=== PATIENT | male | born 1965 | race Caucasian/White ===

== ENCOUNTER 2016-11-06 12:28 | Emergency (ER) | payer OTHER ==
[~2016-11-06] VITALS: Ht 170.1 cm; Wt 59.0 kg
[~2016-11-06 12:28] MED LIST: ACYCLOVIR400 MG PO; ADDERALL5 MG PO; AMARYL2 MG PO; AMOXICILLIN500 MG PO; ANTIVERT25 MG PO; ASPIR-TRIN325 MG PO; ASPIRIN325 MG PO; ATARAX,VISTARIL50 MG PO; AVPAK AZITHROM250 MG PO; B-1100 MG PO; BENADRYL ALLERG25 M5 PO; BP MED; BUSPAR15 MG PO; CLARITIN10 MG PO; CLONAZEPAM1 MG PO; CLONAZEPAM2 MG PO; CYCLOBENZAPR TAB 10M; CYCLOBENZAPRINE10 MG PO; DOXYCYCLINE HY100 M3 PO; DOXYCYCLINE100 MG PO; FLEXERIL10 MG PO; FLEXERIL5 MG PO; FLUTICASON0.05 MG/AC NAS; FOLIC ACID1 MG PO; GABAPENTIN300 MG PO; GABAPENTIN400 MG PO; GEODON80 MG PO; GLIPIZIDE5 MG PO; GLUCOPHAGE1000 MG PO; GLUCOPHAGE500 M1 PO; HYDROCODONE BIT1 T11 PO; INSULIN SYRINGE1 DEV IJ; JANUVIA100 MG PO; KLONOPIN1 M1 PO; KLONOPIN2 MG; KLONOPIN2 MG PO; LANTUS100 U/ML SC; LEADER NIC21 MG/24 H TD; LEVAQUIN750 M1 PO; LEVOFLOXACIN500 MG PO; LISINOPRIL2.5 MG PO; LOPRESSOR25 MG PO; Lopressor25 MG PO; MELATONIN5 M7 PO; METFORMIN500 MG PO; METOPROLOL25 MG PO; MOTRIN800 MG PO; NAPROSYN250 MG PO; NASONEX0.05 MG/AC NAS; NORCO 325 MG-51 TAB PO; ONDANSETRON4 MG PO; OYSTER SHELL CA1 T20 PO; PEN-V500 MG PO; PEPCID20 MG PO; PREDNISONE10 MG PO; PREVACID30 M2 PO; PRILOSEC20 MG PO; SIMVASTATIN20 MG PO; SYNTHROID,LEVO25 MCG PO; SYNTHROID25 MCG PO; THERA1 TAB PO; TRAD5TAB1 PO; ULTRAM50 MG PO; VICODIN 5/500 505 MG PO; VISTARIL50 MG PO; VIT D2 PO; VITAMIN B-11 TAB PO; VITAMIN D50000 IU PO; ZIPRASIDONE; ZOCOR20 MG PO; ZOVIRAX400 MG PO
[2016-11-06] MEDS ORDERED: HYDROCODONE BIT1 T11 PO (14:10)
[2016-12-30] MEDS ORDERED: PEPCID20 MG PO (14:19)
== END 2016-11-06 14:18 | disposition home or self-care (01) ==
LOC: ED 12:28
DX: S22.31XA Fracture of one rib, right side, initial encounter for closed fracture (principal); E11.9 Type 2 diabetes mellitus without complications; I10 Essential (primary) hypertension; F17.200 Nicotine dependence, unspecified, uncomplicated; Z98.890 Other specified postprocedural states; Z79.4 Long term (current) use of insulin; Z91.041 Radiographic dye allergy status; W10.9XXA Fall (on) (from) unspecified stairs and steps, initial encounter; Y93.89 Activity, other specified; Y92.89 Other specified places as the place of occurrence of the external cause; Y99.9 Unspecified external cause status

== ENCOUNTER 2017-08-11 08:55 | Emergency (ER) | payer OTHER ==
[~2017-08-11] VITALS: Ht 170.1 cm; Wt 72.6 kg
[2017-08-11 09:44] LABS: BASO # 0.1 10*3/uL (0.0-0.1); BASO % 0.9 % (0.0-1.0); EOS # 0.7 10*3/uL (0.0-0.4); EOS % 7.2 % (1.0-4.0); HEMATOCRIT 45.4 % (42.0-52.0); HEMOGLOBIN 16.2 g/dl (14.0-18.0); LYMPH % 30.2 % (27.0-41.0); MEAN CELL VOLUME 90.6 fl (80.0-94.0); MEAN CORPUSCULAR HGB 32.3 pg (27.0-31.0); MEAN CORPUSCULAR HGB CONC 35.7 g/dl (33.0-37.0); MEAN PLATELET VOLUME 8.4 fl (9.6-12.3); MONO # 0.7 10*3/uL (0.1-1.0); MONO % 6.9 % (3.0-9.0); NEUT # 5.3 10*3/uL (2.3-7.9); NEUT % 54.5 % (47.0-73.0); PLATELET COUNT AUTOMATED 277 10*3/uL (130-400); RED BLOOD COUNT 5.01 10*6/uL (4.50-5.90); RED CELL DISTRI WIDTH 13.2 % (0-14.5); WHITE BLOOD COUNT 9.8 10*3/uL (4.8-10.8)
[2017-08-11 09:59] LABS: ALBUMIN 3.8 gm/dl (3.1-4.5); ALKALINE PHOSPHATASE 120 U/L (45-117); BUN 6 mg/dl (7-24); CHLORIDE 99 mmol/L (98-107); MAGNESIUM 1.4 mg/dL (1.5-2.1); POTASSIUM 4.7 mmol/L (3.5-5.1); SGOT/AST 25 IU/L (3-35); SGPT/ALT 34 U/L (12-78); SODIUM 131 mmol/L (136-145); TOTAL PROTEIN 7.5 gm/dL (6.4-8.2)
[2017-08-11 10:00] LABS: TROPONIN I < 0.015 ng/ml (<0.045)
[2017-08-11] MEDS ORDERED: DUONEB 3 MG/3 ML3 M1 INH (11:00)
[2017-08-11] MEDS ORDERED: PREDNISONE20 M1 PO (11:00)
[2017-08-11] MEDS ORDERED: VIBRAMYCIN100 MG PO (11:00)
== END 2017-08-11 11:18 | disposition home or self-care (01) ==
LOC: ED 08:55
PROVIDERS: Nurse Practitioner Family
DX: J44.1 Chronic obstructive pulmonary disease with (acute) exacerbation (principal); F17.200 Nicotine dependence, unspecified, uncomplicated; Z91.041 Radiographic dye allergy status; Z79.899 Other long term (current) drug therapy

== ENCOUNTER 2017-08-14 01:02 | Inpatient (IN) | payer OTHER ==
[2017-08-14] VITALS (7 sets, daily range): BP systolic 113–149; BP diastolic 65–84
[~2017-08-14] VITALS: Ht 170.1 cm; Wt 67.7 kg
[~2017-08-14 01:02] MED LIST changes: +DUONEB 3 MG/3 ML3 M1 INH; +PREDNISONE20 M1 PO; +VIBRAMYCIN100 MG PO
[2017-08-14 01:31] LABS: BASO % 0.2 % (0.0-1.0); EOS # 0.1 10*3/uL (0.0-0.4); EOS % 0.9 % (1.0-4.0); HEMATOCRIT 44.4 % (42.0-52.0); HEMOGLOBIN 15.5 g/dl (14.0-18.0); LYMPH # 3.3 10*3/uL (1.3-4.4); LYMPH % 22.7 % (27.0-41.0); MEAN CELL VOLUME 92.3 fl (80.0-94.0); MEAN CORPUSCULAR HGB 32.2 pg (27.0-31.0); MEAN CORPUSCULAR HGB CONC 34.9 g/dl (33.0-37.0); MEAN PLATELET VOLUME 8.6 fl (9.6-12.3); MONO # 1.2 10*3/uL (0.1-1.0); MONO % 8.4 % (3.0-9.0); NEUT # 9.7 10*3/uL (2.3-7.9); NEUT % 67.5 % (47.0-73.0); PLATELET COUNT AUTOMATED 252 10*3/uL (130-400); RED BLOOD COUNT 4.81 10*6/uL (4.50-5.90); RED CELL DISTRI WIDTH 13.5 % (0-14.5); WHITE BLOOD COUNT 14.4 10*3/uL (4.8-10.8)
[2017-08-14 01:51] LABS: ALBUMIN 3.5 gm/dl (3.1-4.5); ALKALINE PHOSPHATASE 109 U/L (45-117); BUN 9 mg/dl (7-24); CHLORIDE 93 mmol/L (98-107); CREATININE 0.76 mg/dL (0.70-1.30); POTASSIUM 4.2 mmol/L (3.5-5.1); SGOT/AST 14 IU/L (3-35); SGPT/ALT 29 U/L (12-78); SODIUM 128 mmol/L (136-145); TOTAL PROTEIN 7.1 gm/dL (6.4-8.2)
[2017-08-14 01:53] LABS: TROPONIN I < 0.015 ng/ml (<0.045)
--- NOTE | 2017-08-14 02:23 | NUR ---
PATIENT WITH INITIAL CHESP PAIN UPON ARRIVAL STATES IT IS MORE EPIGATRIC NOW "LIKE A BURNING" PT SITTING IN HIGH FOWLERS ON AT 3LPM
--- NOTE | 2017-08-14 04:00 | NUR ---
A 51, admitted to 5E, under the services of KELSI Car DO with a diagnosis of HYPERGLYCEMIA, HYPONATREMIA, COPD EXACERBATION, CHEST PAIN. Chief complaint is SHORTNESS OF BREATH. Patient arrived via bed from ER. Monitor applied. Initial assessment completed. Vital signs taken and recorded. KELSI CAR DO notified of admission to the unit. Orders received. See assessment for past medical history, medications and allergies. Patient and/or family oriented to unit. visitation policy reviewed. Clothing/patient valuable form completed. ARISTIDES MARTINEZ
--- NOTE | 2017-08-14 04:33 | NUR ---
DR. TATUM NOTIFIED OF ADMISSION TO FLOOR FOR ORDERS. MEDICATIONS NEED VERIFIED FROM HERSCHE BLOORS ON 7A SHIFT. WILL PASS ON TO DAYLIGHT NURSE.
[2017-08-14 06:19] LABS: BASO % 0.3 % (0.0-1.0); EOS # 0.2 10*3/uL (0.0-0.4); HEMATOCRIT 45.4 % (42.0-52.0); HEMOGLOBIN 15.8 g/dl (14.0-18.0); LYMPH # 3.8 10*3/uL (1.3-4.4); LYMPH % 25.8 % (27.0-41.0); MEAN CELL VOLUME 91.5 fl (80.0-94.0); MEAN CORPUSCULAR HGB 31.9 pg (27.0-31.0); MEAN CORPUSCULAR HGB CONC 34.8 g/dl (33.0-37.0); MONO # 1.1 10*3/uL (0.1-1.0); MONO % 7.7 % (3.0-9.0); NEUT # 9.6 10*3/uL (2.3-7.9); NEUT % 64.7 % (47.0-73.0); PLATELET COUNT AUTOMATED 295 10*3/uL (130-400); RED BLOOD COUNT 4.96 10*6/uL (4.50-5.90); RED CELL DISTRI WIDTH 13.4 % (0-14.5); WHITE BLOOD COUNT 14.8 10*3/uL (4.8-10.8)
[2017-08-14 06:42] LABS: ALBUMIN 3.6 gm/dl (3.1-4.5); ALKALINE PHOSPHATASE 118 U/L (45-117); BUN 9 mg/dl (7-24); CHLORIDE 94 mmol/L (98-107); CHOLESTEROL 102 mg/dL (<200); CREATININE 0.76 mg/dL (0.70-1.30); FREE T4 1.16 ng/dl (0.76-1.46); HDL CHOLESTEROL 65 mg/dl (40-60); LDL CHOLESTEROL 15 mg/dL (9-159); MAGNESIUM 1.5 mg/dL (1.5-2.1); PHOSPHOROUS 1.9 mg/dL (2.5-4.9); POTASSIUM 3.8 mmol/L (3.5-5.1); SGOT/AST 15 IU/L (3-35); SGPT/ALT 28 U/L (12-78); SODIUM 128 mmol/L (136-145); TOTAL PROTEIN 7.5 gm/dL (6.4-8.2); TRIGLYCERIDES 110 mg/dl (<150); VLDL CHOLESTEROL 22 mg/dL (6-40)
[2017-08-14 06:46] LABS: ACT PARTIAL THROMBO TIME 24.6 SECONDS (20.8-31.5)
[2017-08-14 06:47] LABS: THYROID STIM HORMONE (HS) 0.788 uIU/ml (0.358-4.75)
--- NOTE | 2017-08-14 07:47 | NUR ---
Shift chart check completed.
[2017-08-14] MEDS ORDERED: OMEPRAZOLE10 MG PO (08:15)
[2017-08-14] MEDS ORDERED: ZESTRIL2.5 MG PO (08:18)
[2017-08-14] MEDS ORDERED: ATIVAN1 MG PO (08:18)
[2017-08-14] MEDS ORDERED: VITAMIN D32000 UNI1 PO (08:20)
--- NOTE | 2017-08-14 08:22 | NUR ---
MEDS VERIFIED WITH BOTTLES FROM HOME. PHARMACY IS [facility] AND THEY ARE NOT OPEN UNTIL TUESDAY AM. ONLY MEDS THAT BOTTLES WERE PROVIDED WERE VERIFIED.
--- NOTE | 2017-08-14 08:30 | NUR ---
WENT IN PATIENT'S ROOM. HE IS SWEATING PROFUSELY. CHECKED HIS BGM. IT WAS 137. CHECKED HIS VITAL SIGNS. THEY ARE 97.8-80-24-145/90-94% ON 3L NC. PATIENT THINKS HE IS HAVING A PANIC ATTACK. NOTIFIED DR LEVIN.
--- NOTE | 2017-08-14 08:50 | NUR ---
DR Francis MILNER CALLED AND ASKED WHEN PATIENT'S LAST DRINK WAS. HE STATED THAT PATIENT IS AN ALCOHOLIC. I WAS UNAWARE. I WENT IN AND SPOKE WITH THE PATIENT. HE ADVISED HE ONLY DRINKS OCCAS. HE STATED HIS LAST DRINK WAS 4 DAYS AGO AND THAT HE HAS BEEN VOMITING FOR [address] Francis MILNER.
[2017-08-14 08:59] LABS: VITAMIN D, 25-HYDROXY 29.6 ng/mL (30-100)
--- NOTE | 2017-08-14 09:15 | NUR ---
PATIENT MEDICATED WITH 1 TIME DOSE OF ATIVAN. PATIENT KEEPS TALKING THAT HE TRIED TO DRINK A BOTTLE OF ALCOHOL 4 DAYS AGO BUT PROCEEDED TO VOMIT AFTER DRINKING. I ADVISED PATIENT THAT VOMITING DOESN'T MEAN HE DIDN'T HAVE ANY IN HIS SYSTEM OR THAT HE WOULD NOT HAVE WITHDRAW. I CONTINUED SPEAKING WITH THE PATIENT AND ASKING IF HE THOUGHT HE COULD BE HAVING ALCOHOL WITHDRAW. HE STATED MAYBE BUT HE DOESN'T DRINK THAT OFTEN. WILL CONTINUE TO MONITOR
--- NOTE | 2017-08-14 10:00 | NUR ---
PATIENT IS MORE COMFORTABLE AT THIS TIME. THE ATIVAN WAS EFFECTIVE. PATIENT STATES HE FEELS BETTER. HE DOES HAVE MILD TREMORS AT THIS TIME. WILL START AN MVI BAG ONCE IT COMES TO THE FLOOR.
--- NOTE | 2017-08-14 14:36 | NUR ---
PATIENT MEDICATED WITH IVP ATIVAN FOR TREMORS AND ANXIETY RELATED TO D/T
--- NOTE | 2017-08-14 15:36 | NUR ---
PATIENT STATES MEDICATION EFFECTIVE
[2017-08-14 17:46] LABS: BILIRUBIN NEGATIVE (NEGATIVE); BLOOD NEGATIVE (NEGATIVE); CLARITY CLEAR (CLEAR); COLOR YELLOW (YELLOW); GLUCOSE 2+ (NEGATIVE); KETONE NEGATIVE (NEGATIVE); LEUKO ESTERASE NEGATIVE (NEGATIVE); NITRITE NEGATIVE (NEGATIVE); SPECIFIC GRAVITY 1.015 (1.005-1.030); UROBILINOGEN 0.2 E.U./dl (0.2-1.0)
[2017-08-14 18:17] LABS: WBC 0-2 wbc/hpf (0-5)
--- NOTE | 2017-08-14 21:00 | NUR ---
UNABLE TO VERIFY MEDICATIONS D/T PHARMACY CLOSED. PATIENT WITHOUT MEDLIST AND UNSURE OF MEDICATIONS. [facility]
--- NOTE | 2017-08-14 21:41 | NUR ---
PATIENT REQUESTED ATIVAN FOR BODY TREMORS, GIVEN AT 2141 PER ORDERS. PATIENT STATED " HIS BODY WAS GETTING AWAY FROM HIM ".
--- NOTE | 2017-08-14 22:30 | NUR ---
PATIENT STATED THAT THE ATIVAN WAS EFFECTIVE, TREMORS AND SWEATING HAVE CALMED.
--- NOTE | 2017-08-14 23:38 | NUR ---
24 HR chart check completed.
[2017-08-15] VITALS: BP 101/59
[2017-08-15 06:24] LABS: BASO % 0.1 % (0.0-1.0); HEMATOCRIT 44.3 % (42.0-52.0); HEMOGLOBIN 15.4 g/dl (14.0-18.0); LYMPH # 2.1 10*3/uL (1.3-4.4); LYMPH % 15.7 % (27.0-41.0); MEAN CELL VOLUME 91.2 fl (80.0-94.0); MEAN CORPUSCULAR HGB 31.7 pg (27.0-31.0); MEAN CORPUSCULAR HGB CONC 34.8 g/dl (33.0-37.0); MONO # 0.9 10*3/uL (0.1-1.0); MONO % 6.8 % (3.0-9.0); NEUT # 10.1 10*3/uL (2.3-7.9); NEUT % 76.7 % (47.0-73.0); PLATELET COUNT AUTOMATED 280 10*3/uL (130-400); RED BLOOD COUNT 4.86 10*6/uL (4.50-5.90); RED CELL DISTRI WIDTH 13.1 % (0-14.5); WHITE BLOOD COUNT 13.2 10*3/uL (4.8-10.8)
[2017-08-15 06:42] LABS: ALBUMIN 3.4 gm/dl (3.1-4.5); ALKALINE PHOSPHATASE 98 U/L (45-117); BUN 15 mg/dl (7-24); CHLORIDE 93 mmol/L (98-107); CREATININE 0.66 mg/dL (0.70-1.30); PHOSPHOROUS 3.1 mg/dL (2.5-4.9); POTASSIUM 4.6 mmol/L (3.5-5.1); SGOT/AST 17 IU/L (3-35); SGPT/ALT 28 U/L (12-78); SODIUM 130 mmol/L (136-145); TOTAL PROTEIN 6.5 gm/dL (6.4-8.2)
--- NOTE | 2017-08-15 07:50 | NUR ---
PATIENT RESTING IN BED CALL LIGHT IN REACH BS WAS 257 PATIENT WAS COVERED WITH 10 UNITS. IV ATIVAN GIVEN AT THIS TIME WILL REASSESS FOR EFFECTIVENSS. SEE SHIFT ASSESSMENT
[2017-08-15 08:00] VITALS: BP 118/78
--- NOTE | 2017-08-15 09:00 | NUR ---
Sausage Smoker in to talk to patient. Patient states lives at home with girlfriend. There are fefw steps in the home. Physician: [facility]acy: [facility] Home health services: none Patient's level of ADLs: INDEPENDENT Patient has working utilities: all working DME: none Follow-up physician's appointment after d/c: will be made by hospitalist nurse director upon discharge Does patient want to access PORTAL?: no Discharge plan discussed with patient, patient lives at home with girlfriend, states he gets around fine, patient states he will be going back home and denies any home needs. ASHLEY GALO
[2017-08-15 12:00] VITALS: BP 112/68
[2017-08-15 16:00] VITALS: BP 126/83
--- NOTE | 2017-08-15 18:59 | NUR ---
PATIENT ARRIVED TO FLOOR
[2017-08-15 20:00] VITALS: BP 107/68
--- NOTE | 2017-08-15 20:30 | NUR ---
RESTING IN BED. RESPIRATIONS EASY. LUNGS DIMINISHED WITH FAINT EXP WHEEZES. PULSE OX 96% RA. VISIBLE TREMORS NOTED. TEDS IN PLACE. CALL LIGHT WITHIN REACH. NO VOICED COMPLAINTS
--- NOTE | 2017-08-15 20:40 | NUR ---
Patient displaying withdrawal symptoms, including: irritability, anxiousness, restlessness and agitation. Patient also reports the following symptoms of withdrawal: cravings. Scheduled/PRN medications provided, SEE EMAR. Will continue to monitor medication effectiveness.
--- NOTE | 2017-08-15 23:00 | NUR ---
Patient resting. Responding to scheduled medications with fewer complaints of pain and anxiety.
[2017-08-16] VITALS: BP 116/60
--- NOTE | 2017-08-16 00:30 | NUR ---
SLEEPING. RESPIRATIONS EASY. VSS. CALL LIGHT WITHIN REACH
--- NOTE | 2017-08-16 05:30 | NUR ---
Patient displaying withdrawal symptoms, including: irritability, anxiousness, restlessness and agitation. PRN medication provided, SEE EMAR. Will continue to monitor medication effectiveness.
[2017-08-16 06:07] LABS: BASO % 0.1 % (0.0-1.0); HEMATOCRIT 44.1 % (42.0-52.0); HEMOGLOBIN 15.8 g/dl (14.0-18.0); LYMPH # 1.8 10*3/uL (1.3-4.4); LYMPH % 15.9 % (27.0-41.0); MEAN CELL VOLUME 91.9 fl (80.0-94.0); MEAN CORPUSCULAR HGB 32.9 pg (27.0-31.0); MEAN CORPUSCULAR HGB CONC 35.8 g/dl (33.0-37.0); MEAN PLATELET VOLUME 8.9 fl (9.6-12.3); MONO # 0.7 10*3/uL (0.1-1.0); MONO % 5.9 % (3.0-9.0); NEUT # 8.6 10*3/uL (2.3-7.9); NEUT % 77.4 % (47.0-73.0); PLATELET COUNT AUTOMATED 265 10*3/uL (130-400); RED CELL DISTRI WIDTH 12.8 % (0-14.5); WHITE BLOOD COUNT 11.1 10*3/uL (4.8-10.8)
--- NOTE | 2017-08-16 06:30 | NUR ---
Patient resting. Responding to scheduled medications with fewer complaints of pain and anxiety.
[2017-08-16 06:34] LABS: ALBUMIN 3.2 gm/dl (3.1-4.5); BUN 15 mg/dl (7-24); CHLORIDE 90 mmol/L (98-107); CREATININE 0.67 mg/dL (0.70-1.30); POTASSIUM 4.5 mmol/L (3.5-5.1); SGOT/AST 42 IU/L (3-35); SGPT/ALT 59 U/L (12-78); SODIUM 126 mmol/L (136-145); TOTAL PROTEIN 6.3 gm/dL (6.4-8.2)
[2017-08-16 06:35] LABS: ALKALINE PHOSPHATASE 93 U/L (45-117)
[2017-08-16 08:00] VITALS: BP 106/66
--- NOTE | 2017-08-16 09:00 | NUR ---
case management visits with patient, patient denies any home needs
[2017-08-16 12:00] VITALS: BP 118/82
--- NOTE | 2017-08-16 13:50 | NUR ---
PATIENT REQUESTED ATIVAN FOR TREMORS AND ANXIOUSNESS. GIVEN PER ORDER.
[2017-08-16] MEDS ORDERED: BASAGLAR SC (14:31)
--- NOTE | 2017-08-16 14:32 | NUR ---
[facility] CALLED AT REQUEST OF PYDWAYNEAN TO VERIFY MEDICATIONS D/T CONFLICTS OF DOSING. MED REC UPDATED BY [facility] NURSE DIRECTOR Nolvia CRENSHAW RN.
--- NOTE | 2017-08-16 14:45 | NUR ---
PATIENT STATES MEDICATION EFFECT, HAS CALMED.
[2017-08-16 15:41] LABS: URINE CHLORIDE, RANDOM 26 mmol/L
[2017-08-16 16:00] VITALS: BP 104/64
--- NOTE | 2017-08-16 19:40 | NUR ---
PT. AWAKE, ALERT, AND ORIENTED X 3. PT. SITTING ON BEDSIDE AT THIS TIME. PT. CURRENTLY DENIES CP, SOB, OR PAIN. CALL LIGHT WITHIN REACH, BED IN LOWEST POSITION, WHEELS LOCKED. SEE SHIFT ASSESSMENT.
[2017-08-16 20:00] VITALS: BP 114/72
[2017-08-17 00:01] VITALS: BP 114/66
--- NOTE | 2017-08-17 03:52 | NUR ---
24 HOUR CHART CHECK COMPLETE.
--- NOTE | 2017-08-17 05:36 | NUR ---
PT. REQUESTED ATIVAN FOR TREMORS AND NERVOUSNESS, WILL EVALUATE FOR EFFECTIVENESS.
[2017-08-17 06:11] LABS: BASO % 0.1 % (0.0-1.0); EOS % 0.1 % (1.0-4.0); HEMATOCRIT 42.6 % (42.0-52.0); HEMOGLOBIN 14.9 g/dl (14.0-18.0); LYMPH # 1.6 10*3/uL (1.3-4.4); LYMPH % 13.4 % (27.0-41.0); MEAN CELL VOLUME 92.2 fl (80.0-94.0); MEAN CORPUSCULAR HGB 32.3 pg (27.0-31.0); MONO # 0.9 10*3/uL (0.1-1.0); MONO % 8.1 % (3.0-9.0); NEUT % 77.9 % (47.0-73.0); PLATELET COUNT AUTOMATED 282 10*3/uL (130-400); RED BLOOD COUNT 4.62 10*6/uL (4.50-5.90); RED CELL DISTRI WIDTH 12.9 % (0-14.5); WHITE BLOOD COUNT 11.6 10*3/uL (4.8-10.8)
[2017-08-17 06:27] LABS: ALBUMIN 3.1 gm/dl (3.1-4.5); ALKALINE PHOSPHATASE 89 U/L (45-117); BUN 17 mg/dl (7-24); CHLORIDE 96 mmol/L (98-107); CREATININE 0.69 mg/dL (0.70-1.30); POTASSIUM 4.6 mmol/L (3.5-5.1); SGOT/AST 23 IU/L (3-35); SGPT/ALT 59 U/L (12-78); SODIUM 131 mmol/L (136-145); TOTAL PROTEIN 6.1 gm/dL (6.4-8.2)
[2017-08-17 08:00] VITALS: BP 136/80
[2017-08-17] MEDS ORDERED: AVPAK AZITHROM250 MG PO (13:58)
[2017-08-17] MEDS ORDERED: ATIVAN1 MG PO (13:58)
--- NOTE | 2017-08-17 14:15 | NUR ---
[facility] Discharge instructions reviewed with patient/family. Patient receptive and verbalizes understanding. Follow-up care arranged. Written instructions given to patient/family. VENKAT PIERRE
== END 2017-08-17 14:12 | disposition home or self-care (01) | DRG 871 ==
LOC: ED 01:02 → EDHOLD 03:14 → 5E 03:14
PROVIDERS: Emergency Medicine; Hospitalist; Internal Medicine; ADMIT Internal Medicine
DX: A41.9 Sepsis, unspecified organism (principal); J96.20 Acute and chronic respiratory failure, unspecified whether with hypoxia or hypercapnia; F10.231 Alcohol dependence with withdrawal delirium; E44.0 Moderate protein-calorie malnutrition; J44.1 Chronic obstructive pulmonary disease with (acute) exacerbation; E87.1 Hypo-osmolality and hyponatremia; E11.42 Type 2 diabetes mellitus with diabetic polyneuropathy; E87.8 Other disorders of electrolyte and fluid balance, not elsewhere classified; D64.9 Anemia, unspecified; I10 Essential (primary) hypertension; F41.0 Panic disorder [episodic paroxysmal anxiety]; K21.9 Gastro-esophageal reflux disease without esophagitis; E78.00 Pure hypercholesterolemia, unspecified; E03.9 Hypothyroidism, unspecified; E11.65 Type 2 diabetes mellitus with hyperglycemia; E83.39 Other disorders of phosphorus metabolism; Z91.041 Radiographic dye allergy status; Z83.3 Family history of diabetes mellitus; Z81.1 Family history of alcohol abuse and dependence; Z82.0 Family history of epilepsy and other diseases of the nervous system; Z71.6 Tobacco abuse counseling; Z79.4 Long term (current) use of insulin; Z68.23 Body mass index [BMI] 23.0-23.9, adult

== ENCOUNTER 2017-11-02 14:13 | Inpatient (IN) | payer OTHER ==
[~2017-11-02] VITALS: Ht 170.1 cm; Wt 67.7 kg
[2017-11-02] VITALS (8 sets, daily range): BP systolic 104–124; BP diastolic 42–78
[~2017-11-02 14:13] MED LIST changes: +ATIVAN1 MG PO; +BASAGLAR SC; +MELATONIN10 M2 PO; -MELATONIN5 M7 PO; +OMEPRAZOLE10 MG PO; +VITAMIN D32000 UNI1 PO; +ZESTRIL2.5 MG PO
[2017-11-02 15:29] LABS: BASO # 0.1 10*3/uL (0.0-0.1); BASO % 0.5 % (0.0-1.0); EOS # 0.4 10*3/uL (0.0-0.4); HEMATOCRIT 41.4 % (42.0-52.0); HEMOGLOBIN 14.8 g/dl (14.0-18.0); LYMPH # 3.1 10*3/uL (1.3-4.4); LYMPH % 16.8 % (27.0-41.0); MEAN CORPUSCULAR HGB 32.5 pg (27.0-31.0); MEAN CORPUSCULAR HGB CONC 35.7 g/dl (33.0-37.0); MEAN PLATELET VOLUME 8.4 fl (9.6-12.3); MONO # 0.9 10*3/uL (0.1-1.0); MONO % 4.8 % (3.0-9.0); NEUT # 13.8 10*3/uL (2.3-7.9); NEUT % 75.5 % (47.0-73.0); PLATELET COUNT AUTOMATED 222 10*3/uL (130-400); RED BLOOD COUNT 4.55 10*6/uL (4.50-5.90); RED CELL DISTRI WIDTH 13.2 % (0-14.5); WHITE BLOOD COUNT 18.2 10*3/uL (4.8-10.8)
[2017-11-02 15:49] LABS: BILIRUBIN NEGATIVE (NEGATIVE); BLOOD NEGATIVE (NEGATIVE); CLARITY CLEAR (CLEAR); COLOR YELLOW (YELLOW); GLUCOSE 1+ (NEGATIVE); KETONE TRACE (NEGATIVE); LEUKO ESTERASE NEGATIVE (NEGATIVE); NITRITE NEGATIVE (NEGATIVE); PH 5.5 (5.0-9.0); SPECIFIC GRAVITY <= 1.005 (1.005-1.030); UROBILINOGEN 0.2 E.U./dl (0.2-1.0)
[2017-11-02 15:55] LABS: ALKALINE PHOSPHATASE 137 U/L (45-117); BUN 15 mg/dl (7-24); CHLORIDE 93 mmol/L (98-107); CREATININE 1.05 mg/dL (0.70-1.30); POTASSIUM 4.1 mmol/L (3.5-5.1); SGOT/AST 30 IU/L (3-35); SGPT/ALT 47 U/L (12-78); SODIUM 125 mmol/L (136-145); TOTAL PROTEIN 7.3 gm/dL (6.4-8.2)
[2017-11-02 15:57] LABS: URINE AMPHETAMINES < 1000 (1000ng/ml); URINE BARBITURATES < 200 (200ng/ml); URINE BENZODIAZEPINES < 200 (200ng/ml); URINE CANNABINOIDS (THC) < 50 (50ng/ml); URINE COCAINE < 300 (300ng/ml); URINE METHADONE < 300 (300ng/ml); URINE OPIATES < 300 (300ng/ml)
[2017-11-02 16:00] LABS: URINE PHENCYCLIDINE < 25 (25ng/ml)
[2017-11-02 16:00] LABS: ETHYL ALCOHOL < 3.0 mg/dl (<3)
[2017-11-02 16:30] LABS: HYALINE CAST 0-2; RBC 0-2 rbc/hpf (0-2); WBC 0-2 wbc/hpf (0-5)
[2017-11-02] MEDS ORDERED: DOXEPIN HCL25 MG PO (18:32)
[2017-11-02] MEDS ORDERED: KLONOPIN0.5 MG PO (18:33)
[2017-11-03] VITALS: BP 107/70
[2017-11-03 04:00] VITALS: BP 112/70
[2017-11-03 05:33] LABS: ALBUMIN 3.6 gm/dl (3.1-4.5); BUN 13 mg/dl (7-24); CHLORIDE 100 mmol/L (98-107); CHOLESTEROL 82 mg/dL (<200); CREATININE 0.74 mg/dL (0.70-1.30); PHOSPHOROUS 3.7 mg/dL (2.5-4.9); POTASSIUM 4.1 mmol/L (3.5-5.1); SGOT/AST 21 IU/L (3-35); SGPT/ALT 39 U/L (12-78); SODIUM 132 mmol/L (136-145); TOTAL PROTEIN 6.4 gm/dL (6.4-8.2)
[2017-11-03 05:35] LABS: ALKALINE PHOSPHATASE 117 U/L (45-117); HDL CHOLESTEROL 46 mg/dl (40-60); LDL CHOLESTEROL 7 mg/dL (9-159); TRIGLYCERIDES 146 mg/dl (<150); VLDL CHOLESTEROL 29 mg/dL (6-40)
[2017-11-03 06:07] LABS: BASO # 0.1 10*3/uL (0.0-0.1); BASO % 0.5 % (0.0-1.0); EOS # 0.8 10*3/uL (0.0-0.4); EOS % 6.8 % (1.0-4.0); HEMATOCRIT 39.2 % (42.0-52.0); HEMOGLOBIN 13.8 g/dl (14.0-18.0); LYMPH # 3.8 10*3/uL (1.3-4.4); LYMPH % 33.4 % (27.0-41.0); MEAN CELL VOLUME 93.1 fl (80.0-94.0); MEAN CORPUSCULAR HGB 32.8 pg (27.0-31.0); MEAN CORPUSCULAR HGB CONC 35.2 g/dl (33.0-37.0); MONO # 0.8 10*3/uL (0.1-1.0); MONO % 7.2 % (3.0-9.0); NEUT # 5.9 10*3/uL (2.3-7.9); NEUT % 51.7 % (47.0-73.0); PLATELET COUNT AUTOMATED 235 10*3/uL (130-400); RED BLOOD COUNT 4.21 10*6/uL (4.50-5.90); RED CELL DISTRI WIDTH 13.3 % (0-14.5); WHITE BLOOD COUNT 11.4 10*3/uL (4.8-10.8)
[2017-11-03 08:00] VITALS: BP 120/70
[2017-11-03 08:31] LABS: VITAMIN D, 25-HYDROXY 14.1 ng/mL (30-100)
[2017-11-03 12:00] VITALS: BP 114/72
[2017-11-03 16:00] VITALS: BP 119/77
[2017-11-03 20:00] VITALS: BP 124/82
[2017-11-04] VITALS: BP 124/83
[2017-11-04 04:00] VITALS: BP 108/72
[2017-11-04 05:36] LABS: ALBUMIN 3.8 gm/dl (3.1-4.5); BUN 10 mg/dl (7-24); CHLORIDE 98 mmol/L (98-107); CREATININE 0.58 mg/dL (0.70-1.30); PHOSPHOROUS 3.3 mg/dL (2.5-4.9); POTASSIUM 4.1 mmol/L (3.5-5.1); SODIUM 132 mmol/L (136-145)
[2017-11-04 06:13] LABS: BASO # 0.1 10*3/uL (0.0-0.1); BASO % 0.6 % (0.0-1.0); EOS # 0.8 10*3/uL (0.0-0.4); EOS % 5.2 % (1.0-4.0); HEMOGLOBIN 13.8 g/dl (14.0-18.0); LYMPH % 26.7 % (27.0-41.0); MEAN CELL VOLUME 95.1 fl (80.0-94.0); MEAN CORPUSCULAR HGB CONC 33.7 g/dl (33.0-37.0); MEAN PLATELET VOLUME 9.1 fl (9.6-12.3); MONO % 6.6 % (3.0-9.0); NEUT # 9.1 10*3/uL (2.3-7.9); NEUT % 60.4 % (47.0-73.0); PLATELET COUNT AUTOMATED 235 10*3/uL (130-400); RED BLOOD COUNT 4.31 10*6/uL (4.50-5.90); RED CELL DISTRI WIDTH 13.4 % (0-14.5); WHITE BLOOD COUNT 15.1 10*3/uL (4.8-10.8)
[2017-11-04 08:00] VITALS: BP 127/81
[2017-11-04 12:00] VITALS: BP 107/73
[2017-11-04 16:00] VITALS: BP 94/53
[2017-11-04 20:00] VITALS: BP 98/57
[2017-11-05] VITALS: BP 127/77
[2017-11-05 06:39] LABS: BASO # 0.1 10*3/uL (0.0-0.1); BASO % 0.6 % (0.0-1.0); EOS # 0.7 10*3/uL (0.0-0.4); EOS % 7.6 % (1.0-4.0); HEMATOCRIT 39.7 % (42.0-52.0); HEMOGLOBIN 13.5 g/dl (14.0-18.0); LYMPH # 3.1 10*3/uL (1.3-4.4); LYMPH % 31.9 % (27.0-41.0); MEAN CELL VOLUME 93.6 fl (80.0-94.0); MEAN CORPUSCULAR HGB 31.8 pg (27.0-31.0); MEAN PLATELET VOLUME 8.4 fl (9.6-12.3); MONO # 0.7 10*3/uL (0.1-1.0); NEUT % 52.6 % (47.0-73.0); PLATELET COUNT AUTOMATED 217 10*3/uL (130-400); RED BLOOD COUNT 4.24 10*6/uL (4.50-5.90); RED CELL DISTRI WIDTH 13.2 % (0-14.5); WHITE BLOOD COUNT 9.6 10*3/uL (4.8-10.8)
[2017-11-05 06:51] LABS: ALBUMIN 3.5 gm/dl (3.1-4.5); BUN 9 mg/dl (7-24); CHLORIDE 97 mmol/L (98-107); CREATININE 0.62 mg/dL (0.70-1.30); PHOSPHOROUS 2.6 mg/dL (2.5-4.9); POTASSIUM 4.3 mmol/L (3.5-5.1); SODIUM 130 mmol/L (136-145)
[2017-11-05 08:13] VITALS: BP 119/70
== END 2017-11-05 12:29 | disposition home or self-care (01) | DRG 897 ==
LOC: ED 14:13 → EDHOLD 16:39 → ICCU 16:39 → 4E 11-04 13:25
PROVIDERS: Emergency Medicine; Internal Medicine Hospice and Palliative Medicine; Internal Medicine Nephrology
DX: F10.232 Alcohol dependence with withdrawal with perceptual disturbance (principal); D72.1 Eosinophilia; E11.40 Type 2 diabetes mellitus with diabetic neuropathy, unspecified; E87.8 Other disorders of electrolyte and fluid balance, not elsewhere classified; E11.65 Type 2 diabetes mellitus with hyperglycemia; R65.10 Systemic inflammatory response syndrome (SIRS) of non-infectious origin without acute organ dysfunction; E87.1 Hypo-osmolality and hyponatremia; R44.1 Visual hallucinations; R74.8 Abnormal levels of other serum enzymes; E03.9 Hypothyroidism, unspecified; I10 Essential (primary) hypertension; K21.9 Gastro-esophageal reflux disease without esophagitis; J44.9 Chronic obstructive pulmonary disease, unspecified; D64.9 Anemia, unspecified; F32.9 Major depressive disorder, single episode, unspecified; E78.00 Pure hypercholesterolemia, unspecified; F41.0 Panic disorder [episodic paroxysmal anxiety]; R30.0 Dysuria; D72.810 Lymphocytopenia; E55.9 Vitamin D deficiency, unspecified; R06.82 Tachypnea, not elsewhere classified; F41.1 Generalized anxiety disorder; F17.200 Nicotine dependence, unspecified, uncomplicated; Z71.6 Tobacco abuse counseling; Z79.84 Long term (current) use of oral hypoglycemic drugs; Z79.4 Long term (current) use of insulin; Z79.899 Other long term (current) drug therapy; Z91.041 Radiographic dye allergy status; Z83.3 Family history of diabetes mellitus; Z82.0 Family history of epilepsy and other diseases of the nervous system

== ENCOUNTER 2017-11-06 01:38 | Inpatient (IN) | payer OTHER ==
[2017-11-06] VITALS (9 sets, daily range): BP systolic 110–132; BP diastolic 69–93
[~2017-11-06] VITALS: Ht 170.1 cm; Wt 70.5 kg
--- NOTE | ~2017-11-06 | O ---
[place], [place] OPERATIVE NOTE NAME: KYLEIGH ALONZO UNIT #: [id number] ROOM: 530 DOCTOR: YEMI ARCHER MDBETITOALICIA BIRTHDATE: [birth year] DOS: 11/09/2017 GASTROENDOSCOPIC REPORT INDICATIONS: A 52-year-old patient, who has presented with chief complaint of epigastric distress and abdominal pain. The patient an avid consumer of alcohol up to 2 bottles of whiskey per day and/or 12-pack of beer per day. PAST MEDICAL HISTORY: Associated with depression, diabetic neuropathy, hyperlipidemia, COPD, anxiety, gastroesophageal reflux symptomatology, hypothyroidism, and diabetes mellitus. PAST SURGICAL HISTORY: Dental extraction and left knee arthroscopy. SOCIAL HISTORY: Smoker and avid alcohol consumer. FAMILY HISTORY: Noncontributory. ALLERGIES: IVP DYE AND IODINE. PROCEDURE: Today's procedure part of investigation is panendoscopy plus biopsy. PREMEDICATION: Versed and Diprivan. SCOPE: Olympus forward-viewing gastroscope Q10 video. REPORT: After putting the patient in left lateral position and application of lubricant to the scope, the scope was introduced. Thereafter, under direct visualization, advanced through the length of esophagus without difficulty. Esophagus, cervical, thoracic distal carefully examined. There is no evidence of esophageal varicosity. Small hiatal hernia was noticed. Gastric pouch was entered. Some degraded blood minimally in the gastric pouch was noticed, photographed. Gastritis seen. Duodenal bulb, second part mild gastritis mild duodenitis was noticed. Scope was withdrawn back to the antrum. Antral biopsy obtained. GI reflection of the scope confirms the findings. The patient was gradually extubated and tolerated the procedure well. IMPRESSION: Small hiatal hernia, gastritis secondary to avid alcohol consumption, status post biopsy ruling out Helicobacter pylori. PLAN AND DISCUSSION: The patient advised to abstain from alcohol and nicotine products. However, I seriously doubt if he is going to be compliant. His H and H last time has been 13 and 39 with white blood cell of 11. His ultrasound of the abdomen, gallbladder sludge, no cholelithiasis, and no biliary dilation. His lipase has been 271. The last time his initial comprehensive metabolic panel had severe hyponatremia that has been addressed. His phosphorus and magnesium has been normal. The patient is essentially ready for discharge with modification on his diet as well as social habit of alcohol and nicotine dependency and otherwise outpatient followup. [place], [place] OPERATIVE NOTE NAME: KYLEIGH ALONZO UNIT #: [id number] ROOM: [facility] DOCTOR: SUZI AGUILAR,NATHALIE BIRTHDATE: [birth year] NATHALIE ARCHER MD CM:OPRECORD:OPERATIVE NOTE [id number] NATHALIE ACRHER MD 11/09/17 1309 interface
--- NOTE | ~2017-11-06 | CON ---
[place], [place] REPORT OF CONSULTATION NAME: KYLEIGH ALONZO UNIT #: [id number] ROOM: 530 DOCTOR: ELLA LUGO MD BIRTHDATE: [birth year] DOS: 11/07/2017 REASON FOR CONSULTATION: Chest pain. HISTORY OF PRESENT ILLNESS: The patient is a 52-year-old man with multiple coronary risk factors including type 2 diabetes mellitus, essential hypertension, hyperlipidemia and cigarette abuse. He also has a history of chronic alcohol abuse. He is known to have dyspepsia and gastroesophageal reflux disease. He also has a history of peptic ulcer disease from drinking and smoking. We evaluated him for chest pain in May 2016. A stress test at that time showed normal left ventricular function and perfusion and was felt to be a low-risk study. He also had an echocardiogram in August 2016, which showed an ejection fraction of 75% and was a normal study. The patient states that he has had epigastric pain and nausea for the last few days. Since he has been in the hospital,, his serial electrocardiograms have been normal and multiple troponin measurements have been normal. This morning, the patient continues to complain of epigastric pain. He states that his chest pain has improved. He is tender over most of his abdomen, but his abdomen is soft and has normal active bowel sounds. PAST MEDICAL HISTORY: Includes, 1. Chronic alcoholism with episodes of alcohol withdrawal in the past. 2. Long-term and ongoing cigarette abuse. 3. Chronic obstructive pulmonary disease. 4. Depression. 5. Type 2 diabetes mellitus with diabetic neuropathy. 6. Hyperlipidemia. 7. Essential hypertension. 8. Gastroesophageal reflux disease. 9. Hyperlipidemia. 10. Hypothyroidism. 11. History of dental surgery with total dental extractions. 12. History of left knee surgery. MEDICATIONS: Prior to admission: Klonopin 0.5 mg b.i.d. p.r.n. anxiety, doxepin 25 mg b.i.d., hydroxyzine 50 mg q.i.d. p.r.n. anxiety, levothyroxine 25 mcg daily, lisinopril 2.5 mg daily, melatonin 10 mg at bedtime for insomnia, metformin 500 mg twice a day, metoprolol tartrate 25 mg b.i.d., omeprazole 10 mg daily, simvastatin 20 mg at bedtime, Geodon 80 mg b.i.d. and Lantus insulin 14 units subcutaneously q 12 hours. ALLERGIES: He lists allergies to IODINE and IVP DYE. REVIEW OF SYSTEMS: The patient denies diplopia or loss of vision. He feels fatigued. He has generalized malaise. He denies weight loss. He does note chills, but denies fevers. He does report some ear pain. He denies any [place], [place] REPORT OF CONSULTATION NAME: KYLEIGH ALONZO UNIT #: [id number] ROOM: [facility] DOCTOR: ELLA LUGO MD BIRTHDATE: [birth year] discharge from his ears, nose or throat. He does report chest pain as noted above. He denies hemoptysis or hematemesis. He does report dyspnea on exertion. He does have abdominal pain and nausea, but denies vomiting. He denies dysuria. He does note that his hands tingle, although he denies focal weakness. He denies any new rashes, heat or cold intolerance. The remainder of the review of systems is negative except as noted above. FAMILY HISTORY: The patient's father is in his 60s from complications of diabetes. His mother is alive, but does have a history of alcoholism and Alzheimer's disease. She is 87. PHYSICAL EXAMINATION: GENERAL: The patient is a well-nourished white male who looks much older than his stated age. He does appear to be slightly uncomfortable. VITAL SIGNS: Pulse is 70 and regular, blood pressure 126/76. He is afebrile. He weighs 70.5 kg and has a body mass index of 24.4. HEENT: Normocephalic, atraumatic. Extraocular muscles are intact. Sclerae are clear. Pupils are equal, round and react to light. The oral mucosa is moist. Tongue is midline. NECK: Supple. He has no jugular distention. Carotids are full. I heard no bruits. He had no neck or supraclavicular masses and no thyromegaly. LUNGS: Respirations are unlabored. His chest is clear to auscultation and percussion. He has no presacral edema or chest wall tenderness. HEART: Has a regular rhythm. He has a fourth heart sound, but no third heart sound or murmur. The PMI is not displaced. He has no precordial heave, lift or thrill. ABDOMEN: Soft and normally active. He is diffusely tender, especially in his periumbilical and left lower quadrant areas. He does, however, have epigastric tenderness as well. There is no obvious mass or rebound. EXTREMITIES: Showed no edema. Peripheral pulses are easily palpated in the feet. LABORATORY DATA: I reviewed his electrocardiograms. They all show normal sinus rhythm and are normal tracings. His troponin levels have all been normal as well. Chest x-ray shows an area of right lower lobe atelectasis. IMPRESSIONS: 1. Atypical chest pain. The patient has no objective findings to suggest acute coronary syndrome and a cardiac workup about a year and a half ago was low risk. 2. Multiple cardiac risk factors including hypertension, hyperlipidemia, type 2 diabetes mellitus and cigarette abuse. 3. Type 2 diabetes mellitus. 4. Essential hypertension. 5. Dyslipidemia. 6. Hypothyroidism. 7. Alcohol abuse, active. PLAN: The patient's major symptoms at this time appear to be gastric in origin. He does have significant diffuse abdominal tenderness, but no mass, [place], [place] REPORT OF CONSULTATION NAME: KYELIGH ALONZO UNIT #: [id number] ROOM: 530 DOCTOR: ELLA LUGO MD BIRTHDATE: [birth year] organomegaly or rebound. I think that this should be managed currently. If his symptoms are stabilized and he can lay still for a stress test, then we will perform a pharmacologic stress test within the next 24 hours. Further recommendations will depend upon the results of the stress test, but I presume that his findings will be normal and other causes for chest and abdominal pain will need to be managed. We thank the hospitalist physicians for asking our advice regarding his care. ELLA LUGO MD CM:CONSTR:REPORT OF CONSULTATION 0943 11/07/17 1033 interface
[~2017-11-06 01:38] MED LIST changes: +DOXEPIN HCL25 MG PO; +KLONOPIN0.5 MG PO
[2017-11-06 01:53] LABS: BASO # 0.1 10*3/uL (0.0-0.1); BASO % 0.4 % (0.0-1.0); EOS # 0.7 10*3/uL (0.0-0.4); HEMATOCRIT 38.4 % (42.0-52.0); HEMOGLOBIN 13.5 g/dl (14.0-18.0); LYMPH # 2.3 10*3/uL (1.3-4.4); LYMPH % 17.6 % (27.0-41.0); MEAN CELL VOLUME 91.6 fl (80.0-94.0); MEAN CORPUSCULAR HGB 32.2 pg (27.0-31.0); MEAN CORPUSCULAR HGB CONC 35.2 g/dl (33.0-37.0); MEAN PLATELET VOLUME 8.6 fl (9.6-12.3); MONO # 0.8 10*3/uL (0.1-1.0); MONO % 5.9 % (3.0-9.0); NEUT # 9.4 10*3/uL (2.3-7.9); NEUT % 70.6 % (47.0-73.0); PLATELET COUNT AUTOMATED 231 10*3/uL (130-400); RED BLOOD COUNT 4.19 10*6/uL (4.50-5.90); WHITE BLOOD COUNT 13.3 10*3/uL (4.8-10.8)
[2017-11-06 02:03] LABS: ACT PARTIAL THROMBO TIME 25.9 SECONDS (20.8-31.5)
[2017-11-06 02:09] LABS: ALBUMIN 3.4 gm/dl (3.1-4.5); ALKALINE PHOSPHATASE 133 U/L (45-117); BUN 12 mg/dl (7-24); CHLORIDE 98 mmol/L (98-107); CREATININE 0.88 mg/dL (0.70-1.30); POTASSIUM 4.4 mmol/L (3.5-5.1); SGOT/AST 21 IU/L (3-35); SGPT/ALT 46 U/L (12-78); SODIUM 129 mmol/L (136-145); TOTAL PROTEIN 7.1 gm/dL (6.4-8.2)
[2017-11-06 02:14] LABS: TROPONIN I < 0.015 ng/ml (<0.045)
[2017-11-06 05:54] LABS: BASO # 0.1 10*3/uL (0.0-0.1); BASO % 0.5 % (0.0-1.0); EOS # 0.7 10*3/uL (0.0-0.4); EOS % 6.1 % (1.0-4.0); HEMATOCRIT 37.2 % (42.0-52.0); HEMOGLOBIN 12.9 g/dl (14.0-18.0); LYMPH # 2.9 10*3/uL (1.3-4.4); MEAN CELL VOLUME 92.8 fl (80.0-94.0); MEAN CORPUSCULAR HGB 32.2 pg (27.0-31.0); MEAN CORPUSCULAR HGB CONC 34.7 g/dl (33.0-37.0); MEAN PLATELET VOLUME 8.8 fl (9.6-12.3); MONO # 0.8 10*3/uL (0.1-1.0); MONO % 6.9 % (3.0-9.0); NEUT # 6.7 10*3/uL (2.3-7.9); NEUT % 59.6 % (47.0-73.0); PLATELET COUNT AUTOMATED 228 10*3/uL (130-400); RED BLOOD COUNT 4.01 10*6/uL (4.50-5.90); RED CELL DISTRI WIDTH 12.9 % (0-14.5); WHITE BLOOD COUNT 11.2 10*3/uL (4.8-10.8)
[2017-11-06 06:16] LABS: ALBUMIN 3.4 gm/dl (3.1-4.5); ALKALINE PHOSPHATASE 122 U/L (45-117); BUN 12 mg/dl (7-24); CHLORIDE 98 mmol/L (98-107); CREATININE 0.68 mg/dL (0.70-1.30); PHOSPHOROUS 3.2 mg/dL (2.5-4.9); POTASSIUM 4.4 mmol/L (3.5-5.1); SGOT/AST 15 IU/L (3-35); SGPT/ALT 42 U/L (12-78); SODIUM 132 mmol/L (136-145); TOTAL PROTEIN 6.5 gm/dL (6.4-8.2)
[2017-11-06 06:25] LABS: ETHYL ALCOHOL < 3.0 mg/dl (<3)
[2017-11-06 06:57] LABS: ACT PARTIAL THROMBO TIME 25.3 SECONDS (20.8-31.5); INTERNATIONAL NORM RATIO 0.9 (2.0-3.5)
[2017-11-06 08:45] LABS: URINE AMPHETAMINES < 1000 (1000ng/ml); URINE BARBITURATES < 200 (200ng/ml); URINE BENZODIAZEPINES < 200 (200ng/ml); URINE CANNABINOIDS (THC) < 50 (50ng/ml); URINE COCAINE < 300 (300ng/ml); URINE METHADONE < 300 (300ng/ml); URINE OPIATES < 300 (300ng/ml)
[2017-11-06 08:46] LABS: URINE PHENCYCLIDINE < 25 (25ng/ml)
[2017-11-06 19:40] LABS: URINE AMPHETAMINES < 1000 (1000ng/ml); URINE BARBITURATES > 200 (200ng/ml); URINE BENZODIAZEPINES < 200 (200ng/ml); URINE CANNABINOIDS (THC) < 50 (50ng/ml); URINE COCAINE < 300 (300ng/ml); URINE METHADONE < 300 (300ng/ml); URINE OPIATES < 300 (300ng/ml); URINE PHENCYCLIDINE < 25 (25ng/ml)
[2017-11-07] VITALS: BP 116/73
[2017-11-07 08:00] VITALS: BP 126/76
[2017-11-07 12:00] VITALS: BP 131/81
[2017-11-07 16:00] VITALS: BP 113/69
[2017-11-07 20:00] VITALS: BP 126/74
[2017-11-08] VITALS: BP 109/62
[2017-11-08 06:36] LABS: BASO # 0.1 10*3/uL (0.0-0.1); BASO % 0.4 % (0.0-1.0); EOS # 0.7 10*3/uL (0.0-0.4); HEMATOCRIT 39.5 % (42.0-52.0); HEMOGLOBIN 13.6 g/dl (14.0-18.0); LYMPH # 3.1 10*3/uL (1.3-4.4); LYMPH % 21.3 % (27.0-41.0); MEAN CORPUSCULAR HGB 32.4 pg (27.0-31.0); MEAN CORPUSCULAR HGB CONC 34.4 g/dl (33.0-37.0); MEAN PLATELET VOLUME 8.7 fl (9.6-12.3); MONO # 1.3 10*3/uL (0.1-1.0); NEUT # 9.1 10*3/uL (2.3-7.9); NEUT % 63.9 % (47.0-73.0); PLATELET COUNT AUTOMATED 283 10*3/uL (130-400); RED CELL DISTRI WIDTH 12.5 % (0-14.5); WHITE BLOOD COUNT 14.3 10*3/uL (4.8-10.8)
[2017-11-08 06:54] LABS: BUN 6 mg/dl (7-24); CHLORIDE 95 mmol/L (98-107); CREATININE 0.58 mg/dL (0.70-1.30); POTASSIUM 4.5 mmol/L (3.5-5.1); SODIUM 129 mmol/L (136-145)
[2017-11-08 08:00] VITALS: BP 158/82
[2017-11-08 12:00] VITALS: BP 157/82
[2017-11-08 16:00] VITALS: BP 136/75
[2017-11-08 20:00] VITALS: BP 135/88
[2017-11-09] VITALS (8 sets, daily range): BP systolic 103–132; BP diastolic 65–86
[2017-11-09 06:54] LABS: BUN 7 mg/dl (7-24); CHLORIDE 97 mmol/L (98-107); CREATININE 0.75 mg/dL (0.70-1.30); POTASSIUM 4.3 mmol/L (3.5-5.1); SODIUM 133 mmol/L (136-145)
[2017-11-09 06:55] LABS: BASO # 0.1 10*3/uL (0.0-0.1); BASO % 0.5 % (0.0-1.0); EOS # 0.8 10*3/uL (0.0-0.4); EOS % 6.7 % (1.0-4.0); HEMATOCRIT 39.8 % (42.0-52.0); HEMOGLOBIN 13.4 g/dl (14.0-18.0); LYMPH # 3.8 10*3/uL (1.3-4.4); LYMPH % 32.6 % (27.0-41.0); MEAN CELL VOLUME 94.8 fl (80.0-94.0); MEAN CORPUSCULAR HGB 31.9 pg (27.0-31.0); MEAN CORPUSCULAR HGB CONC 33.7 g/dl (33.0-37.0); MEAN PLATELET VOLUME 8.9 fl (9.6-12.3); MONO # 1.2 10*3/uL (0.1-1.0); MONO % 10.7 % (3.0-9.0); NEUT # 5.7 10*3/uL (2.3-7.9); NEUT % 49.2 % (47.0-73.0); PLATELET COUNT AUTOMATED 312 10*3/uL (130-400); RED CELL DISTRI WIDTH 12.8 % (0-14.5); WHITE BLOOD COUNT 11.6 10*3/uL (4.8-10.8)
[2017-11-09] MEDS ORDERED: PROTONIX40 MG PO (15:49)
== END 2017-11-09 16:50 | disposition home or self-care (01) | DRG 880 ==
LOC: ED 01:38 → EDHOLD 03:17 → 5E 03:17
PROVIDERS: Emergency Medicine Emergency Medical Services; Family Medicine; Internal Medicine; Internal Medicine Hospice and Palliative Medicine; Student in an Organized Health Care Education/Training Program
PROC: 0DB78ZX Excision of Stomach, Pylorus, Via Natural or Artificial Opening Endoscopic, Diagnostic (ICD-10-PCS; principal; 2017-11-09)
PROC: 4A02XM4 Measurement of Cardiac Total Activity, External Approach (ICD-10-PCS; 2017-11-09)
PROC: 3E073KZ Introduction of Other Diagnostic Substance into Coronary Artery, Percutaneous Approach (ICD-10-PCS; 2017-11-09)
DX: F41.1 Generalized anxiety disorder (principal); D72.1 Eosinophilia; E44.0 Moderate protein-calorie malnutrition; E11.40 Type 2 diabetes mellitus with diabetic neuropathy, unspecified; E87.1 Hypo-osmolality and hyponatremia; R65.10 Systemic inflammatory response syndrome (SIRS) of non-infectious origin without acute organ dysfunction; E11.65 Type 2 diabetes mellitus with hyperglycemia; F10.280 Alcohol dependence with alcohol-induced anxiety disorder; R07.89 Other chest pain; K21.9 Gastro-esophageal reflux disease without esophagitis; K29.20 Alcoholic gastritis without bleeding; F32.9 Major depressive disorder, single episode, unspecified; E03.9 Hypothyroidism, unspecified; I10 Essential (primary) hypertension; E78.00 Pure hypercholesterolemia, unspecified; E78.5 Hyperlipidemia, unspecified; K29.50 Unspecified chronic gastritis without bleeding; K44.9 Diaphragmatic hernia without obstruction or gangrene; K82.8 Other specified diseases of gallbladder; K29.80 Duodenitis without bleeding; F41.0 Panic disorder [episodic paroxysmal anxiety]; J41.0 Simple chronic bronchitis; D64.9 Anemia, unspecified; F17.210 Nicotine dependence, cigarettes, uncomplicated; Z87.11 Personal history of peptic ulcer disease; Z71.6 Tobacco abuse counseling; Z81.1 Family history of alcohol abuse and dependence; Z81.8 Family history of other mental and behavioral disorders; Z83.3 Family history of diabetes mellitus; Z79.899 Other long term (current) drug therapy; Z91.041 Radiographic dye allergy status; Z68.24 Body mass index [BMI] 24.0-24.9, adult; Z79.4 Long term (current) use of insulin

== ENCOUNTER → 2017-11-17 | Outpatient (CLI) | payer OTHER ==
[~2017-11-17] MED LIST changes: +PROTONIX40 MG PO
[2017-11-17 09:47] LABS: BILIRUBIN NEGATIVE (NEGATIVE); BLOOD NEGATIVE (NEGATIVE); CLARITY CLEAR (CLEAR); COLOR YELLOW (YELLOW); GLUCOSE NEGATIVE (NEGATIVE); KETONE NEGATIVE (NEGATIVE); LEUKO ESTERASE NEGATIVE (NEGATIVE); NITRITE NEGATIVE (NEGATIVE); PH 5.5 (5.0-9.0); SPECIFIC GRAVITY <= 1.005 (1.005-1.030); UROBILINOGEN 0.2 E.U./dl (0.2-1.0)
[2017-11-17 09:54] LABS: WBC 0-2 wbc/hpf (0-5)
[2017-11-17 10:01] LABS: ALBUMIN 4.2 gm/dl (3.1-4.5); ALKALINE PHOSPHATASE 127 U/L (45-117); BILIRUBIN, DIRECT 0.1 mg/dL (0.0-0.2); BUN 8 mg/dl (7-24); CHLORIDE 101 mmol/L (98-107); CHOLESTEROL 109 mg/dL (<200); CREATININE 0.96 mg/dL (0.70-1.30); HDL CHOLESTEROL 42 mg/dl (40-60); LDL CHOLESTEROL 48 mg/dL (9-159); POTASSIUM 4.6 mmol/L (3.5-5.1); SGOT/AST 15 IU/L (3-35); SGPT/ALT 33 U/L (12-78); SODIUM 133 mmol/L (136-145); TOTAL PROTEIN 8.2 gm/dL (6.4-8.2); TRIGLYCERIDES 95 mg/dl (<150); VLDL CHOLESTEROL 19 mg/dL (6-40)
[2017-11-17 10:02] LABS: FREE T4 1.29 ng/dl (0.76-1.46)
[2017-11-17 10:07] LABS: THYROID STIM HORMONE (HS) 0.822 uIU/ml (0.358-4.75)
[2017-11-17 10:31] LABS: VITAMIN D, 25-HYDROXY 15.6 ng/mL (30-100)
== END | disposition home or self-care (01) ==
LOC: LAB 09:13
PROVIDERS: Internal Medicine
DX: E11.42 Type 2 diabetes mellitus with diabetic polyneuropathy (principal); E11.65 Type 2 diabetes mellitus with hyperglycemia; E03.9 Hypothyroidism, unspecified; E78.5 Hyperlipidemia, unspecified; E55.9 Vitamin D deficiency, unspecified

== ENCOUNTER 2017-12-02 06:43 | Inpatient (IN) | payer OTHER ==
[~2017-12-02] VITALS: Ht 170.2 cm; Wt 67.6 kg
[~2017-12-02 06:43] MED LIST changes: -KLONOPIN0.5 MG PO; -METFORMIN500 MG PO; +METFORMIN750 MG PO
[2017-12-02 06:54] VITALS: BP 137/86
[2017-12-02 07:25] LABS: BASO # 0.1 10*3/uL (0.0-0.1); BASO % 1.1 % (0.0-1.0); EOS # 1.4 10*3/uL (0.0-0.4); EOS % 11.4 % (1.0-4.0); HEMATOCRIT 39.8 % (42.0-52.0); HEMOGLOBIN 14.4 g/dl (14.0-18.0); LYMPH # 3.6 10*3/uL (1.3-4.4); LYMPH % 29.1 % (27.0-41.0); MEAN CELL VOLUME 90.9 fl (80.0-94.0); MEAN CORPUSCULAR HGB 32.9 pg (27.0-31.0); MEAN CORPUSCULAR HGB CONC 36.2 g/dl (33.0-37.0); MONO # 0.8 10*3/uL (0.1-1.0); MONO % 6.2 % (3.0-9.0); NEUT # 6.3 10*3/uL (2.3-7.9); NEUT % 51.8 % (47.0-73.0); PLATELET COUNT AUTOMATED 277 10*3/uL (130-400); RED BLOOD COUNT 4.38 10*6/uL (4.50-5.90); RED CELL DISTRI WIDTH 12.7 % (0-14.5); WHITE BLOOD COUNT 12.3 10*3/uL (4.8-10.8)
[2017-12-02 07:39] LABS: ALBUMIN 3.8 gm/dl (3.1-4.5); ALKALINE PHOSPHATASE 112 U/L (45-117); BUN 5 mg/dl (7-24); CHLORIDE 93 mmol/L (98-107); CREATININE 0.67 mg/dL (0.70-1.30); LIPASE 83 U/L (73-393); POTASSIUM 4.2 mmol/L (3.5-5.1); SGOT/AST 17 IU/L (3-35); SGPT/ALT 25 U/L (12-78); SODIUM 123 mmol/L (136-145); TOTAL PROTEIN 7.4 gm/dL (6.4-8.2)
[2017-12-02 08:12] LABS: BILIRUBIN NEGATIVE (NEGATIVE); BLOOD TRACE-INTACT (NEGATIVE); CLARITY CLEAR (CLEAR); COLOR YELLOW (YELLOW); GLUCOSE NEGATIVE (NEGATIVE); KETONE NEGATIVE (NEGATIVE); LEUKO ESTERASE NEGATIVE (NEGATIVE); NITRITE NEGATIVE (NEGATIVE); SPECIFIC GRAVITY <= 1.005 (1.005-1.030); UROBILINOGEN 0.2 E.U./dl (0.2-1.0)
[2017-12-02 08:35] LABS: EPITHELIAL CELLS 0-2; WBC 0-2 wbc/hpf (0-5)
[2017-12-02 10:45] VITALS: BP 127/74
[2017-12-02 10:55] VITALS: BP 116/74
[2017-12-02] MEDS ORDERED: COGENTIN0.5 MG PO (11:19)
[2017-12-02] MEDS ORDERED: VITAMIN B150 MG PO (11:19)
[2017-12-02] MEDS ORDERED: B-COMPLEX WIT400 MC1 PO (11:20)
[2017-12-02] MEDS ORDERED: CARDIZEM120 MG PO (11:21)
[2017-12-02] MEDS ORDERED: VITAMIN D-32000 UNIT PO (11:21)
[2017-12-02] MEDS ORDERED: LANTUS SOL100 UNIT/1 SC (11:22)
[2017-12-02 16:00] VITALS: BP 104/64
[2017-12-02 20:00] VITALS: BP 106/57; BP 112/76
[2017-12-03] VITALS: BP 107/63
[2017-12-03 06:31] LABS: BASO # 0.2 10*3/uL (0.0-0.1); BASO % 1.4 % (0.0-1.0); EOS # 1.6 10*3/uL (0.0-0.4); EOS % 13.6 % (1.0-4.0); HEMATOCRIT 41.2 % (42.0-52.0); HEMOGLOBIN 14.4 g/dl (14.0-18.0); LYMPH # 3.8 10*3/uL (1.3-4.4); MEAN CELL VOLUME 93.2 fl (80.0-94.0); MEAN CORPUSCULAR HGB 32.6 pg (27.0-31.0); MEAN PLATELET VOLUME 8.5 fl (9.6-12.3); MONO # 0.8 10*3/uL (0.1-1.0); MONO % 7.2 % (3.0-9.0); NEUT # 5.2 10*3/uL (2.3-7.9); NEUT % 44.5 % (47.0-73.0); PLATELET COUNT AUTOMATED 266 10*3/uL (130-400); RED BLOOD COUNT 4.42 10*6/uL (4.50-5.90); RED CELL DISTRI WIDTH 13.1 % (0-14.5); WHITE BLOOD COUNT 11.6 10*3/uL (4.8-10.8)
[2017-12-03 06:45] LABS: ALBUMIN 3.6 gm/dl (3.1-4.5); BUN 7 mg/dl (7-24); CHLORIDE 102 mmol/L (98-107); POTASSIUM 4.4 mmol/L (3.5-5.1); SODIUM 131 mmol/L (136-145)
[2017-12-03 06:57] LABS: ALKALINE PHOSPHATASE 110 U/L (45-117); PHOSPHOROUS 2.9 mg/dL (2.5-4.9); SGOT/AST 15 IU/L (3-35); SGPT/ALT 24 U/L (12-78); TOTAL PROTEIN 6.7 gm/dL (6.4-8.2)
[2017-12-03 08:00] VITALS: BP 110/67
[2017-12-03 12:00] VITALS: BP 116/79
== END 2017-12-03 14:14 | disposition home or self-care (01) | DRG 641 ==
LOC: ED 06:43 → EDHOLD 09:56 → 5E 10:14
PROVIDERS: Emergency Medicine; Emergency Medicine Emergency Medical Services; Internal Medicine
DX: E87.1 Hypo-osmolality and hyponatremia (principal); E11.40 Type 2 diabetes mellitus with diabetic neuropathy, unspecified; D70.9 Neutropenia, unspecified; E11.65 Type 2 diabetes mellitus with hyperglycemia; R26.81 Unsteadiness on feet; R33.9 Retention of urine, unspecified; E03.9 Hypothyroidism, unspecified; I10 Essential (primary) hypertension; K21.9 Gastro-esophageal reflux disease without esophagitis; J44.9 Chronic obstructive pulmonary disease, unspecified; F41.0 Panic disorder [episodic paroxysmal anxiety]; F41.1 Generalized anxiety disorder; F32.9 Major depressive disorder, single episode, unspecified; D64.9 Anemia, unspecified; E55.9 Vitamin D deficiency, unspecified; F17.210 Nicotine dependence, cigarettes, uncomplicated; R31.9 Hematuria, unspecified; F10.21 Alcohol dependence, in remission; E78.5 Hyperlipidemia, unspecified; K29.20 Alcoholic gastritis without bleeding; E78.00 Pure hypercholesterolemia, unspecified; K44.9 Diaphragmatic hernia without obstruction or gangrene; Z71.6 Tobacco abuse counseling; Z87.898 Personal history of other specified conditions; Z79.4 Long term (current) use of insulin; Z83.3 Family history of diabetes mellitus; Z81.1 Family history of alcohol abuse and dependence; Z82.0 Family history of epilepsy and other diseases of the nervous system; Z91.041 Radiographic dye allergy status; Z79.899 Other long term (current) drug therapy

== ENCOUNTER 2017-12-04 01:17 | Emergency (ER) | payer OTHER ==
[~2017-12-04] VITALS: Ht 170.1 cm; Wt 67.6 kg
[~2017-12-04 01:17] MED LIST changes: +B-COMPLEX WIT400 MC1 PO; +CARDIZEM120 MG PO; +COGENTIN0.5 MG PO; +LANTUS SOL100 UNIT/1 SC; +VITAMIN B150 MG PO; +VITAMIN D-32000 UNIT PO
[2017-12-04 01:58] LABS: BASO # 0.2 10*3/uL (0.0-0.1); BASO % 1.3 % (0.0-1.0); EOS # 1.1 10*3/uL (0.0-0.4); HEMATOCRIT 39.1 % (42.0-52.0); HEMOGLOBIN 13.8 g/dl (14.0-18.0); LYMPH # 2.9 10*3/uL (1.3-4.4); LYMPH % 23.4 % (27.0-41.0); MEAN CELL VOLUME 92.2 fl (80.0-94.0); MEAN CORPUSCULAR HGB 32.5 pg (27.0-31.0); MEAN CORPUSCULAR HGB CONC 35.3 g/dl (33.0-37.0); MEAN PLATELET VOLUME 8.2 fl (9.6-12.3); MONO # 0.7 10*3/uL (0.1-1.0); MONO % 5.9 % (3.0-9.0); NEUT # 7.4 10*3/uL (2.3-7.9); PLATELET COUNT AUTOMATED 250 10*3/uL (130-400); RED BLOOD COUNT 4.24 10*6/uL (4.50-5.90); RED CELL DISTRI WIDTH 13.1 % (0-14.5); WHITE BLOOD COUNT 12.3 10*3/uL (4.8-10.8)
[2017-12-04 02:12] LABS: ALKALINE PHOSPHATASE 101 U/L (45-117); BUN 8 mg/dl (7-24); CHLORIDE 97 mmol/L (98-107); CREATININE 0.61 mg/dL (0.70-1.30); POTASSIUM 3.9 mmol/L (3.5-5.1); SGOT/AST 17 IU/L (3-35); SGPT/ALT 30 U/L (12-78); SODIUM 130 mmol/L (136-145)
[2017-12-04 03:39] LABS: BILIRUBIN NEGATIVE (NEGATIVE); BLOOD NEGATIVE (NEGATIVE); CLARITY CLEAR (CLEAR); COLOR YELLOW (YELLOW); GLUCOSE NEGATIVE (NEGATIVE); KETONE NEGATIVE (NEGATIVE); LEUKO ESTERASE NEGATIVE (NEGATIVE); NITRITE NEGATIVE (NEGATIVE); PH 5.5 (5.0-9.0); SPECIFIC GRAVITY <= 1.005 (1.005-1.030); UROBILINOGEN 0.2 E.U./dl (0.2-1.0)
[2017-12-04 03:49] LABS: BACTERIA TRACE; WBC 0-2 wbc/hpf (0-5)
== END 2017-12-04 04:37 | disposition home or self-care (01) ==
LOC: ED 01:17
PROVIDERS: Emergency Medicine
DX: R33.9 Retention of urine, unspecified (principal); F17.200 Nicotine dependence, unspecified, uncomplicated; E78.5 Hyperlipidemia, unspecified; K21.9 Gastro-esophageal reflux disease without esophagitis; E78.00 Pure hypercholesterolemia, unspecified; I10 Essential (primary) hypertension; E11.40 Type 2 diabetes mellitus with diabetic neuropathy, unspecified; Z91.041 Radiographic dye allergy status; Z98.890 Other specified postprocedural states; Z79.899 Other long term (current) drug therapy; Z79.4 Long term (current) use of insulin

== ENCOUNTER 2017-12-12 07:33 | Emergency (ER) | payer OTHER ==
[~2017-12-12] VITALS: Ht 170.1 cm; Wt 67.6 kg
== END 2017-12-12 08:17 | disposition home or self-care (01) ==
LOC: ED 07:33
DX: N48.89 Other specified disorders of penis (principal); F17.200 Nicotine dependence, unspecified, uncomplicated; J44.9 Chronic obstructive pulmonary disease, unspecified; E11.40 Type 2 diabetes mellitus with diabetic neuropathy, unspecified; E78.5 Hyperlipidemia, unspecified; I10 Essential (primary) hypertension; K21.9 Gastro-esophageal reflux disease without esophagitis; E78.00 Pure hypercholesterolemia, unspecified; E03.9 Hypothyroidism, unspecified; Z79.4 Long term (current) use of insulin; Z79.899 Other long term (current) drug therapy; Z98.890 Other specified postprocedural states; Z91.041 Radiographic dye allergy status

== ENCOUNTER 2017-12-15 03:11 | Emergency (ER) | payer OTHER ==
[~2017-12-15] VITALS: Ht 170.1 cm; Wt 68.9 kg
[2017-12-15 03:52] LABS: BASO # 0.1 10*3/uL (0.0-0.1); BASO % 1.1 % (0.0-1.0); EOS # 1.1 10*3/uL (0.0-0.4); EOS % 9.3 % (1.0-4.0); HEMATOCRIT 39.7 % (42.0-52.0); HEMOGLOBIN 13.8 g/dl (14.0-18.0); LYMPH # 2.6 10*3/uL (1.3-4.4); LYMPH % 21.7 % (27.0-41.0); MEAN CELL VOLUME 92.3 fl (80.0-94.0); MEAN CORPUSCULAR HGB 32.1 pg (27.0-31.0); MEAN CORPUSCULAR HGB CONC 34.8 g/dl (33.0-37.0); MONO # 0.7 10*3/uL (0.1-1.0); MONO % 5.4 % (3.0-9.0); NEUT # 7.4 10*3/uL (2.3-7.9); NEUT % 62.2 % (47.0-73.0); PLATELET COUNT AUTOMATED 283 10*3/uL (130-400); RED CELL DISTRI WIDTH 13.3 % (0-14.5)
[2017-12-15 04:03] LABS: BUN 7 mg/dl (7-24); CHLORIDE 99 mmol/L (98-107); POTASSIUM 4.3 mmol/L (3.5-5.1); SODIUM 132 mmol/L (136-145)
[2017-12-15 04:10] LABS: BILIRUBIN NEGATIVE (NEGATIVE); BLOOD TRACE-INTACT (NEGATIVE); CLARITY CLEAR (CLEAR); COLOR YELLOW (YELLOW); GLUCOSE NEGATIVE (NEGATIVE); KETONE NEGATIVE (NEGATIVE); LEUKO ESTERASE NEGATIVE (NEGATIVE); NITRITE NEGATIVE (NEGATIVE); SPECIFIC GRAVITY <= 1.005 (1.005-1.030); UROBILINOGEN 0.2 E.U./dl (0.2-1.0)
[2017-12-15 04:17] LABS: BACTERIA 1+
[2017-12-15] MEDS ORDERED: CEFUROXIME AXE250 MG PO (05:11)
== END 2017-12-15 06:07 | disposition home or self-care (01) ==
LOC: ED 03:11
PROVIDERS: Emergency Medicine Emergency Medical Services
DX: R33.9 Retention of urine, unspecified (principal); J44.9 Chronic obstructive pulmonary disease, unspecified; K21.9 Gastro-esophageal reflux disease without esophagitis; I10 Essential (primary) hypertension; E78.00 Pure hypercholesterolemia, unspecified; E03.9 Hypothyroidism, unspecified; E11.40 Type 2 diabetes mellitus with diabetic neuropathy, unspecified; F17.200 Nicotine dependence, unspecified, uncomplicated; Z79.4 Long term (current) use of insulin; Z79.899 Other long term (current) drug therapy; Z91.041 Radiographic dye allergy status

== ENCOUNTER → 2017-12-22 | Outpatient (CLI) | payer OTHER ==
[~2017-12-22] MED LIST changes: +CEFUROXIME AXE250 MG PO
[2017-12-22 09:47] LABS: ALKALINE PHOSPHATASE 146 U/L (45-117); BUN 7 mg/dl (7-24); CHLORIDE 95 mmol/L (98-107); CREATININE 0.73 mg/dL (0.70-1.30); POTASSIUM 4.2 mmol/L (3.5-5.1); SGOT/AST 14 IU/L (3-35); SGPT/ALT 30 U/L (12-78); SODIUM 127 mmol/L (136-145); TOTAL PROTEIN 7.7 gm/dL (6.4-8.2)
[2017-12-22 10:14] LABS: BASO # 0.1 10*3/uL (0.0-0.1); BASO % 0.7 % (0.0-1.0); EOS # 1.3 10*3/uL (0.0-0.4); EOS % 8.3 % (1.0-4.0); HEMATOCRIT 41.9 % (42.0-52.0); HEMOGLOBIN 14.7 g/dl (14.0-18.0); LYMPH # 3.4 10*3/uL (1.3-4.4); LYMPH % 22.3 % (27.0-41.0); MEAN CELL VOLUME 91.9 fl (80.0-94.0); MEAN CORPUSCULAR HGB 32.2 pg (27.0-31.0); MEAN CORPUSCULAR HGB CONC 35.1 g/dl (33.0-37.0); MEAN PLATELET VOLUME 8.6 fl (9.6-12.3); MONO # 1.1 10*3/uL (0.1-1.0); MONO % 7.2 % (3.0-9.0); NEUT # 9.2 10*3/uL (2.3-7.9); PLATELET COUNT AUTOMATED 339 10*3/uL (130-400); RED BLOOD COUNT 4.56 10*6/uL (4.50-5.90); RED CELL DISTRI WIDTH 13.2 % (0-14.5); WHITE BLOOD COUNT 15.1 10*3/uL (4.8-10.8)
== END | disposition home or self-care (01) ==
LOC: LAB 09:05
PROVIDERS: Urology
DX: Z12.5 Encounter for screening for malignant neoplasm of prostate (principal); I10 Essential (primary) hypertension; D40.0 Neoplasm of uncertain behavior of prostate

== ENCOUNTER 2018-04-01 12:41 | Inpatient (IN) | payer OTHER ==
[~2018-04-01] VITALS: Ht 170.2 cm; Wt 69.6 kg
[~2018-04-01 12:41] MED LIST changes: +CARDIZEM CD120 M2 PO; -CARDIZEM120 MG PO; -DOXEPIN HCL25 MG PO; +DOXEPIN50 MG PO; +PRAVACHOL20 MG PO; -ZOCOR20 MG PO
[2018-04-01 12:46] VITALS: BP 123/74
[2018-04-01 13:11] LABS: BASO # 0.1 10*3/uL (0.0-0.1); EOS # 1.3 10*3/uL (0.0-0.4); EOS % 10.5 % (1.0-4.0); HEMATOCRIT 39.4 % (42.0-52.0); HEMOGLOBIN 14.1 g/dl (14.0-18.0); LYMPH # 2.7 10*3/uL (1.3-4.4); LYMPH % 22.2 % (27.0-41.0); MEAN CELL VOLUME 91.6 fl (80.0-94.0); MEAN CORPUSCULAR HGB 32.8 pg (27.0-31.0); MEAN CORPUSCULAR HGB CONC 35.8 g/dl (33.0-37.0); MONO # 0.6 10*3/uL (0.1-1.0); MONO % 4.8 % (3.0-9.0); NEUT # 7.4 10*3/uL (2.3-7.9); NEUT % 61.1 % (47.0-73.0); PLATELET COUNT AUTOMATED 274 10*3/uL (130-400); RED CELL DISTRI WIDTH 13.4 % (0-14.5); WHITE BLOOD COUNT 12.2 10*3/uL (4.8-10.8)
[2018-04-01 13:23] LABS: ACT PARTIAL THROMBO TIME 27.1 SECONDS (20.8-31.5)
[2018-04-01 13:28] LABS: ALBUMIN 3.9 gm/dl (3.1-4.5); ALKALINE PHOSPHATASE 89 U/L (45-117); BUN 6 mg/dl (7-24); CHLORIDE 90 mmol/L (98-107); CREATININE 0.77 mg/dL (0.70-1.30); POTASSIUM 4.3 mmol/L (3.5-5.1); SGOT/AST 23 IU/L (3-35); SGPT/ALT 32 U/L (12-78); SODIUM 123 mmol/L (136-145); TOTAL PROTEIN 7.2 gm/dL (6.4-8.2)
[2018-04-01 13:30] LABS: TROPONIN I < 0.015 ng/ml (<0.045)
[2018-04-01 14:27] VITALS: BP 118/79
[2018-04-01 14:29] LABS: BILIRUBIN NEGATIVE (NEGATIVE); BLOOD NEGATIVE (NEGATIVE); CLARITY CLEAR (CLEAR); COLOR YELLOW (YELLOW); GLUCOSE TRACE (NEGATIVE); KETONE NEGATIVE (NEGATIVE); LEUKO ESTERASE NEGATIVE (NEGATIVE); NITRITE NEGATIVE (NEGATIVE); SPECIFIC GRAVITY <= 1.005 (1.005-1.030); UROBILINOGEN 0.2 E.U./dl (0.2-1.0)
[2018-04-01 14:48] LABS: BACTERIA TRACE; RBC 0-2 rbc/hpf (0-2); WBC 0-2 wbc/hpf (0-5)
[2018-04-01] MEDS ORDERED: PRECOSE25 MG PO (14:49)
[2018-04-01] MEDS ORDERED: ZYRTEC10 MG PO (14:51)
[2018-04-01] MEDS ORDERED: NEURONTIN300 MG PO (14:56)
[2018-04-01] MEDS ORDERED: ABILIFY10 MG PO (15:05)
[2018-04-01 16:00] VITALS: BP 113/78
[2018-04-01 20:00] VITALS: BP 110/72
[2018-04-02] VITALS: BP 112/74
[2018-04-02 07:00] LABS: BASO # 0.1 10*3/uL (0.0-0.1); BASO % 1.2 % (0.0-1.0); EOS # 1.3 10*3/uL (0.0-0.4); EOS % 13.9 % (1.0-4.0); HEMATOCRIT 41.8 % (42.0-52.0); HEMOGLOBIN 14.3 g/dl (14.0-18.0); LYMPH # 3.3 10*3/uL (1.3-4.4); LYMPH % 34.2 % (27.0-41.0); MEAN CELL VOLUME 93.5 fl (80.0-94.0); MEAN CORPUSCULAR HGB CONC 34.2 g/dl (33.0-37.0); MEAN PLATELET VOLUME 8.2 fl (9.6-12.3); MONO # 0.8 10*3/uL (0.1-1.0); MONO % 8.2 % (3.0-9.0); NEUT # 4.1 10*3/uL (2.3-7.9); NEUT % 42.4 % (47.0-73.0); PLATELET COUNT AUTOMATED 287 10*3/uL (130-400); RED BLOOD COUNT 4.47 10*6/uL (4.50-5.90); RED CELL DISTRI WIDTH 13.7 % (0-14.5); WHITE BLOOD COUNT 9.7 10*3/uL (4.8-10.8)
[2018-04-02 07:33] LABS: BUN 6 mg/dl (7-24); CHLORIDE 102 mmol/L (98-107); CHOLESTEROL 131 mg/dL (<200); CREATININE 0.59 mg/dL (0.70-1.30); PHOSPHOROUS 4.4 mg/dL (2.5-4.9); TRIGLYCERIDES 84 mg/dl (<150); VLDL CHOLESTEROL 17 mg/dL (6-40)
[2018-04-02 07:43] LABS: HDL CHOLESTEROL 36 mg/dl (40-60); LDL CHOLESTEROL 78 mg/dL (9-159); THYROID STIM HORMONE (HS) 0.965 uIU/ml (0.358-4.75)
[2018-04-02 07:50] LABS: POTASSIUM 4.5 mmol/L (3.5-5.1)
[2018-04-02 07:55] LABS: SODIUM 135 mmol/L (136-145)
[2018-04-02 08:00] VITALS: BP 99/58
[2018-04-02 12:00] VITALS: BP 121/83
== END 2018-04-02 14:10 | disposition home or self-care (01) | DRG 205 ==
LOC: ED 12:41 → EDHOLD 13:47 → 4E 13:54
PROVIDERS: Emergency Medicine; Student in an Organized Health Care Education/Training Program
DX: M94.0 Chondrocostal junction syndrome [Tietze] (principal); J18.9 Pneumonia, unspecified organism; E11.40 Type 2 diabetes mellitus with diabetic neuropathy, unspecified; E11.65 Type 2 diabetes mellitus with hyperglycemia; E87.1 Hypo-osmolality and hyponatremia; F10.29 Alcohol dependence with unspecified alcohol-induced disorder; I24.9 Acute ischemic heart disease, unspecified; E87.8 Other disorders of electrolyte and fluid balance, not elsewhere classified; R10.13 Epigastric pain; D72.829 Elevated white blood cell count, unspecified; E03.9 Hypothyroidism, unspecified; K21.9 Gastro-esophageal reflux disease without esophagitis; J44.9 Chronic obstructive pulmonary disease, unspecified; F41.1 Generalized anxiety disorder; F32.9 Major depressive disorder, single episode, unspecified; E55.9 Vitamin D deficiency, unspecified; E78.5 Hyperlipidemia, unspecified; K29.70 Gastritis, unspecified, without bleeding; K44.9 Diaphragmatic hernia without obstruction or gangrene; I10 Essential (primary) hypertension; F41.0 Panic disorder [episodic paroxysmal anxiety]; E78.00 Pure hypercholesterolemia, unspecified; Z71.6 Tobacco abuse counseling; Z72.0 Tobacco use; Z79.4 Long term (current) use of insulin; Z91.041 Radiographic dye allergy status; Z79.899 Other long term (current) drug therapy; Z83.3 Family history of diabetes mellitus; Z82.3 Family history of stroke; Z82.0 Family history of epilepsy and other diseases of the nervous system

== ENCOUNTER 2018-04-04 12:42 | Emergency (ER) | payer OTHER ==
[~2018-04-04] VITALS: Ht 170.1 cm; Wt 69.4 kg
[~2018-04-04 12:42] MED LIST changes: +ABILIFY10 MG PO; +NEURONTIN300 MG PO; +PRECOSE25 MG PO; +ZYRTEC10 MG PO
[2018-04-04 13:06] LABS: BASO # 0.1 10*3/uL (0.0-0.1); BASO % 0.6 % (0.0-1.0); EOS % 7.7 % (1.0-4.0); HEMATOCRIT 42.6 % (42.0-52.0); HEMOGLOBIN 15.1 g/dl (14.0-18.0); LYMPH % 24.1 % (27.0-41.0); MEAN CORPUSCULAR HGB 32.3 pg (27.0-31.0); MEAN CORPUSCULAR HGB CONC 35.4 g/dl (33.0-37.0); MONO # 0.9 10*3/uL (0.1-1.0); MONO % 6.8 % (3.0-9.0); NEUT # 7.6 10*3/uL (2.3-7.9); NEUT % 60.5 % (47.0-73.0); PLATELET COUNT AUTOMATED 321 10*3/uL (130-400); RED BLOOD COUNT 4.68 10*6/uL (4.50-5.90); RED CELL DISTRI WIDTH 13.1 % (0-14.5); WHITE BLOOD COUNT 12.5 10*3/uL (4.8-10.8)
[2018-04-04 13:15] LABS: ACT PARTIAL THROMBO TIME 25.9 SECONDS (20.8-31.5)
[2018-04-04 13:22] LABS: ALBUMIN 4.5 gm/dl (3.1-4.5); ALKALINE PHOSPHATASE 90 U/L (45-117); BUN 4 mg/dl (7-24); CHLORIDE 89 mmol/L (98-107); CREATININE 0.79 mg/dL (0.70-1.30); SGOT/AST 15 IU/L (3-35); SGPT/ALT 32 U/L (12-78); SODIUM 122 mmol/L (136-145); TOTAL PROTEIN 7.8 gm/dL (6.4-8.2)
[2018-04-04 13:23] LABS: TROPONIN I < 0.015 ng/ml (<0.045)
[2018-04-04] MEDS ORDERED: CLARITIN-D 121 EACH PO (15:42)
== END 2018-04-04 16:00 | disposition home or self-care (01) ==
LOC: ED 12:42
PROVIDERS: Emergency Medicine
DX: J06.9 Acute upper respiratory infection, unspecified (principal); J44.9 Chronic obstructive pulmonary disease, unspecified; I10 Essential (primary) hypertension; K21.9 Gastro-esophageal reflux disease without esophagitis; E03.9 Hypothyroidism, unspecified; E11.40 Type 2 diabetes mellitus with diabetic neuropathy, unspecified; F17.200 Nicotine dependence, unspecified, uncomplicated; Z91.041 Radiographic dye allergy status; Z79.899 Other long term (current) drug therapy

== ENCOUNTER → 2018-04-17 | Outpatient (CLI) | payer OTHER ==
[~2018-04-17] MED LIST changes: +CLARITIN-D 121 EACH PO
--- NOTE | ~2018-04-17 | HM ---
[place], [place] HOLTER MONITOR REPORT NAME: KYLEIGH ALONZO UNIT #: [id number] ROOM: DOCTOR: ELLA LUGO MD BIRTHDATE: [birth year] DOS: 04/18/2018 A 24-HOUR HOLTER MONITOR Study was recorded from 04/17/2018 through 04/18/2018. The recording was analyzed on 04/18/2018. Interpreted and dictated on 04/18/2018. REFERRED BY: ZOEY Snyder for evaluation of tachycardia. PROCEDURE: The patient's rhythm was recorded utilizing a Holter device for 24 hours. FINDINGS: Basic rhythm is normal sinus. His average heart rate was 77 with heart rates varying in sinus rhythm from 51-120 beats per minute. Four premature ventricular contractions were noted in the 24-hour period. No ventricular tachycardia or pauses were seen. Occasional premature atrial contractions were recorded including two short runs of supraventricular tachycardia, the longest of which was 8 beats in duration with a maximum heart rate of 150 beats per minute. These were self-limiting and occurred at 8:36 p.m. and 2:28 a.m. The patient did not return any entries in his diary. IMPRESSION: 1. Normal sinus rhythm with normal heart rate variation. Average heart rate was 77. 2. Two short runs of supraventricular tachycardia with rates up to 150 beats per minute and presumably without attendant symptoms. ELLA LUGO MD CM:HOLTER:HOLTER MONITOR REPORT 56 41 ELLA LUGO MD
== END | disposition home or self-care (01) ==
LOC: CARD 10:29
DX: R00.0 Tachycardia, unspecified (principal)

== ENCOUNTER 2018-09-01 00:07 | Inpatient (IN) | payer OTHER ==
[2018-09-01] VITALS (8 sets, daily range): BP systolic 96–141; BP diastolic 48–82
[~2018-09-01] VITALS: Ht 170.2 cm; Wt 70.3 kg
--- NOTE | ~2018-09-01 | WRIGHTHP ---
[place], [place] PATIENT HISTORY AND PHYSICAL EXAM NAME: [facility]ZO [facility] [id number] UNIT #: [id number] ROOM: [facility] DOCTOR: CORAZON HILL MD BIRTHDATE: [birth year] DOS: 09/01/2018 HISTORY OF PRESENT ILLNESS: The patient is 52 years old. The patient comes to the Emergency Room with complaints of shortness of breath and chest pain. The patient states that he was drinking rather heavily, came home and he noticed that multiple family members were smoking weed in the house. He became short of breath. He also smokes 4 packs of cigarettes a day on for the last 34 years and has had some increasing shortness of breath for the last few days, but this time, he got increasingly short of breath, so the ambulance was called. He was hypoxic with a saturation of 85% on room air when they arrived. After oxygen application the saturation improved, but was taken to the Emergency Room. In the ER, he did complain of continued chest pain and so was admitted. He did have some elevation of lactic acid also. This morning, he is able to communicate well, does remember the chain of events, states that he does have some left-sided abdominal pain and left-sided chest pain. He denies having any nausea, any emesis, any fever or chills. He does not have any complaints of nausea, emesis, fever or chills. He has had a slight cough, but does not bring up any sputum. PAST MEDICAL HISTORY: Significant for: 1. Type 2 diabetes mellitus, insulin-dependent. 2. ____. 3. Chronic alcoholism. 4. Moderate cigarette smoker. 5. Generalized anxiety disorder. 6. Gastroesophageal reflux disease. 7. Hypothyroidism. Last hospitalization to [facility] for chest pain in March of 2018. Last stress test in October of 2017, which is negative. MEDICATIONS: That the patient is on currently are amitriptyline 25 mg 2 tablets at night, atorvastatin 40 daily, Zyrtec 10 daily, vitamin D 2000 units daily, Klonopin 1 mg twice a day, diltiazem 120 daily, gabapentin 300 t.i.d., levothyroxine 25 mcg daily, lisinopril 2.5 daily, metformin 500 b.i.d., metoprolol 50 b.i.d., Protonix 40 daily, Pravachol 20 daily, prazosin 2 mg at bedtime and insulin glargine 14 units twice a day. SOCIAL HISTORY: Smokes about a 4-pack of cigarettes a day the last 35 years. Alcohol, he drinks two bottles of wine daily. PHYSICAL EXAMINATION: GENERAL: He is awake and alert and oriented. Speech is slightly garbled and sometimes difficult to understand, but he remembers the chain of events leading to his hospitalization. VITAL SIGNS: Blood pressure is 116/70, pulse of 79, respirations 18, temperature 97.9. LUNGS: Diminished breath sounds. HEART: Regular. ABDOMEN: Soft, some tenderness in the left upper quadrant. [place], [place] PATIENT HISTORY AND PHYSICAL EXAM NAME: KYLEIGH ALONZO UNIT #: [id number] ROOM: [facility] DOCTOR: CORAZON HILL MD BIRTHDATE: [birth year] EXTREMITIES: Without any edema. ASSESSMENT AND PLAN: The patient who presents with. 1. Alcohol intoxication. He has asked whether he could enroll in alcohol rehab which will be done. 2. Chest pain, precordial. He does have significant risk factors including heavy alcohol abuse, smoking, and type 2 diabetes mellitus along with hypertension. The patient will be scheduled for a stress test. Consultation to Dr. Dodd obtained. Troponin set was done. An echocardiogram ordered. 3. Hypokalemia. Supplementation will be ordered. Slow IV hydration is obtained. 4. Left-sided abdominal pain. Amylase and lipase will be repeated. They were negative in the Emergency Room and the patient will have a CT of the abdomen and pelvis. 5. Type 2 diabetes mellitus. The patient is kept n.p.o. for the testing today, so we will hold off on diet. 6. Hypertension, controlled. Restart some of his home medications. 7. Heavy alcoholism. The patient to have Librium to prevent DTs. CORAZON HILL MD CM:HISPHYS:PATIENT HISTORY AND PHYSICAL EXAMINATION [id number] CORAZON HILL MD 09/01/18 1114 interface
--- NOTE | ~2018-09-01 | PR ---
[place], [place] PROGRESS NOTE NAME: KYLEIGH ALONZO UNIT #: [id number] ROOM: 501 DOCTOR: CORAZON HILL MD BIRTHDATE: [birth year] DOS: SUBJECTIVE: The patient is resting comfortably, does not have any complaints this morning, is awake and alert and oriented and able to speak properly. Speech appears normal and no longer garbled. OBJECTIVE: VITAL SIGNS: Pressure is 106/58, pulse of 75, respirations 18, temperature 98.1. LUNGS: Clear. HEART: Regular. ABDOMEN: Soft. EXTREMITIES: Without any edema. The patient does not have any evidence of delirium tremens. ASSESSMENT AND PLAN: 1. The patient with precordial chest pain, ruled out for myocardial infarction, negative stress test. 2. Type 2 diabetes mellitus, insulin-dependent. Blood sugars are controlled. 3. Heavy alcoholism. The patient is encouraged to stop drinking. He was given Librium to avoid delirium tremens as well as thiamin and stable. 4. Hypokalemia. Supplementation was ordered. The patient is stable and can be discharged today. 5. Moderate cigarette smoker with hypoxic respiratory failure. Exercise oximetry will be ordered today, since his oxygen saturation at rest is improved. CORAZON HILL MD CM:PNTRANS 0936 1430 CORAZON HILL MD 09/11/18 1354 LEONILA [email or web address]
--- NOTE | ~2018-09-01 | EKG ---
[place], [place] ELECTROCARDIOGRAM REPORT NAME: KYLEIGH ALONZO UNIT #: [id number] ROOM: [facility] DOCTOR: BO DRAFT REPORT BIRTHDATE: [birth year] [facility] Test Date: 2018-09-01 Test Time: 00:35:57 Pat Name: KYLEIGH ALONZO Department: 5E Room: [facility] Gender: M Fence Rider: Mitch Schmitt : 1965 Requested By: SUSAN YOST Order Number: [id number] Reading MD: Zack Dodd MD Measurements Intervals [place] Rate: 71 P: 73 [place]: 148 QRS: 80 QRSD: 106 T: 34 QT: 397 QTc: 432 Interpretive Statements Sinus rhythm ST elev, probable normal early repol pattern Compared to ECG 06/04/2018 15:34:17 No significant changes Electronically Signed On 09-01-2018 14:11:23 PDT by Zack Dodd MD CM:EKGRPT:ELECTROCARDIOGRAM REPORT [id number] SUSAN KASPER DRAFT REPORT SUSAN YOST DO
[2018-09-01 00:46] LABS: BASO # 0.1 10*3/uL (0.0-0.1); BASO % 1.1 % (0.0-1.0); EOS # 1.4 10*3/uL (0.0-0.4); HEMATOCRIT 41.4 % (42.0-52.0); HEMOGLOBIN 14.3 g/dl (14.0-18.0); LYMPH # 4.4 10*3/uL (1.3-4.4); LYMPH % 42.2 % (27.0-41.0); MEAN CELL VOLUME 94.7 fl (80.0-94.0); MEAN CORPUSCULAR HGB 32.7 pg (27.0-31.0); MEAN CORPUSCULAR HGB CONC 34.5 g/dl (33.0-37.0); MEAN PLATELET VOLUME 8.8 fl (9.6-12.3); MONO # 0.6 10*3/uL (0.1-1.0); MONO % 5.6 % (3.0-9.0); NEUT % 37.8 % (47.0-73.0); PLATELET COUNT AUTOMATED 206 10*3/uL (130-400); RED BLOOD COUNT 4.37 10*6/uL (4.50-5.90); RED CELL DISTRI WIDTH 13.4 % (0-14.5); WHITE BLOOD COUNT 10.5 10*3/uL (4.8-10.8)
[2018-09-01 01:04] LABS: ALBUMIN 3.6 gm/dl (3.1-4.5); ALKALINE PHOSPHATASE 124 U/L (45-117); BUN 6 mg/dl (7-24); CHLORIDE 100 mmol/L (98-107); CREATININE 0.65 mg/dL (0.70-1.30); LIPASE 209 U/L (73-393); POTASSIUM 3.4 mmol/L (3.5-5.1); SGOT/AST 20 IU/L (3-35); SGPT/ALT 38 U/L (12-78); SODIUM 131 mmol/L (136-145); TOTAL PROTEIN 6.8 gm/dL (6.4-8.2)
[2018-09-01 01:09] LABS: TROPONIN I < 0.015 ng/ml (<0.045)
[2018-09-01] MEDS ORDERED: MINIPRESS2 M1 PO (03:05)
[2018-09-01] MEDS ORDERED: LIPITOR40 MG PO (03:09)
[2018-09-01] MEDS ORDERED: LOPRESSOR50 M1 PO (03:11)
[2018-09-01] MEDS ORDERED: AMITRIPTYLINE25 MG PO (03:12)
[2018-09-01] MEDS ORDERED: METFORMIN ER500 MG PO (03:13)
[2018-09-01] MEDS ORDERED: BASAG SOL SC (03:18)
[2018-09-01 11:32] LABS: LIPASE 80 U/L (73-393)
[2018-09-02] VITALS: BP 94/56
[2018-09-02 08:00] VITALS: BP 106/58
== END 2018-09-02 12:30 | disposition home or self-care (01) | DRG 313 ==
LOC: ED 00:07 → EDHOLD 01:34 → 5E 01:34
PROVIDERS: Emergency Medicine; Internal Medicine
PROC: 4A02XM4 Measurement of Cardiac Total Activity, External Approach (ICD-10-PCS; principal; 2018-09-01)
PROC: 3E073KZ Introduction of Other Diagnostic Substance into Coronary Artery, Percutaneous Approach (ICD-10-PCS; 2018-09-01)
DX: R07.89 Other chest pain (principal); J96.91 Respiratory failure, unspecified with hypoxia; I69.354 Hemiplegia and hemiparesis following cerebral infarction affecting left non-dominant side; E87.6 Hypokalemia; R10.9 Unspecified abdominal pain; K29.70 Gastritis, unspecified, without bleeding; K21.9 Gastro-esophageal reflux disease without esophagitis; E11.40 Type 2 diabetes mellitus with diabetic neuropathy, unspecified; E78.5 Hyperlipidemia, unspecified; F41.1 Generalized anxiety disorder; F10.229 Alcohol dependence with intoxication, unspecified; F41.0 Panic disorder [episodic paroxysmal anxiety]; F17.210 Nicotine dependence, cigarettes, uncomplicated; I10 Essential (primary) hypertension; J44.9 Chronic obstructive pulmonary disease, unspecified; Z91.041 Radiographic dye allergy status; Z91.048 Other nonmedicinal substance allergy status; Z83.3 Family history of diabetes mellitus; Z81.1 Family history of alcohol abuse and dependence; Z82.3 Family history of stroke; Z71.6 Tobacco abuse counseling; Z82.0 Family history of epilepsy and other diseases of the nervous system; Z71.41 Alcohol abuse counseling and surveillance of alcoholic; Z79.899 Other long term (current) drug therapy

== ENCOUNTER 2018-10-16 19:40 | Inpatient (IN) | payer OTHER ==
[~2018-10-16] VITALS: Ht 170.2 cm; Wt 69.2 kg
--- NOTE | ~2018-10-16 | EKG ---
[place], [place] ELECTROCARDIOGRAM REPORT NAME: KYLEIGH ALONZO UNIT #: [id number] ROOM: 411 DOCTOR: BO DRAFT REPORT BIRTHDATE: [birth year] [facility] Test Date: 2018-10-16 Test Time: 21:39:27 Pat Name: KYLEIGH ALONZO Department: Room: 411 Gender: M General Office Worker: Guillermo Santiago : 1965 Requested By: KHADIJAH SUTTON Order Number: [id number] Reading MD: Zack Dodd MD Measurements Intervals [place] Rate: 76 P: 73 MD: 138 QRS: 75 QRSD: 97 T: 21 QT: 372 QTc: 419 Interpretive Statements Sinus rhythm ST elev, probable normal early repol pattern Compared to ECG 09/01/2018 00:35:57 ST (T wave) deviation still present No significant change Electronically Signed On 10-17-2018 17:01:39 PST by Zack Dodd MD CM:EKGRPT:ELECTROCARDIOGRAM REPORT [id number] KHADIJAH KASPER DRAFT REPORT KHADIJAH SUTTON DO
--- NOTE | ~2018-10-16 | CON ---
[place], [place] REPORT OF CONSULTATION NAME: KYLEIGH ALONZO UNIT #: [id number] ROOM: 411 DOCTOR: ELLA LUGO MD BIRTHDATE: [birth year] DOS: 10/17/2018 REASON FOR CONSULTATION: Chest pain. HISTORY OF PRESENT ILLNESS: This is one of many hospitalizations for the patient who is a 53-year-old man with a history of alcohol dependence, tobacco dependence, and a long history of atypical chest pain. He does have risk factors including type 2 diabetes mellitus, essential hypertension, hyperlipidemia and cigarette abuse. He has, however, been evaluated for chest pain on multiple occasions. Myocardial infarction has never been documented. Multiple stress tests have been normal. He had a stress test in 05/2016, which showed normal left ventricular function and perfusion and was felt to be a low risk study. His echocardiogram in 08/2016 was a normal study with an ejection fraction of 75%. He has also had nuclear myocardial perfusion studies in 10/2017 and most recently on 09/01/2018. This most recent study also showed normal myocardial perfusion with diaphragmatic attenuation. Ejection fraction was 84% and there was no evidence for ischemia. The study was felt to be low risk. His most recent echocardiogram on 09/01/2018 showed normal left ventricular size, wall motion and systolic function with an ejection fraction of 65%. Left ventricular diastolic function was normal. The valve structure and function were normal and the study was felt to be a normal exam. He comes into the hospital now because he would like to withdraw from alcohol and "kick the habit." He is receiving sedation per the [facility] protocol and is tolerating alcohol withdrawal well so far. His electrocardiogram on this admission shows no acute changes and no change from 08/2018. He currently has no chest pain and states that he has not had pain for some time. He does note a pinching sensation on his chest from the compliance monitor leads, but no other chest discomfort. PAST MEDICAL HISTORY: Includes: 1. Chronic alcoholism with episodic alcohol withdrawal in the past. 2. Long-term and ongoing cigarette abuse. 3. Chronic obstructive pulmonary disease. 4. Depression. 5. Type 2 diabetes mellitus with peripheral neuropathy. 6. Hyperlipidemia. 7. Essential hypertension. 8. Gastroesophageal reflux disease. 9. Hypothyroidism. 10. History of total odontectomy. 11. History of left knee surgery. MEDICATIONS: Prior to admission: Atorvastatin 40 mg daily, cholecalciferol 2000 units daily, clonazepam 1 mg b.i.d. p.r.n., levothyroxine 25 mcg daily, lisinopril 5 mg daily, Latuda 40 mg daily, metformin 500 mg b.i.d., metoprolol 50 mg every 12 hours, pantoprazole 40 mg daily, prazosin 2 mg at bedtime and glargine insulin ____ units subcutaneously b.i.d. [place], [place] REPORT OF CONSULTATION NAME: KYLEIGH ALONZO UNIT #: [id number] ROOM: 411 DOCTOR: ELLA LUGO MD BIRTHDATE: [birth year] ALLERGIES: He lists allergies to IODINE and IVP DYE. REVIEW OF SYSTEMS: The patient denies diplopia or loss of vision. He denies lightheadedness or syncope. Denies any focal weakness. He denies fevers, chills, sweats or recent weight change. He complains of fatigue and shakes when he withdraws from alcohol. He denies any chest pain at this time aside from the pinching from compliance monitor leads. He denies hemoptysis or hematemesis. He denies vomiting, but has had some nausea. He does get occasional abdominal pain, but denies any change in bowel or bladder habits and denies blood in his stools or urine. He does have tingling of his hands and feet, but denies focal weakness. He denies rashes or heat or cold intolerance. He denies any peripheral edema. The remainder of the review of systems is negative except as noted above. FAMILY HISTORY: The patient's father in his 60s from complications of diabetes. His mother is alive, but has a history of alcoholism and Alzheimer's disease. SOCIAL HISTORY: The patient consumes large quantities of alcohol on a daily basis and does smoke. PHYSICAL EXAMINATION: GENERAL: The patient is a slender white male who is awake, alert and oriented. VITAL SIGNS: Pulse is 79 and regular. Blood pressure is 134/70. He is afebrile. He weighs 69.2 kg and has a body mass index of 23.9. HEENT: Normocephalic and atraumatic. Extraocular muscles are intact. Sclerae are clear. Pupils are equal, round and react to light. The oral mucosa is moist. Tongue is midline. NECK: Supple. He has no jugular distention. Carotids are full and I heard no bruits. He had no neck or supraclavicular masses and no thyromegaly. LUNGS: Respirations are unlabored. His chest is clear to auscultation and percussion. He has no presacral edema or chest wall tenderness. CARDIOVASCULAR: His heart has a regular rhythm without murmurs, rubs or gallops. The PMI is not displaced. There is no precordial heave, lift or thrill. ABDOMEN: Soft and normally active without masses, organomegaly or bruits. EXTREMITIES: Showed no clubbing, cyanosis or edema. Peripheral pulses are palpable in the feet bilaterally. LABORATORY DATA: I reviewed his electrocardiogram, which showed sinus rhythm and was a normal tracing. It was unchanged from 08/2018. Hemoglobin is 15.2, white count is 11,100, platelet count 262,000. Sodium 134, potassium 3.8, chloride 102, CO2 of 22, BUN 3, creatinine 0.68. Serial troponin levels are normal. Alcohol level is 80 on admission. His INR was normal at 0.9. IMPRESSION: 1. Noncardiac chest pain. The patient has been evaluated on numerous occasions for chest pain and has never had any documented atherosclerotic disease despite [place], [place] REPORT OF CONSULTATION NAME: KYLEIGH ALONZO UNIT #: [id number] ROOM: 411 DOCTOR: ELLA LUGO MD BIRTHDATE: [birth year] his multiple risk factors. He was tested with an echocardiogram and stress test as recently as 5 weeks ago. His current EKG shows no changes and he has no elevation in troponin or any symptoms to suggest a change in his chest pain pattern. 2. Tobacco abuse. 3. Alcohol abuse. 4. Diabetes mellitus. 5. Hypertension. 6. Hyperlipidemia. 7. Hypothyroidism. PLAN: No other cardiac workup is indicated at this time. We will sign off, but will remain available to evaluate him should his symptoms change or he develops objective evidence that would suggest that he has developed coronary artery disease or significant arrhythmia. [facility] and I thank the hospitalist physicians for asking our advice regarding the patient's care. ELLA LUGO MD CM:CONSTR:REPORT OF CONSULTATION 23 10/18/18 1513 interface
[~2018-10-16 19:40] MED LIST changes: +AMITRIPTYLINE25 MG PO; +BASAG SOL SC; +LIPITOR40 MG PO; +LOPRESSOR50 M1 PO; +METFORMIN ER500 MG PO; +MINIPRESS2 M1 PO
[2018-10-16 19:46] VITALS: BP 103/66
[2018-10-16 20:15] VITALS: BP 99/57
[2018-10-16 20:16] LABS: BASO # 0.1 10*3/uL (0.0-0.1); BASO % 0.9 % (0.0-1.0); EOS # 0.9 10*3/uL (0.0-0.4); EOS % 8.3 % (1.0-4.0); HEMATOCRIT 44.8 % (42.0-52.0); HEMOGLOBIN 15.2 g/dl (14.0-18.0); LYMPH # 4.9 10*3/uL (1.3-4.4); LYMPH % 44.4 % (27.0-41.0); MEAN CELL VOLUME 93.5 fl (80.0-94.0); MEAN CORPUSCULAR HGB 31.7 pg (27.0-31.0); MEAN CORPUSCULAR HGB CONC 33.9 g/dl (33.0-37.0); MEAN PLATELET VOLUME 8.4 fl (9.6-12.3); MONO # 0.6 10*3/uL (0.1-1.0); MONO % 5.8 % (3.0-9.0); NEUT # 4.5 10*3/uL (2.3-7.9); NEUT % 40.3 % (47.0-73.0); PLATELET COUNT AUTOMATED 262 10*3/uL (130-400); RED BLOOD COUNT 4.79 10*6/uL (4.50-5.90); RED CELL DISTRI WIDTH 14.4 % (0-14.5); WHITE BLOOD COUNT 11.1 10*3/uL (4.8-10.8)
[2018-10-16 20:36] LABS: ALBUMIN 3.8 gm/dl (3.1-4.5); ALKALINE PHOSPHATASE 122 U/L (45-117); BUN 3 mg/dl (7-24); CHLORIDE 102 mmol/L (98-107); CREATININE 0.68 mg/dL (0.70-1.30); POTASSIUM 3.8 mmol/L (3.5-5.1); SGOT/AST 18 IU/L (3-35); SGPT/ALT 30 U/L (12-78); SODIUM 134 mmol/L (136-145); TOTAL PROTEIN 7.3 gm/dL (6.4-8.2)
[2018-10-16 20:40] LABS: ACETAMINOPHEN (TYLENOL) < 5.0 ug/ml (10-30)
[2018-10-16 20:45] VITALS: BP 98/61
[2018-10-16 21:15] VITALS: BP 94/61
[2018-10-16 21:18] LABS: BILIRUBIN NEGATIVE (NEGATIVE); BLOOD NEGATIVE (NEGATIVE); CLARITY CLEAR (CLEAR); COLOR YELLOW (YELLOW); GLUCOSE NEGATIVE (NEGATIVE); KETONE NEGATIVE (NEGATIVE); LEUKO ESTERASE NEGATIVE (NEGATIVE); NITRITE NEGATIVE (NEGATIVE); PH 5.5 (5.0-9.0); SPECIFIC GRAVITY <= 1.005 (1.005-1.030); UROBILINOGEN 0.2 E.U./dl (0.2-1.0)
[2018-10-16 21:25] LABS: URINE AMPHETAMINES < 1000 (1000ng/ml); URINE BARBITURATES < 200 (200ng/ml); URINE BENZODIAZEPINES < 200 (200ng/ml); URINE CANNABINOIDS (THC) < 50 (50ng/ml); URINE COCAINE < 300 (300ng/ml); URINE METHADONE < 300 (300ng/ml); URINE OPIATES < 300 (300ng/ml)
[2018-10-16 21:26] LABS: URINE PHENCYCLIDINE < 25 (25ng/ml); WBC 0-2 wbc/hpf (0-5)
[2018-10-16 21:45] VITALS: BP 98/62
[2018-10-16 21:56] LABS: INTERNATIONAL NORM RATIO 0.9 (2.0-3.5)
[2018-10-16] MEDS ORDERED: LATU40TA1 PO (22:22)
[2018-10-16] MEDS ORDERED: PRAVASTATIN SOD20 MG PO (22:23)
[2018-10-16] MEDS ORDERED: METOPROLOL TART50 M1 PO (22:24)
[2018-10-17] VITALS: BP 97/44
[2018-10-17 08:00] VITALS: BP 112/70
[2018-10-17 12:00] VITALS: BP 119/67
[2018-10-17 16:00] VITALS: BP 134/70
[2018-10-17 20:00] VITALS: BP 108/67
[2018-10-18] VITALS: BP 99/64
[2018-10-18 06:45] LABS: BASO # 0.1 10*3/uL (0.0-0.1); EOS # 0.9 10*3/uL (0.0-0.4); EOS % 9.4 % (1.0-4.0); HEMATOCRIT 41.1 % (42.0-52.0); HEMOGLOBIN 14.2 g/dl (14.0-18.0); LYMPH # 3.8 10*3/uL (1.3-4.4); LYMPH % 40.3 % (27.0-41.0); MEAN CELL VOLUME 94.3 fl (80.0-94.0); MEAN CORPUSCULAR HGB 32.6 pg (27.0-31.0); MEAN CORPUSCULAR HGB CONC 34.5 g/dl (33.0-37.0); MEAN PLATELET VOLUME 8.9 fl (9.6-12.3); MONO # 0.8 10*3/uL (0.1-1.0); MONO % 8.1 % (3.0-9.0); NEUT # 3.9 10*3/uL (2.3-7.9); PLATELET COUNT AUTOMATED 263 10*3/uL (130-400); RED BLOOD COUNT 4.36 10*6/uL (4.50-5.90); RED CELL DISTRI WIDTH 14.8 % (0-14.5); WHITE BLOOD COUNT 9.4 10*3/uL (4.8-10.8)
[2018-10-18 06:54] LABS: ALBUMIN 3.1 gm/dl (3.1-4.5); ALKALINE PHOSPHATASE 99 U/L (45-117); BUN 8 mg/dl (7-24); CHLORIDE 103 mmol/L (98-107); CREATININE 0.63 mg/dL (0.70-1.30); PHOSPHOROUS 4.3 mg/dL (2.5-4.9); SGOT/AST 14 IU/L (3-35); SGPT/ALT 24 U/L (12-78); SODIUM 136 mmol/L (136-145); TOTAL PROTEIN 6.4 gm/dL (6.4-8.2)
[2018-10-18 08:00] VITALS: BP 122/70
[2018-10-18 12:00] VITALS: BP 119/76
[2018-10-18 16:00] VITALS: BP 126/75
[2018-10-18 20:00] VITALS: BP 121/74
[2018-10-19] VITALS: BP 94/56
[2018-10-19 08:00] VITALS: BP 106/63
[2018-10-19 12:00] VITALS: BP 118/65
== END 2018-10-19 13:58 | disposition home or self-care (01) | DRG 897 ==
LOC: ED 19:40 → EDHOLD 21:02 → 4E 21:02
PROVIDERS: Internal Medicine; Student in an Organized Health Care Education/Training Program
DX: F10.230 Alcohol dependence with withdrawal, uncomplicated (principal); E87.1 Hypo-osmolality and hyponatremia; E03.9 Hypothyroidism, unspecified; I10 Essential (primary) hypertension; E11.65 Type 2 diabetes mellitus with hyperglycemia; E78.5 Hyperlipidemia, unspecified; F41.1 Generalized anxiety disorder; F32.9 Major depressive disorder, single episode, unspecified; E55.9 Vitamin D deficiency, unspecified; R10.30 Lower abdominal pain, unspecified; K21.9 Gastro-esophageal reflux disease without esophagitis; J44.9 Chronic obstructive pulmonary disease, unspecified; E11.42 Type 2 diabetes mellitus with diabetic polyneuropathy; R07.89 Other chest pain; F17.210 Nicotine dependence, cigarettes, uncomplicated; N40.1 Benign prostatic hyperplasia with lower urinary tract symptoms; R35.0 Frequency of micturition; Z79.4 Long term (current) use of insulin; Z91.041 Radiographic dye allergy status; Z83.3 Family history of diabetes mellitus; Z82.3 Family history of stroke; Z81.1 Family history of alcohol abuse and dependence; Z82.0 Family history of epilepsy and other diseases of the nervous system; Z79.899 Other long term (current) drug therapy

== ENCOUNTER 2018-11-22 08:22 | Inpatient (IN) | payer OTHER ==
[~2018-11-22] VITALS: Ht 170.1 cm; Wt 64.0 kg
--- NOTE | ~2018-11-22 | CON ---
[place], [place] REPORT OF CONSULTATION NAME: KYLEIGH ALONZO UNIT #: [id number] ROOM: 411 DOCTOR: PHD PRESTON MARISELA BIRTHDATE: [birth year] DOS: 11/23/2018 HISTORY OF PRESENT ILLNESS: The patient is a 53-year-old male referred by Dr. Orozco with concerns for alcohol abuse. At the present time, the patient is on the 4th floor at [facility]. He reports drinking 1-2 bottles of whiskey per day and has not had any since Tuesday. The patient lives with his girlfriend and 2 children. He also reports smoking 2 packs of cigarettes per day and denied illegal drug use. PAST MEDICAL HISTORY: Alcohol abuse, recurrent chest pains, recurrent abdominal pains, hypokalemia, benign prostatic hypertrophy, hypothyroidism, benign essential hypertension, diabetic neuropathy, type 2 diabetes, mixed hyperlipidemia, generalized anxiety disorder, major depressive disorder, recurrent vitamin D deficiency, GERD, and esophagitis. Nicotine dependence. MEDICATIONS: Lipitor, Protonix, Synthroid, Minipress, Lantus, Latuda, Glucophage, Ativan. The patient follows up with [facility] where he sees Aisha Hernández who prescribed him Klonopin as well. He is taking lorazepam now. NEUROLOGIC: The patient was awake, alert and oriented. He was lying in bed in no apparent distress. Eye contact and social skills were fair. He was cooperative with evaluation. Mood was anxious and depressed. Affect was blunted. He firmly denied suicidal and homicidal ideation, plan, and intent. He reports excessive worry about future events and significant conflict in the home, which has affected his sobriety. He follows up with [facility] for his medications, case management and counseling. He stated that he adheres to their treatment recommendations. Speech was mumbled and at times difficult to decipher. Expressive and receptive language appeared within normal limits on conversational basis. Thought process was goal directed. There was no evidence of hallucinations or delusions. Insight and judgment appeared fair. He states he is generally satisfied with his psychiatric medication regimen. He spoke at length about his issues that at home and his desire to maintain sobriety. He stated that he is interested in pursuing [facility] and possibly inpatient alcohol treatment and sober living. DIAGNOSES: 1. Alcohol withdrawal. 2. Unspecified depressive disorder. 3. Unspecified anxiety disorder. RECOMMENDATIONS: The patient stated he is content with his current medication regimen and follows up as an outpatient with [facility]. He is interested in [facility] services and possibly inpatient alcohol treatment and sober living. Thank you very much for this consult. [place], [place] REPORT OF CONSULTATION NAME: KYLEIGH ALONZO UNIT #: [id number] ROOM: 411 DOCTOR: PRESTON, PHD MARISELA BIRTHDATE: [birth year] Genny Whitaker, PhD CM:CONSTR:REPORT OF CONSULTATION 1142 11/23/18 1219 interface
--- NOTE | ~2018-11-22 | CON ---
[place], [place] REPORT OF CONSULTATION NAME: KYLEIGH ALONZO UNIT #: [id number] ROOM: 411 DOCTOR: NATHALIE ARCHER MD BIRTHDATE: [birth year] DOS: 11/24/2018 GASTROENDOSCOPIC REPORT HISTORY OF PRESENT ILLNESS: This is a 53-year-old patient who presented with chief complaint of epigastric abdominal pain, undergone investigation. CBC at the time of admission, his H and H of 15 and 44, white blood cell 11.8. Chest x-ray: Lungs with chronic changes. No acute pathology. INR was 1.0. Comprehensive metabolic panel, GFR greater than 60, sodium was 129. Liver function test normal. Urine drug was negative. Troponin negative. PAST MEDICAL HISTORY: ETOH dependency, hypothyroidism, BPH, atypical chest pain, diabetes mellitus, major depression, GERD. SOCIAL HISTORY: Two pack smoker and ETOH consumer. FAMILY HISTORY: Noncontributory. ALLERGIES: IODINE. MEDICATIONS: List has been reviewed. PAST SURGICAL HISTORY: Associated with dental extractions and left knee arthroscopy. REVIEW OF SYSTEMS: HEENT: Denies double vision, blurred vision. RESPIRATORY: Denies acute shortness of breath. CARDIOVASCULAR: Denies typical chest pain. DIGESTIVE SYSTEM: Atypical epigastric pain. PHYSICAL EXAMINATION: VITAL SIGNS: Stable. HEENT: Head normocephalic, nontraumatic. Eyes: Pupils round, reactive. Sclerae nonicteric. Mouth and buccal mucosa benign. NECK: Supple, no thyromegaly, no cervical lymphadenopathy. CHEST: Symmetric anatomy, equal expansion. No wheeze, no rhonchi; however, decreased air entry in general. HEART: Normal sinus rhythm, no gallop, no murmur. ABDOMEN: Soft, no hepato-organomegaly. Bowel sounds present. Nonspecific epigastric distress. EXTREMITIES: No cyanosis, no pedal edema. NEUROLOGIC: Alert, oriented to time, place, person. IMPRESSION: Epigastric distress, ruling out hiatal hernia, ruling out reflux, history of ETOH. OTHER ADJUNCTIVE DIAGNOSES: As outlined in paragraph of past medical, surgical history. [place], [place] REPORT OF CONSULTATION NAME: KYLEIGH ALONZO UNIT #: [id number] ROOM: 411 DOCTOR: NATHALIE ARCHER MD BIRTHDATE: [birth year] PLAN AND DISCUSSION: Endoscopic assessment of GI tract. NATHALIE ARCHER MD CM:CONSTR:REPORT OF CONSULTATION 1455 11/25/18 0256 interface
--- NOTE | ~2018-11-22 | WRIGHTHP ---
[place], [place] PATIENT HISTORY AND PHYSICAL EXAM NAME: KYLEIGH ALONZO [facility] #: [id number] UNIT #: [id number] ROOM: 411 DOCTOR: SPENCER KELLY MD BIRTHDATE: [birth year] DOS: 11/22/2018 HISTORY OF PRESENT ILLNESS: The patient is a 53-year-old gentleman with a past medical history of: 1. The patient has a past history of alcoholism. 2. Recurrent chest pains. 3. Recurrent abdominal pains. 4. Hypokalemia. 5. Benign prostatic hypertrophy. 6. Hypothyroidism. 7. Benign essential hypertension. 8. Diabetic neuropathy. 9. Type 2 diabetes mellitus. 10. Mixed hyperlipidemia. 11. Generalized anxiety disorder. 12. Major depression, recurrent. 13. Vitamin D deficiency. 14. GERD and esophagitis. 15. Nicotine smoke dependence. The patient presented to the Emergency Department with complaints of severe abdominal pains after drinking about one bottle of whiskey on Tuesday and recurrent left-sided chest pains lasting few minutes at a time. The patient also had been drinking about 1-2 bottles of whiskey a day and had not drank since Tuesday, which is 2 days now and was going to undergo withdrawal. After admission, the patient is still complaining of epigastric pains, dark colored stools and left-sided recurrent chest pains. No other GI or urinary symptoms. REVIEW OF SYSTEMS: RESPIRATORY: No increasing shortness of breath, but the patient is chronically short of breath and smokes 2 packs of cigarettes a day. CARDIOVASCULAR SYSTEM: Recurrent left-sided chest pains. GASTROINTESTINAL: Dark colored stools and epigastric pains. FAMILY HISTORY: Noncontributory. HOME MEDICATIONS: The patient takes pravastatin, Protonix, lisinopril, levothyroxine, prazosin, metoprolol, Latuda, metformin, Klonopin at home. ALLERGIES: Known allergies to IODINE. PHYSICAL EXAMINATION: VITAL SIGNS: Blood pressure 112/65, heart rate 68 beats per minute, breathing 20 times per minute, temperature 99.2 degrees Fahrenheit. GENERAL: Alert, oriented x 3, in no visible distress. HEENT AND NECK: Extraocular movements are intact. Sclerae are anicteric. Oral mucosa is moist and clean. No obvious facial weakness. Neck is supple without any lymphadenopathy. No thyromegaly. No JVD. No carotid arterial bruits. LUNGS: Auscultation shows expiratory wheezing and decreased breath sounds all over. [place], [place] PATIENT HISTORY AND PHYSICAL EXAM NAME: KYLEIGH ALONZO UNIT #: [id number] ROOM: 411 DOCTOR: SPENCER KELLY MD BIRTHDATE: [birth year] CARDIOVASCULAR SYSTEM: Heart rate is regular in rate and rhythm. S1 and S2 normally audible. No significant murmur or any other abnormal cardiac sounds. ABDOMEN: Epigastric tenderness on palpation. EXTREMITIES: Without significant cyanosis or edema. Warm to touch. CENTRAL NERVOUS SYSTEM: Alert and oriented x 3. Cranial nerves II-XII are intact. Speech is normal. The patient is able to move all extremities. Normal muscle strength. Deep tendon reflexes are equal on both sides. Plantars were downgoing. LABORATORY DATA: Negative cardiac enzymes. Normal serum electrolytes, except for hyponatremia at 129. Chest x-ray is showing no acute abnormality. The patient has low sodium level of 129. Urine drug screen was negative. No signs of urine infection on urinalysis. Cardiac enzymes negative. IMPRESSION: 1. The patient with recurrent left chest pains from uncertain etiology. The patient had a cardiac stress test done in August 2018, 2 months back, which was normal and was low risk for myocardial perfusion abnormality, showed normal perfusion. Cardiac enzymes have been negative. Cardiology consulted for opinion. 2. The patient with alcohol abuse, has been drinking 1-2 bottles of whiskey daily and last time he drank was Tuesday, 2 days ago, so he can undergo severe alcohol withdrawal. The patient put on a biztalk consultant and started on IV Ativan and also p.r.n. Ativan was kept for any withdrawal and delirium tremens symptoms and he is being followed closely. He is asymptomatic. 3. Severe epigastric pains with history of alcoholism. The patient to be evaluated by Dr. Chapman. He needs to be checked for esophageal varices. 4. History of major depression, recurrent, moderate. The patient already on Latuda. 5. Benign essential hypertension. The patient remains on metoprolol, prazosin, lisinopril. 6. Hypothyroidism, being treated with levothyroxine. 7. Gastroesophageal reflux disease and esophagitis, treated with Protonix. 8. Mixed hyperlipidemia. The patient remains on pravastatin. 9. Generalized anxiety disorder. The patient was on Klonopin, presently on lorazepam. [place], [place] PATIENT HISTORY AND PHYSICAL EXAM NAME: KYLEIGH ALONZO UNIT #: [id number] ROOM: [facility] DOCTOR: SPENCER KELLY MD BIRTHDATE: [birth year] SPENCER KELLY MD CM:HISPHYS:PATIENT HISTORY AND PHYSICAL EXAMINATION 173 26 SPENCER KELLY MD 11/22/18 182 interface
--- NOTE | ~2018-11-22 | PR ---
[place], [place] PROGRESS NOTE NAME: KYLEIGH ALONZO UNIT #: [id number] ROOM: 411 DOCTOR: SPENCER KELLY MD BIRTHDATE: [birth year] DOS: 11/26/2018 SUBJECTIVE: The patient is without symptoms of shakiness, tremors, anxiety or sweating. OBJECTIVE: GENERAL APPEARANCE: The patient is alert and oriented x 3, in no visible distress. VITAL SIGNS: Blood pressure 138/80, heart rate of 82 beats per minute, breathing 22 times per minute, temperature 99 degrees Fahrenheit. HEENT AND NECK: Exam within normal limits. CARDIOVASCULAR SYSTEM: Heart rate is regular in rate and rhythm. S1 and S2 normally audible. LUNGS: Clear to auscultation. ABDOMEN: Soft, nontender. No obvious organomegaly. Bowel sounds are present. EXTREMITIES: Without significant cyanosis or edema. IMPRESSION: 1. The patient with alcohol intoxication and chronic alcohol dependence, has undergone treatment for alcohol withdrawal and remains on Ativan and doing well. Tomorrow, he is expected to be taken over by inpatient alcohol rehab program, [facility] floor. He is discharged to home and continued on alcohol rehabilitation. 2. Benign essential hypertension. Blood pressure is being monitored followed and treated. 3. Hypothyroidism, replaced with levothyroxine. 4. Generalized anxiety disorder, treated with Klonopin at home, but the patient remains on Ativan here. 5. Severe abdominal pains and severe gastroenteritis, on esophagogastroduodenoscopy by Dr. Chapman at [facility] partly from alcohol abuse. The patient is status post esophagogastroduodenoscopy by Dr. Chapman and abdominal pains have improved and he also is being treated with intravenous Protonix. 6. Mixed hyperlipidemia, treated with pravastatin. 7. Benign essential hypertension. Blood pressure being monitored and followed. [place], [place] PROGRESS NOTE NAME: KYLEIGH ALONZO UNIT #: [id number] ROOM: 411 DOCTOR: SPENCER KELLY MD BIRTHDATE: [birth year] SPENCER KELLY MD CM:PNTRANS [id number] SPENCER KELLY MD 11/27/18 0016 interface
--- NOTE | ~2018-11-22 | O ---
[place], [place] OPERATIVE NOTE NAME: KYLEIGH ALONZO UNIT #: [id number] ROOM: 411 DOCTOR: NATHALIE ARCHER MD BIRTHDATE: [birth year] DOS: 11/24/2018 GASTROENDOSCOPIC REPORT INDICATIONS: The patient has presented with epigastric distress, abdominal pain, history of EtOH, history of nicotine dependency, has been undergoing investigation. His comprehensive metabolic panel has essentially been unremarkable except hyponatremia that later studies shows to be within normal limits. The CBC differential within normal limits. White blood cell 9, H and H of 13 and 39. PROCEDURE: Today's procedure part of investigation is panendoscopy plus biopsy. PREMEDICATION: Propofol. SCOPE: Olympus forward-viewing gastroscope Q10 video. REPORT: After putting the patient in left lateral position and application of lubricant to the scope, the scope was introduced. Thereafter, under direct visualization, advanced through the length of esophagus without difficulty. Gastritis was noticed. Gastric pouch was entered. Duodenal bulb, second and third part within normal limits. Antral biopsy obtained. GI reflection of the scope reveals cardia to be benign. The patient extubated, tolerated the procedure well. IMPRESSION: Gastritis, status post biopsy. PLAN AND DISCUSSION: We are going to organize a regular diet. A sonographic study of the abdomen and pelvis can be organized given as outpatient. PPI 20 mg of omeprazole every day, would do. The patient to be advised to abstain from smoking and alcohol. NATHALIE ARCHER MD CM:OPRECORD:OPERATIVE NOTE 1605 1619 NATHALIE ARCHER MD 11/24/18 1619 interface
--- NOTE | ~2018-11-22 | PR ---
[place], [place] PROGRESS NOTE NAME: KYLEIGH ALONZO UNIT #: [id number] ROOM: 411 DOCTOR: SPENCER KELLY MD BIRTHDATE: [birth year] DOS: 11/23/2018 SUBJECTIVE: The patient continues to feel better and he is requesting to go into an alcohol rehabilitation program. OBJECTIVE: GENERAL APPEARANCE: The patient is alert and oriented x 3, in no visible distress. VITAL SIGNS: Blood pressure 116/69, heart rate of 66 beats per minute, breathing 18 times per minute, temperature 98.5 degrees Fahrenheit. HEENT AND NECK: Exam within normal limits. CARDIOVASCULAR SYSTEM: Heart rate is regular in rate and rhythm. S1 and S2 normally audible. LUNGS: Clear to auscultation. ABDOMEN: Soft, nontender. No obvious organomegaly. Bowel sounds are present. EXTREMITIES: Without significant cyanosis or edema. IMPRESSION: 1. The patient with alcohol intoxication and being watched closely for delirium tremens. The patient is being treated with Ativan and doing well. The patient will be transferred to alcohol rehab program at [facility] after he has his GI workup completed by Dr. Chapman tomorrow. The patient is going for EGD. 2. Severe abdominal pains and gastritis, being evaluated by Dr. Chapman tomorrow with EGD. 3. Recurrent left-sided chest pains, considered noncardiac by Cardiology and cardiac enzymes were negative. 4. Benign essential hypertension, being treated, followed and controlled. 5. Hypothyroidism, replaced with levothyroxine. 6. Mixed hyperlipidemia, treated with pravastatin. 7. Generalized anxiety disorder, presently being treated with Ativan. The patient takes Klonopin at home. 8. Major depression, recurrent, moderate. The patient is already on Latuda. [place], [place] PROGRESS NOTE NAME: KYLEIGH ALONZO UNIT #: [id number] ROOM: 411 DOCTOR: SPENCER KELLY MD BIRTHDATE: [birth year] SPENCER KELLY MD CM:PNTRANS [id number] SPENCER KELLY MD 11/24/18 0556 interface
--- NOTE | ~2018-11-22 | PR ---
[place], [place] PROGRESS NOTE NAME: KYLEIGH ALONZO UNIT #: [id number] ROOM: 411 DOCTOR: SPENCER KELLY MD BIRTHDATE: [birth year] DOS: 11/25/2018 SUBJECTIVE: The patient has opted for alcohol rehabilitation program at [facility] and he can be switched to [facility] on Tuesday. OBJECTIVE: GENERAL APPEARANCE: The patient is alert and oriented x 3, in no visible distress. VITAL SIGNS: Blood pressure 133/81, heart rate 81 beats per minute, afebrile. HEENT AND NECK: Exam within normal limits. CARDIOVASCULAR SYSTEM: Heart rate is regular in rate and rhythm. S1 and S2 normally audible. LUNGS: Clear to auscultation. ABDOMEN: Soft, nontender. No obvious organomegaly. Bowel sounds are present. EXTREMITIES: Without significant cyanosis or edema. IMPRESSION: 1. The patient has a history of alcohol intoxication and chronic alcohol dependence, has undergone treatment for alcohol withdrawal and was kept on Ativan, no signs of delirium tremens. The patient has been kept on a environmental monitoring specialist and has done well. The patient has opted for [facility] rehabilitation program at [facility] who will accept him, hopefully on Tuesday. 2. Benign essential hypertension. Blood pressure is being monitored, treated and controlled. 3. Hypothyroidism, replaced with levothyroxine. 4. Mixed hyperlipidemia, treated with pravastatin. 5. Generalized anxiety disorder, which is treated at home with Klonopin, is presently being treated with Ativan. 6. Major depression, recurrent, moderate, treated with Latuda. 7. Severe abdominal pains and severe gastritis on EGD by Dr. Chapman, pains have improved with treatment with IV Protonix. SPENCER KELLY MD CM:PNTRANS [phone] SPENCER KELLY MD 11/26/18 0342 interface
--- NOTE | ~2018-11-22 | DS ---
[place], [place] DISCHARGE SUMMARY NAME: KYLEIGH ALONZO UNIT #: [id number] ROOM: 411 DOCTOR: SPENCER KELLY MD BIRTHDATE: [birth year] DOS: 11/27/2018 DISCHARGE DIAGNOSES: 1. Alcohol intoxication, alcohol dependence. The patient enrolled with [facility] at the hospital. He will follow up with outpatient rehab after discharge today. 2. Benign essential hypertension. 3. Hypothyroidism. 4. Generalized anxiety disorder. 5. Severe abdominal pains and severe gastroenteritis on EGD. 6. Mixed hyperlipidemia. 7. Hypothyroidism. 8. Benign prostatic hypertrophy and urine retention. 9. Type 2 diabetes mellitus. 10. Mixed hyperlipidemia. 11. Major depression, recurrent, moderate. 12. Gastroesophageal reflux disease and esophagitis. 13. Nicotine smoke dependence. 14. Recurrent chest pains evaluated by rental representative. Considered to be noncardiac at present time. HOSPITAL COURSE: The patient with history of alcoholism, presented to the Emergency Department at [facility]. The patient says he drinks 1-2 bottles of whiskey daily and he was having some left-sided chest pains. The patient was admitted for evaluation of chest pains and to keep him from getting withdrawal from alcohol. The patient was evaluated by rental representative and considered to have noncardiac chest pains and he has been asymptomatic since admission. Severe abdominal pains and gastritis seen on EGD by Dr. Chapman was evaluated and treated with antacids and is asymptomatic now. Alcohol intoxication and alcohol dependence. The patient was kept off alcohol and treated with Ativan and he is asymptomatic now. No signs of delirium tremens. The patient was monitored during the stay at the hospital. Major depression, recurrent, treated with Latuda. Patient to follow up with his psychiatrist. Benign essential hypertension. The patient takes metoprolol and prazosin along with lisinopril. Blood pressures monitored and treated. Hypothyroidism, treated with levothyroxine. Mixed hyperlipidemia, being treated with pravastatin. Generalized anxiety disorder, treated with Klonopin as needed as an outpatient. The patient is to follow up with me this week. [place], [place] DISCHARGE SUMMARY NAME: KYLEIGH ALONZO UNIT #: [id number] ROOM: 411 DOCTOR: SPENCER KELLY MDTE: 63 SPENCER KELLY MD CM:DENYS [id number] SPENCER KELLY MD 11/27/18 1524 interface
--- NOTE | ~2018-11-22 | PR ---
[place], [place] PROGRESS NOTE NAME: KYLEIGH ALONZO UNIT #: [id number] ROOM: 411 DOCTOR: SPENCER KELLY MD BIRTHDATE: [birth year] DOS: 11/24/2018 SUBJECTIVE: The patient is feeling much better. OBJECTIVE: GENERAL APPEARANCE: The patient is alert and oriented x 3, in no visible distress. VITAL SIGNS: Blood pressure 138/79, heart rate of 73 beats per minute, breathing normally, afebrile. HEENT AND NECK: Exam within normal limits. CARDIOVASCULAR SYSTEM: Heart rate is regular in rate and rhythm. S1 and S2 normally audible. LUNGS: Clear to auscultation. ABDOMEN: Soft, nontender. No obvious organomegaly. Bowel sounds are present. EXTREMITIES: Without significant cyanosis or edema. IMPRESSION: 1. The patient with abdominal pain, status post esophagogastroduodenoscopy by Dr. Chapman showing gastritis. Biopsy taken. 2. The patient with alcohol intoxication and alcohol withdrawal, controlled with Ativan. The patient is feeling much better. He was kept on a monitoring specialist. 3. [facility], the patient wants to join alcohol rehabilitation who are being consulted. 4. Recurrent left-sided chest pains, evaluated by Cardiology and considered to be noncardiac. 5. Hypothyroidism, treated with levothyroxine. 6. Mixed hyperlipidemia, treated with pravastatin. 7. Generalized anxiety disorder, treated and controlled with Ativan. The patient takes Klonopin at home. 8. Major depression, recurrent, moderate, treated with Latuda. SPENCER KELLY MD CM:PNTRANS [id number] SPENCER KELLY MD 11/25/18 0716 interface
--- NOTE | ~2018-11-22 | EKG ---
[place], [place] ELECTROCARDIOGRAM REPORT NAME: KYLEIGH ALONZO UNIT #: [id number] ROOM: 411 DOCTOR: BO DRAFT REPORT BIRTHDATE: [birth year] [facility] Test Date: 2018-11-22 Test Time: 08:26:02 Pat Name: KYLEIGH ALONZO Department: Room: 411 Gender: M Red Hat Engineer: SIMEON : 1965 Requested By: SHANNAN GARLAND Order Number: [id number] Reading MD: Zack Dodd MD Measurements Intervals [place] Rate: 67 P: 60 [place]: 142 QRS: 79 QRSD: 97 T: 34 QT: 393 QTc: 415 Interpretive Statements Sinus rhythm Compared to ECG 10/16/2018 21:39:27 ST (T wave) deviation no longer present Electronically Signed On 11-22-2018 22:08:11 PST by Zack Dodd MD CM:EKGRPT:ELECTROCARDIOGRAM REPORT [id number] SHANNAN SORIANO DRAFT REPORT SHANNAN GARLAND MD
--- NOTE | ~2018-11-22 | DS ---
[place], [place] DISCHARGE SUMMARY NAME: KYLEIGH ALONZO UNIT #: [id number] ROOM: 411 DOCTOR: LETICIA AGUILAR,SPENCER Fishman BIRTHDATE: [birth year] DOS: 11/27/2018 DISCHARGE MEDICATIONS: The patient's discharge medications are atorvastatin 5 mg daily, Protonix 40 mg a day, levothyroxine 25 mcg daily, prazosin 2 mg at bedtime, Lantus insulin 14 units every 12 hours, Latuda 60 mg at bedtime, metformin 1000 mg b.i.d. Klonopin, the patient was taking 1 mg b.i.d. as needed at home. The patient going in with an alcohol or drug rehab program arranged by [facility]. SPENCER KELLY MD CM:DENYS [phone] SPENCER KELLY MD 11/28/18 0006 interface
--- NOTE | ~2018-11-22 | CON ---
[place], [place] REPORT OF CONSULTATION NAME[id number] UNIT #: [id number] ROOM: 411 DOCTOR: ELLA LUGO MD BIRTHDATE: [birth year] DOS: 11/22/2018 CARDIOLOGY CONSULTATION REASON FOR CONSULTATION: Chest pain. HISTORY OF PRESENT ILLNESS: This is one of many admissions to the hospital for the patient, a 53-year-old man who does have risk factors for coronary artery disease, but is also an alcoholic. He has been hospitalized on several occasions for detoxification and usually does complain of chest pain when he is admitted. I saw him when he was last admitted in 09/2018. At that time, he did rule out for myocardial infarction. The patient was withdrawn from alcohol, but has started drinking again and tells me he drinks 1-2 bottles of whiskey on a daily basis. He does have a history of tobacco abuse, type 2 diabetes mellitus, essential hypertension and hyperlipidemia. He has been evaluated for chest pain on several occasions. Myocardial infarction has never been documented. Multiple stress tests have been normal. A stress test in 05/2016 showed normal left ventricular function and perfusion and was a low risk exam. An echocardiogram in 08/2016 was a normal study with an ejection fraction of 75%. He had a myocardial perfusion study in 10/2017 and again on 09/01/2018. This most recent study showed normal myocardial perfusion with an ejection fraction of 84% and no evidence for ischemia. Once again, the study was felt to be low risk. His most recent echocardiogram on 09/01/2018 showed normal left ventricular size, wall motion and systolic function with an ejection fraction of 65%. Left ventricular diastolic function was normal, valve structure and function were normal. Electrocardiograms and cardiac troponin levels have always been normal. The patient tells me that he began drinking again shortly after he left the hospital. He is up to his typical level of consumption. Lately, he has had increased nausea and vomiting and developed epigastric and left-sided abdominal pain as well as left axillary pain with diaphoresis. His EKG showed no acute changes and cardiac troponin was normal, but because of the pain, he was admitted to the hospital for further management. At the present time, he states that he is feeling better. PAST MEDICAL HISTORY: Includes: 1. Chronic alcoholism with episodic alcohol withdrawal. 2. Long-term and ongoing cigarette abuse. 3. Chronic obstructive pulmonary disease. 4. Depression and anxiety. 5. Type 2 diabetes mellitus with peripheral neuropathy. 6. Hyperlipidemia. 7. Essential hypertension. 8. Gastroesophageal reflux disease. 9. Hypothyroidism. 10. History of total odontectomy. 11. History of left knee surgery. [place], [place] REPORT OF CONSULTATION NAME: KYLEIGH ALONZO UNIT #: [id number] ROOM: 411 DOCTOR: ELLA LUGO MD BIRTHDATE: [birth year] 12. Multiple evaluations for chest pain have been negative for coronary artery disease to date. MEDICATIONS: Prior to admission, vitamin D 2000 units daily, Klonopin 1 mg b.i.d. (the patient has been out of his medications for the last few days), levothyroxine 25 mcg daily, Lisinopril 5 mg daily. Latuda 60 mg at bedtime, metformin 1000 mg b.i.d., metoprolol tartrate 50 mg twice a day, pantoprazole 40 mg daily, Pravastatin 20 mg daily, Prazosin 2 mg at bedtime, glargine insulin 14 units subcutaneously b.i.d. ALLERGIES: THE PATIENT LISTS ALLERGIES TO IODINE AND IVP DYE. REVIEW OF SYSTEMS: The patient denies diplopia or loss of vision. He denies syncope. He denies focal weakness. He has had pain in his left axilla and left arm. He denies fevers, chills or sweats. He denies any recent weight change, but is not eating well. He has had fatigue and shakes. He has had episodes of nausea and vomiting. He denies hemoptysis or hematemesis. He does have abdominal pain as noted above. Denies bowel or bladder habit changes and denies blood in his stools or urine. He does have tingling in his hands and feet, but denies focal weakness. He denies rashes and has not had any heat or cold intolerance. He has not had peripheral edema. Remainder of the review of systems is negative except as noted above. FAMILY HISTORY: The patient's father in his 60s from complications of diabetes. His mother is alive, but has a history of alcoholism and Alzheimer's disease. SOCIAL HISTORY: The patient consumes large quantities of alcohol on a daily basis and does continue to smoke cigarettes as well. PHYSICAL EXAMINATION: GENERAL: The patient is a slender white male who looks chronically ill. VITAL SIGNS: Pulse is 61 and regular, blood pressure is 136/68. He is afebrile. He weighs 64 kg and has a body mass index of 22.1. HEENT: Normocephalic, atraumatic. Extraocular muscles are intact. Sclerae are clear. Pupils equal, round and reactive to light. The oral mucosa is moist. Tongue is midline. NECK: Supple. He has no jugular distention. Carotids are full. There are no bruits. He has no neck or supraclavicular masses and no thyromegaly. LUNGS: Respirations are unlabored. His chest is clear to auscultation and percussion. He has no presacral edema or chest wall tenderness. CARDIOVASCULAR: His heart has a regular rhythm. He has a fourth heart sound, but no third heart sound or murmur. The PMI is not displaced. There is no precordial heave, lift or thrill. He does have tenderness on the lateral border of the pectoral muscle in the anterior axillary line on the left. He states that palpation of this area does reproduce his presenting chest pain. ABDOMEN: Soft and normally active. He does have epigastric tenderness to palpation. There is no mass or rebound and bowel sounds are normoactive. EXTREMITIES: Showed no edema. Peripheral pulses are easily palpated in the feet bilaterally. [place], [place] REPORT OF CONSULTATION NAME: KYLEIGH ALONZO UNIT #: [id number] ROOM: 411 DOCTOR: ELLA LUGO MD BIRTHDATE: [birth year] I reviewed his electrocardiogram, which showed sinus rhythm and was a normal tracing. It was essentially unchanged from 10/16/2018. Serial troponin levels have been normal. White count is elevated at 11,800, hemoglobin is normal at 15.6. INR is 1.0. Sodium is low at 129, BUN is 6, creatinine 0.65, glucose is 203. His blood alcohol level on admission was unmeasurably low. He does have some protein in his urine. IMPRESSIONS: 1. Atypical chest pain, almost certainly noncardiac in origin. The pain is reproducible with palpation of his anterior chest and is not associated with any acute electrocardiographic changes or elevation in cardiac troponin. 2. Ongoing alcohol abuse. 3. Ongoing cigarette abuse. 4. Type 2 diabetes mellitus. 5. Essential hypertension. 6. Hyperlipidemia. PLAN: No other cardiac workup is indicated at this time. We will follow his serial troponins and if they remain normal, we will sign off of his care. We will remain available to see him if needed in the future. We thank Dr. Orozco for asking our advice regarding his management. ELLA LUGO MD CM:CONSTR:REPORT OF CONSULTATION 1510 11/23/18 0029 interface
[~2018-11-22 08:22] MED LIST changes: +LATU40TA1 PO; +METOPROLOL TART50 M1 PO; +PRAVASTATIN SOD20 MG PO
[2018-11-22 08:36] VITALS: BP 126/67
[2018-11-22 09:18] LABS: BASO # 0.1 10*3/uL (0.0-0.1); EOS # 0.8 10*3/uL (0.0-0.4); EOS % 6.6 % (1.0-4.0); HEMATOCRIT 44.2 % (42.0-52.0); HEMOGLOBIN 15.6 g/dl (14.0-18.0); LYMPH # 3.1 10*3/uL (1.3-4.4); MEAN CELL VOLUME 93.8 fl (80.0-94.0); MEAN CORPUSCULAR HGB 33.1 pg (27.0-31.0); MEAN CORPUSCULAR HGB CONC 35.3 g/dl (33.0-37.0); MEAN PLATELET VOLUME 8.5 fl (9.6-12.3); MONO # 0.7 10*3/uL (0.1-1.0); MONO % 6.3 % (3.0-9.0); NEUT % 59.8 % (47.0-73.0); PLATELET COUNT AUTOMATED 286 10*3/uL (130-400); RED BLOOD COUNT 4.71 10*6/uL (4.50-5.90); RED CELL DISTRI WIDTH 13.7 % (0-14.5); WHITE BLOOD COUNT 11.8 10*3/uL (4.8-10.8)
[2018-11-22 09:29] LABS: ACT PARTIAL THROMBO TIME 25.6 SECONDS (20.8-31.5)
[2018-11-22 09:30] VITALS: BP 125/68
[2018-11-22 09:33] LABS: ALBUMIN 3.7 gm/dl (3.1-4.5); ALKALINE PHOSPHATASE 99 U/L (45-117); BUN 6 mg/dl (7-24); CHLORIDE 97 mmol/L (98-107); CREATININE 0.65 mg/dL (0.70-1.30); LIPASE 107 U/L (73-393); POTASSIUM 4.4 mmol/L (3.5-5.1); SGOT/AST 16 IU/L (3-35); SGPT/ALT 21 U/L (12-78); SODIUM 129 mmol/L (136-145); TOTAL PROTEIN 7.5 gm/dL (6.4-8.2)
[2018-11-22 09:37] LABS: ETHYL ALCOHOL < 3.0 mg/dl (<3); TROPONIN I < 0.015 ng/ml (<0.045)
[2018-11-22 10:33] LABS: BILIRUBIN NEGATIVE (NEGATIVE); BLOOD TRACE-INTACT (NEGATIVE); CLARITY SL CLOUDY (CLEAR); COLOR YELLOW (YELLOW); GLUCOSE TRACE (NEGATIVE); KETONE NEGATIVE (NEGATIVE); LEUKO ESTERASE NEGATIVE (NEGATIVE); NITRITE NEGATIVE (NEGATIVE); UROBILINOGEN 0.2 E.U./dl (0.2-1.0)
[2018-11-22 10:43] LABS: URINE AMPHETAMINES < 1000 (1000ng/ml); URINE BARBITURATES < 200 (200ng/ml); URINE BENZODIAZEPINES < 200 (200ng/ml); URINE CANNABINOIDS (THC) < 50 (50ng/ml); URINE COCAINE < 300 (300ng/ml); URINE METHADONE < 300 (300ng/ml); URINE OPIATES < 300 (300ng/ml); URINE PHENCYCLIDINE < 25 (25ng/ml)
[2018-11-22 10:48] LABS: BACTERIA TRACE
--- NOTE | 2018-11-22 11:10 | NUR ---
PATIENT DENIES ANY WOUNDS. A&OX4.
--- NOTE | 2018-11-22 11:14 | NUR ---
BEDSIDE REPORT GIVEN TO NILES DORANTES AT THIS TIME.
--- NOTE | 2018-11-22 11:14 | NUR ---
PATIENT TAKEN TO 4TH FLOOR AT THIS TIME BY THIS NURSE
--- NOTE | 2018-11-22 11:22 | NUR ---
A 53, admitted to , under the services of Dr. LETICIA AGUILAR,SPENCER Fishman with a diagnosis of CHEST PAIN. Chief complaint is CHEST PAIN. Patient arrived via bed from ER. Monitor applied. Initial assessment completed. Vital signs taken and recorded. DR. LETICIA AGUILAR,SPENCER Fishman notified of admission to the unit. Orders received. See assessment for past medical history, medications and allergies. Patient and/or family oriented to unit. [facility] visitation policy reviewed. Clothing/patient valuable form completed. NILES MENDOZA
[2018-11-22 11:34] VITALS: BP 136/68
--- NOTE | 2018-11-22 11:34 | NUR ---
PATIENT HAS A JACKET, CHAYO JACKET, SHIRT, BAG OF MEDS, CANE, SHOES, BAG OF MEDS.
[2018-11-22] MEDS ORDERED: PRAVACHOL20 MG PO (11:45)
--- NOTE | 2018-11-22 12:15 | NUR ---
AND NOTIFIED OF CONSULT
[2018-11-22 16:00] VITALS: BP 112/65
--- NOTE | 2018-11-22 18:12 | NUR ---
NOTIFIED OF CONSULT, NEW ORDERS RECIEVED AND VERFIEID WITH DR. VELASQUEZ TO BE NPO MIDNIGHT OF THE AND FOR AND EGD THAT DAY
[2018-11-22 20:00] VITALS: BP 123/71; BP 152/78
--- NOTE | 2018-11-22 20:03 | NUR ---
TUMS GIVEN FOR EPIGASTRIC PAIN.
--- NOTE | 2018-11-22 21:00 | NUR ---
DENIES EPIGASTRIC PAIN. TUMS EFFECTIVE.
--- NOTE | 2018-11-22 21:51 | NUR ---
SCHEDULED ATIVAN GIVEN.
--- NOTE | 2018-11-22 22:00 | NUR ---
REFUSED NINFA. BS 107.
--- NOTE | 2018-11-22 22:43 | NUR ---
PATIENT ASLEEP. NO SIGNS OF DT'S. ATIVAN EFFECTIVE.
[2018-11-23] VITALS: BP 98/54
--- NOTE | 2018-11-23 00:29 | NUR ---
PT C/O OF EPIGASTRIC PAIN. PRN TUMS GIVEN. WILL MONITOR FOR EFFECTIVENESS.
[2018-11-23 06:28] LABS: BUN 11 mg/dl (7-24); CHLORIDE 97 mmol/L (98-107); CREATININE 0.91 mg/dL (0.70-1.30); POTASSIUM 4.5 mmol/L (3.5-5.1); SODIUM 133 mmol/L (136-145)
[2018-11-23 06:29] LABS: BASO # 0.1 10*3/uL (0.0-0.1); BASO % 1.4 % (0.0-1.0); EOS # 1.1 10*3/uL (0.0-0.4); EOS % 10.8 % (1.0-4.0); HEMATOCRIT 41.9 % (42.0-52.0); LYMPH # 3.9 10*3/uL (1.3-4.4); LYMPH % 37.4 % (27.0-41.0); MEAN CORPUSCULAR HGB 31.7 pg (27.0-31.0); MEAN CORPUSCULAR HGB CONC 33.4 g/dl (33.0-37.0); MONO # 0.9 10*3/uL (0.1-1.0); MONO % 9.1 % (3.0-9.0); NEUT # 4.3 10*3/uL (2.3-7.9); PLATELET COUNT AUTOMATED 258 10*3/uL (130-400); RED BLOOD COUNT 4.41 10*6/uL (4.50-5.90); RED CELL DISTRI WIDTH 13.9 % (0-14.5); WHITE BLOOD COUNT 10.4 10*3/uL (4.8-10.8)
[2018-11-23 08:00] VITALS: BP 86/50
--- NOTE | 2018-11-23 08:33 | NUR ---
DR. KELLY NOTIFIED OF LOW BLOOD PRESSURE, PATIENT ASYMPTOMATIC, AWAKE ALERT AND ORIENTED
--- NOTE | 2018-11-23 09:00 | NUR ---
[employer] Contractor in to talk to patient. Patient states lives at home with his girlfriend and 2 children. There are 3 steps in the home. Physician: Dr. Eagle Orozco [facility] Home health services: none Patient's level of ADLs: MINIMAL ASSIST Patient has working utilities: yes DME: cane Follow-up physician's appointment after d/c: he prefers to make his own follow up appt after discharge Does patient want to access PORTAL?: no Discharge plan discussed with patient. He lives at home with his girlfriend and 2 children. He is independent in his ADLs and ambulates with a cane. Discussed home health care services and he denies any home needs at this time. When medically stable he will be discharged to home. AMY COTTO
--- NOTE | 2018-11-23 09:00 | NUR ---
[employer] Consultant in to talk to patient. Patient states lives at home with his girlfriend and 2 children. There are 3 steps in the home. Physician: Dr. Eagle Orozco [facility]: [facility] Home health services: none Patient's level of ADLs: MINIMAL ASSIST Patient has working utilities: yes DME: daniella Follow-up physician's appointment after d/c: he prefers to make his own follow up appt after discharge Does patient want to access PORTAL?: no Discharge plan discussed with patient. He lives at home with his girlfriend and 2 children. He is independent in his ADLs and ambulation. Discussed home health care services and he denies any home needs at this time. When medically stable he will be discharged to home. AMY COTTO
[2018-11-23 12:00] VITALS: BP 126/66
--- NOTE | 2018-11-23 15:33 | NUR ---
Nursing screen received and chart review completed. Patient admitted for alcoholism and severe abdominal pain. Consider Occupational Therapy evaluation if patient has a decline in ADLs or safety. Thank you. Glory Álvarez Otr/L
[2018-11-23 16:00] VITALS: BP 116/69
[2018-11-23 20:00] VITALS: BP 125/65
[2018-11-24] VITALS (8 sets, daily range): BP systolic 105–139; BP diastolic 56–85
[2018-11-24 06:15] LABS: BASO # 0.1 10*3/uL (0.0-0.1); BASO % 1.5 % (0.0-1.0); EOS % 10.8 % (1.0-4.0); HEMATOCRIT 39.9 % (42.0-52.0); HEMOGLOBIN 13.6 g/dl (14.0-18.0); LYMPH # 3.8 10*3/uL (1.3-4.4); LYMPH % 39.7 % (27.0-41.0); MEAN CELL VOLUME 94.3 fl (80.0-94.0); MEAN CORPUSCULAR HGB 32.2 pg (27.0-31.0); MEAN CORPUSCULAR HGB CONC 34.1 g/dl (33.0-37.0); MONO # 0.8 10*3/uL (0.1-1.0); MONO % 8.3 % (3.0-9.0); NEUT # 3.8 10*3/uL (2.3-7.9); NEUT % 39.5 % (47.0-73.0); PLATELET COUNT AUTOMATED 262 10*3/uL (130-400); RED BLOOD COUNT 4.23 10*6/uL (4.50-5.90); RED CELL DISTRI WIDTH 13.6 % (0-14.5); WHITE BLOOD COUNT 9.7 10*3/uL (4.8-10.8)
[2018-11-24 06:19] LABS: BUN 9 mg/dl (7-24); CHLORIDE 101 mmol/L (98-107); CREATININE 0.51 mg/dL (0.70-1.30); SODIUM 135 mmol/L (136-145)
--- NOTE | 2018-11-24 10:34 | NUR ---
PT WITH VISIBLE TREMORS. REQUESTS ATIVAN, GIVEN AT THIS TIME. WILL CONT TO MONITOR. CALL LIGHT IN REACH.
--- NOTE | 2018-11-24 11:34 | NUR ---
IV ATIVAN IF EFF AT THIS TIME. WILL CONT TO MONITOR. CALL LIGHT IN REACH.
--- NOTE | 2018-11-24 11:58 | NUR ---
Spoke to Chaya in [facility] regarding inpatient ETOH detox. She will call around and see if facilities have any open beds.
--- NOTE | 2018-11-24 13:21 | NUR ---
PT STATES HE FEELS HYPOGLYCEMIC. ACCUCHECK 97. DR KELLY NOTIFIED. NEW ORDER RECEIVED FOR D5 /2 NS @100 UNTIL AFTER SURGERY AND PT IS EATING.
--- NOTE | 2018-11-24 13:59 | NUR ---
ROUTINE ATIVAN GIVEN TO HELP DIMINISH ANXIETY
--- NOTE | 2018-11-24 14:30 | NUR ---
PT LEFT FLOOR TO OR
--- NOTE | 2018-11-24 17:00 | NUR ---
PT RETURNED FROM SURGERY
--- NOTE | 2018-11-24 17:22 | NUR ---
IV ATIVAN GIVEN FOR VISIBLE TREMORS. WILL CONT TO MONITOR. CALL LIGHT IN REACH.
--- NOTE | 2018-11-24 18:22 | NUR ---
ATIVAN EFF AT THIS TIME. WILL CONT TO MONITOR. CALL LIGHT IN REACH.
[2018-11-25] VITALS: BP 94/50
[2018-11-25 06:54] LABS: BASO # 0.1 10*3/uL (0.0-0.1); EOS % 10.8 % (1.0-4.0); HEMATOCRIT 39.8 % (42.0-52.0); HEMOGLOBIN 13.3 g/dl (14.0-18.0); LYMPH # 3.2 10*3/uL (1.3-4.4); LYMPH % 36.5 % (27.0-41.0); MEAN CELL VOLUME 96.4 fl (80.0-94.0); MEAN CORPUSCULAR HGB 32.2 pg (27.0-31.0); MEAN CORPUSCULAR HGB CONC 33.4 g/dl (33.0-37.0); MONO # 0.7 10*3/uL (0.1-1.0); MONO % 7.9 % (3.0-9.0); NEUT # 3.8 10*3/uL (2.3-7.9); NEUT % 43.6 % (47.0-73.0); PLATELET COUNT AUTOMATED 244 10*3/uL (130-400); RED BLOOD COUNT 4.13 10*6/uL (4.50-5.90); RED CELL DISTRI WIDTH 13.9 % (0-14.5); WHITE BLOOD COUNT 8.8 10*3/uL (4.8-10.8)
[2018-11-25 07:08] LABS: BUN 8 mg/dl (7-24); CHLORIDE 104 mmol/L (98-107); CREATININE 0.49 mg/dL (0.70-1.30); POTASSIUM 4.1 mmol/L (3.5-5.1); SODIUM 135 mmol/L (136-145)
--- NOTE | 2018-11-25 10:32 | NUR ---
Per patient request contacted Dr. Orozco for Nicotine inhaler. See new orders
[2018-11-25 12:00] VITALS: BP 130/86
--- NOTE | 2018-11-25 14:15 | NUR ---
Scheduled Ativan given. Patient was slightly aggitated at the time. Will monitor.
--- NOTE | 2018-11-25 15:00 | NUR ---
Ativan effective. Patient states "it took the edge off."
[2018-11-25 16:00] VITALS: BP 133/81
[2018-11-25 20:00] VITALS: BP 136/71
[2018-11-26] VITALS: BP 114/75
--- NOTE | 2018-11-26 06:15 | NUR ---
SCHEDULED ATIVAN GIVEN PER DRS ORDERS. PATIENT DENIES COMPLAINTS AT THIS TIME. RN WILL CONTINUE TO MONITIR
[2018-11-26 08:00] VITALS: BP 120/78
--- NOTE | 2018-11-26 08:25 | NUR ---
24 HR chart check completed.
--- NOTE | 2018-11-26 09:00 | NUR ---
RESTING IN BED, NO ACUTE DISTRESS NOTED. RESPIRATIONS EASY. LUNGS DIMINISHED, CLEAR. PULSE OX 92% RA. OFFERED AND EDUCATED REAGRDAING TEDS, DECLINED. IV FLUIDS INFUSING PER ORDER. CALL LIGHT WITHIN REACH. NO VOICED COMPLAINTS
[2018-11-26 12:00] VITALS: BP 138/80
--- NOTE | 2018-11-26 13:15 | NUR ---
ANXIOUS, MEDICATED WITH ROUTINE IV ATIVAN. PATIENT VOICING DESIRE FOR D/C. STATES HE DOES NOT WISH TO FOLLOW WITH [facility].
--- NOTE | 2018-11-26 14:00 | NUR ---
EARLIER MEDS EFFECTIVE, SLEEPING. RESPIRATIONS EASY. IV FLUIDS MAINTAINED. CALL LIGHT WITHIN REACH.
--- NOTE | 2018-11-26 15:45 | NUR ---
DR KELLY HERE TO ASSESS PATIENT AND DISCUSS PLAN OF CARE. PATIENT NOW AGREEABLE TO [facility], STATING "I CHANGED MY MIND."
[2018-11-26 16:00] VITALS: BP 124/72
--- NOTE | 2018-11-26 16:30 | NUR ---
RESTING IN BED WATCHING TV WITH NO ACUTE DISTRESS NOTED. RESPIRATIONS EASY. VSS. IV FLUIDS INFUSING PER ORDER. CALL LIGHT WITHIN REACH. NO VOICED COMPLAINTS
--- NOTE | 2018-11-26 19:30 | NUR ---
PT AWAKE IN BED DURING BEDSIDE SHIFT REPORT. NO C/O VOICED AT PRESENT. CALL LIGHT IN REACH.
[2018-11-26 20:00] VITALS: BP 134/74
[2018-11-27] VITALS: BP 134/74
[2018-11-27 08:00] VITALS: BP 120/74
--- NOTE | 2018-11-27 09:00 | NUR ---
Dish Carrier in to see patient. No new needs or request at this time. Discussed inpatient ETOH rehab and he refuses stating he has too many things to take care of at home to spend more time as an inpatient somewhere. He states he was going to [facility] counseling and would like to start those counseling sessions again. Spoke to Chaya Sung regarding patient not wanting inpatient rehab but outpatient counseling. When medically stable he will be discharged to home.
[2018-11-27 12:00] VITALS: BP 122/80
[2018-11-27] MEDS ORDERED: Ocuflox 0.3% 5 M5 ML OPH (14:58)
--- NOTE | 2018-11-27 15:12 | NUR ---
Discharge instructions reviewed with patient/family. Patient receptive and verbalizes understanding. Follow-up care arranged. Written instructions given to patient/family. NILES MENDOZA
[2019-01-07] MEDS ORDERED: PRAVACHOL40 MG PO (18:56)
== END 2018-11-27 15:24 | disposition home or self-care (01) | DRG 392 ==
LOC: ED 08:22 → 4E 10:27 → EDHOLD 10:27 → 4E 10:52
PROVIDERS: Emergency Medicine; ADMIT Internal Medicine
PROC: 0DB68ZX Excision of Stomach, Via Natural or Artificial Opening Endoscopic, Diagnostic (ICD-10-PCS; principal; 2018-11-24)
DX: K29.70 Gastritis, unspecified, without bleeding (principal); F10.239 Alcohol dependence with withdrawal, unspecified; E87.1 Hypo-osmolality and hyponatremia; F33.9 Major depressive disorder, recurrent, unspecified; M94.0 Chondrocostal junction syndrome [Tietze]; K52.9 Noninfective gastroenteritis and colitis, unspecified; K21.0 Gastro-esophageal reflux disease with esophagitis; I10 Essential (primary) hypertension; E78.5 Hyperlipidemia, unspecified; E87.8 Other disorders of electrolyte and fluid balance, not elsewhere classified; J44.9 Chronic obstructive pulmonary disease, unspecified; N40.0 Benign prostatic hyperplasia without lower urinary tract symptoms; E11.40 Type 2 diabetes mellitus with diabetic neuropathy, unspecified; F41.1 Generalized anxiety disorder; E03.9 Hypothyroidism, unspecified; F17.210 Nicotine dependence, cigarettes, uncomplicated; E87.6 Hypokalemia; E78.2 Mixed hyperlipidemia; K44.9 Diaphragmatic hernia without obstruction or gangrene; F10.229 Alcohol dependence with intoxication, unspecified; Z86.73 Personal history of transient ischemic attack (TIA), and cerebral infarction without residual deficits; Z91.041 Radiographic dye allergy status; Z91.09 Other allergy status, other than to drugs and biological substances; Z83.3 Family history of diabetes mellitus; Z82.0 Family history of epilepsy and other diseases of the nervous system; Z82.3 Family history of stroke; Z79.84 Long term (current) use of oral hypoglycemic drugs

== ENCOUNTER 2018-12-01 13:03 | Emergency (ER) | payer OTHER ==
--- NOTE | ~2018-12-01 | EKG ---
[place], [place] ELECTROCARDIOGRAM REPORT NAME: KYLEIGH ALONZO UNIT #: [id number] ROOM: DOCTOR: EPIPHANY DRAFT REPORT BIRTHDATE: [birth year] [facility] Test Date: 2018-12-01 Test Time: 13:07:55 Pat Name: KYLEIGH ALONZO Department: Room: Gender: M Final Inspector Paper: EKG.MA : 1965 Requested By: PHOENIX CARLOS Order Number: [id number] Reading MD: Zack Dodd MD Measurements Intervals [place] Rate: 66 P: 61 DC: 143 QRS: 89 QRSD: 95 T: 45 QT: 393 QTc: 412 Interpretive Statements Sinus rhythm Probable left atrial enlargement Borderline ST elevation, anterolateral leads Baseline wander in lead(s) V4 Compared to ECG 11/22/2018 08:26:02 ST (T wave) deviation now present Electronically Signed On 12-01-2018 19:42:37 PST by Zack Dodd MD CM:EKGRPT:ELECTROCARDIOGRAM REPORT [id number] PHOENIX SORIANO DRAFT REPORT PHOENIX CARLOS M.D.
--- NOTE | ~2018-12-01 | EKG ---
[place], [place] ELECTROCARDIOGRAM REPORT NAME: KYLEIGH ALONZO UNIT #: [id number] ROOM: DOCTOR: EPIPHANY DRAFT REPORT BIRTHDATE: [birth year] [facility] Test Date: 2018-12-01 Test Time: 15:58:58 Pat Name: KYLEIGH ALONZO Department: Room: Gender: Desizing Machine Operator: Sahra Membreno : 1965 Requested By: PHOENIX CARLOS Order Number: [id number] Reading MD: Zack Dodd MD Measurements Intervals [place] Rate: 62 P: 70 [place]: 145 QRS: 81 QRSD: 95 T: 33 QT: 403 QTc: 410 Interpretive Statements Sinus rhythm Consider left atrial enlargement ST elev, probable normal early repol pattern Baseline wander in lead(s) V1 No change from earlier ECG this date Electronically Signed On 12-01-2018 19:46:10 PST by Zack Dodd MD CM:EKGRPT:ELECTROCARDIOGRAM REPORT 1558 [id number] PHOENIX SORIANO DRAFT REPORT PHOENIX CARLOS M.D.
[~2018-12-01 13:03] MED LIST changes: +Ocuflox 0.3% 5 M5 ML OPH
[2018-12-01 13:33] LABS: BASO # 0.1 10*3/uL (0.0-0.1); EOS # 1.3 10*3/uL (0.0-0.4); EOS % 10.7 % (1.0-4.0); HEMATOCRIT 44.5 % (42.0-52.0); HEMOGLOBIN 15.7 g/dl (14.0-18.0); LYMPH # 3.8 10*3/uL (1.3-4.4); LYMPH % 30.8 % (27.0-41.0); MEAN CELL VOLUME 94.3 fl (80.0-94.0); MEAN CORPUSCULAR HGB 33.3 pg (27.0-31.0); MEAN CORPUSCULAR HGB CONC 35.3 g/dl (33.0-37.0); MEAN PLATELET VOLUME 8.3 fl (9.6-12.3); MONO # 0.8 10*3/uL (0.1-1.0); MONO % 6.8 % (3.0-9.0); NEUT # 6.3 10*3/uL (2.3-7.9); NEUT % 50.4 % (47.0-73.0); PLATELET COUNT AUTOMATED 303 10*3/uL (130-400); RED BLOOD COUNT 4.72 10*6/uL (4.50-5.90); RED CELL DISTRI WIDTH 13.7 % (0-14.5); WHITE BLOOD COUNT 12.4 10*3/uL (4.8-10.8)
[2018-12-01 13:49] LABS: ACT PARTIAL THROMBO TIME 24.7 SECONDS (20.8-31.5)
[2018-12-01 13:55] LABS: ALBUMIN 4.1 gm/dl (3.1-4.5); ALKALINE PHOSPHATASE 109 U/L (45-117); BUN 7 mg/dl (7-24); CHLORIDE 95 mmol/L (98-107); CREATININE 0.78 mg/dL (0.70-1.30); POTASSIUM 4.5 mmol/L (3.5-5.1); SGOT/AST 9 IU/L (3-35); SGPT/ALT 26 U/L (12-78); SODIUM 128 mmol/L (136-145); TOTAL PROTEIN 8.2 gm/dL (6.4-8.2)
[2018-12-01 14:00] LABS: TROPONIN I < 0.015 ng/ml (<0.045)
[2019-01-07] MEDS ORDERED: PRAVACHOL40 MG PO (18:56)
[2019-01-26] MEDS ORDERED: VITAMIN B150 MG PO (15:37)
[2019-01-26] MEDS ORDERED: LOPRESSOR50 M1 PO (15:41)
[2019-01-26] MEDS ORDERED: THIAMINE HCL100 MG PO (15:42)
[2019-01-28] MEDS ORDERED: DOXYCYCLINE100 M3 PO (07:38)
[2019-01-28] MEDS ORDERED: Ipratropium Brom3 ML NEB (07:38)
[2019-01-28] MEDS ORDERED: PREDNISONE5 MG PO (07:38)
[2019-03-09] MEDS ORDERED: AVPAK AZITHROM250 M1 PO (09:49)
[2019-03-09] MEDS ORDERED: TAMSULOSIN HCL0.4 MG PO (09:49)
[2019-03-09] MEDS ORDERED: INDERAL LA60 M1 PO (09:49)
[2019-03-19] MEDS ORDERED: SEPTDS PO (13:28)
[2019-03-26] MEDS ORDERED: BUSPIRONE HCL30 MG PO (09:23)
[2019-03-26] MEDS ORDERED: ATARAX,VISTARIL50 MG PO (09:25)
[2019-03-26] MEDS ORDERED: LAMOTRIGINE25 M1 PO (09:26)
[2019-03-26] MEDS ORDERED: ZYPREXA10 M1 PO (09:28)
[2019-03-26] MEDS ORDERED: COGENTIN0.5 MG PO (09:36)
[2019-05-10] MEDS ORDERED: MELATONIN3 MG PO (07:26)
[2019-05-10] MEDS ORDERED: ZYPREXA20 M1 PO (07:27)
[2019-05-10] MEDS ORDERED: ONCE DAILY1 EACH PO (09:15)
[2019-05-10] MEDS ORDERED: TRAZODONE50 MG PO (09:18)
[2019-05-10] MEDS ORDERED: INDERAL XL80 MG PO (09:21)
[2019-05-10] MEDS ORDERED: LAMICTAL100 MG PO (09:22)
[2019-05-16] MEDS ORDERED: LORAZEPAM1 MG PO (11:21)
== END 2018-12-01 16:41 | disposition home or self-care (01) ==
LOC: ED 13:03
PROVIDERS: Emergency Medicine
DX: R07.9 Chest pain, unspecified (principal); E11.40 Type 2 diabetes mellitus with diabetic neuropathy, unspecified; E78.5 Hyperlipidemia, unspecified; I10 Essential (primary) hypertension; K21.9 Gastro-esophageal reflux disease without esophagitis; E03.9 Hypothyroidism, unspecified; F17.200 Nicotine dependence, unspecified, uncomplicated; Z91.041 Radiographic dye allergy status; Z79.899 Other long term (current) drug therapy; Z79.84 Long term (current) use of oral hypoglycemic drugs; Z79.4 Long term (current) use of insulin; Z86.73 Personal history of transient ischemic attack (TIA), and cerebral infarction without residual deficits

== ENCOUNTER 2018-12-02 11:47 | Emergency (ER) | payer OTHER ==
[2018-12-02 12:23] LABS: BASO # 0.1 10*3/uL (0.0-0.1); EOS % 9.3 % (1.0-4.0); HEMATOCRIT 42.3 % (42.0-52.0); HEMOGLOBIN 14.9 g/dl (14.0-18.0); LYMPH # 3.5 10*3/uL (1.3-4.4); LYMPH % 34.2 % (27.0-41.0); MEAN CELL VOLUME 93.4 fl (80.0-94.0); MEAN CORPUSCULAR HGB 32.9 pg (27.0-31.0); MEAN CORPUSCULAR HGB CONC 35.2 g/dl (33.0-37.0); MEAN PLATELET VOLUME 8.3 fl (9.6-12.3); MONO # 0.7 10*3/uL (0.1-1.0); MONO % 6.9 % (3.0-9.0); NEUT % 48.3 % (47.0-73.0); PLATELET COUNT AUTOMATED 315 10*3/uL (130-400); RED BLOOD COUNT 4.53 10*6/uL (4.50-5.90); RED CELL DISTRI WIDTH 13.7 % (0-14.5); WHITE BLOOD COUNT 10.3 10*3/uL (4.8-10.8)
[2018-12-02 12:41] LABS: ALBUMIN 4.1 gm/dl (3.1-4.5); ALKALINE PHOSPHATASE 103 U/L (45-117); BUN 7 mg/dl (7-24); CHLORIDE 98 mmol/L (98-107); CREATININE 0.87 mg/dL (0.70-1.30); POTASSIUM 4.8 mmol/L (3.5-5.1); SGOT/AST 11 IU/L (3-35); SGPT/ALT 25 U/L (12-78); SODIUM 129 mmol/L (136-145); TOTAL PROTEIN 7.9 gm/dL (6.4-8.2)
[2018-12-02 12:42] LABS: BILIRUBIN NEGATIVE (NEGATIVE); BLOOD NEGATIVE (NEGATIVE); CLARITY CLEAR (CLEAR); COLOR YELLOW (YELLOW); GLUCOSE NEGATIVE (NEGATIVE); KETONE NEGATIVE (NEGATIVE); LEUKO ESTERASE NEGATIVE (NEGATIVE); NITRITE NEGATIVE (NEGATIVE); PH 6.5 (5.0-9.0); SPECIFIC GRAVITY <= 1.005 (1.005-1.030); UROBILINOGEN 0.2 E.U./dl (0.2-1.0)
[2018-12-02 12:44] LABS: ETHYL ALCOHOL < 3.0 mg/dl (<3)
[2018-12-02 12:52] LABS: URINE AMPHETAMINES < 1000 (1000ng/ml); URINE BARBITURATES < 200 (200ng/ml); URINE BENZODIAZEPINES < 200 (200ng/ml); URINE CANNABINOIDS (THC) < 50 (50ng/ml); URINE COCAINE < 300 (300ng/ml); URINE METHADONE < 300 (300ng/ml); URINE OPIATES < 300 (300ng/ml)
[2018-12-02 12:53] LABS: URINE PHENCYCLIDINE < 25 (25ng/ml)
[2019-01-07] MEDS ORDERED: PRAVACHOL40 MG PO (18:56)
[2019-01-26] MEDS ORDERED: VITAMIN B150 MG PO (15:37)
[2019-01-26] MEDS ORDERED: LOPRESSOR50 M1 PO (15:41)
[2019-01-26] MEDS ORDERED: THIAMINE HCL100 MG PO (15:42)
[2019-01-28] MEDS ORDERED: DOXYCYCLINE100 M3 PO (07:38)
[2019-01-28] MEDS ORDERED: PREDNISONE5 MG PO (07:38)
[2019-01-28] MEDS ORDERED: Ipratropium Brom3 ML NEB (07:38)
[2019-03-09] MEDS ORDERED: TAMSULOSIN HCL0.4 MG PO (09:49)
[2019-03-09] MEDS ORDERED: INDERAL LA60 M1 PO (09:49)
[2019-03-09] MEDS ORDERED: AVPAK AZITHROM250 M1 PO (09:49)
[2019-03-19] MEDS ORDERED: SEPTDS PO (13:28)
[2019-03-26] MEDS ORDERED: BUSPIRONE HCL30 MG PO (09:23)
[2019-03-26] MEDS ORDERED: ATARAX,VISTARIL50 MG PO (09:25)
[2019-03-26] MEDS ORDERED: LAMOTRIGINE25 M1 PO (09:26)
[2019-03-26] MEDS ORDERED: ZYPREXA10 M1 PO (09:28)
[2019-03-26] MEDS ORDERED: COGENTIN0.5 MG PO (09:36)
[2019-05-10] MEDS ORDERED: MELATONIN3 MG PO (07:26)
[2019-05-10] MEDS ORDERED: ZYPREXA20 M1 PO (07:27)
[2019-05-10] MEDS ORDERED: ONCE DAILY1 EACH PO (09:15)
[2019-05-10] MEDS ORDERED: TRAZODONE50 MG PO (09:18)
[2019-05-10] MEDS ORDERED: INDERAL XL80 MG PO (09:21)
[2019-05-10] MEDS ORDERED: LAMICTAL100 MG PO (09:22)
[2019-05-16] MEDS ORDERED: LORAZEPAM1 MG PO (11:21)
== END 2018-12-02 15:00 | disposition home or self-care (01) ==
LOC: ED 11:47
PROVIDERS: Emergency Medicine
DX: F41.9 Anxiety disorder, unspecified (principal); E87.1 Hypo-osmolality and hyponatremia; F10.239 Alcohol dependence with withdrawal, unspecified; R25.1 Tremor, unspecified; R07.89 Other chest pain; R06.02 Shortness of breath; R42 Dizziness and giddiness; R20.0 Anesthesia of skin; R25.3 Fasciculation; F32.9 Major depressive disorder, single episode, unspecified; K21.9 Gastro-esophageal reflux disease without esophagitis; E03.9 Hypothyroidism, unspecified; I10 Essential (primary) hypertension; E11.40 Type 2 diabetes mellitus with diabetic neuropathy, unspecified; Z91.041 Radiographic dye allergy status; Z79.899 Other long term (current) drug therapy; Z79.4 Long term (current) use of insulin; Y90.9 Presence of alcohol in blood, level not specified

== ENCOUNTER 2018-12-03 16:24 | Emergency (ER) | payer OTHER ==
[~2018-12-03] VITALS: Ht 170.1 cm; Wt 69.4 kg
--- NOTE | ~2018-12-03 | EKG ---
[place], [place] ELECTROCARDIOGRAM REPORT NAME: KYLEIGH ALONZO UNIT #: [id number] ROOM: DOCTOR: BO DRAFT REPORT BIRTHDATE: [birth year] [facility] Test Date: 2018-12-03 Test Time: 16:35:55 Pat Name: KYLEIGH ALONZO Department: Room: Gender: Floor Scraper: : 1965 Requested By: SHANNAN GARLAND Order Number: [id number] Reading MD: Measurements Intervals [place] Rate: 119 P: 63 [place]: 131 QRS: 84 QRSD: 95 T: 23 QT: 336 QTc: 473 Interpretive Statements Sinus tachycardia Compared to ECG 12/01/2018 15:58:58 Sinus rhythm no longer present ST (T wave) deviation no longer present CM:EKGRPT:ELECTROCARDIOGRAM REPORT [id number] SHANNAN SORIANO DRAFT REPORT SHANNAN GARLAND MD
[2018-12-03 16:50] LABS: BASO # 0.1 10*3/uL (0.0-0.1); EOS # 0.8 10*3/uL (0.0-0.4); EOS % 7.7 % (1.0-4.0); HEMATOCRIT 41.7 % (42.0-52.0); HEMOGLOBIN 14.7 g/dl (14.0-18.0); LYMPH # 3.7 10*3/uL (1.3-4.4); LYMPH % 34.2 % (27.0-41.0); MEAN CELL VOLUME 92.9 fl (80.0-94.0); MEAN CORPUSCULAR HGB 32.7 pg (27.0-31.0); MEAN CORPUSCULAR HGB CONC 35.3 g/dl (33.0-37.0); MEAN PLATELET VOLUME 8.4 fl (9.6-12.3); MONO # 0.8 10*3/uL (0.1-1.0); MONO % 7.5 % (3.0-9.0); NEUT # 5.4 10*3/uL (2.3-7.9); NEUT % 49.3 % (47.0-73.0); PLATELET COUNT AUTOMATED 308 10*3/uL (130-400); RED BLOOD COUNT 4.49 10*6/uL (4.50-5.90); RED CELL DISTRI WIDTH 13.6 % (0-14.5); WHITE BLOOD COUNT 10.9 10*3/uL (4.8-10.8)
[2018-12-03 17:00] LABS: ACT PARTIAL THROMBO TIME 24.3 SECONDS (20.8-31.5)
[2018-12-03 17:10] LABS: ALKALINE PHOSPHATASE 109 U/L (45-117); BUN 13 mg/dl (7-24); CHLORIDE 95 mmol/L (98-107); CREATININE 0.98 mg/dL (0.70-1.30); POTASSIUM 4.1 mmol/L (3.5-5.1); SGOT/AST 11 IU/L (3-35); SGPT/ALT 26 U/L (12-78); SODIUM 128 mmol/L (136-145); TOTAL PROTEIN 7.7 gm/dL (6.4-8.2)
[2018-12-03 17:11] LABS: ETHYL ALCOHOL < 3.0 mg/dl (<3); TROPONIN I < 0.015 ng/ml (<0.045)
[2018-12-03 17:33] LABS: BILIRUBIN NEGATIVE (NEGATIVE); BLOOD NEGATIVE (NEGATIVE); CLARITY CLEAR (CLEAR); COLOR YELLOW (YELLOW); GLUCOSE 1+ (NEGATIVE); KETONE NEGATIVE (NEGATIVE); LEUKO ESTERASE NEGATIVE (NEGATIVE); NITRITE NEGATIVE (NEGATIVE); SPECIFIC GRAVITY <= 1.005 (1.005-1.030); UROBILINOGEN 0.2 E.U./dl (0.2-1.0)
[2018-12-03 17:40] LABS: BACTERIA TRACE; RBC 0-2 rbc/hpf (0-2); WBC 0-2 wbc/hpf (0-5)
[2018-12-03 17:42] LABS: URINE AMPHETAMINES < 1000 (1000ng/ml); URINE BARBITURATES < 200 (200ng/ml); URINE BENZODIAZEPINES > 200 (200ng/ml); URINE CANNABINOIDS (THC) > 50 (50ng/ml); URINE COCAINE < 300 (300ng/ml); URINE METHADONE < 300 (300ng/ml); URINE OPIATES < 300 (300ng/ml)
[2018-12-03 17:44] LABS: URINE PHENCYCLIDINE < 25 (25ng/ml)
[2019-01-07] MEDS ORDERED: PRAVACHOL40 MG PO (18:56)
[2019-01-26] MEDS ORDERED: VITAMIN B150 MG PO (15:37)
[2019-01-26] MEDS ORDERED: LOPRESSOR50 M1 PO (15:41)
[2019-01-26] MEDS ORDERED: THIAMINE HCL100 MG PO (15:42)
[2019-01-28] MEDS ORDERED: DOXYCYCLINE100 M3 PO (07:38)
[2019-01-28] MEDS ORDERED: Ipratropium Brom3 ML NEB (07:38)
[2019-01-28] MEDS ORDERED: PREDNISONE5 MG PO (07:38)
[2019-03-09] MEDS ORDERED: AVPAK AZITHROM250 M1 PO (09:49)
[2019-03-09] MEDS ORDERED: INDERAL LA60 M1 PO (09:49)
[2019-03-09] MEDS ORDERED: TAMSULOSIN HCL0.4 MG PO (09:49)
[2019-03-19] MEDS ORDERED: SEPTDS PO (13:28)
[2019-03-26] MEDS ORDERED: BUSPIRONE HCL30 MG PO (09:23)
[2019-03-26] MEDS ORDERED: ATARAX,VISTARIL50 MG PO (09:25)
[2019-03-26] MEDS ORDERED: LAMOTRIGINE25 M1 PO (09:26)
[2019-03-26] MEDS ORDERED: ZYPREXA10 M1 PO (09:28)
[2019-03-26] MEDS ORDERED: COGENTIN0.5 MG PO (09:36)
[2019-05-10] MEDS ORDERED: MELATONIN3 MG PO (07:26)
[2019-05-10] MEDS ORDERED: ZYPREXA20 M1 PO (07:27)
[2019-05-10] MEDS ORDERED: ONCE DAILY1 EACH PO (09:15)
[2019-05-10] MEDS ORDERED: TRAZODONE50 MG PO (09:18)
[2019-05-10] MEDS ORDERED: INDERAL XL80 MG PO (09:21)
[2019-05-10] MEDS ORDERED: LAMICTAL100 MG PO (09:22)
[2019-05-16] MEDS ORDERED: LORAZEPAM1 MG PO (11:21)
== END 2018-12-03 22:51 | disposition short-term general hospital (02) ==
LOC: ED 16:24
PROVIDERS: Emergency Medicine
DX: R56.9 Unspecified convulsions (principal); R41.82 Altered mental status, unspecified; F10.239 Alcohol dependence with withdrawal, unspecified; E87.1 Hypo-osmolality and hyponatremia; R44.3 Hallucinations, unspecified; R47.89 Other speech disturbances; R51 Headache; R07.9 Chest pain, unspecified; R10.9 Unspecified abdominal pain; R00.0 Tachycardia, unspecified; R25.1 Tremor, unspecified; K21.9 Gastro-esophageal reflux disease without esophagitis; E03.9 Hypothyroidism, unspecified; I10 Essential (primary) hypertension; E11.40 Type 2 diabetes mellitus with diabetic neuropathy, unspecified; E78.5 Hyperlipidemia, unspecified; F17.200 Nicotine dependence, unspecified, uncomplicated; Z86.718 Personal history of other venous thrombosis and embolism; Z91.041 Radiographic dye allergy status; Z79.899 Other long term (current) drug therapy; Z79.4 Long term (current) use of insulin; Y90.9 Presence of alcohol in blood, level not specified

== ENCOUNTER 2018-12-21 16:09 | Emergency (ER) | payer OTHER ==
[~2018-12-21] VITALS: Ht 170.1 cm; Wt 68.0 kg
--- NOTE | ~2018-12-21 | EKG ---
[place], [place] ELECTROCARDIOGRAM REPORT NAME: KYLEIGH ALONZO UNIT #: [id number] ROOM: DOCTOR: EPIPHANY DRAFT REPORT BIRTHDATE: [birth year] [facility] Test Date: 2018-12-21 Test Time: 16:28:06 Pat Name: KYLEIGH ALONZO Department: Room: Gender: Ham Passer: Sahra Membreno : 1965 Requested By: RICHARD MEJIA Order Number: [id number] Reading MD: Zack Dodd MD Measurements Intervals [place] Rate: 72 P: 80 TN: 133 QRS: 88 QRSD: 102 T: 27 QT: 384 QTc: 421 Interpretive Statements Sinus rhythm Compared to ECG 12/15/2018 18:33:17 No significant change Electronically Signed On 12-21-2018 17:57:45 PST by Zack Dodd MD CM:EKGRPT:ELECTROCARDIOGRAM REPORT [id number] RICHARD KASPER DRAFT REPORT RICHARD MEJIA DO
[2018-12-21 16:44] LABS: BASO # 0.1 10*3/uL (0.0-0.1); EOS # 1.2 10*3/uL (0.0-0.4); EOS % 8.1 % (1.0-4.0); HEMATOCRIT 45.6 % (42.0-52.0); HEMOGLOBIN 16.1 g/dl (14.0-18.0); LYMPH # 3.5 10*3/uL (1.3-4.4); LYMPH % 24.5 % (27.0-41.0); MEAN CELL VOLUME 92.7 fl (80.0-94.0); MEAN CORPUSCULAR HGB 32.7 pg (27.0-31.0); MEAN CORPUSCULAR HGB CONC 35.3 g/dl (33.0-37.0); MONO # 0.9 10*3/uL (0.1-1.0); NEUT # 8.7 10*3/uL (2.3-7.9); PLATELET COUNT AUTOMATED 349 10*3/uL (130-400); RED BLOOD COUNT 4.92 10*6/uL (4.50-5.90); RED CELL DISTRI WIDTH 13.5 % (0-14.5); WHITE BLOOD COUNT 14.4 10*3/uL (4.8-10.8)
[2018-12-21 16:52] LABS: ACT PARTIAL THROMBO TIME 24.8 SECONDS (20.8-31.5)
[2018-12-21 17:14] LABS: ALBUMIN 4.3 gm/dl (3.1-4.5); ALKALINE PHOSPHATASE 107 U/L (45-117); BUN 8 mg/dl (7-24); CHLORIDE 96 mmol/L (98-107); CREATININE 0.86 mg/dL (0.70-1.30); PHOSPHOROUS 2.7 mg/dL (2.5-4.9); POTASSIUM 4.4 mmol/L (3.5-5.1); SGOT/AST 12 IU/L (3-35); SGPT/ALT 26 U/L (12-78); SODIUM 130 mmol/L (136-145)
[2018-12-21 17:15] LABS: BILIRUBIN NEGATIVE (NEGATIVE); BLOOD NEGATIVE (NEGATIVE); CLARITY CLEAR (CLEAR); COLOR YELLOW (YELLOW); GLUCOSE 1+ (NEGATIVE); KETONE NEGATIVE (NEGATIVE); LEUKO ESTERASE NEGATIVE (NEGATIVE); NITRITE NEGATIVE (NEGATIVE); PH 6.5 (5.0-9.0); UROBILINOGEN 0.2 E.U./dl (0.2-1.0)
[2018-12-21 17:20] LABS: TROPONIN I < 0.015 ng/ml (<0.045)
[2018-12-21 17:23] LABS: BACTERIA TRACE; EPITHELIAL CELLS 0-2; WBC 0-2 wbc/hpf (0-5)
[2018-12-21 17:35] LABS: URINE AMPHETAMINES < 1000 (1000ng/ml); URINE BARBITURATES > 200 (200ng/ml); URINE BENZODIAZEPINES < 200 (200ng/ml); URINE CANNABINOIDS (THC) < 50 (50ng/ml); URINE COCAINE < 300 (300ng/ml); URINE METHADONE < 300 (300ng/ml); URINE OPIATES < 300 (300ng/ml)
[2018-12-21 17:38] LABS: URINE PHENCYCLIDINE < 25 (25ng/ml)
[2019-01-07] MEDS ORDERED: PRAVACHOL40 MG PO (18:56)
[2019-01-26] MEDS ORDERED: VITAMIN B150 MG PO (15:37)
[2019-01-26] MEDS ORDERED: LOPRESSOR50 M1 PO (15:41)
[2019-01-26] MEDS ORDERED: THIAMINE HCL100 MG PO (15:42)
[2019-01-28] MEDS ORDERED: DOXYCYCLINE100 M3 PO (07:38)
[2019-01-28] MEDS ORDERED: Ipratropium Brom3 ML NEB (07:38)
[2019-01-28] MEDS ORDERED: PREDNISONE5 MG PO (07:38)
[2019-03-09] MEDS ORDERED: TAMSULOSIN HCL0.4 MG PO (09:49)
[2019-03-09] MEDS ORDERED: INDERAL LA60 M1 PO (09:49)
[2019-03-09] MEDS ORDERED: AVPAK AZITHROM250 M1 PO (09:49)
[2019-03-19] MEDS ORDERED: SEPTDS PO (13:28)
[2019-03-26] MEDS ORDERED: BUSPIRONE HCL30 MG PO (09:23)
[2019-03-26] MEDS ORDERED: ATARAX,VISTARIL50 MG PO (09:25)
[2019-03-26] MEDS ORDERED: LAMOTRIGINE25 M1 PO (09:26)
[2019-03-26] MEDS ORDERED: ZYPREXA10 M1 PO (09:28)
[2019-03-26] MEDS ORDERED: COGENTIN0.5 MG PO (09:36)
[2019-05-10] MEDS ORDERED: MELATONIN3 MG PO (07:26)
[2019-05-10] MEDS ORDERED: ZYPREXA20 M1 PO (07:27)
[2019-05-10] MEDS ORDERED: ONCE DAILY1 EACH PO (09:15)
[2019-05-10] MEDS ORDERED: TRAZODONE50 MG PO (09:18)
[2019-05-10] MEDS ORDERED: INDERAL XL80 MG PO (09:21)
[2019-05-10] MEDS ORDERED: LAMICTAL100 MG PO (09:22)
[2019-05-16] MEDS ORDERED: LORAZEPAM1 MG PO (11:21)
== END 2018-12-21 18:51 | disposition home or self-care (01) ==
LOC: ED 16:09
PROVIDERS: Family Medicine
DX: R41.3 Other amnesia (principal); T43.595A Adverse effect of other antipsychotics and neuroleptics, initial encounter; R11.0 Nausea; R25.3 Fasciculation; I10 Essential (primary) hypertension; E11.9 Type 2 diabetes mellitus without complications; F31.9 Bipolar disorder, unspecified; E03.9 Hypothyroidism, unspecified; K21.9 Gastro-esophageal reflux disease without esophagitis; E11.40 Type 2 diabetes mellitus with diabetic neuropathy, unspecified; F17.200 Nicotine dependence, unspecified, uncomplicated; Z91.041 Radiographic dye allergy status; Z79.899 Other long term (current) drug therapy; Z79.4 Long term (current) use of insulin; Y92.89 Other specified places as the place of occurrence of the external cause

== ENCOUNTER 2018-12-24 15:44 | Inpatient (IN) | payer OTHER ==
[~2018-12-24] VITALS: Ht 170.2 cm; Wt 69.4 kg
--- NOTE | ~2018-12-24 | PR ---
[place], [place] PROGRESS NOTE NAME: KYLEIGH ALONZO UNIT #: [id number] ROOM: 408 DOCTOR: BOB MAYORGA MD,GUSTAVO BIRTHDATE: [birth year] DOS: 12/27/2018 PULMONARY PROGRESS NOTE SUBJECTIVE: The patient has been resting comfortably on the bed, reported reduction in symptoms of shortness breath, cough, and others. He denies symptoms of chest pain. He has not been noted any withdrawal symptoms. The patient is off alcohol. The patient is using nicotine replacement patches. OBJECTIVE: VITAL SIGNS: Normal temperature, respiratory rate is 18, heart rate is 91, and blood pressure is 110/70. Pulse oxygen saturation on room air is 97% saturation recorded. HEENT: On examination, no acute change. NECK: Supple. CARDIOVASCULAR SYSTEM: S1, S2 audible. LUNGS: Without any wheeze or crackles today. ABDOMEN: Soft, nontender. Bowel sounds present. EXTREMITIES: No acute change. IMPRESSION: 1. The patient with improving acute exacerbation of chronic obstructive pulmonary disease, acute tracheobronchitis. 2. Hyponatremia with history of chronic alcohol use. PLAN OF THERAPY: No changes in the plan of care at this time. Continue the current plan of management. Discharge planning per primary care attending, discharged on oral prednisone and antibiotics. Abstinence of tobacco use counseling was done. GUSTAVO ROJAS MD CM:PNTRANS 1233 GUSTAVO MAYORGA MD 12/28/18 0048 interface
--- NOTE | ~2018-12-24 | EKG ---
[place], [place] ELECTROCARDIOGRAM REPORT NAME: KYLEIGH ALONZO UNIT #: [id number] ROOM: 408 DOCTOR: BO DRAFT REPORT BIRTHDATE: [birth year] [facility] Test Date: 2018-12-24 Test Time: 16:36:57 Pat Name: KYLEIGH ALONZO Department: ER Room: 408 Gender: M Line Tender Flakeboard: Zack Redman : 1965 Requested By: HERMAN MILNER Order Number: [id number] Reading MD: Chkeo Reid MD Measurements Intervals [place] Rate: 67 P: 70 ID: [id number] QRS: 83 QRSD: 96 T: 24 QT: 388 QTc: 410 Interpretive Statements Sinus rhythm Atrial premature complex Compared to ECG 12/21/2018 16:28:06 Atrial premature complex(es) now present Electronically Signed On 12-29-2018 9:37:36 PST by hCeko Reid MD CM:EKGRPT:ELECTROCARDIOGRAM REPORT [id number] HERMAN KASPER DRAFT REPORT HERMAN MILNER DO
--- NOTE | ~2018-12-24 | DS ---
[place], [place] DISCHARGE SUMMARY NAME: KYLEIGH ALONZO UNIT #: [id number] ROOM: 408 DOCTOR: SPENCER KELLY MD BIRTHDATE: [birth year] DOS: 12/27/2018 DISCHARGE DIAGNOSES: 1. Right lower lobe pneumonia. 2. Acute exacerbation of chronic obstructive pulmonary disease. 3. Nicotine smoke dependence. 4. Chronic hyponatremia, recurrent from alcoholism. 5. Alcohol dependence. 6. Mixed hyperlipidemia. 7. Type 2 diabetes mellitus. 8. Benign essential hypertension. 9. Hypothyroidism. 10. Generalized anxiety disorder. 11. Chronic recurrent abdominal pains. 12. Mixed hyperlipidemia. 13. Benign prostatic hypertrophy and urine retention. 14. Major depression, recurrent, moderate. HOSPITAL COURSE: The patient presented to the Emergency Department at [facility] with increasing shortness of breath, cough, chest congestion and was found to have right lower lobe pneumonia on the chest x-ray. The patient was started on azithromycin and DuoNeb, oxygen, nebulizer treatments and his breathing gradually improved until he has been cleared by Dr. Villa for discharge to home today. Repeat chest x-ray showed improvement of the right lower lobe pneumonia. 1. Mixed hyperlipidemia, treated with Lipitor. 2. Alcoholism and alcohol dependence. The patient was now taking less, but still taking 8 cans of beer a day according to him. The patient was kept on Ativan 0.5 mg 4 times a day to avoid delirium tremens and he did well. The patient was also kept on a registrar assistant. The patient has been through alcohol rehab on multiple occasions and also recently, but continues to go back to drinking alcohol. 3. Chronic hyponatremia related to alcohol abuse. 4. Benign essential hypertension. Blood pressure monitored, treated and controlled. 5. Mixed hyperlipidemia is being treated with Lipitor. 6. Type 2 diabetes mellitus. Blood sugars treated with metformin. DISCHARGE MANAGEMENT: DuoNeb q.i.d., Lipitor 5 mg a day, lisinopril 5 mg a day, Protonix 40 mg a day, metformin 1000 mg b.i.d., levothyroxine 25 mcg daily, Lantus insulin 14 units subcu b.i.d., prazosin 2 mg at bedtime, metoprolol 50 mg b.i.d., Latuda 60 mg at bedtime. The patient was on Klonopin 1 mg b.i.d. p.r.n. [place], [place] DISCHARGE SUMMARY NAME: KYLEIGH ALONZO UNIT #: [id number] ROOM: [facility] DOCTOR: SPENCER KELLY MD BIRTHDATE: [birth year] SPENCER KELLY MD CM:DISCHCAROLYN 1050 SPENCER KELLY MD 12/27/18 1224 interface
--- NOTE | ~2018-12-24 | WRIGHTHP ---
[place], [place] PATIENT HISTORY AND PHYSICAL EXAM NAME: KYLEIGH ALONZO [facility] #: [id number] UNIT #: [id number] ROOM: 408 DOCTOR: SPENCER KELLY MD BIRTHDATE: [birth year] DOS: 12/24/2018 HISTORY OF PRESENT ILLNESS: The patient with a past medical history of: 1. Alcohol dependence. 2. Benign essential hypertension. 3. Hypothyroidism. 4. Generalized anxiety disorder. 5. Chronic recurrent abdominal pain. 6. Mixed hyperlipidemia. 7. BPH and urinary retention in the past. 8. Type 2 diabetes mellitus. 9. Major depression, recurrent, moderate. 10. GERD. 11. Esophagitis. 12. Nicotine smoke dependence. The patient presented to the Emergency Department at [facility] with complaints of increased shortness of breath and cough and feeling unwell. The patient's chest x-ray showed pneumonia in the right lower lung. The patient says he is back to drinking, although he is drinking less, but still about 8 cans of beer a day. SYSTEMS REVIEW: RESPIRATORY: The patient has increased shortness of breath and cough and chest congestion. GASTROINTESTINAL: No nausea, vomiting, diarrhea or constipation. CARDIOVASCULAR SYSTEM: No chest pains or palpitations. FAMILY HISTORY: Noncontributory. HOME MEDICATIONS: The patient takes vitamin D, Klonopin, levothyroxine, lisinopril, Latuda, metformin, Protonix, pravastatin, prazosin, insulin. ALLERGIES: KNOWN ALLERGIES TO IODINE. PHYSICAL EXAMINATION: GENERAL: Alert, oriented x 3, in no visible distress, looking somewhat tired and weak. Generalized weakness. VITAL SIGNS: Blood pressure 104/68, heart rate of 72 beats per minute, breathing normally. HEENT AND NECK: Extraocular movements are intact. Sclerae are anicteric. Oral mucosa is moist and clean. No obvious facial weakness. Neck is supple without any lymphadenopathy. No thyromegaly. No JVD. No carotid arterial bruits. LUNGS: Decreased breath sounds all over on lung auscultation. No wheezing. No rhonchi. CARDIOVASCULAR SYSTEM: Heart rate is regular in rate and rhythm. S1 and S2 normally audible. No significant murmur or any other abnormal cardiac sounds. ABDOMEN: Soft, nontender. No obvious organomegaly. Bowel sounds are present. No obvious herniation. [place], [place] PATIENT HISTORY AND PHYSICAL EXAM [id number] UNIT #: [id number] ROOM: 408 DOCTOR: SPENCER KELLY MD BIRTHDATE: [birth year] EXTREMITIES: Without significant cyanosis or edema. Warm to touch. CENTRAL NERVOUS SYSTEM: Alert and oriented x 3. Cranial nerves II-XII are intact. Speech is normal. The patient is able to move all extremities. Normal muscle strength. Deep tendon reflexes are equal on both sides. Plantars were downgoing. LABORATORY DATA: Chest x-ray showing right lower lobe pneumonia. IMPRESSION: 1. The patient with right lower lobe pneumonia to be treated with antibiotics, Rocephin and azithromycin. Dr. Villa, the parking analyst, has been consulted. The patient will be kept on DuoNebs and oxygen as needed. 2. Nicotine smoke dependence. The patient encouraged to stop smoking cigarettes. 3. Alcohol dependence. The patient is still drinking 8 cans of beer a day and he will be started on Ativan to prevent delirium tremens. Last admission, he was put into alcohol rehabilitation program with [facility] and even after discharge. 4. Benign essential hypertension. Blood pressure to be monitored, treated and controlled. 5. Significant hyponatremia with sodium level of 128, apparently secondary to his high alcohol intake, should gradually improve as he will not be drinking at the hospital. 6. Hypothyroidism, replaced with thyroid supplements. The patient on levothyroxine. 7. Mixed hyperlipidemia, treated with Lipitor. 8. Diabetes mellitus. The patient remains on Lantus insulin. SPENCER KELLY MD CM:HISPHYS:PATIENT HISTORY AND PHYSICAL EXAMINATION 14 51 SPENCER KLELY MD 12/24/182231 interface
--- NOTE | ~2018-12-24 | PR ---
[place], [place] PROGRESS NOTE NAME: KYLEIGH ALONZO UNIT #: [id number] ROOM: 408 DOCTOR: SPENCER KELLY MD BIRTHDATE: [birth year] DOS: 12/25/2018 SUBJECTIVE: The patient is starting to breathe better and he is not having any alcohol withdrawal symptoms yet with Ativan. SUBJECTIVE: GENERAL APPEARANCE: The patient is alert and oriented x 3, in no visible distress. VITAL SIGNS: Blood pressure 120/76, heart rate of 18 beats per minute, breathing 18 times per minute, heart rate of 78 beats per minute, afebrile. HEENT AND NECK: Exam within normal limits. CARDIOVASCULAR SYSTEM: Heart rate is regular in rate and rhythm. S1 and S2 normally audible. LUNGS: Decreased breath sounds on lung auscultation. ABDOMEN: Soft, nontender. No obvious organomegaly. Bowel sounds are present. EXTREMITIES: Without significant cyanosis or edema. IMPRESSION: 1. History of alcoholism with no delirium tremens. He has been treated with Ativan to avoid delirium tremens and on a case monitor. 2. Right lower lobe pneumonia, being treated with antibiotics. Dr. Villa, the dermatopathologist, is following. 3. Nicotine smoke dependence. The patient encouraged to stop smoking cigarettes. 4. Benign essential hypertension, treated and controlled. 5. Hyponatremia secondary to alcoholism. I will repeat sodium levels, they should recover soon since the patient is off alcohol. 6. Mixed hyperlipidemia, treated with Lipitor. 7. Diabetes mellitus. The patient remains on Lantus insulin. He is asymptomatic. SPENCER KELLY MD CM:PNTRANS [id number] SPENCER KELLY MD 12/26/18 0740 interface
--- NOTE | ~2018-12-24 | PR ---
[place], [place] PROGRESS NOTE NAME: KYLEIGH ALONZO UNIT #: [id number] ROOM: 408 DOCTOR: LETICIA AGUILAR,SPENCER Fishman BIRTHDATE: [birth year] DOS: 12/26/2018 OBJECTIVE: VITAL SIGNS: Blood pressure 109/56, heart rate of 78 beats per minute, breathing 22 times per minute, afebrile. GENERAL APPEARANCE: The patient is alert and oriented x 3, in no visible distress. HEENT AND NECK: Exam within normal limits. CARDIOVASCULAR SYSTEM: Heart rate is regular in rate and rhythm. S1 and S2 normally audible. LUNGS: Decreased breath sounds all over. ABDOMEN: Soft, nontender. No obvious organomegaly. Bowel sounds are present. EXTREMITIES: Without significant cyanosis or edema. IMPRESSION: 1. The patient with alcoholism being monitored closely for delirium tremens and treated with Ativan. He is tolerating well. 2. The patient with pneumonia in the right lower lobe, being treated with antibiotics. Dr. Villa, the sales and service agent, is following. 3. Nicotine smoke dependence. The patient encouraged to stop smoking cigarettes. 4. Benign essential hypertension, treated and controlled. 5. Hyponatremia secondary to alcoholism and recovering, sodium level of 127. 6. Mixed hyperlipidemia, treated with Lipitor. 7. Diabetes mellitus. Blood sugar is being monitored and treated. SPENCER KELLY MD CM:PNTRANS 1330 [id number] SPENCER KELLY MD 12/27/18 1540 interface
--- NOTE | ~2018-12-24 | PR ---
[place], [place] PROGRESS NOTE NAME: KYLEIGH ALONZO UNIT #: [id number] ROOM: 408 DOCTOR: GUSTAVO MA MD BIRTHDATE: [birth year] DOS: 12/26/2018 SUBJECTIVE: The patient noted comfortable at this time without any acute distress, resting comfortably on the bed. He has been noted with reduction in symptoms of shortness of breath from yesterday. Denies symptoms of fever or chills. Denies symptoms of hemoptysis. Denies symptoms of nausea, vomiting. The respiratory symptom in general, has been decreased. OBJECTIVE: VITAL SIGNS: For the patient which were recorded showed the temperature noted as normal. The respiratory rate of 22, heart rate 68, blood pressure 116/60. Pulse ox 95% saturation at room air. HEENT: Examination shows head was atraumatic. Eyes nonicterus. NECK: Supple. CARDIOVASCULAR: S1, S2 is audible. LUNGS: The patient was noted without any crackles. Scattered wheezing. ABDOMEN: Soft, nontender. Bowel sounds present. EXTREMITIES: No acute change. LABORATORY DATA: BMP: Glucose 232, BUN and creatinine was normal. Sodium 127. CBC of this morning, WBC count was 19.8, hemoglobin 13.6, platelet count normal. IMPRESSION: 1. Recurrent hyponatremia with history of chronic alcohol use and dependence. 2. Acute exacerbation of chronic obstructive pulmonary disease. 3. History of chronic nicotine dependence as well. PLAN OF MANAGEMENT: Continuation of the current dose of bronchodilators, oxygen supplementation, corticosteroids. Continue medication prophylactically to prevent any alcohol withdrawal with history of chronic alcohol dependence. Usual care. Other supportive therapy, plan of management, change in treatment with progression of illness. Ambulation was encouraged. [place], [place] PROGRESS NOTE NAME: KYLEIGH ALONZO UNIT #: [id number] ROOM: 408 DOCTOR: GUSTAVO MA MD BIRTHDATE: [birth year] GUSTAVO ROJAS MD CM:PNTRANS [id number] [id number] GUSTAVO MAYORGA MD 01/03/19 1019 interface
--- NOTE | ~2018-12-24 | CON ---
[place], [place] REPORT [facility]ULTATION [id number] UNIT #: [id number] ROOM: 408 DOCTOR: BOB MAYORGA MDGUSTAVO BIRTHDATE: [birth year] DOS: 12/25/2018 PULMONARY CONSULTATION, EVALUATION, AND MANAGEMENT CONSULTATION REQUESTED BY: Dr. Orozco. REASON FOR CONSULTATION: For assessment of symptoms of possibility of acute pneumonia and other abnormal respiratory symptoms. HISTORY OF PRESENT ILLNESS: This is a 53-year-old white male, who has been hospitalized on 12/24/[address] Orozco. The patient presented to the Emergency Room as he has been reporting symptoms of having increased shortness of breath with associated cough, which started recently. The symptoms have been noted gradual and progressive for this patient requiring assessment in the Emergency Room. He was complaining of severe burning in the chest about a week as well. Symptoms of wheezing was also reported. Denies symptoms of acute pleuritic chest pain, but described as "burning" in the chest bilaterally. He has been admitted to the hospital for further medical management at this time. He was also suggested of possibility of acute pneumonia in the lungs. REVIEW OF SYSTEMS: CONSTITUTIONAL: Fatigue and tiredness reported without any fever or chills at home. EYES: Denies any burning, redness, or tenderness. EARS, NOSE, THROAT SYMPTOMS: Denies sore throat, hoarseness, otalgia, postnasal drainage, or epistaxis. CARDIOVASCULAR: Denies anginal pain, edema, or pain of the lower extremities. GASTROINTESTINAL: Dysphagia, nausea, vomiting, abdominal pain, hematemesis, melena, or abnormal weight loss. GENITOURINARY: No dysuria, suprapubic pain, or hematuria. MUSCULOSKELETAL: No acute joint pain, redness, or tenderness. SKIN: Without lesions or rashes. CENTRAL NERVOUS SYSTEM: No dizziness, headache, diplopia, or syncopal episodes. Remaining systems were reviewed. They were noted all negative. PAST MEDICAL HISTORY: 1. Known with history of alcohol dependence. 2. Chronic heavy nicotine abuse up to 3 packs of cigarettes per day. 3. Essential hypertension. 4. Hypothyroidism. 5. Generalized anxiety disorder. 6. Mixed hyperlipidemia. 7. Benign prostatic hypertrophy. 8. Type 2 diabetes mellitus. 9. Major depression. 10.Gastroesophageal Reflux with Reflux esophagitis. SOCIAL HISTORY: The patient stated he is , has 2 children, lives at home. Tobacco use was noted since younger age. The patient smoked 2-3 packs of [place], [place] REPORT OF CONSULTATION NAME: KYLEIGH ALONZO UNIT #: [id number] ROOM: [facility] DOCTOR: GUSTAVO MA MD BIRTHDATE: [birth year] cigarettes per day, active use until hospitalization. Denies any history of illicit drug use. He has been noted with history of alcohol use. PAST SURGICAL HISTORY: Noted left knee arthroscopy. FAMILY HISTORY: Reported for diabetes and CVA. MEDICATIONS: The current medications which has been administered, use of Lipitor, lisinopril, Protonix, metformin, levothyroxine, prazosin, metoprolol tartrate, Latuda, Rocephin, Zithromax, Klonopin, and p.r.n. use of Ativan. DRUG ALLERGIES: ALLERGY TO THE IVP DYE CAUSING ANAPHYLAXIS. PHYSICAL EXAMINATION: GENERAL: This is a 53-year-old white male currently noted to be awake and alert without any distress. Height of 5 feet 7 inches, weight 153 pounds, BMI 23.9. VITAL SIGNS: There is a normal temperature since admission. In last 24 hours, respiratory rate range between 18-24, heart rate 72-56, blood pressure 102/66-120/62. Pulse oxygen saturation recorded at rest on room air is 98% saturation. HEENT: Examination shows head was atraumatic. Eyes nonicterus. NECK: Supple. CARDIOVASCULAR: S1, S2 audible. LUNGS: Noted moderate decreased breath sounds in the lungs bilaterally with the scattered expiratory wheezing. There were no crackles. ABDOMEN: Soft, nontender. Bowel sounds present. EXTREMITIES: No acute edema. MUSCULOSKELETAL: Without acute deformities. CENTRAL NERVOUS SYSTEM: The patient's cranial nerves 2-12 intact. MUSCULOSKELETAL: Without any acute deformities. LABORATORY DATA: The patient was assessed in the Emergency Room on 12/24/2018, CBC: WBC count 14.4, 8 0.1% eosinophils at that time. Lactic acid 3.3. PT/PTT at that time was normal. The alcohol level was 1.1. CMP at that time, glucose 221, sodium 130, remaining electrolytes grossly normal. Urine drug screen positive for barbiturates. Lactic acid that was done yesterday was 1.4, normal. CBC, WBC count 13.3, hemoglobin and hematocrit normal, 9% eosinophils. PT and PTT was normal. CMP that was done yesterday, glucose 210, BUN and creatinine were normal, sodium 128. CBC of this morning, WBC count normal, hemoglobin 13.6, hematocrit normal with 8.8% eosinophils, it was still noted elevated. IMPRESSION: 1. The patient who has been currently admitted to the hospital, noted with finding of eosinophilia. Chest x-ray that was done yesterday with small area of atelectasis in the right lower lobe with a followup chest x-ray that was completed today, does not show any evidence of ongoing acute infiltration, at this time suggestive area of atelectasis and exacerbation of bronchial asthma, very likely resulting in eosinophilia. The patient if diagnosed with bronchial asthma would be considered as allergic, case of longstanding chronic tobacco use. [place], [place] REPORT OF CONSULTATION NAME: KYLEIGH ALONZO UNIT #: [id number] ROOM: [facility] DOCTOR: SHANE MA MDM BIRTHDATE: [birth year] 2. History of alcohol dependence, which has been noted chronic as well, without any withdrawal from the alcohol during this hospitalization. PLAN OF MANAGEMENT: The patient has been getting antibiotic intravenous, orally. The patient will be switched to only oral antibiotic for the bronchitis. He will be started on Solu-Medrol 40 mg b.i.d. for the management of acute bronchial asthma exacerbation. History of type 2 diabetes mellitus, the patient will be requiring close monitoring of the blood glucose. Nicotine replacement patches ordered. Sputum for Gram stain and culture will be ordered as well. Obtain IgE level to assess the current eosinophilia as well. ESR will be ordered as well to assess inflammatory burden. Other therapy, plan of management. Counseling about tobacco cessation was also done. Other supportive therapy, plan of management, and care plan with addition of changes recommended based on progression of the illness, has already been ordered p.r.n. use of Ativan to prevent and treat for any alcohol withdrawal. Thanks for allowing me to participate in the care of this patient. GUSTAVO ROJAS MD CM:CONSTR:REPORT OF CONSULTATION 1220 01/03/19 1018 interface
[2018-12-24 15:44] VITALS: BP 140/78
[2018-12-24 16:30] VITALS: BP 116/72
[2018-12-24 16:44] LABS: BASO # 0.1 10*3/uL (0.0-0.1); BASO % 0.8 % (0.0-1.0); EOS # 1.2 10*3/uL (0.0-0.4); HEMATOCRIT 43.1 % (42.0-52.0); HEMOGLOBIN 15.3 g/dl (14.0-18.0); LYMPH # 4.2 10*3/uL (1.3-4.4); LYMPH % 31.5 % (27.0-41.0); MEAN CELL VOLUME 91.9 fl (80.0-94.0); MEAN CORPUSCULAR HGB 32.6 pg (27.0-31.0); MEAN CORPUSCULAR HGB CONC 35.5 g/dl (33.0-37.0); MEAN PLATELET VOLUME 8.2 fl (9.6-12.3); MONO # 0.8 10*3/uL (0.1-1.0); MONO % 5.8 % (3.0-9.0); NEUT % 52.6 % (47.0-73.0); PLATELET COUNT AUTOMATED 323 10*3/uL (130-400); RED BLOOD COUNT 4.69 10*6/uL (4.50-5.90); RED CELL DISTRI WIDTH 13.4 % (0-14.5); WHITE BLOOD COUNT 13.3 10*3/uL (4.8-10.8)
[2018-12-24 16:54] LABS: ACT PARTIAL THROMBO TIME 22.3 SECONDS (20.8-31.5)
[2018-12-24 17:00] VITALS: BP 118/74
[2018-12-24 17:04] LABS: ALBUMIN 3.8 gm/dl (3.1-4.5); ALKALINE PHOSPHATASE 108 U/L (45-117); BUN 10 mg/dl (7-24); CHLORIDE 98 mmol/L (98-107); CREATININE 0.78 mg/dL (0.70-1.30); LIPASE 90 U/L (73-393); POTASSIUM 4.3 mmol/L (3.5-5.1); SGOT/AST 11 IU/L (3-35); SGPT/ALT 23 U/L (12-78); SODIUM 128 mmol/L (136-145); TOTAL PROTEIN 7.4 gm/dL (6.4-8.2)
[2018-12-24 17:04] LABS: BILIRUBIN NEGATIVE (NEGATIVE); BLOOD NEGATIVE (NEGATIVE); CLARITY SL CLOUDY (CLEAR); COLOR YELLOW (YELLOW); GLUCOSE NEGATIVE (NEGATIVE); KETONE NEGATIVE (NEGATIVE); LEUKO ESTERASE NEGATIVE (NEGATIVE); NITRITE NEGATIVE (NEGATIVE); SPECIFIC GRAVITY <= 1.005 (1.005-1.030)
[2018-12-24 17:08] LABS: TROPONIN I < 0.015 ng/ml (<0.045)
[2018-12-24 17:17] LABS: BACTERIA 1+; EPITHELIAL CELLS 0-2; RBC 0-2 rbc/hpf (0-2); WBC 0-2 wbc/hpf (0-5)
[2018-12-24 17:20] LABS: ETHYL ALCOHOL < 3.0 mg/dl (<3); PHENOBARBITAL (LUMINAL) < 2.1 ug/ml (15-40)
--- NOTE | 2018-12-24 17:36 | NUR ---
PATIENT STATES THAT THE GI COCKTAIL HAS HELPED HIM. STATES THE PAIN HAS DECREASED.
[2018-12-24 17:52] VITALS: BP 104/68
--- NOTE | 2018-12-24 18:36 | NUR ---
ATTEMPTED TO CALL NURSE FOR TRANSPORT TO FLOOR.
[2018-12-24 18:43] VITALS: BP 99/68
--- NOTE | 2018-12-24 18:45 | NUR ---
CONTACTED NURSE CORINNA DORANTES. PATIENT GOING TO FLOOR AT THIS TIME WITH THIS NURSE.
--- NOTE | 2018-12-24 18:47 | NUR ---
LAB IN ROOM WITH PATIENT AT THIS TIME.
[2018-12-24 18:55] VITALS: BP 120/62
--- NOTE | 2018-12-24 18:55 | NUR ---
A 53, admitted to , under the services of Dr. LETICIA AGUILAR,SPENCER Fishman with a diagnosis of PNEUMONIA. Chief complaint is SOB. Patient arrived via CART from ER. Monitor applied. Initial assessment completed. Vital signs taken and recorded. DR. LETICIA AGUILAR,SPENCER Fishman notified of admission to the unit. Orders received. See assessment for past medical history, medications and allergies. Patient and/or family oriented to unit. [address] visitation policy reviewed. Clothing/patient valuable form completed. SKIN INTACT WITH NO OPEN WOUNDS. PT REFUSES FLU AND PNEUMO VACCINATIONS ZION MOISE
--- NOTE | 2018-12-24 19:25 | NUR ---
CONSULT COMPLETE FOR DR. ROJAS, NO NEW ORDERS AT THIS TIME.
[2018-12-24] MEDS ORDERED: NATURE'S BLEND F1 MG PO (19:42)
[2018-12-24] MEDS ORDERED: PROPRANOLOL ER80 MG PO (19:46)
[2018-12-24] MEDS ORDERED: VITAMIN B-1100 M1 PO (19:48)
[2018-12-24] MEDS ORDERED: PRAVACHOL20 MG PO (19:51)
[2018-12-24] MEDS ORDERED: PRAVASTATIN SOD40 MG PO (19:53)
[2018-12-24] MEDS ORDERED: MELATONIN5 M1 PO (19:58)
[2018-12-24] MEDS ORDERED: SEROQUEL50 MG PO (20:08)
[2018-12-24] MEDS ORDERED: SEROQUEL100 MG PO (20:09)
--- NOTE | 2018-12-24 20:24 | NUR ---
ASSUMED CARE OF PATIENT. PATIENT IS RESTING IN BED WITH EASY AND REGULAR RESPERS ON ROOM AIR. ASSESSMENT IS COMPLETE WITH NO C/O OR S/S OF DISTRESS NOTED AT THIS TIME. BED IS LOW, LOCKED, AND CALL LIGHT IS WITHIN REACH. SEE SHIFT ASSESSMENT.
--- NOTE | 2018-12-24 20:51 | NUR ---
BLOOD GLUCOSE 181.
[2018-12-25] VITALS: BP 93/53
[2018-12-25 06:09] LABS: BASO # 0.1 10*3/uL (0.0-0.1); BASO % 1.1 % (0.0-1.0); EOS # 0.9 10*3/uL (0.0-0.4); EOS % 8.8 % (1.0-4.0); HEMATOCRIT 40.8 % (42.0-52.0); HEMOGLOBIN 13.6 g/dl (14.0-18.0); LYMPH # 3.8 10*3/uL (1.3-4.4); LYMPH % 38.6 % (27.0-41.0); MEAN CELL VOLUME 93.6 fl (80.0-94.0); MEAN CORPUSCULAR HGB 31.2 pg (27.0-31.0); MEAN CORPUSCULAR HGB CONC 33.3 g/dl (33.0-37.0); MEAN PLATELET VOLUME 8.5 fl (9.6-12.3); MONO # 0.8 10*3/uL (0.1-1.0); MONO % 7.7 % (3.0-9.0); NEUT # 4.3 10*3/uL (2.3-7.9); NEUT % 43.5 % (47.0-73.0); PLATELET COUNT AUTOMATED 284 10*3/uL (130-400); RED BLOOD COUNT 4.36 10*6/uL (4.50-5.90); RED CELL DISTRI WIDTH 13.3 % (0-14.5); WHITE BLOOD COUNT 9.8 10*3/uL (4.8-10.8)
[2018-12-25 08:00] VITALS: BP 118/66
--- NOTE | 2018-12-25 09:00 | NUR ---
Furniture Upholstery Mechanic in to talk to patient. Patient states lives at home with his girlfriend and 2 children. There are 3 steps in the home. Physician: Dr. Eagle Orozco Pharmacy: [facility]: has had [facility] in the past and would like their nurse and PT services again upon discharge Patient's level of ADLs: MINIMAL ASSIST Patient has working utilities: yes DME: cane Follow-up physician's appointment after d/c: he prefers to make his own follow up appt after discharge Does patient want to access PORTAL?: no Discharge plan discussed with patient. He lives at home with his girlfriend and 2 children. He is independent in his ADLs and ambulates with a cane. Discussed home health care services and he has previously had [facility] and would like their nurse and PT services again upon discharge. When medically stable he will be discharged to home with [facility] services. AMY COTTO
[2018-12-25 12:00] VITALS: BP 107/72
[2018-12-25 16:00] VITALS: BP 118/76
[2018-12-25 20:00] VITALS: BP 108/74
[2018-12-26] VITALS: BP 86/43
[2018-12-26 06:06] LABS: CHLORIDE 97 mmol/L (98-107); CREATININE 0.71 mg/dL (0.70-1.30); POTASSIUM 5.1 mmol/L (3.5-5.1); SODIUM 127 mmol/L (136-145)
[2018-12-26 06:31] LABS: BUN 21 mg/dl (7-24)
[2018-12-26 07:26] VITALS: BP 116/60
[2018-12-26 07:37] VITALS: BP 116/60
--- NOTE | 2018-12-26 07:43 | NUR ---
PATIENT IS A&OX3, PLEASANT AND COOPERATIVE WITH CARE. COMPLAINS OF NO PAIN AT THIS TIME. WILL CONTINUE TO MONITOR PATIENT. SHMUEL REYNOLDS
--- NOTE | 2018-12-26 09:00 | NUR ---
Manager Image in to see patient. No new needs or request at this time. When medically stable he will be discharged to home with [facility] RN/PT.
--- NOTE | 2018-12-26 09:29 | NUR ---
AWAKE ALERT AND ORIENTED X3, LUNGS DIMINISHED, HARSH NON-PRODUCTIVE COUGH NOTED, DENIES SOB, N/V/D/C, LAST BM TODAY, NORMO BSX4, NO EDEMA NOTED, WILL CONT TO MONTIOR. DENIES C/O. LABS REVIEWED, CHART CHECK COMPLETE. CALL LIGHT IN REACH.
--- NOTE | 2018-12-26 10:29 | NUR ---
MEDS WERE ADMINISTERED, PATIENT TOLERATED WELL. SHMUEL JUNGCC
[2018-12-26 11:45] VITALS: BP 109/56
--- NOTE | 2018-12-26 12:05 | NUR ---
PT HAS HARSH NONPRODUCTIVE COUGH, NO COMPLAINTS VOICED SHMUEL REYNOLDS
--- NOTE | 2018-12-26 14:45 | NUR ---
Faxed home health referral to [facility]
--- NOTE | 2018-12-26 15:46 | NUR ---
[facility] is unable to take the patient referral due to availability. Discussed with patient. When given a list of agencies he chose [facility] Home health order faxed to [facility].
[2018-12-26 16:00] VITALS: BP 107/61
[2018-12-26 20:00] VITALS: BP 109/67
[2018-12-27] VITALS: BP 98/50
[2018-12-27 06:45] LABS: BUN 21 mg/dl (7-24); CHLORIDE 95 mmol/L (98-107); CREATININE 0.89 mg/dL (0.70-1.30); SODIUM 127 mmol/L (136-145)
[2018-12-27 06:47] LABS: POTASSIUM 5.2 mmol/L (3.5-5.1)
[2018-12-27 08:00] VITALS: BP 110/70
--- NOTE | 2018-12-27 08:30 | NUR ---
Fruit Grader in to see patient. Family is at the bedside. No new needs or request at this time. When medically stable he will be discharged to home with [facility].
[2018-12-27] MEDS ORDERED: AUGMENTIN 875-875 MG PO (10:43)
--- NOTE | 2018-12-27 11:18 | NUR ---
PT DISCHARGED AT THIS TIME. IV REMOVED AND PRESSURE DRESSING APPLIED. HEART MONITOR RETURNED TO FLOOR. VERBALIZED UNDERSTANDING OF DISCHARGE INSTRUCTIONS.
--- NOTE | 2018-12-27 11:19 | NUR ---
STATED HE WILL STOP AT OUR PHARMACY AND BRICK MASON THE MEDS HE BROUGHT IN.
[2019-01-07] MEDS ORDERED: PRAVACHOL40 MG PO (18:56)
[2019-01-26] MEDS ORDERED: VITAMIN B150 MG PO (15:37)
[2019-01-26] MEDS ORDERED: LOPRESSOR50 M1 PO (15:41)
[2019-01-26] MEDS ORDERED: THIAMINE HCL100 MG PO (15:42)
[2019-01-28] MEDS ORDERED: PREDNISONE5 MG PO (07:38)
[2019-01-28] MEDS ORDERED: DOXYCYCLINE100 M3 PO (07:38)
[2019-01-28] MEDS ORDERED: Ipratropium Brom3 ML NEB (07:38)
[2019-03-09] MEDS ORDERED: TAMSULOSIN HCL0.4 MG PO (09:49)
[2019-03-09] MEDS ORDERED: INDERAL LA60 M1 PO (09:49)
[2019-03-09] MEDS ORDERED: AVPAK AZITHROM250 M1 PO (09:49)
[2019-03-19] MEDS ORDERED: SEPTDS PO (13:28)
[2019-03-26] MEDS ORDERED: BUSPIRONE HCL30 MG PO (09:23)
[2019-03-26] MEDS ORDERED: ATARAX,VISTARIL50 MG PO (09:25)
[2019-03-26] MEDS ORDERED: LAMOTRIGINE25 M1 PO (09:26)
[2019-03-26] MEDS ORDERED: ZYPREXA10 M1 PO (09:28)
[2019-03-26] MEDS ORDERED: COGENTIN0.5 MG PO (09:36)
[2019-05-10] MEDS ORDERED: MELATONIN3 MG PO (07:26)
[2019-05-10] MEDS ORDERED: ZYPREXA20 M1 PO (07:27)
[2019-05-10] MEDS ORDERED: ONCE DAILY1 EACH PO (09:15)
[2019-05-10] MEDS ORDERED: TRAZODONE50 MG PO (09:18)
[2019-05-10] MEDS ORDERED: INDERAL XL80 MG PO (09:21)
[2019-05-10] MEDS ORDERED: LAMICTAL100 MG PO (09:22)
[2019-05-16] MEDS ORDERED: LORAZEPAM1 MG PO (11:21)
== END 2018-12-27 11:18 | disposition home health service (06) | DRG 194 ==
LOC: ED 15:44 → 4E 18:17 → EDHOLD 18:17 → 4E 18:33
PROVIDERS: Emergency Medicine; ADMIT Internal Medicine
DX: J18.1 Lobar pneumonia, unspecified organism (principal); J44.0 Chronic obstructive pulmonary disease with (acute) lower respiratory infection; J45.901 Unspecified asthma with (acute) exacerbation; E87.1 Hypo-osmolality and hyponatremia; F33.1 Major depressive disorder, recurrent, moderate; J98.11 Atelectasis; J44.1 Chronic obstructive pulmonary disease with (acute) exacerbation; F17.210 Nicotine dependence, cigarettes, uncomplicated; F10.20 Alcohol dependence, uncomplicated; E78.2 Mixed hyperlipidemia; E03.9 Hypothyroidism, unspecified; K21.0 Gastro-esophageal reflux disease with esophagitis; J20.9 Acute bronchitis, unspecified; I10 Essential (primary) hypertension; F41.1 Generalized anxiety disorder; N40.1 Benign prostatic hyperplasia with lower urinary tract symptoms; R33.8 Other retention of urine; E11.40 Type 2 diabetes mellitus with diabetic neuropathy, unspecified; Z91.041 Radiographic dye allergy status; Z83.3 Family history of diabetes mellitus; Z81.1 Family history of alcohol abuse and dependence; Z82.3 Family history of stroke; Z71.6 Tobacco abuse counseling

== ENCOUNTER 2019-01-02 10:24 | Emergency (ER) | payer OTHER ==
[~2019-01-02] VITALS: Ht 170.1 cm; Wt 68.0 kg
--- NOTE | ~2019-01-02 | EKG ---
[place], [place] ELECTROCARDIOGRAM REPORT NAME: KYLEIGH ALONZO UNIT #: [id number] ROOM: DOCTOR: BO DRAFT REPORT BIRTHDATE: [birth year] [facility] Test Date: 2019-01-02 Test Time: 10:30:30 Pat Name: KYLEIGH ALONZO Department: Room: Gender: M Career Representative: EKG.[place] : 1965 Requested By: SHANNAN GARLAND Order Number: [id number] Reading MD: Hilario Villa MD Measurements Intervals [place] Rate: 78 P: 73 NM: 140 QRS: 81 QRSD: 97 T: 36 QT: 375 QTc: 428 Interpretive Statements Sinus rhythm Compared to ECG 12/24/2018 16:36:57 Atrial premature complex(es) no longer present Electronically Signed On 01-05-2019 7:43:03 PST by Hilario Villa MD CM:EKGRPT:ELECTROCARDIOGRAM REPORT [id number] SHANNAN SORIANO DRAFT REPORT SHANNAN GARLAND MD
--- NOTE | ~2019-01-02 | EKG ---
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
[~2019-01-02 10:24] MED LIST changes: +AUGMENTIN 875-875 MG PO; +MELATONIN5 M1 PO; +NATURE'S BLEND F1 MG PO; +PRAVASTATIN SOD40 MG PO; +PROPRANOLOL ER80 MG PO; +SEROQUEL100 MG PO; +SEROQUEL50 MG PO; +VITAMIN B-1100 M1 PO
[2019-01-02 11:33] LABS: BASO # 0.1 10*3/uL (0.0-0.1); BASO % 0.6 % (0.0-1.0); EOS # 0.7 10*3/uL (0.0-0.4); EOS % 5.7 % (1.0-4.0); HEMATOCRIT 41.6 % (42.0-52.0); HEMOGLOBIN 14.7 g/dl (14.0-18.0); LYMPH # 3.3 10*3/uL (1.3-4.4); LYMPH % 26.5 % (27.0-41.0); MEAN CELL VOLUME 93.9 fl (80.0-94.0); MEAN CORPUSCULAR HGB 33.2 pg (27.0-31.0); MEAN CORPUSCULAR HGB CONC 35.3 g/dl (33.0-37.0); MEAN PLATELET VOLUME 8.1 fl (9.6-12.3); MONO # 0.9 10*3/uL (0.1-1.0); MONO % 7.1 % (3.0-9.0); NEUT # 7.5 10*3/uL (2.3-7.9); NEUT % 59.7 % (47.0-73.0); PLATELET COUNT AUTOMATED 256 10*3/uL (130-400); RED BLOOD COUNT 4.43 10*6/uL (4.50-5.90); RED CELL DISTRI WIDTH 13.6 % (0-14.5); WHITE BLOOD COUNT 12.6 10*3/uL (4.8-10.8)
[2019-01-02 11:40] LABS: ALBUMIN 3.7 gm/dl (3.1-4.5); ALKALINE PHOSPHATASE 95 U/L (45-117); BUN 10 mg/dl (7-24); CHLORIDE 98 mmol/L (98-107); CREATININE 0.72 mg/dL (0.70-1.30); SGOT/AST 13 IU/L (3-35); SGPT/ALT 25 U/L (12-78); SODIUM 128 mmol/L (136-145); TOTAL PROTEIN 7.4 gm/dL (6.4-8.2)
[2019-01-02 11:42] LABS: POTASSIUM 4.3 mmol/L (3.5-5.1); TROPONIN I < 0.015 ng/ml (<0.045)
[2019-01-02 11:46] LABS: BILIRUBIN NEGATIVE (NEGATIVE); BLOOD NEGATIVE (NEGATIVE); CLARITY SL CLOUDY (CLEAR); COLOR YELLOW (YELLOW); GLUCOSE 3+ (NEGATIVE); KETONE NEGATIVE (NEGATIVE); LEUKO ESTERASE NEGATIVE (NEGATIVE); NITRITE NEGATIVE (NEGATIVE); SPECIFIC GRAVITY <= 1.005 (1.005-1.030); UROBILINOGEN 0.2 E.U./dl (0.2-1.0)
[2019-01-02 12:03] LABS: BACTERIA TRACE; EPITHELIAL CELLS 0-2; RBC 0-2 rbc/hpf (0-2)
[2019-01-07] MEDS ORDERED: PRAVACHOL40 MG PO (18:56)
[2019-01-26] MEDS ORDERED: VITAMIN B150 MG PO (15:37)
[2019-01-26] MEDS ORDERED: LOPRESSOR50 M1 PO (15:41)
[2019-01-26] MEDS ORDERED: THIAMINE HCL100 MG PO (15:42)
[2019-01-28] MEDS ORDERED: Ipratropium Brom3 ML NEB (07:38)
[2019-01-28] MEDS ORDERED: DOXYCYCLINE100 M3 PO (07:38)
[2019-01-28] MEDS ORDERED: PREDNISONE5 MG PO (07:38)
[2019-03-09] MEDS ORDERED: INDERAL LA60 M1 PO (09:49)
[2019-03-09] MEDS ORDERED: AVPAK AZITHROM250 M1 PO (09:49)
[2019-03-09] MEDS ORDERED: TAMSULOSIN HCL0.4 MG PO (09:49)
[2019-03-19] MEDS ORDERED: SEPTDS PO (13:28)
[2019-03-26] MEDS ORDERED: BUSPIRONE HCL30 MG PO (09:23)
[2019-03-26] MEDS ORDERED: ATARAX,VISTARIL50 MG PO (09:25)
[2019-03-26] MEDS ORDERED: LAMOTRIGINE25 M1 PO (09:26)
[2019-03-26] MEDS ORDERED: ZYPREXA10 M1 PO (09:28)
[2019-03-26] MEDS ORDERED: COGENTIN0.5 MG PO (09:36)
[2019-05-10] MEDS ORDERED: MELATONIN3 MG PO (07:26)
[2019-05-10] MEDS ORDERED: ZYPREXA20 M1 PO (07:27)
[2019-05-10] MEDS ORDERED: ONCE DAILY1 EACH PO (09:15)
[2019-05-10] MEDS ORDERED: TRAZODONE50 MG PO (09:18)
[2019-05-10] MEDS ORDERED: INDERAL XL80 MG PO (09:21)
[2019-05-10] MEDS ORDERED: LAMICTAL100 MG PO (09:22)
[2019-05-16] MEDS ORDERED: LORAZEPAM1 MG PO (11:21)
== END 2019-01-02 14:49 | disposition home or self-care (01) ==
LOC: ED 10:24
PROVIDERS: Nurse Practitioner Family
DX: R42 Dizziness and giddiness (principal); R53.1 Weakness; R07.89 Other chest pain; R11.0 Nausea; I10 Essential (primary) hypertension; E11.9 Type 2 diabetes mellitus without complications; F17.200 Nicotine dependence, unspecified, uncomplicated; Z91.041 Radiographic dye allergy status; Z79.899 Other long term (current) drug therapy; Z79.2 Long term (current) use of antibiotics; Z79.4 Long term (current) use of insulin; Z79.84 Long term (current) use of oral hypoglycemic drugs

== ENCOUNTER 2019-02-11 11:07 | Emergency (ER) | payer OTHER ==
[~2019-02-11] VITALS: Ht 167.6 cm; Wt 68.5 kg
[~2019-02-11 11:07] MED LIST changes: +DOXYCYCLINE100 M3 PO; +Ipratropium Brom3 ML NEB; +PRAVACHOL40 MG PO; +PREDNISONE5 MG PO; +THIAMINE HCL100 MG PO
[2019-02-11] MEDS ORDERED: ZITHROMAX250 MG PO (11:47)
[2019-02-11] MEDS ORDERED: FLONASE ALLERG9.9 ML NAS (11:47)
[2019-03-09] MEDS ORDERED: INDERAL LA60 M1 PO (09:49)
[2019-03-09] MEDS ORDERED: AVPAK AZITHROM250 M1 PO (09:49)
[2019-03-09] MEDS ORDERED: TAMSULOSIN HCL0.4 MG PO (09:49)
[2019-03-19] MEDS ORDERED: SEPTDS PO (13:28)
[2019-03-26] MEDS ORDERED: BUSPIRONE HCL30 MG PO (09:23)
[2019-03-26] MEDS ORDERED: ATARAX,VISTARIL50 MG PO (09:25)
[2019-03-26] MEDS ORDERED: LAMOTRIGINE25 M1 PO (09:26)
[2019-03-26] MEDS ORDERED: ZYPREXA10 M1 PO (09:28)
[2019-03-26] MEDS ORDERED: COGENTIN0.5 MG PO (09:36)
[2019-05-10] MEDS ORDERED: MELATONIN3 MG PO (07:26)
[2019-05-10] MEDS ORDERED: ZYPREXA20 M1 PO (07:27)
[2019-05-10] MEDS ORDERED: ONCE DAILY1 EACH PO (09:15)
[2019-05-10] MEDS ORDERED: TRAZODONE50 MG PO (09:18)
[2019-05-10] MEDS ORDERED: INDERAL XL80 MG PO (09:21)
[2019-05-10] MEDS ORDERED: LAMICTAL100 MG PO (09:22)
[2019-05-16] MEDS ORDERED: LORAZEPAM1 MG PO (11:21)
== END 2019-02-11 11:49 | disposition home or self-care (01) ==
LOC: ED 11:07
DX: J01.90 Acute sinusitis, unspecified (principal); F17.200 Nicotine dependence, unspecified, uncomplicated; Z90.49 Acquired absence of other specified parts of digestive tract; Z98.890 Other specified postprocedural states; Z79.899 Other long term (current) drug therapy; Z91.041 Radiographic dye allergy status

== ENCOUNTER 2019-03-22 00:07 | Emergency (ER) | payer OTHER ==
[~2019-03-22] VITALS: Ht 170.1 cm; Wt 66.7 kg
[~2019-03-22 00:07] MED LIST changes: +AVPAK AZITHROM250 M1 PO; +FLONASE ALLERG9.9 ML NAS; +INDERAL LA60 M1 PO; +SEPTDS PO; +TAMSULOSIN HCL0.4 MG PO; +ZITHROMAX250 MG PO
[2019-03-22 00:47] LABS: BASO # 0.1 10*3/uL (0.0-0.1); BASO % 0.5 % (0.0-1.0); EOS # 0.6 10*3/uL (0.0-0.4); EOS % 4.4 % (1.0-4.0); HEMATOCRIT 39.6 % (42.0-52.0); HEMOGLOBIN 13.8 g/dl (14.0-18.0); LYMPH # 2.8 10*3/uL (1.3-4.4); LYMPH % 21.1 % (27.0-41.0); MEAN CELL VOLUME 92.3 fl (80.0-94.0); MEAN CORPUSCULAR HGB 32.2 pg (27.0-31.0); MEAN CORPUSCULAR HGB CONC 34.8 g/dl (33.0-37.0); MEAN PLATELET VOLUME 8.1 fl (9.6-12.3); MONO # 1.1 10*3/uL (0.1-1.0); MONO % 8.1 % (3.0-9.0); NEUT # 8.6 10*3/uL (2.3-7.9); NEUT % 65.5 % (47.0-73.0); PLATELET COUNT AUTOMATED 301 10*3/uL (130-400); RED BLOOD COUNT 4.29 10*6/uL (4.50-5.90); WHITE BLOOD COUNT 13.1 10*3/uL (4.8-10.8)
[2019-03-22 01:04] LABS: ALBUMIN 3.5 gm/dl (3.1-4.5); CREATININE 1.69 mg/dL (0.70-1.30); TOTAL PROTEIN 7.2 gm/dL (6.4-8.2)
[2019-03-22 01:24] LABS: BILIRUBIN 2+ (NEGATIVE); BLOOD 3+ (NEGATIVE); CLARITY SL CLOUDY (CLEAR); COLOR YELLOW (YELLOW); GLUCOSE NEGATIVE (NEGATIVE); KETONE TRACE (NEGATIVE); LEUKO ESTERASE TRACE (NEGATIVE); NITRITE NEGATIVE (NEGATIVE); PH 5.5 (5.0-9.0); SPECIFIC GRAVITY >= 1.030 (1.005-1.030)
[2019-03-22 01:32] LABS: BACTERIA 2+; MUCOUS TRACE; RBC TNTC rbc/hpf (0-2)
[2019-03-26] MEDS ORDERED: BUSPIRONE HCL30 MG PO (09:23)
[2019-03-26] MEDS ORDERED: ATARAX,VISTARIL50 MG PO (09:25)
[2019-03-26] MEDS ORDERED: LAMOTRIGINE25 M1 PO (09:26)
[2019-03-26] MEDS ORDERED: ZYPREXA10 M1 PO (09:28)
[2019-03-26] MEDS ORDERED: COGENTIN0.5 MG PO (09:36)
[2019-05-10] MEDS ORDERED: MELATONIN3 MG PO (07:26)
[2019-05-10] MEDS ORDERED: ZYPREXA20 M1 PO (07:27)
[2019-05-10] MEDS ORDERED: ONCE DAILY1 EACH PO (09:15)
[2019-05-10] MEDS ORDERED: TRAZODONE50 MG PO (09:18)
[2019-05-10] MEDS ORDERED: INDERAL XL80 MG PO (09:21)
[2019-05-10] MEDS ORDERED: LAMICTAL100 MG PO (09:22)
[2019-05-16] MEDS ORDERED: LORAZEPAM1 MG PO (11:21)
== END 2019-03-22 03:51 | disposition short-term general hospital (02) ==
LOC: ED 00:07
PROVIDERS: Student in an Organized Health Care Education/Training Program
DX: T83.098A Other mechanical complication of other urinary catheter, initial encounter (principal); N19 Unspecified kidney failure; N39.0 Urinary tract infection, site not specified; R33.9 Retention of urine, unspecified; F17.200 Nicotine dependence, unspecified, uncomplicated; Z79.899 Other long term (current) drug therapy; Z91.041 Radiographic dye allergy status; Y83.8 Other surgical procedures as the cause of abnormal reaction of the patient, or of later complication, without mention of misadventure at the time of the procedure; Y92.89 Other specified places as the place of occurrence of the external cause

== ENCOUNTER 2019-05-06 14:54 | Emergency (ER) | payer OTHER ==
[~2019-05-06] VITALS: Ht 170.1 cm; Wt 68.0 kg
[~2019-05-06 14:54] MED LIST changes: +BUSPIRONE HCL30 MG PO; +LAMOTRIGINE25 M1 PO; +ZYPREXA10 M1 PO
[2019-05-06 15:33] LABS: BILIRUBIN NEGATIVE (NEGATIVE); BLOOD TRACE-INTACT (NEGATIVE); CLARITY CLEAR (CLEAR); COLOR YELLOW (YELLOW); GLUCOSE NEGATIVE (NEGATIVE); KETONE TRACE (NEGATIVE); LEUKO ESTERASE NEGATIVE (NEGATIVE); NITRITE NEGATIVE (NEGATIVE); SPECIFIC GRAVITY 1.025 (1.005-1.030); UROBILINOGEN 0.2 E.U./dl (0.2-1.0)
[2019-05-06 15:40] LABS: BACTERIA TRACE; EPITHELIAL CELLS 0-2; MUCOUS TRACE; WBC 0-2 wbc/hpf (0-5)
[2019-05-06 15:46] LABS: BASO # 0.1 10*3/uL (0.0-0.1); EOS # 0.8 10*3/uL (0.0-0.4); EOS % 10.1 % (1.0-4.0); HEMATOCRIT 41.3 % (42.0-52.0); HEMOGLOBIN 14.5 g/dl (14.0-18.0); LYMPH # 2.9 10*3/uL (1.3-4.4); LYMPH % 35.7 % (27.0-41.0); MEAN CORPUSCULAR HGB 32.7 pg (27.0-31.0); MEAN CORPUSCULAR HGB CONC 35.1 g/dl (33.0-37.0); MEAN PLATELET VOLUME 8.3 fl (9.6-12.3); MONO # 0.7 10*3/uL (0.1-1.0); MONO % 8.5 % (3.0-9.0); NEUT # 3.6 10*3/uL (2.3-7.9); NEUT % 44.3 % (47.0-73.0); PLATELET COUNT AUTOMATED 269 10*3/uL (130-400); RED BLOOD COUNT 4.44 10*6/uL (4.50-5.90); RED CELL DISTRI WIDTH 15.6 % (0-14.5); WHITE BLOOD COUNT 8.1 10*3/uL (4.8-10.8)
[2019-05-06 16:01] LABS: ALBUMIN 3.4 gm/dl (3.1-4.5); ALKALINE PHOSPHATASE 103 U/L (45-117); BUN 7 mg/dl (7-24); CHLORIDE 101 mmol/L (98-107); CREATININE 0.65 mg/dL (0.70-1.30); POTASSIUM 4.1 mmol/L (3.5-5.1); SGOT/AST 34 IU/L (3-35); SGPT/ALT 38 U/L (12-78); SODIUM 136 mmol/L (136-145)
[2019-05-06] MEDS ORDERED: FLOMAX0.4 MG PO (16:06)
[2019-05-10] MEDS ORDERED: MELATONIN3 MG PO (07:26)
[2019-05-10] MEDS ORDERED: ZYPREXA20 M1 PO (07:27)
[2019-05-10] MEDS ORDERED: ONCE DAILY1 EACH PO (09:15)
[2019-05-10] MEDS ORDERED: TRAZODONE50 MG PO (09:18)
[2019-05-10] MEDS ORDERED: INDERAL XL80 MG PO (09:21)
[2019-05-10] MEDS ORDERED: LAMICTAL100 MG PO (09:22)
[2019-05-16] MEDS ORDERED: LORAZEPAM1 MG PO (11:21)
== END 2019-05-06 16:26 | disposition home or self-care (01) ==
LOC: ED 14:54
PROVIDERS: Physician Assistant
DX: R33.9 Retention of urine, unspecified (principal); N40.0 Benign prostatic hyperplasia without lower urinary tract symptoms; F17.200 Nicotine dependence, unspecified, uncomplicated; Z98.890 Other specified postprocedural states; Z79.899 Other long term (current) drug therapy; Z91.041 Radiographic dye allergy status; Z79.4 Long term (current) use of insulin

== ENCOUNTER 2019-07-13 17:21 | Inpatient (IN) | payer OTHER ==
[~2019-07-13] VITALS: Ht 170.1 cm; Wt 65.0 kg
--- NOTE | ~2019-07-13 | EKG ---
[place], [place] ELECTROCARDIOGRAM REPORT NAME: KYLEIGH ALONZO UNIT #: [id number] ROOM: 522 DOCTOR: BO DRAFT REPORT BIRTHDATE: [birth year] 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
[~2019-07-13 17:21] MED LIST changes: +FLOMAX0.4 MG PO; +INDERAL XL80 MG PO; +LAMICTAL100 MG PO; +LORAZEPAM1 MG PO; +MELATONIN3 MG PO; +ONCE DAILY1 EACH PO; +TRAZODONE50 MG PO; +ZYPREXA20 M1 PO
[2019-07-13 17:22] VITALS: BP 174/84
[2019-07-13] MEDS ORDERED: CYMBALTA30 MG PO (17:43)
--- NOTE | 2019-07-13 18:18 | NUR ---
PT WITH SCABBED AREA TO LFT INDEX FINGER NO EXUDATE NO TX NEEDED.
[2019-07-13 18:28] LABS: BASO # 0.1 10*3/uL (0.0-0.1); BASO % 0.6 % (0.0-1.0); EOS # 0.6 10*3/uL (0.0-0.4); EOS % 7.7 % (1.0-4.0); HEMATOCRIT 43.8 % (42.0-52.0); HEMOGLOBIN 15.5 g/dl (14.0-18.0); LYMPH # 2.3 10*3/uL (1.3-4.4); LYMPH % 29.1 % (27.0-41.0); MEAN CELL VOLUME 93.2 fl (80.0-94.0); MEAN CORPUSCULAR HGB CONC 35.4 g/dl (33.0-37.0); MEAN PLATELET VOLUME 8.7 fl (9.6-12.3); MONO # 0.6 10*3/uL (0.1-1.0); MONO % 7.2 % (3.0-9.0); NEUT # 4.3 10*3/uL (2.3-7.9); NEUT % 54.9 % (47.0-73.0); PLATELET COUNT AUTOMATED 273 10*3/uL (130-400); RED CELL DISTRI WIDTH 14.8 % (0-14.5); WHITE BLOOD COUNT 7.8 10*3/uL (4.8-10.8)
[2019-07-13 18:29] LABS: BILIRUBIN NEGATIVE (NEGATIVE); BLOOD NEGATIVE (NEGATIVE); CLARITY CLEAR (CLEAR); COLOR YELLOW (YELLOW); GLUCOSE TRACE (NEGATIVE); KETONE NEGATIVE (NEGATIVE); LEUKO ESTERASE NEGATIVE (NEGATIVE); NITRITE NEGATIVE (NEGATIVE); PH 6.5 (5.0-9.0); SPECIFIC GRAVITY <= 1.005 (1.005-1.030); UROBILINOGEN 0.2 E.U./dl (0.2-1.0)
[2019-07-13 18:33] VITALS: BP 124/78
[2019-07-13 18:39] LABS: URINE AMPHETAMINES < 1000 (1000ng/ml); URINE BARBITURATES < 200 (200ng/ml); URINE BENZODIAZEPINES < 200 (200ng/ml); URINE CANNABINOIDS (THC) < 50 (50ng/ml); URINE COCAINE < 300 (300ng/ml); URINE METHADONE < 300 (300ng/ml); URINE OPIATES < 300 (300ng/ml)
[2019-07-13 18:40] LABS: ACT PARTIAL THROMBO TIME 28.6 SECONDS (20.0-32.1); INTERNATIONAL NORM RATIO 0.9 (2.0-3.5)
[2019-07-13 18:47] LABS: ALBUMIN 3.6 gm/dl (3.1-4.5); ALKALINE PHOSPHATASE 120 U/L (45-117); BUN 2 mg/dl (7-24); CHLORIDE 96 mmol/L (98-107); CREATININE 0.56 mg/dL (0.70-1.30); LIPASE 97 U/L (73-393); POTASSIUM 3.9 mmol/L (3.5-5.1); SGOT/AST 26 IU/L (3-35); SGPT/ALT 24 U/L (12-78); SODIUM 128 mmol/L (136-145); TOTAL PROTEIN 7.3 gm/dL (6.4-8.2)
[2019-07-13 18:50] LABS: URINE PHENCYCLIDINE < 25 (25ng/ml)
[2019-07-13 18:51] LABS: ACETAMINOPHEN (TYLENOL) < 5.0 ug/ml (10-30); ETHYL ALCOHOL < 3.0 mg/dl (<3); TROPONIN I < 0.015 ng/ml (<0.045)
--- NOTE | 2019-07-13 19:31 | NUR ---
PT POSITIONED FOR COMFORT WATCHING T.V. WITH SAFETY PRECAUTIONS INTACT AND CALL LIGHT WITHIN REACH.
[2019-07-13 20:15] VITALS: BP 126/74
--- NOTE | 2019-07-13 20:21 | NUR ---
PT PROVIDED ADDITIONAL DIET CHRISTEN EUSEBIO,SAFETY PRECAUTIONS INTACT AND NO ADDITIONAL COMPLAINTS VOICED,NO ACUTE DISTRESS NOTED,WILL CONTINUE TO MONITOR.
--- NOTE | 2019-07-13 20:56 | NUR ---
REPORT TO REPORT TAKEN FROM ELLYN HOLLINGSWORTH.
[2019-07-13 22:45] VITALS: BP 117/87
[2019-07-14] VITALS (8 sets, daily range): BP systolic 93–135; BP diastolic 54–77
[2019-07-14] MEDS ORDERED: SYSTANE 0.3-0.415 ML OP (09:12)
--- NOTE | 2019-07-14 09:12 | NUR ---
A 53, admitted to , under the services of HERMAN Lester DO with a diagnosis of alcohol intoxication. Chief complaint is wants to detox per pt. Patient arrived via stretcher from ER. Monitor applied. Initial assessment completed. Vital signs taken and recorded. See assessment for past medical history, medications and allergies. Patient and/or family oriented to unit. [facility] reviewed. LILY TAN
[2019-07-14] MEDS ORDERED: PREDNISOLONE ACE5 M5 OP (09:13)
--- NOTE | 2019-07-14 09:17 | NUR ---
Spoke with Dr. Abdul, pt is listed in computer as Dr. Abdul and states he was seen by Dr. Abdul in ER. However pt wants to be [facility]. Dr. Abdul states she spoke with Dr. Jones and they have accepted pt.
--- NOTE | 2019-07-14 21:12 | NUR ---
MEDICATED WITH ATIVAN PRN PER ORDER FOR C/O ANXIOUSNESS. ALSO MEDICATED WITH PRN BENTYL FOR C/O ABD CRAMPS. WILL MONITOR
--- NOTE | 2019-07-14 21:15 | NUR ---
MEDICATED WITH PRN TRAZADONE FOR C/O SLEEPLESSNESS. WILL MONITOR
[2019-07-15] VITALS: BP 92/55
--- NOTE | 2019-07-15 01:08 | NUR ---
PATIENT RESTING IN BED WITH EYES CLOSED. PREVIOUS MEDICATIONS SEEM EFFECTIVE
[2019-07-15 06:49] LABS: BUN 9 mg/dl (7-24); CHLORIDE 100 mmol/L (98-107); CREATININE 0.65 mg/dL (0.70-1.30); SODIUM 133 mmol/L (136-145)
[2019-07-15 08:00] VITALS: BP 114/60
--- NOTE | 2019-07-15 08:17 | NUR ---
PT RESTING IN BED. NO DISTRESS NOTED. WILL MONITOR
--- NOTE | 2019-07-15 10:31 | NUR ---
PT MEDICATED WITH BENTYL FOR ABD CRAMPS AND VISTARIL FOR ANXIETY WILL MONITOR
--- NOTE | 2019-07-15 11:15 | NUR ---
PT STATES THAT VISTARIL AND BENYTL HELPED A LITTLE. WILL MONITOR
--- NOTE | 2019-07-15 11:51 | NUR ---
PT MEDICATED WITH ATIVAN FOR ANXIETY AND TREMORS AND ZOFRAN FOR C/O NAUSEA. WILL MONITOR
[2019-07-15 12:00] VITALS: BP 101/57
--- NOTE | 2019-07-15 13:34 | NUR ---
PT STATES THAT ATIVAN AND ZOFRAN HELPED A LITTLE . WILL MONITOR
[2019-07-15 16:00] VITALS: BP 95/58
--- NOTE | 2019-07-15 16:09 | NUR ---
PT MEDICATED WITH BENTYL FOR ABD CRAMPS AND ROBAXIN FOR MUSCLE ACHES WILL MONITOR
--- NOTE | 2019-07-15 18:14 | NUR ---
TRIPP AND PROSPER HELPED PER PT WILL MONITOR
[2019-07-15 20:00] VITALS: BP 103/66
--- NOTE | 2019-07-15 20:18 | NUR ---
MEDICATED WITH PRN ATIVAN FOR ANXIOUSNESS AND TRAZADONE FOR C/O SLEEPLESSNESS. WILL MONITOR FOR EFFECTIVENESS
--- NOTE | 2019-07-15 21:57 | NUR ---
PREVIOUS MEDICATED SEEMS EFFECTVE
[2019-07-16] VITALS: BP 112/44
[2019-07-16 07:15] LABS: BASO # 0.1 10*3/uL (0.0-0.1); BASO % 0.7 % (0.0-1.0); EOS # 0.8 10*3/uL (0.0-0.4); EOS % 10.1 % (1.0-4.0); HEMATOCRIT 39.5 % (42.0-52.0); HEMOGLOBIN 13.5 g/dl (14.0-18.0); LYMPH # 2.9 10*3/uL (1.3-4.4); LYMPH % 35.2 % (27.0-41.0); MEAN CELL VOLUME 97.3 fl (80.0-94.0); MEAN CORPUSCULAR HGB 33.3 pg (27.0-31.0); MEAN CORPUSCULAR HGB CONC 34.2 g/dl (33.0-37.0); MEAN PLATELET VOLUME 8.7 fl (9.6-12.3); MONO # 0.8 10*3/uL (0.1-1.0); MONO % 9.4 % (3.0-9.0); NEUT # 3.6 10*3/uL (2.3-7.9); NEUT % 44.4 % (47.0-73.0); PLATELET COUNT AUTOMATED 242 10*3/uL (130-400); RED BLOOD COUNT 4.06 10*6/uL (4.50-5.90); RED CELL DISTRI WIDTH 15.9 % (0-14.5); WHITE BLOOD COUNT 8.2 10*3/uL (4.8-10.8)
[2019-07-16 07:40] LABS: BUN 8 mg/dl (7-24); CHLORIDE 101 mmol/L (98-107); CREATININE 0.56 mg/dL (0.70-1.30); POTASSIUM 3.9 mmol/L (3.5-5.1); SODIUM 133 mmol/L (136-145)
[2019-07-16 08:00] VITALS: BP 102/68
--- NOTE | 2019-07-16 08:21 | NUR ---
pt resting in bed. no distress noted. will monitor
--- NOTE | 2019-07-16 09:06 | NUR ---
PT REQUESTED AND GIVEN VISTARIL FOR ANXIETY AND BENTYL FOR ABD CRAMOS. WILL MONITOR
--- NOTE | 2019-07-16 10:30 | NUR ---
Chemical Laboratory Assistant in to talk to patient. Patient states lives at home with his girlfriend and 2 children. There are "lots" steps in the home. Physician: Dr. Eagle Orozco [facility]acy: [facility] Home health services: has had home health in the past but not currently Patient's level of ADLs: minimal assistance Patient has working utilities: yes DME: cane Follow-up physician's appointment after d/c: he prefers to make his own follow up appt after discharge Does patient want to access PORTAL?: no Discharge plan discussed with patient. He lives at home with his girlfriend and 2 children. They just moved to a [facility] in [place]. He states his neighbor is an alcoholic and invited him over and it just started from there. He wishes to get help but does not want to go to an inpatient facility. He has done outpatient in the past and would like to do outpatient again. Notified [facility] to see patient. He is independent in his ADLs and ambulates with a cane. Discussed home health care services and he denies any home needs at this time. When medically stable he will be discharged to home. One of his children will provide transportation on discharge. AMY COTTO
--- NOTE | 2019-07-16 11:01 | NUR ---
PATIENT MEETS [facility]. PATIENT WANTS TO FOLLOW UP WITH [facility] FOR HIS AFTERCARE PLAN. SIMEON REDMOND B.A. OCCUPATIONAL THERAPY TECHNICIAN
[2019-07-16 12:00] VITALS: BP 108/58
--- NOTE | 2019-07-16 12:00 | NUR ---
PT STATES THAT TRIPP AND ANDREA HELPED WILL MONITOR
[2019-07-16 16:00] VITALS: BP 97/68
--- NOTE | 2019-07-16 17:04 | NUR ---
PT MEDICATED WITH ZOFRAN FOR NAUSEA, AND ROBAXIN FOR MUSCLE ACHES AND VISTARIL FOR ANXIETY WILL MONITOR
[2019-07-16 20:00] VITALS: BP 117/67
--- NOTE | 2019-07-16 21:18 | NUR ---
MEDICATED WITH PRN TRAZADONE FOR SLEEPLESSNESS, AND ATIVAN FOR TREMORS. WILL MONITOR
--- NOTE | 2019-07-16 22:18 | NUR ---
MEDICATION EFFECTIVE PER PATIENT
[2019-07-17] VITALS: BP 92/57
--- NOTE | 2019-07-17 00:28 | NUR ---
PATIENT CALLED OUT STATING HE FELT LIKE HIS SUGAR WAS LOW. BLOOD SUGAR CHECK 42. 4 JUICES AND A BOXED LUNCH GIVEN PER PATIENT REQUEST. PATIENT STATES HE FEELS "SHAKEY AND SWEATY". DEXTROSE GIVEN PER ORDER
--- NOTE | 2019-07-17 01:00 | NUR ---
BLOOD SUGAR RECHECK 250
--- NOTE | 2019-07-17 07:51 | NUR ---
PT RESTING IN BED/ NO DISTRESS NOTED. WILL MONITOR
[2019-07-17 08:00] VITALS: BP 112/60
--- NOTE | 2019-07-17 08:26 | NUR ---
PT MEDICATED WITH VISTARIL FOR ANXIETY AND ROBAXIN FOR MUSCLE ACHES WILL MONITOR
--- NOTE | 2019-07-17 11:00 | NUR ---
Music Sound Light Technician in to see patient. Discussed meetings on discharge for his alcoholism. He is agreeable and did speak to Chaya in [facility]. He states he will be going to [facility] meetings. He states "he just wants to get his life straight." When medically stable he will be discharged to home. [facility] following.
--- NOTE | 2019-07-17 11:24 | NUR ---
VISTARIL AND ROBAXIN HELPED WILL MONITOR
[2019-07-17 12:00] VITALS: BP 150/78
[2019-07-17] MEDS ORDERED: VITAMIN B-1100 M1 PO (13:37)
[2019-07-17] MEDS ORDERED: ATARAX,VISTARIL50 MG PO (13:37)
--- NOTE | 2019-07-17 14:33 | NUR ---
PT INSTRUCTED US THAT HIS DISTRIBUTION CENTER MANAGER NATALY IS COMING TO PICK HIM UP PT DIRECTED TO PICK HIS MEDS UP IN PHARM ON WAY OUT
--- NOTE | 2019-07-17 14:34 | NUR ---
Discharge instructions reviewed with patient/family. Patient receptive and verbalizes understanding. Follow-up care arranged. Written instructions given to patient/family. JENNIFER OLIVAREZ
== END 2019-07-17 14:34 | disposition home or self-care (01) | DRG 897 ==
LOC: ED 17:21 → 5E 19:44 → EDHOLD 19:44 → ICCU 07-14 07:52 → 5E 07-14 08:20
PROVIDERS: Family Medicine; Physician Assistant; ADMIT Emergency Medicine
DX: F10.239 Alcohol dependence with withdrawal, unspecified (principal); E87.1 Hypo-osmolality and hyponatremia; I10 Essential (primary) hypertension; K21.9 Gastro-esophageal reflux disease without esophagitis; F17.210 Nicotine dependence, cigarettes, uncomplicated; E11.49 Type 2 diabetes mellitus with other diabetic neurological complication; E55.9 Vitamin D deficiency, unspecified; E78.5 Hyperlipidemia, unspecified; F31.9 Bipolar disorder, unspecified; N40.0 Benign prostatic hyperplasia without lower urinary tract symptoms; J44.9 Chronic obstructive pulmonary disease, unspecified; F41.0 Panic disorder [episodic paroxysmal anxiety]; E11.65 Type 2 diabetes mellitus with hyperglycemia; Z79.4 Long term (current) use of insulin; Z71.6 Tobacco abuse counseling; Z86.73 Personal history of transient ischemic attack (TIA), and cerebral infarction without residual deficits; Z81.1 Family history of alcohol abuse and dependence; Z83.3 Family history of diabetes mellitus; Z82.0 Family history of epilepsy and other diseases of the nervous system; Z91.041 Radiographic dye allergy status; Z91.09 Other allergy status, other than to drugs and biological substances; Z79.899 Other long term (current) drug therapy; Z87.01 Personal history of pneumonia (recurrent)

== ENCOUNTER → 2019-12-26 | Outpatient (CLI) | payer OTHER ==
[~2019-12-26] MED LIST changes: +CYMBALTA30 MG PO; +PREDNISOLONE ACE5 M5 OP; +SYSTANE 0.3-0.415 ML OP
[2019-12-26 15:20] LABS: BASO # 0.1 10*3/uL (0.0-0.1); BASO % 0.9 % (0.0-1.0); EOS % 14.8 % (1.0-4.0); HEMATOCRIT 45.8 % (42.0-52.0); HEMOGLOBIN 15.4 g/dl (14.0-18.0); LYMPH # 4.4 10*3/uL (1.3-4.4); LYMPH % 33.4 % (27.0-41.0); MEAN CELL VOLUME 98.7 fl (80.0-94.0); MEAN CORPUSCULAR HGB 33.2 pg (27.0-31.0); MEAN CORPUSCULAR HGB CONC 33.6 g/dl (33.0-37.0); MONO # 0.6 10*3/uL (0.1-1.0); MONO % 4.8 % (3.0-9.0); NEUT # 6.1 10*3/uL (2.3-7.9); NEUT % 45.8 % (47.0-73.0); PLATELET COUNT AUTOMATED 244 10*3/uL (130-400); RED BLOOD COUNT 4.64 10*6/uL (4.50-5.90); RED CELL DISTRI WIDTH 13.1 % (0-14.5); WHITE BLOOD COUNT 13.2 10*3/uL (4.8-10.8)
[2019-12-26 15:50] LABS: ALKALINE PHOSPHATASE 86 U/L (45-117); BUN 8 mg/dl (7-24); CHLORIDE 100 mmol/L (98-107); CREATININE 0.85 mg/dL (0.70-1.30); SGOT/AST 21 IU/L (3-35); SGPT/ALT 53 U/L (12-78); SODIUM 136 mmol/L (136-145); TOTAL PROTEIN 7.2 gm/dL (6.4-8.2)
== END | disposition home or self-care (01) ==
LOC: LAB 14:43
PROVIDERS: Urology
DX: Z12.5 Encounter for screening for malignant neoplasm of prostate (principal); I10 Essential (primary) hypertension; R53.83 Other fatigue

== ENCOUNTER 2020-04-02 16:50 | Inpatient (IN) | payer OTHER ==
[~2020-04-02] VITALS: Ht 170.1 cm; Wt 69.0 kg
[~2020-04-02 16:50] MED LIST changes: +ACARBOSE25 MG PO; +ASPIRIN ADULT L81 M2 PO; +DULOXETINE HCL60 MG PO; +FAMOTIDINE40 MG PO; +FINASTERIDE5 M1 PO; +GLIPIZIDE XL10 M1 PO; -LAMICTAL100 MG PO; +LAMICTAL25 MG PO; +METFORMIN HYDR750 MG PO; +NALTREXONE HCL50 MG PO; +PRILOSEC20 M1 PO; +Synthroid,Levo25 MCG PO; +TRAZODONE150 MG PO
[2020-04-02 16:52] VITALS: BP 142/94
[2020-04-02 17:37] LABS: BASO # 0.1 10*3/uL (0.0-0.1); BASO % 0.8 % (0.0-1.0); EOS # 0.9 10*3/uL (0.0-0.4); EOS % 9.3 % (1.0-4.0); HEMATOCRIT 41.1 % (42.0-52.0); LYMPH % 30.1 % (27.0-41.0); MEAN CELL VOLUME 93.4 fl (80.0-94.0); MEAN CORPUSCULAR HGB 33.4 pg (27.0-31.0); MEAN CORPUSCULAR HGB CONC 35.8 g/dl (33.0-37.0); MEAN PLATELET VOLUME 8.1 fl (9.6-12.3); MONO # 0.7 10*3/uL (0.1-1.0); MONO % 6.7 % (3.0-9.0); NEUT # 5.3 10*3/uL (2.3-7.9); NEUT % 52.9 % (47.0-73.0); PLATELET COUNT AUTOMATED 254 10*3/uL (130-400); RED CELL DISTRI WIDTH 13.6 % (0-14.5); WHITE BLOOD COUNT 9.9 10*3/uL (4.8-10.8)
[2020-04-02 17:50] LABS: INTERNATIONAL NORM RATIO 0.9 (2.0-3.5)
[2020-04-02 17:53] LABS: ALBUMIN 3.7 gm/dl (3.1-4.5); ALKALINE PHOSPHATASE 113 U/L (45-117); BUN 7 mg/dl (7-24); CHLORIDE 99 mmol/L (98-107); CREATININE 0.67 mg/dL (0.70-1.30); SGOT/AST 8 IU/L (3-35); SGPT/ALT 29 U/L (12-78); SODIUM 132 mmol/L (136-145); TOTAL PROTEIN 7.5 gm/dL (6.4-8.2)
[2020-04-02 18:02] LABS: TROPONIN I < 0.015 ng/ml (<0.045)
[2020-04-02 18:22] VITALS: BP 159/93
[2020-04-02 18:34] LABS: BILIRUBIN NEGATIVE (NEGATIVE); BLOOD NEGATIVE (NEGATIVE); CLARITY CLEAR (CLEAR); COLOR YELLOW (YELLOW); GLUCOSE NEGATIVE (NEGATIVE); KETONE NEGATIVE (NEGATIVE); LEUKO ESTERASE NEGATIVE (NEGATIVE); NITRITE NEGATIVE (NEGATIVE); UROBILINOGEN 0.2 E.U./dl (0.2-1.0)
[2020-04-02 18:41] LABS: URINE AMPHETAMINES < 1000 (1000ng/ml); URINE BARBITURATES < 200 (200ng/ml); URINE BENZODIAZEPINES > 200 (200ng/ml); URINE CANNABINOIDS (THC) < 50 (50ng/ml); URINE COCAINE < 300 (300ng/ml); URINE METHADONE < 300 (300ng/ml); URINE OPIATES < 300 (300ng/ml)
[2020-04-02 18:42] LABS: BACTERIA TRACE; EPITHELIAL CELLS 0-2; RBC 0-2 rbc/hpf (0-2); URINE PHENCYCLIDINE < 25 (25ng/ml); WBC 0-2 wbc/hpf (0-5)
[2020-04-02 19:42] VITALS: BP 120/77
[2020-04-02 19:56] VITALS: BP 138/79
[2020-04-02 20:38] VITALS: BP 148/86
[2020-04-02] MEDS ORDERED: PRILOSEC20 M1 PO (20:58)
[2020-04-02] MEDS ORDERED: INDERAL XL80 MG PO (20:59)
[2020-04-03] VITALS: BP 130/72
[2020-04-03 08:00] VITALS: BP 125/71
[2020-04-03 12:00] VITALS: BP 143/85
[2020-04-03 16:00] VITALS: BP 143/89
[2020-04-03 20:00] VITALS: BP 119/68
[2020-04-04] VITALS: BP 95/61
[2020-04-04 04:00] VITALS: BP 114/75
[2020-04-04 08:00] VITALS: BP 119/74
[2020-04-04 12:00] VITALS: BP 113/84
[2020-04-04 16:00] VITALS: BP 126/72
[2020-04-04 20:00] VITALS: BP 102/66
[2020-04-05] VITALS: BP 109/70
[2020-04-05] MEDS ORDERED: CEFUROXIME AXE250 MG PO (06:09)
[2020-04-05 08:00] VITALS: BP 100/68
== END 2020-04-05 08:30 | disposition home or self-care (01) | DRG 140 ==
LOC: ED 16:50 → 5E 19:27 → ICCU 19:27 → EDHOLD 19:27 → ICCU 20:10 → 5E 04-04 13:23
PROVIDERS: Physician Assistant; ADMIT Internal Medicine
DX: J44.1 Chronic obstructive pulmonary disease with (acute) exacerbation (principal); K29.20 Alcoholic gastritis without bleeding; E87.2 Acidosis; I10 Essential (primary) hypertension; F17.210 Nicotine dependence, cigarettes, uncomplicated; E87.1 Hypo-osmolality and hyponatremia; E87.8 Other disorders of electrolyte and fluid balance, not elsewhere classified; E03.9 Hypothyroidism, unspecified; E11.9 Type 2 diabetes mellitus without complications; N40.0 Benign prostatic hyperplasia without lower urinary tract symptoms; E78.2 Mixed hyperlipidemia; J98.11 Atelectasis; F10.239 Alcohol dependence with withdrawal, unspecified; Y90.9 Presence of alcohol in blood, level not specified; Z91.041 Radiographic dye allergy status; Z83.3 Family history of diabetes mellitus; Z81.1 Family history of alcohol abuse and dependence; Z82.0 Family history of epilepsy and other diseases of the nervous system

== ENCOUNTER 2020-04-27 08:20 | Inpatient (IN) | payer OTHER ==
[~2020-04-27] VITALS: Ht 170.1 cm; Wt 70.8 kg
[2020-04-27 08:20] VITALS: BP 128/74
[2020-04-27 08:46] LABS: BASO # 0.1 10*3/uL (0.0-0.1); BASO % 0.6 % (0.0-1.0); EOS % 7.7 % (1.0-4.0); HEMATOCRIT 43.7 % (42.0-52.0); LYMPH % 23.7 % (27.0-41.0); MEAN CELL VOLUME 93.4 fl (80.0-94.0); MEAN CORPUSCULAR HGB 33.3 pg (27.0-31.0); MEAN CORPUSCULAR HGB CONC 35.7 g/dl (33.0-37.0); MEAN PLATELET VOLUME 8.3 fl (9.6-12.3); MONO # 0.7 10*3/uL (0.1-1.0); MONO % 5.1 % (3.0-9.0); NEUT # 7.9 10*3/uL (2.3-7.9); NEUT % 62.5 % (47.0-73.0); PLATELET COUNT AUTOMATED 351 10*3/uL (130-400); RED BLOOD COUNT 4.68 10*6/uL (4.50-5.90); RED CELL DISTRI WIDTH 13.9 % (0-14.5); WHITE BLOOD COUNT 12.7 10*3/uL (4.8-10.8)
[2020-04-27 09:02] LABS: ALBUMIN 4.2 gm/dl (3.1-4.5); ALKALINE PHOSPHATASE 100 U/L (45-117); BUN 5 mg/dl (7-24); CHLORIDE 92 mmol/L (98-107); CREATININE 0.88 mg/dL (0.70-1.30); POTASSIUM 4.2 mmol/L (3.5-5.1); SGOT/AST 23 IU/L (3-35); SGPT/ALT 41 U/L (12-78); SODIUM 125 mmol/L (136-145); TOTAL PROTEIN 7.6 gm/dL (6.4-8.2)
[2020-04-27 09:05] LABS: TROPONIN I < 0.015 ng/ml (<0.045)
[2020-04-27 11:05] VITALS: BP 110/72
[2020-04-27 11:13] LABS: URINE AMPHETAMINES < 1000 (1000ng/ml); URINE BARBITURATES > 200 (200ng/ml); URINE BENZODIAZEPINES < 200 (200ng/ml); URINE CANNABINOIDS (THC) < 50 (50ng/ml); URINE COCAINE < 300 (300ng/ml); URINE METHADONE < 300 (300ng/ml); URINE OPIATES < 300 (300ng/ml)
[2020-04-27 11:14] LABS: URINE PHENCYCLIDINE < 25 (25ng/ml)
[2020-04-27 11:22] VITALS: BP 110/72
[2020-04-27] MEDS ORDERED: METFORMIN HYDR500 MG PO (11:38)
[2020-04-27] MEDS ORDERED: CITALOPRAM20 MG PO (11:38)
[2020-04-27] MEDS ORDERED: ACARBOSE25 MG PO (11:39)
[2020-04-27] MEDS ORDERED: GLIPIZIDE10 M1 PO (11:40)
[2020-04-27] MEDS ORDERED: OMEPRAZOLE MAGN20 MG PO (11:41)
[2020-04-27] MEDS ORDERED: TAMSULOSIN HCL0.4 MG PO (11:41)
[2020-04-27 16:00] VITALS: BP 107/70
[2020-04-27 20:00] VITALS: BP 106/63
[2020-04-27] MEDS ORDERED: TRAZODONE50 MG PO (20:09)
[2020-04-27] MEDS ORDERED: LANTUS SOL100 UNIT/1 SQ (21:13)
[2020-04-28] VITALS: BP 104/61
[2020-04-28 07:05] LABS: BASO # 0.1 10*3/uL (0.0-0.1); BASO % 0.5 % (0.0-1.0); EOS # 0.7 10*3/uL (0.0-0.4); EOS % 5.5 % (1.0-4.0); HEMATOCRIT 42.5 % (42.0-52.0); MEAN CORPUSCULAR HGB CONC 33.9 g/dl (33.0-37.0); MEAN PLATELET VOLUME 8.8 fl (9.6-12.3); MONO # 1.2 10*3/uL (0.1-1.0); MONO % 8.7 % (3.0-9.0); NEUT # 7.3 10*3/uL (2.3-7.9); PLATELET COUNT AUTOMATED 352 10*3/uL (130-400); RED BLOOD COUNT 4.37 10*6/uL (4.50-5.90); RED CELL DISTRI WIDTH 14.3 % (0-14.5); WHITE BLOOD COUNT 13.2 10*3/uL (4.8-10.8)
[2020-04-28 07:19] LABS: MEAN CELL VOLUME 97.3 fl (80.0-94.0)
[2020-04-28 07:25] LABS: CHLORIDE 100 mmol/L (98-107); POTASSIUM 4.1 mmol/L (3.5-5.1); SODIUM 136 mmol/L (136-145)
[2020-04-28 07:26] LABS: BUN 10 mg/dl (7-24); CREATININE 0.65 mg/dL (0.70-1.30)
[2020-04-28 08:00] VITALS: BP 108/70
[2020-04-28 12:00] VITALS: BP 110/65
[2020-04-28 16:00] VITALS: BP 121/64
[2020-04-28 20:00] VITALS: BP 92/47
[2020-04-28 20:15] VITALS: BP 106/68
[2020-04-28] MEDS ORDERED: MELATONIN3 MG PO (20:21)
[2020-04-28] MEDS ORDERED: LAMICTAL25 MG PO (20:22)
[2020-04-28] MEDS ORDERED: MULTIVITAMINS1 EAC6 PO (20:22)
[2020-04-28] MEDS ORDERED: ASPIRIN ADULT L81 M1 PO (20:23)
[2020-04-28] MEDS ORDERED: PROSCAR5 M1 PO (20:23)
[2020-04-28] MEDS ORDERED: CYMBALTA60 MG PO (20:24)
[2020-04-28] MEDS ORDERED: PRAVACHOL20 MG PO (20:25)
[2020-04-28] MEDS ORDERED: PRILOSEC20 M1 PO (20:27)
[2020-04-28] MEDS ORDERED: INDERAL XL80 MG PO (20:27)
[2020-04-28] MEDS ORDERED: VITAMIN B150 MG PO (20:28)
[2020-04-28] MEDS ORDERED: VITAMIN B-625 M1 PO (20:34)
[2020-04-28] MEDS ORDERED: MIRTAZAPINE15 M2 PO (20:35)
[2020-04-28] MEDS ORDERED: NALTREXONE50 MG PO (20:49)
[2020-04-29] VITALS: BP 98/60
[2020-04-29 05:15] VITALS: BP 120/84
[2020-04-29 06:52] LABS: BUN 9 mg/dl (7-24); CHLORIDE 103 mmol/L (98-107); CREATININE 0.55 mg/dL (0.70-1.30); POTASSIUM 4.3 mmol/L (3.5-5.1); SODIUM 134 mmol/L (136-145)
[2020-04-29 08:00] VITALS: BP 120/82
[2020-04-29 12:00] VITALS: BP 100/55
[2020-04-29 16:00] VITALS: BP 114/73
[2020-04-29 20:00] VITALS: BP 102/63
[2020-04-30] VITALS: BP 118/66
[2020-04-30 07:31] LABS: BUN 9 mg/dl (7-24); CHLORIDE 102 mmol/L (98-107); CREATININE 0.64 mg/dL (0.70-1.30); SODIUM 132 mmol/L (136-145)
[2020-04-30 08:00] VITALS: BP 129/68
[2020-04-30 12:00] VITALS: BP 124/83
[2020-04-30 16:00] VITALS: BP 141/82
[2020-04-30 20:00] VITALS: BP 114/77
[2020-05-01] VITALS: BP 109/63
[2020-05-01 08:00] VITALS: BP 122/84
[2020-05-01] MEDS ORDERED: LORAZEPAM1 MG PO (10:47)
[2020-05-01] MEDS ORDERED: NICODERM T (10:47)
== END 2020-05-01 11:54 | disposition home or self-care (01) | DRG 426 ==
LOC: ED 08:20 → 5E 10:34 → EDHOLD 10:34 → 5E 10:39
PROVIDERS: Emergency Medicine; ADMIT Internal Medicine
DX: E87.1 Hypo-osmolality and hyponatremia (principal); J44.1 Chronic obstructive pulmonary disease with (acute) exacerbation; F10.231 Alcohol dependence with withdrawal delirium; E03.9 Hypothyroidism, unspecified; E11.9 Type 2 diabetes mellitus without complications; F33.0 Major depressive disorder, recurrent, mild; F17.210 Nicotine dependence, cigarettes, uncomplicated; K21.9 Gastro-esophageal reflux disease without esophagitis; F41.1 Generalized anxiety disorder; E78.2 Mixed hyperlipidemia; I10 Essential (primary) hypertension; N40.1 Benign prostatic hyperplasia with lower urinary tract symptoms; R33.8 Other retention of urine; Z91.041 Radiographic dye allergy status; Z81.1 Family history of alcohol abuse and dependence; Z83.3 Family history of diabetes mellitus; Z82.0 Family history of epilepsy and other diseases of the nervous system; Z82.3 Family history of stroke

== ENCOUNTER 2020-05-12 07:52 | Inpatient (IN) | payer OTHER ==
[~2020-05-12] VITALS: Ht 165.1 cm; Wt 86.3 kg
[2020-05-12] VITALS (7 sets, daily range): BP systolic 119–161; BP diastolic 64–96
[~2020-05-12 07:52] MED LIST changes: +ASPIRIN ADULT L81 M1 PO; +CITALOPRAM20 MG PO; +CYMBALTA60 MG PO; +GLIPIZIDE10 M1 PO; +LANTUS SOL100 UNIT/1 SQ; +METFORMIN HYDR500 MG PO; +MIRTAZAPINE15 M2 PO; +MULTIVITAMINS1 EAC6 PO; +NALTREXONE50 MG PO; +NICODERM T; +OMEPRAZOLE MAGN20 MG PO; +PROSCAR5 M1 PO; +VITAMIN B-625 M1 PO
[2020-05-12 09:01] LABS: BASO # 0.1 10*3/uL (0.0-0.1); BASO % 0.7 % (0.0-1.0); EOS # 0.5 10*3/uL (0.0-0.4); EOS % 4.2 % (1.0-4.0); HEMATOCRIT 41.7 % (42.0-52.0); LYMPH # 1.9 10*3/uL (1.3-4.4); LYMPH % 15.6 % (27.0-41.0); MEAN CELL VOLUME 93.3 fl (80.0-94.0); MEAN CORPUSCULAR HGB 32.7 pg (27.0-31.0); MEAN PLATELET VOLUME 8.3 fl (9.6-12.3); MONO # 0.8 10*3/uL (0.1-1.0); MONO % 6.3 % (3.0-9.0); NEUT # 8.6 10*3/uL (2.3-7.9); NEUT % 72.8 % (47.0-73.0); PLATELET COUNT AUTOMATED 224 10*3/uL (130-400); RED BLOOD COUNT 4.47 10*6/uL (4.50-5.90); RED CELL DISTRI WIDTH 14.6 % (0-14.5); WHITE BLOOD COUNT 11.8 10*3/uL (4.8-10.8)
[2020-05-12 09:12] LABS: URINE AMPHETAMINES < 1000 (1000ng/ml); URINE BARBITURATES < 200 (200ng/ml); URINE BENZODIAZEPINES < 200 (200ng/ml); URINE CANNABINOIDS (THC) < 50 (50ng/ml); URINE COCAINE < 300 (300ng/ml); URINE METHADONE < 300 (300ng/ml); URINE OPIATES < 300 (300ng/ml)
[2020-05-12 09:15] LABS: URINE PHENCYCLIDINE < 25 (25ng/ml)
[2020-05-12 09:16] LABS: ALBUMIN 3.4 gm/dl (3.1-4.5); ALKALINE PHOSPHATASE 129 U/L (45-117); BUN 6 mg/dl (7-24); CHLORIDE 102 mmol/L (98-107); CREATININE 0.77 mg/dL (0.70-1.30); LIPASE 40 U/L (73-393); POTASSIUM 4.1 mmol/L (3.5-5.1); SGOT/AST 24 IU/L (3-35); SGPT/ALT 41 U/L (12-78); SODIUM 134 mmol/L (136-145); TOTAL PROTEIN 7.1 gm/dL (6.4-8.2)
[2020-05-12 09:17] LABS: ETHYL ALCOHOL < 3.0 mg/dl (<3); TROPONIN I < 0.015 ng/ml (<0.045)
[2020-05-12 09:19] LABS: BILIRUBIN NEGATIVE (NEGATIVE); BLOOD NEGATIVE (NEGATIVE); CLARITY CLEAR (CLEAR); COLOR YELLOW (YELLOW); GLUCOSE NEGATIVE (NEGATIVE); KETONE NEGATIVE (NEGATIVE); LEUKO ESTERASE NEGATIVE (NEGATIVE); NITRITE NEGATIVE (NEGATIVE); PH 7.5 (5.0-9.0); SPECIFIC GRAVITY 1.015 (1.005-1.030); UROBILINOGEN 0.2 E.U./dl (0.2-1.0)
[2020-05-12 09:25] LABS: WBC 0-2 wbc/hpf (0-5)
[2020-05-12 09:25] LABS: ACT PARTIAL THROMBO TIME 27.4 SECONDS (20.0-32.1); INTERNATIONAL NORM RATIO 0.9 (2.0-3.5)
[2020-05-12] MEDS ORDERED: VITAMIN B-1100 M1 PO (13:04)
[2020-05-12] MEDS ORDERED: ATIVAN1 MG PO (13:07)
[2020-05-13] VITALS: BP 119/77
[2020-05-13 07:29] LABS: BASO % 0.6 % (0.0-1.0); EOS # 0.8 10*3/uL (0.0-0.4); EOS % 11.7 % (1.0-4.0); HEMATOCRIT 40.8 % (42.0-52.0); LYMPH # 2.4 10*3/uL (1.3-4.4); LYMPH % 35.5 % (27.0-41.0); MEAN CORPUSCULAR HGB 32.5 pg (27.0-31.0); MEAN CORPUSCULAR HGB CONC 33.6 g/dl (33.0-37.0); MEAN PLATELET VOLUME 8.7 fl (9.6-12.3); MONO # 0.6 10*3/uL (0.1-1.0); MONO % 8.3 % (3.0-9.0); NEUT % 43.8 % (47.0-73.0); PLATELET COUNT AUTOMATED 208 10*3/uL (130-400); RED BLOOD COUNT 4.21 10*6/uL (4.50-5.90); RED CELL DISTRI WIDTH 14.8 % (0-14.5); WHITE BLOOD COUNT 6.8 10*3/uL (4.8-10.8)
[2020-05-13 07:42] LABS: ALBUMIN 2.9 gm/dl (3.1-4.5); ALKALINE PHOSPHATASE 157 U/L (45-117); BUN 7 mg/dl (7-24); CHLORIDE 105 mmol/L (98-107); CREATININE 0.67 mg/dL (0.70-1.30); POTASSIUM 3.9 mmol/L (3.5-5.1); SGOT/AST 28 IU/L (3-35); SGPT/ALT 44 U/L (12-78); SODIUM 137 mmol/L (136-145); TOTAL PROTEIN 6.2 gm/dL (6.4-8.2)
[2020-05-13 07:52] LABS: MEAN CELL VOLUME 96.9 fl (80.0-94.0)
[2020-05-13 08:00] VITALS: BP 130/90
[2020-05-13 12:00] VITALS: BP 116/76
[2020-05-13 16:00] VITALS: BP 147/82
[2020-05-13 20:00] VITALS: BP 118/78
[2020-05-14] VITALS: BP 95/60
[2020-05-14 08:00] VITALS: BP 114/56
[2020-05-14 12:00] VITALS: BP 134/78
[2020-05-14 16:00] VITALS: BP 117/82
[2020-05-14 20:00] VITALS: BP 125/78
[2020-05-15] VITALS: BP 112/66
[2020-05-15 08:00] VITALS: BP 121/72
[2020-05-15] MEDS ORDERED: METHOCARBAMOL750 M1 PO (10:26)
[2020-05-15 12:00] VITALS: BP 114/84
== END 2020-05-15 11:27 | disposition home or self-care (01) | DRG 775 ==
LOC: ED 07:52 → EDHOLD 09:46 → 5E 09:46
PROVIDERS: Emergency Medicine; Registered Nurse; ADMIT Internal Medicine
DX: F10.239 Alcohol dependence with withdrawal, unspecified (principal); Y90.0 Blood alcohol level of less than 20 mg/100 ml; E87.2 Acidosis; E87.1 Hypo-osmolality and hyponatremia; Z87.891 Personal history of nicotine dependence; R13.10 Dysphagia, unspecified; E44.0 Moderate protein-calorie malnutrition; K21.9 Gastro-esophageal reflux disease without esophagitis; E11.40 Type 2 diabetes mellitus with diabetic neuropathy, unspecified; F41.1 Generalized anxiety disorder; J44.9 Chronic obstructive pulmonary disease, unspecified; F31.9 Bipolar disorder, unspecified; N40.0 Benign prostatic hyperplasia without lower urinary tract symptoms; E03.9 Hypothyroidism, unspecified; F10.29 Alcohol dependence with unspecified alcohol-induced disorder; I10 Essential (primary) hypertension; E55.9 Vitamin D deficiency, unspecified; E11.65 Type 2 diabetes mellitus with hyperglycemia; Z79.4 Long term (current) use of insulin; Z91.041 Radiographic dye allergy status; Z83.3 Family history of diabetes mellitus; Z82.0 Family history of epilepsy and other diseases of the nervous system; Z68.22 Body mass index [BMI] 22.0-22.9, adult

== ENCOUNTER 2020-06-03 19:05 | Inpatient (IN) | payer OTHER ==
[~2020-06-03] VITALS: Ht 170.2 cm; Wt 70.8 kg
[~2020-06-03 19:05] MED LIST changes: +METHOCARBAMOL750 M1 PO
[2020-06-03 19:06] VITALS: BP 124/78
[2020-06-03 19:20] LABS: HEMATOCRIT 44.4 % (42.0-52.0); MEAN CELL VOLUME 94.5 fl (80.0-94.0); MEAN CORPUSCULAR HGB 31.9 pg (27.0-31.0); MEAN CORPUSCULAR HGB CONC 33.8 g/dl (33.0-37.0); MEAN PLATELET VOLUME 8.4 fl (9.6-12.3); PLATELET COUNT AUTOMATED 337 10*3/uL (130-400); RED CELL DISTRI WIDTH 14.6 % (0-14.5)
[2020-06-03 19:30] LABS: ACT PARTIAL THROMBO TIME 27.7 SECONDS (20.0-32.1); INTERNATIONAL NORM RATIO 0.9 (2.0-3.5)
[2020-06-03 19:34] LABS: ALBUMIN 3.6 gm/dl (3.1-4.5); ALKALINE PHOSPHATASE 93 U/L (45-117); BUN 13 mg/dl (7-24); CHLORIDE 104 mmol/L (98-107); CREATININE 0.75 mg/dL (0.70-1.30); POTASSIUM 3.7 mmol/L (3.5-5.1); SGOT/AST 30 IU/L (3-35); SGPT/ALT 34 U/L (12-78); SODIUM 138 mmol/L (136-145); TOTAL PROTEIN 7.2 gm/dL (6.4-8.2)
[2020-06-03 19:36] LABS: TROPONIN I < 0.015 ng/ml (<0.045)
[2020-06-03 19:37] LABS: BASOPHILS 2 % (0-1); PLATELET SUFFICIENCY NORMAL (NORMAL); TOTAL CELLS COUNTED 100 #CELLS
[2020-06-03 20:16] VITALS: BP 111/65
[2020-06-03 21:26] VITALS: BP 106/62
[2020-06-03 22:00] VITALS: BP 129/74
[2020-06-03] MEDS ORDERED: TRAZODONE100 MG PO (23:09)
[2020-06-04 08:00] VITALS: BP 154/85
[2020-06-04 12:00] VITALS: BP 136/86; BP 155/64
[2020-06-04 16:00] VITALS: BP 123/80
[2020-06-04 20:00] VITALS: BP 103/73
[2020-06-05] VITALS: BP 101/63
[2020-06-05 08:00] VITALS: BP 110/60
[2020-06-05 12:00] VITALS: BP 110/59
[2020-06-05 16:00] VITALS: BP 113/71
[2020-06-05 20:00] VITALS: BP 125/87
[2020-06-06] VITALS: BP 132/85
[2020-06-06] MEDS ORDERED: Lantus SC (06:55)
[2020-06-06] MEDS ORDERED: PREDNISONE5 MG PO (06:55)
== END 2020-06-06 09:09 | disposition home or self-care (01) | DRG 140 ==
LOC: ED 19:05 → EDHOLD 21:14 → 5E 21:14
PROVIDERS: Emergency Medicine; ADMIT Internal Medicine
DX: J44.1 Chronic obstructive pulmonary disease with (acute) exacerbation (principal); E11.65 Type 2 diabetes mellitus with hyperglycemia; F10.231 Alcohol dependence with withdrawal delirium; J96.01 Acute respiratory failure with hypoxia; F31.9 Bipolar disorder, unspecified; F41.1 Generalized anxiety disorder; I10 Essential (primary) hypertension; F17.210 Nicotine dependence, cigarettes, uncomplicated; F10.221 Alcohol dependence with intoxication delirium; Y90.6 Blood alcohol level of 120-199 mg/100 ml; T38.0X5A Adverse effect of glucocorticoids and synthetic analogues, initial encounter; Y92.89 Other specified places as the place of occurrence of the external cause; Z79.4 Long term (current) use of insulin; Z91.041 Radiographic dye allergy status; Z81.1 Family history of alcohol abuse and dependence; Z83.3 Family history of diabetes mellitus; Z82.3 Family history of stroke; Z82.0 Family history of epilepsy and other diseases of the nervous system; Z71.6 Tobacco abuse counseling; Z79.899 Other long term (current) drug therapy

== ENCOUNTER 2020-07-03 22:50 | Emergency (ER) | payer OTHER ==
[~2020-07-03] VITALS: Ht 170.1 cm; Wt 70.8 kg
[~2020-07-03 22:50] MED LIST changes: +Lantus SC; +TRAZODONE100 MG PO
[2020-07-03 23:48] LABS: BASO # 0.1 10*3/uL (0.0-0.1); EOS # 1.4 10*3/uL (0.0-0.4); EOS % 12.1 % (1.0-4.0); HEMATOCRIT 42.2 % (42.0-52.0); LYMPH # 3.8 10*3/uL (1.3-4.4); MEAN CELL VOLUME 94.8 fl (80.0-94.0); MEAN CORPUSCULAR HGB 32.4 pg (27.0-31.0); MEAN CORPUSCULAR HGB CONC 34.1 g/dl (33.0-37.0); MEAN PLATELET VOLUME 8.2 fl (9.6-12.3); MONO # 0.9 10*3/uL (0.1-1.0); MONO % 8.1 % (3.0-9.0); NEUT # 5.2 10*3/uL (2.3-7.9); NEUT % 45.5 % (47.0-73.0); PLATELET COUNT AUTOMATED 246 10*3/uL (130-400); RED BLOOD COUNT 4.45 10*6/uL (4.50-5.90); RED CELL DISTRI WIDTH 13.4 % (0-14.5); WHITE BLOOD COUNT 11.5 10*3/uL (4.8-10.8)
[2020-07-03 23:59] LABS: ACT PARTIAL THROMBO TIME 27.2 SECONDS (20.0-32.1); INTERNATIONAL NORM RATIO 0.9 (2.0-3.5)
[2020-07-04 00:06] LABS: ALBUMIN 3.4 gm/dl (3.1-4.5); ALKALINE PHOSPHATASE 106 U/L (45-117); BUN 3 mg/dl (7-24); CHLORIDE 105 mmol/L (98-107); CREATININE 0.47 mg/dL (0.70-1.30); LIPASE 79 U/L (73-393); POTASSIUM 3.3 mmol/L (3.5-5.1); SGOT/AST 17 IU/L (3-35); SGPT/ALT 45 U/L (12-78); SODIUM 135 mmol/L (136-145); TOTAL PROTEIN 7.2 gm/dL (6.4-8.2)
[2020-07-04 00:11] LABS: TROPONIN I < 0.015 ng/ml (<0.045)
== END 2020-07-04 00:56 | disposition home or self-care (01) ==
LOC: ED 22:50
PROVIDERS: Nurse Practitioner Family
DX: S20.212A Contusion of left front wall of thorax, initial encounter (principal); J44.9 Chronic obstructive pulmonary disease, unspecified; K21.9 Gastro-esophageal reflux disease without esophagitis; F17.210 Nicotine dependence, cigarettes, uncomplicated; E11.42 Type 2 diabetes mellitus with diabetic polyneuropathy; I10 Essential (primary) hypertension; E03.9 Hypothyroidism, unspecified; Z91.041 Radiographic dye allergy status; Z79.899 Other long term (current) drug therapy; Z79.82 Long term (current) use of aspirin; W18.39XA Other fall on same level, initial encounter; Y93.89 Activity, other specified; Y92.89 Other specified places as the place of occurrence of the external cause; Y99.8 Other external cause status

== ENCOUNTER 2020-07-17 05:49 | Emergency (ER) | payer OTHER ==
[~2020-07-17] VITALS: Ht 170.1 cm; Wt 68.0 kg
[2020-07-17 06:18] LABS: BASO # 0.1 10*3/uL (0.0-0.1); BASO % 0.7 % (0.0-1.0); EOS # 0.5 10*3/uL (0.0-0.4); EOS % 4.6 % (1.0-4.0); HEMATOCRIT 41.7 % (42.0-52.0); LYMPH # 2.5 10*3/uL (1.3-4.4); LYMPH % 23.9 % (27.0-41.0); MEAN CELL VOLUME 93.9 fl (80.0-94.0); MEAN CORPUSCULAR HGB 32.7 pg (27.0-31.0); MEAN CORPUSCULAR HGB CONC 34.8 g/dl (33.0-37.0); MEAN PLATELET VOLUME 8.2 fl (9.6-12.3); MONO # 0.9 10*3/uL (0.1-1.0); MONO % 8.5 % (3.0-9.0); NEUT # 6.4 10*3/uL (2.3-7.9); PLATELET COUNT AUTOMATED 417 10*3/uL (130-400); RED BLOOD COUNT 4.44 10*6/uL (4.50-5.90); WHITE BLOOD COUNT 10.3 10*3/uL (4.8-10.8)
[2020-07-17 06:30] LABS: ALBUMIN 3.9 gm/dl (3.1-4.5); ALKALINE PHOSPHATASE 115 U/L (45-117); BUN 9 mg/dl (7-24); CHLORIDE 99 mmol/L (98-107); CREATININE 0.82 mg/dL (0.70-1.30); POTASSIUM 4.1 mmol/L (3.5-5.1); SGOT/AST 14 IU/L (3-35); SGPT/ALT 37 U/L (12-78); SODIUM 130 mmol/L (136-145); TOTAL PROTEIN 7.2 gm/dL (6.4-8.2)
[2020-07-17 07:17] LABS: BILIRUBIN NEGATIVE; BLOOD TRACE-INTACT (NEGATIVE); CLARITY CLEAR (CLEAR); COLOR YELLOW (YELLOW); GLUCOSE NEGATIVE; KETONE NEGATIVE
[2020-07-17 07:18] LABS: LEUKO ESTERASE NEGATIVE (NEGATIVE); NITRITE NEGATIVE (NEGATIVE); UROBILINOGEN 0.2 E.U./dl (0.0-1.0)
[2020-07-17 07:28] LABS: EPITHELIAL CELLS 0-2
[2020-07-17 07:29] LABS: BACTERIA TRACE
[2020-07-18] MEDS ORDERED: LANTUS SOL100 UNIT/1 SC (17:39)
== END 2020-07-17 09:08 | disposition home or self-care (01) ==
LOC: ED 05:49
PROVIDERS: Emergency Medicine
DX: R33.9 Retention of urine, unspecified (principal); Z91.041 Radiographic dye allergy status; Z79.899 Other long term (current) drug therapy

== ENCOUNTER 2020-07-18 05:45 | Emergency (ER) | payer OTHER ==
[~2020-07-18] VITALS: Ht 170.1 cm; Wt 70.8 kg
[2020-07-18 06:55] LABS: BASO # 0.1 10*3/uL (0.0-0.1); BASO % 0.4 % (0.0-1.0); EOS # 0.3 10*3/uL (0.0-0.4); EOS % 2.5 % (1.0-4.0); HEMATOCRIT 41.5 % (42.0-52.0); LYMPH % 17.3 % (27.0-41.0); MEAN CELL VOLUME 93.5 fl (80.0-94.0); MEAN CORPUSCULAR HGB 32.4 pg (27.0-31.0); MEAN CORPUSCULAR HGB CONC 34.7 g/dl (33.0-37.0); MEAN PLATELET VOLUME 8.3 fl (9.6-12.3); MONO # 0.8 10*3/uL (0.1-1.0); MONO % 7.2 % (3.0-9.0); NEUT # 8.4 10*3/uL (2.3-7.9); NEUT % 72.3 % (47.0-73.0); PLATELET COUNT AUTOMATED 459 10*3/uL (130-400); RED BLOOD COUNT 4.44 10*6/uL (4.50-5.90); RED CELL DISTRI WIDTH 14.1 % (0-14.5); WHITE BLOOD COUNT 11.6 10*3/uL (4.8-10.8)
[2020-07-18 07:09] LABS: BUN 6 mg/dl (7-24); CHLORIDE 101 mmol/L (98-107); CREATININE 0.69 mg/dL (0.70-1.30); POTASSIUM 4.2 mmol/L (3.5-5.1); SODIUM 131 mmol/L (136-145)
[2020-07-18] MEDS ORDERED: LANTUS SOL100 UNIT/1 SC (17:39)
== END 2020-07-18 07:51 | disposition home or self-care (01) ==
LOC: ED 05:45
PROVIDERS: Emergency Medicine
DX: T83.021A Displacement of indwelling urethral catheter, initial encounter (principal); Z91.041 Radiographic dye allergy status; Z79.899 Other long term (current) drug therapy; Z79.84 Long term (current) use of oral hypoglycemic drugs; Z79.82 Long term (current) use of aspirin; Y92.89 Other specified places as the place of occurrence of the external cause

== ENCOUNTER 2020-07-18 10:25 | Inpatient (IN) | payer OTHER ==
[~2020-07-18] VITALS: Ht 170.1 cm; Wt 70.0 kg
[2020-07-18 10:28] VITALS: BP 171/97
[2020-07-18 12:09] VITALS: BP 148/86
[2020-07-18 12:16] LABS: URINE AMPHETAMINES < 1000 (1000ng/ml); URINE BARBITURATES > 200 (200ng/ml); URINE BENZODIAZEPINES < 200 (200ng/ml); URINE CANNABINOIDS (THC) < 50 (50ng/ml); URINE COCAINE < 300 (300ng/ml); URINE METHADONE < 300 (300ng/ml); URINE OPIATES > 300 (300ng/ml)
[2020-07-18 12:17] LABS: URINE PHENCYCLIDINE < 25 (25ng/ml)
[2020-07-18 13:15] VITALS: BP 151/90
[2020-07-18 16:00] VITALS: BP 109/63
[2020-07-18] MEDS ORDERED: LANTUS SOL100 UNIT/1 SC (17:39)
[2020-07-18 20:00] VITALS: BP 94/67
[2020-07-19] VITALS: BP 90/54
[2020-07-19 06:20] LABS: BASO # 0.1 10*3/uL (0.0-0.1); BASO % 0.8 % (0.0-1.0); EOS # 0.6 10*3/uL (0.0-0.4); EOS % 7.4 % (1.0-4.0); HEMATOCRIT 38.7 % (42.0-52.0); LYMPH # 3.9 10*3/uL (1.3-4.4); LYMPH % 45.5 % (27.0-41.0); MEAN CELL VOLUME 95.6 fl (80.0-94.0); MEAN CORPUSCULAR HGB 32.1 pg (27.0-31.0); MEAN CORPUSCULAR HGB CONC 33.6 g/dl (33.0-37.0); MEAN PLATELET VOLUME 8.4 fl (9.6-12.3); MONO # 0.7 10*3/uL (0.1-1.0); MONO % 8.4 % (3.0-9.0); NEUT # 3.2 10*3/uL (2.3-7.9); NEUT % 37.6 % (47.0-73.0); PLATELET COUNT AUTOMATED 409 10*3/uL (130-400); RED BLOOD COUNT 4.05 10*6/uL (4.50-5.90); RED CELL DISTRI WIDTH 14.3 % (0-14.5); WHITE BLOOD COUNT 8.7 10*3/uL (4.8-10.8)
[2020-07-19 06:23] LABS: CREATININE 0.65 mg/dL (0.70-1.30)
[2020-07-19 08:00] VITALS: BP 95/49
[2020-07-19 12:00] VITALS: BP 115/79
[2020-07-19 16:00] VITALS: BP 92/46
[2020-07-19 20:00] VITALS: BP 120/82
[2020-07-20] VITALS: BP 91/50
[2020-07-20 08:00] VITALS: BP 122/80
== END 2020-07-20 11:23 | disposition home or self-care (01) | DRG 775 ==
LOC: ED 10:25 → 4E 11:53 → EDHOLD 11:53 → 4E 12:45
PROVIDERS: Emergency Medicine; ADMIT Internal Medicine; ATTEND Internal Medicine
DX: F10.239 Alcohol dependence with withdrawal, unspecified (principal); F31.9 Bipolar disorder, unspecified; F13.10 Sedative, hypnotic or anxiolytic abuse, uncomplicated; I10 Essential (primary) hypertension; E11.40 Type 2 diabetes mellitus with diabetic neuropathy, unspecified; J44.9 Chronic obstructive pulmonary disease, unspecified; K21.9 Gastro-esophageal reflux disease without esophagitis; E44.0 Moderate protein-calorie malnutrition; E03.9 Hypothyroidism, unspecified; F41.1 Generalized anxiety disorder; F17.210 Nicotine dependence, cigarettes, uncomplicated; D53.9 Nutritional anemia, unspecified; D47.3 Essential (hemorrhagic) thrombocythemia; N40.0 Benign prostatic hyperplasia without lower urinary tract symptoms; E78.5 Hyperlipidemia, unspecified; E55.9 Vitamin D deficiency, unspecified; Z79.4 Long term (current) use of insulin; Z91.041 Radiographic dye allergy status; Z86.73 Personal history of transient ischemic attack (TIA), and cerebral infarction without residual deficits; Z91.81 History of falling; Z81.1 Family history of alcohol abuse and dependence; Z83.3 Family history of diabetes mellitus; Z82.0 Family history of epilepsy and other diseases of the nervous system; Z82.3 Family history of stroke; Z79.899 Other long term (current) drug therapy; Z79.82 Long term (current) use of aspirin; Z71.6 Tobacco abuse counseling; Z68.23 Body mass index [BMI] 23.0-23.9, adult; R65.10 Systemic inflammatory response syndrome (SIRS) of non-infectious origin without acute organ dysfunction

== ENCOUNTER 2020-08-20 12:41 | Inpatient (IN) | payer OTHER ==
[~2020-08-20] VITALS: Ht 170.1 cm; Wt 72.7 kg
[~2020-08-20 12:41] MED LIST changes: -CYMBALTA60 MG PO; -METFORMIN HYDR500 MG PO
[2020-08-20 12:44] VITALS: BP 117/85
[2020-08-20 13:41] LABS: BASO % 0.4 % (0.0-1.0); EOS # 0.5 10*3/uL (0.0-0.4); EOS % 5.8 % (1.0-4.0); HEMATOCRIT 44.5 % (42.0-52.0); LYMPH # 2.1 10*3/uL (1.3-4.4); LYMPH % 22.7 % (27.0-41.0); MEAN CELL VOLUME 91.8 fl (80.0-94.0); MEAN CORPUSCULAR HGB 32.2 pg (27.0-31.0); MEAN CORPUSCULAR HGB CONC 35.1 g/dl (33.0-37.0); MEAN PLATELET VOLUME 8.4 fl (9.6-12.3); MONO % 10.5 % (3.0-9.0); NEUT # 5.6 10*3/uL (2.3-7.9); NEUT % 60.3 % (47.0-73.0); PLATELET COUNT AUTOMATED 346 10*3/uL (130-400); RED BLOOD COUNT 4.85 10*6/uL (4.50-5.90); RED CELL DISTRI WIDTH 15.1 % (0-14.5); WHITE BLOOD COUNT 9.4 10*3/uL (4.8-10.8)
[2020-08-20 13:51] LABS: ACT PARTIAL THROMBO TIME 28.7 SECONDS (20.0-32.1)
[2020-08-20 14:02] LABS: ALBUMIN 4.1 gm/dl (3.1-4.5); ALKALINE PHOSPHATASE 124 U/L (45-117); BUN 10 mg/dl (7-24); CHLORIDE 99 mmol/L (98-107); LIPASE 54 U/L (73-393); POTASSIUM 3.7 mmol/L (3.5-5.1); SGOT/AST 16 IU/L (3-35); SGPT/ALT 28 U/L (12-78); SODIUM 131 mmol/L (136-145); TOTAL PROTEIN 8.2 gm/dL (6.4-8.2)
[2020-08-20 14:07] LABS: TROPONIN I < 0.015 ng/ml (<0.045)
[2020-08-20 14:27] LABS: BILIRUBIN Negative (Negative); BLOOD Negative (Negative); CLARITY Clear (Clear); COLOR Yellow (Yellow); GLUCOSE Negative (Negative); KETONE Negative (Negative); LEUKO ESTERASE Trace (Negative); NITRITE Negative (Negative); UROBILINOGEN 0.2 E.U./dl (0.0-1.0)
[2020-08-20 14:28] LABS: PH >= 9.0 (4.5-8.0)
[2020-08-20 14:46] LABS: BACTERIA TRACE; RBC 0-2 rbc/hpf (0-2)
[2020-08-20 15:41] VITALS: BP 134/81
[2020-08-20 20:00] VITALS: BP 125/71
[2020-08-20] MEDS ORDERED: PROSCAR5 M1 PO (21:45)
[2020-08-20] MEDS ORDERED: DERMACINRX5000 UNI1 PO (21:46)
[2020-08-20] MEDS ORDERED: INNOPRAN XL80 M2 PO (21:49)
[2020-08-21] VITALS: BP 103/67
[2020-08-21 01:16] VITALS: BP 125/71
[2020-08-21 06:20] LABS: ACT PARTIAL THROMBO TIME 28.8 SECONDS (20.0-32.1)
[2020-08-21 06:29] LABS: BASO % 0.3 % (0.0-1.0); EOS % 0.1 % (1.0-4.0); HEMATOCRIT 44.1 % (42.0-52.0); LYMPH # 1.4 10*3/uL (1.3-4.4); MEAN CELL VOLUME 94.4 fl (80.0-94.0); MEAN CORPUSCULAR HGB 32.8 pg (27.0-31.0); MEAN CORPUSCULAR HGB CONC 34.7 g/dl (33.0-37.0); MEAN PLATELET VOLUME 8.8 fl (9.6-12.3); MONO # 0.4 10*3/uL (0.1-1.0); MONO % 3.6 % (3.0-9.0); NEUT # 8.6 10*3/uL (2.3-7.9); NEUT % 82.2 % (47.0-73.0); PLATELET COUNT AUTOMATED 356 10*3/uL (130-400); RED BLOOD COUNT 4.67 10*6/uL (4.50-5.90); RED CELL DISTRI WIDTH 15.2 % (0-14.5); WHITE BLOOD COUNT 10.4 10*3/uL (4.8-10.8)
[2020-08-21 06:42] LABS: ALBUMIN 3.7 gm/dl (3.1-4.5); BUN 13 mg/dl (7-24); CHLORIDE 100 mmol/L (98-107); CHOLESTEROL 172 mg/dL (<200); CREATININE 0.83 mg/dL (0.70-1.30); LDH 120 U/L (87-241); POTASSIUM 4.6 mmol/L (3.5-5.1); SGOT/AST 15 IU/L (3-35); SGPT/ALT 26 U/L (12-78); SODIUM 130 mmol/L (136-145); TOTAL PROTEIN 7.8 gm/dL (6.4-8.2); TRIGLYCERIDES 50 mg/dl (<150); VLDL CHOLESTEROL 10 mg/dL (6-40)
[2020-08-21 06:50] LABS: ALKALINE PHOSPHATASE 119 U/L (45-117); FREE T4 1.11 ng/dl (0.76-1.46); HDL CHOLESTEROL 77 mg/dl (40-60); LDL CHOLESTEROL 85 mg/dL (9-159); THYROID STIM HORMONE (HS) 0.483 uIU/ml (0.358-4.75)
[2020-08-21 07:26] LABS: FERRITIN 97.3 ng/mL (22.0-322.0); VITAMIN D, 25-HYDROXY 23.4 ng/mL (30-100)
[2020-08-21 08:00] VITALS: BP 106/68
[2020-08-21 12:00] VITALS: BP 123/80
[2020-08-21 16:00] VITALS: BP 104/64
[2020-08-21 20:00] VITALS: BP 110/56
[2020-08-22] VITALS: BP 94/52
[2020-08-22 06:31] LABS: CHLORIDE 101 mmol/L (98-107); CREATININE 0.85 mg/dL (0.70-1.30); POTASSIUM 4.7 mmol/L (3.5-5.1); SODIUM 133 mmol/L (136-145)
[2020-08-22 06:43] LABS: BUN 26 mg/dl (7-24)
[2020-08-22 08:00] VITALS: BP 97/57
[2020-08-22] MEDS ORDERED: ZITHROMAX250 MG PO ×2 (11:55)
[2020-08-22] MEDS ORDERED: PREDNISONE10 MG PO ×2 (11:56)
[2020-08-22 12:00] VITALS: BP 95/47
== END 2020-08-22 12:53 | disposition home or self-care (01) | DRG 139 ==
LOC: ED 12:41 → EDHOLD 16:22 → 4E 16:22 → EDHOLD 17:06 → 4E 18:45
PROVIDERS: Hospitalist; Physician Assistant; ADMIT Family Medicine; ATTEND Family Medicine
DX: J18.9 Pneumonia, unspecified organism (principal); E87.1 Hypo-osmolality and hyponatremia; Z20.828 Contact with and (suspected) exposure to other viral communicable diseases; J44.1 Chronic obstructive pulmonary disease with (acute) exacerbation; J44.0 Chronic obstructive pulmonary disease with (acute) lower respiratory infection; E03.9 Hypothyroidism, unspecified; E78.5 Hyperlipidemia, unspecified; E11.65 Type 2 diabetes mellitus with hyperglycemia; F17.210 Nicotine dependence, cigarettes, uncomplicated; F41.1 Generalized anxiety disorder; N40.0 Benign prostatic hyperplasia without lower urinary tract symptoms; I10 Essential (primary) hypertension; F10.20 Alcohol dependence, uncomplicated; T50.995A Adverse effect of other drugs, medicaments and biological substances, initial encounter; E11.40 Type 2 diabetes mellitus with diabetic neuropathy, unspecified; F31.9 Bipolar disorder, unspecified; Z86.73 Personal history of transient ischemic attack (TIA), and cerebral infarction without residual deficits; Z71.6 Tobacco abuse counseling; Z91.041 Radiographic dye allergy status; Z81.1 Family history of alcohol abuse and dependence; Z83.3 Family history of diabetes mellitus; Z82.3 Family history of stroke; Z82.0 Family history of epilepsy and other diseases of the nervous system; Z79.82 Long term (current) use of aspirin; Z79.899 Other long term (current) drug therapy; Z79.4 Long term (current) use of insulin; Y92.89 Other specified places as the place of occurrence of the external cause

== ENCOUNTER 2020-10-05 23:51 | Emergency (ER) | payer OTHER ==
[~2020-10-05] VITALS: Ht 167.6 cm; Wt 68.0 kg
[~2020-10-05 23:51] MED LIST changes: +DERMACINRX5000 UNI1 PO; +INNOPRAN XL80 M2 PO
[2020-10-06 02:00] LABS: BILIRUBIN Negative (Negative); BLOOD Negative (Negative); CLARITY Clear (Clear); COLOR Yellow (Yellow); GLUCOSE 1+ (Negative); KETONE Negative (Negative); LEUKO ESTERASE Negative (Negative); NITRITE Negative (Negative); UROBILINOGEN 0.2 E.U./dl (0.0-1.0)
[2020-10-06 02:09] LABS: WBC 0-2 wbc/hpf (0-5)
== END 2020-10-06 04:24 | disposition home or self-care (01) ==
LOC: ED 23:51
PROVIDERS: Emergency Medicine
DX: R33.9 Retention of urine, unspecified (principal); J44.9 Chronic obstructive pulmonary disease, unspecified; E78.5 Hyperlipidemia, unspecified; K21.9 Gastro-esophageal reflux disease without esophagitis; E03.9 Hypothyroidism, unspecified; Z79.82 Long term (current) use of aspirin; Z79.4 Long term (current) use of insulin; Z86.73 Personal history of transient ischemic attack (TIA), and cerebral infarction without residual deficits; Z98.890 Other specified postprocedural states; Z79.899 Other long term (current) drug therapy; Z91.041 Radiographic dye allergy status

== ENCOUNTER 2020-10-06 08:07 | Emergency (ER) | payer OTHER ==
[~2020-10-06] VITALS: Ht 157.4 cm; Wt 68.0 kg
[2020-10-06 08:30] LABS: BASO # 0.1 10*3/uL (0.0-0.1); BASO % 0.8 % (0.0-1.0); EOS # 0.8 10*3/uL (0.0-0.4); EOS % 5.9 % (1.0-4.0); HEMATOCRIT 43.8 % (42.0-52.0); LYMPH % 21.2 % (27.0-41.0); MEAN CELL VOLUME 91.4 fl (80.0-94.0); MEAN CORPUSCULAR HGB 32.4 pg (27.0-31.0); MEAN CORPUSCULAR HGB CONC 35.4 g/dl (33.0-37.0); MEAN PLATELET VOLUME 8.3 fl (9.6-12.3); MONO # 0.9 10*3/uL (0.1-1.0); MONO % 6.2 % (3.0-9.0); NEUT # 9.2 10*3/uL (2.3-7.9); NEUT % 65.5 % (47.0-73.0); PLATELET COUNT AUTOMATED 291 10*3/uL (130-400); RED BLOOD COUNT 4.79 10*6/uL (4.50-5.90); RED CELL DISTRI WIDTH 12.9 % (0-14.5)
[2020-10-06 08:46] LABS: ALKALINE PHOSPHATASE 142 U/L (45-117); BUN 10 mg/dl (7-24); CHLORIDE 95 mmol/L (98-107); CREATININE 0.84 mg/dL (0.70-1.30); POTASSIUM 3.9 mmol/L (3.5-5.1); SGOT/AST 22 IU/L (3-35); SGPT/ALT 48 U/L (12-78); SODIUM 131 mmol/L (136-145); TOTAL PROTEIN 7.6 gm/dL (6.4-8.2)
[2020-10-06 08:47] LABS: TROPONIN I < 0.015 ng/ml (<0.045)
== END 2020-10-06 11:00 | disposition home or self-care (01) ==
LOC: ED 08:07
PROVIDERS: Emergency Medicine
DX: R42 Dizziness and giddiness (principal); R51.9 Headache, unspecified; K21.9 Gastro-esophageal reflux disease without esophagitis; I10 Essential (primary) hypertension; E11.9 Type 2 diabetes mellitus without complications; F32.9 Major depressive disorder, single episode, unspecified; F41.9 Anxiety disorder, unspecified; J44.9 Chronic obstructive pulmonary disease, unspecified; I25.10 Atherosclerotic heart disease of native coronary artery without angina pectoris; F17.200 Nicotine dependence, unspecified, uncomplicated; Z91.041 Radiographic dye allergy status; Z79.2 Long term (current) use of antibiotics; Z79.899 Other long term (current) drug therapy; Z79.4 Long term (current) use of insulin; Z79.82 Long term (current) use of aspirin; Z98.890 Other specified postprocedural states; Z86.73 Personal history of transient ischemic attack (TIA), and cerebral infarction without residual deficits

== ENCOUNTER 2020-10-10 13:39 | Inpatient (IN) | payer OTHER ==
[~2020-10-10] VITALS: Ht 170.2 cm; Wt 71.9 kg
[2020-10-10 13:45] VITALS: BP 140/90
[2020-10-10 14:06] VITALS: BP 131/86
[2020-10-10 14:29] LABS: BASO # 0.1 10*3/uL (0.0-0.1); BASO % 0.7 % (0.0-1.0); EOS % 7.4 % (1.0-4.0); HEMATOCRIT 40.1 % (42.0-52.0); LYMPH # 3.7 10*3/uL (1.3-4.4); MEAN CELL VOLUME 91.3 fl (80.0-94.0); MEAN CORPUSCULAR HGB 32.8 pg (27.0-31.0); MEAN CORPUSCULAR HGB CONC 35.9 g/dl (33.0-37.0); MEAN PLATELET VOLUME 8.2 fl (9.6-12.3); MONO # 0.5 10*3/uL (0.1-1.0); MONO % 3.9 % (3.0-9.0); NEUT # 7.8 10*3/uL (2.3-7.9); NEUT % 59.5 % (47.0-73.0); PLATELET COUNT AUTOMATED 285 10*3/uL (130-400); RED BLOOD COUNT 4.39 10*6/uL (4.50-5.90); RED CELL DISTRI WIDTH 13.4 % (0-14.5); WHITE BLOOD COUNT 13.1 10*3/uL (4.8-10.8)
[2020-10-10 14:40] LABS: ACT PARTIAL THROMBO TIME 26.1 SECONDS (20.0-32.1)
[2020-10-10 14:45] LABS: ALBUMIN 3.5 gm/dl (3.1-4.5); ALKALINE PHOSPHATASE 157 U/L (45-117); BUN 7 mg/dl (7-24); CHLORIDE 101 mmol/L (98-107); CREATININE 0.68 mg/dL (0.70-1.30); LIPASE 66 U/L (73-393); POTASSIUM 4.2 mmol/L (3.5-5.1); SGOT/AST 47 IU/L (3-35); SGPT/ALT 72 U/L (12-78); SODIUM 133 mmol/L (136-145); TOTAL PROTEIN 7.4 gm/dL (6.4-8.2)
[2020-10-10 14:52] LABS: TROPONIN I < 0.015 ng/ml (<0.045)
--- NOTE | 2020-10-10 15:00 | NUR ---
PATIENT RESTING AT THIS TIME. NO COMPLAINTS. IN POSITION OF COMFORT. WILL CONTINUE TO MONITOR PT.
--- NOTE | 2020-10-10 15:43 | NUR ---
ASSESSMENT FOR HOME O2 ROOM AIR AT REST: SPO2 94% HR 88 RR 24 ROOM AIR WITH AMBULATION: SPO2 94-97% HR 118 ROOM AIR RECOVERY: SPO2 95% HR 92 RR 24 PT. DID NOT REQUIRE SUPPLEMENTAL O2 AT REST OR DURING EXERTION. PT DID C/O NAUSEA AND DIZZINESS WHILE WALKING. NOTIFIED.
[2020-10-10 16:18] LABS: BILIRUBIN Negative (Negative); BLOOD 1+ (Negative); CLARITY Clear (Clear); COLOR Yellow (Yellow); GLUCOSE Negative (Negative); KETONE Negative (Negative); LEUKO ESTERASE Trace (Negative); NITRITE Negative (Negative); SPECIFIC GRAVITY <= 1.005 (1.001-1.030); UROBILINOGEN 0.2 E.U./dl (0.0-1.0)
--- NOTE | 2020-10-10 16:26 | NUR ---
PATIENT PROVIDED A BOXED LUNCH. RESTING. WILL CONTINUE TO MONITOR PT.
[2020-10-10] MEDS ORDERED: PROVENTIL HFA6.7 GM INH ×2 (16:30)
[2020-10-10] MEDS ORDERED: PREDNISONE20 M1 PO ×2 (16:30)
[2020-10-10] MEDS ORDERED: ZITHROMAX250 MG PO ×2 (16:33)
[2020-10-10 16:40] LABS: BACTERIA TRACE; RBC 16-20 rbc/hpf (0-2); WBC 0-2 wbc/hpf (0-5)
--- NOTE | 2020-10-10 17:00 | NUR ---
WHEN I WENT TO DISCHARGE THE PATIENT HE WAS DIAPHORETIC AND STATED THAT HE "DIDNT FEEL RIGHT AND HE WAS WITHDRAWALING FROM ALCOHOL". PROVIDER WAS NOTIFIED AND PATIENT WAS THEN ADMITTED FOR FURTHER EVALUATION.
--- NOTE | 2020-10-10 17:30 | NUR ---
PATIENT RESTING IN POSITION OF COMFORT STATES THAT HE IS "KIND OF FEELING BETTER". PATIENT IS NO LONGER DIAPHORETIC. WILL CONTINUE TO MONITOR PT.
--- NOTE | 2020-10-10 18:15 | NUR ---
PATIENT IS RESTING. STATES THAT HE FEELS MUCH BETTER AFTER THE MEDICATION. HE HAS NO COMPLAINTS A THIS TIME. WILL CONTINUE TO MONITOR PT.
[2020-10-10 18:39] VITALS: BP 144/67
--- NOTE | 2020-10-10 19:00 | NUR ---
PATIENT RESTING. NO COMPLAINTS AT THIS TIME. WILL CONTINUE TO MONITOR. PATIENTS APPEARANCE HAS IMPROVED.
[2020-10-10 19:10] VITALS: BP 129/76
[2020-10-10 19:28] LABS: ARTERIAL BLOOD GAS PH 7.4 (7.35-7.45)
[2020-10-10 20:09] VITALS: BP 149/94
--- NOTE | 2020-10-10 20:59 | NUR ---
PATIENT RESTING AT THIS TIME. MEDICATED PER EMAR. WILL CONTINUE TO MONITOR PT. CALL LIGHT IN REACH. NO COMPLAINTS AT THIS TIME.
[2020-10-10 22:58] VITALS: BP 204/116
--- NOTE | 2020-10-10 23:58 | NUR ---
HOSPITALIST CALLED TO CHECK ON PT WILL BE DOWN, PT TACHY ON MONITOR, BP
[2020-10-11] VITALS (12 sets, daily range): BP systolic 113–166; BP diastolic 56–93
--- NOTE | 2020-10-11 00:56 | NUR ---
PT RESTING IN BED WITH EYES CLOSED NO ACUTE DISTRESS NOTED AT THIS TIME CALL LIGHT WITHIN REACH RN WILL CONTINUE TO MONITOR
--- NOTE | 2020-10-11 02:20 | NUR ---
PT UP TO BEDSIDE COMMODE, NO DISTRESS NOTED, CALL LIGHT WITHIN REACH, RN WILL CONTINUE TO MONITOR
--- NOTE | 2020-10-11 03:07 | NUR ---
PT RESTING IN BED WITH EYES OPEN, NO ACUTE DISTRESS NOTED, CALL LIGHT WITHIN REACH, RN WILL CONTINUE MONITOR
--- NOTE | 2020-10-11 04:47 | NUR ---
PT RESTING IN BED WITH EYES CLOSED NO DISTRESS NOTED, CALL LIGHT WITHIN REACH, RN WILL CONTINUE TO MONITOR
[2020-10-11 05:51] LABS: ALBUMIN 3.6 gm/dl (3.1-4.5); ALKALINE PHOSPHATASE 168 U/L (45-117); BUN 14 mg/dl (7-24); CHLORIDE 99 mmol/L (98-107); CREATININE 0.77 mg/dL (0.70-1.30); POTASSIUM 4.4 mmol/L (3.5-5.1); SGOT/AST 41 IU/L (3-35); SGPT/ALT 68 U/L (12-78); SODIUM 132 mmol/L (136-145); TOTAL PROTEIN 7.5 gm/dL (6.4-8.2)
[2020-10-11 05:52] LABS: ETHYL ALCOHOL < 3.0 mg/dl (<3)
--- NOTE | 2020-10-11 06:11 | NUR ---
PT RESTING IN BED WITH EYES CLOSED, NO ACUTE DISTRESS NOTED, CALL LIGHT WITHIN REACH, RN WILL CONTINUE TO MONITOR
[2020-10-11 06:37] LABS: BASO % 0.1 % (0.0-1.0); EOS % 0.1 % (1.0-4.0); HEMATOCRIT 43.4 % (42.0-52.0); LYMPH # 1.4 10*3/uL (1.3-4.4); MEAN CELL VOLUME 93.1 fl (80.0-94.0); MEAN CORPUSCULAR HGB 32.6 pg (27.0-31.0); MONO # 0.4 10*3/uL (0.1-1.0); MONO % 2.7 % (3.0-9.0); NEUT # 12.1 10*3/uL (2.3-7.9); NEUT % 86.6 % (47.0-73.0); PLATELET COUNT AUTOMATED 315 10*3/uL (130-400); RED BLOOD COUNT 4.66 10*6/uL (4.50-5.90); RED CELL DISTRI WIDTH 13.6 % (0-14.5); WHITE BLOOD COUNT 13.9 10*3/uL (4.8-10.8)
--- NOTE | 2020-10-11 08:24 | NUR ---
ORIGINAL 15 UNITS INSULIN NOT GIVEN D/T NEEDLE BEING BENT.
--- NOTE | 2020-10-11 08:36 | NUR ---
PT LYING IN BED, NO DISTRESS. NO COMPLAINTS.
--- NOTE | 2020-10-11 08:44 | NUR ---
BREAKFAST TRAY PROVIDED.
[2020-10-11 09:20] LABS: URINE AMPHETAMINES < 1000 (1000ng/ml); URINE BARBITURATES < 200 (200ng/ml); URINE BENZODIAZEPINES > 200 (200ng/ml); URINE CANNABINOIDS (THC) < 50 (50ng/ml); URINE COCAINE < 300 (300ng/ml); URINE METHADONE < 300 (300ng/ml); URINE OPIATES < 300 (300ng/ml); URINE PHENCYCLIDINE < 25 (25ng/ml)
--- NOTE | 2020-10-11 11:15 | NUR ---
Ash from Deborah arrieta.
--- NOTE | 2020-10-11 12:17 | NUR ---
In to see pt at this time.Pt appears colin confused at this time and anxoius.Pt has diminshed lung sounds at this time and 20 gauge in lac at this time.Pt is shaky and appears very shaky at this time.Pt states he has not drink since yesterday.Pt also has leg bag noted with urineand is rhoda color at this time.
--- NOTE | 2020-10-11 12:38 | NUR ---
Spoke with md stated he would placed orders in at this time for po medication.
--- NOTE | 2020-10-11 13:14 | NUR ---
Pt medicated at this time with ativan.Pt has jacques leg bag at this time with no drainage noted around penis area.
--- NOTE | 2020-10-11 15:39 | NUR ---
Spoke with pharmacy and stated they would fix libiurm dose at this time.
--- NOTE | 2020-10-11 16:32 | NUR ---
DR. MORAES NOTIFIED OF BLOOD SUGARS, OKAY TO CONTINUE SLIDING SCALE ORDERED.
[2020-10-11] MEDS ORDERED: VITAMIN B COMP1 EAC1 PO (17:11)
[2020-10-11] MEDS ORDERED: TRUE METRIX GL1 EACH MC (17:13)
[2020-10-11] MEDS ORDERED: LANCETS1 EAC4 MC (17:20)
[2020-10-11] MEDS ORDERED: ALCOHOL SWAB1 EACH (17:21)
[2020-10-11] MEDS ORDERED: HYDROXYZINE PAM25 M1 PO (17:23)
--- NOTE | 2020-10-11 17:46 | NUR ---
Sandy of care to Jannette arrieta.
--- NOTE | 2020-10-11 18:30 | NUR ---
The assessment has been completed. GENIE OCAMPO Time: 1829 A 55 year old MALE admitted to under services of FLORY RINCON DO. Pt. arrived via ambulance from ER. 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 NO CHERST PAIN.DENIES TAKING NAY MEDICATIONS FOR HIS S/S. EMS STATES SPO2 WAS 93% AND PLACED HIM ON 3L. GENIE OCAMPO
--- NOTE | 2020-10-11 18:59 | NUR ---
PT STATING HE CANNOT FIND CELL PHONE AND TECHNICAL RESEARCH SCIENTIST AND THAT HE BROUGHT IT WITH HIM. ASSISTED PT TO LOOK THROUGH BELONGINGS. NO PHONE FOUND. ER CALLED AND THEY STATE THEY WILL CHECK DOWN THERE.
--- NOTE | 2020-10-11 19:01 | NUR ---
ATTEMPTED TO REACH DR MCKEON TO NOTIFY OF ADMISSION AND THAT MED REC UP TO DATE
[2020-10-12 06:58] LABS: BASO % 0.1 % (0.0-1.0); EOS % 0.2 % (1.0-4.0); HEMATOCRIT 39.8 % (42.0-52.0); LYMPH # 2.3 10*3/uL (1.3-4.4); LYMPH % 12.7 % (27.0-41.0); MEAN CELL VOLUME 93.6 fl (80.0-94.0); MEAN CORPUSCULAR HGB 32.2 pg (27.0-31.0); MEAN CORPUSCULAR HGB CONC 34.4 g/dl (33.0-37.0); MEAN PLATELET VOLUME 8.6 fl (9.6-12.3); MONO % 5.3 % (3.0-9.0); NEUT # 14.5 10*3/uL (2.3-7.9); NEUT % 81.2 % (47.0-73.0); PLATELET COUNT AUTOMATED 287 10*3/uL (130-400); RED BLOOD COUNT 4.25 10*6/uL (4.50-5.90); RED CELL DISTRI WIDTH 13.6 % (0-14.5); WHITE BLOOD COUNT 17.8 10*3/uL (4.8-10.8)
[2020-10-12 07:27] LABS: ALBUMIN 3.4 gm/dl (3.1-4.5); CHLORIDE 98 mmol/L (98-107); POTASSIUM 4.1 mmol/L (3.5-5.1); SODIUM 131 mmol/L (136-145)
[2020-10-12 07:33] LABS: ALKALINE PHOSPHATASE 153 U/L (45-117); BUN 18 mg/dl (7-24); CREATININE 0.65 mg/dL (0.70-1.30); SGOT/AST 22 IU/L (3-35); SGPT/ALT 48 U/L (12-78); TOTAL PROTEIN 6.9 gm/dL (6.4-8.2)
--- NOTE | 2020-10-12 07:51 | NUR ---
24 HR chart check completed.
--- NOTE | 2020-10-12 08:30 | NUR ---
CALLED TO ROOM BY PATIENT FOR ISSUES WITH CHRISTINE CATH LEAKING. BALLOON INFLATED. NO FURTHER ISSUES NOTED.
--- NOTE | 2020-10-12 09:00 | NUR ---
RESTING IN BED WITH NO ACUTE DISTRESS NOTED. RESPIRATIONS EASY. LUNGS DIMINISHED. PULSE OX 98% 1L. CATH PATENT DRAINING MARLENA URINE. CALL LIGHT WITHIN REACH. NO VOICED COMPLAINTS
[2020-10-12 12:00] VITALS: BP 131/79
--- NOTE | 2020-10-12 12:00 | NUR ---
PATIENT TRANSFERRED TO VIA .
--- NOTE | 2020-10-12 13:00 | NUR ---
PT RESTING IN BED/ NO DISTRESS NOTED. WILL MONITOR
[2020-10-12 16:00] VITALS: BP 100/65
[2020-10-12 20:00] VITALS: BP 110/65
--- NOTE | 2020-10-12 20:40 | NUR ---
IV SITE TO LAC INTACT/FLUSHES WITHOUT ISSUE, BUT FLUIDS WILL NOT INFUSE ON IV PUMP DUE TO MULTIPLE "DOWNSTREAM OCCLUSION" ALARMS. PT EDUCATED TO KEEP ARM STRAIGHT, BUT PUMP CONTINUES TO ALARM. NEW IV SITE INITIATED TO R FOREARM. IV started right forearm with #22 protective cath after 1 attempts. Site prepped with Chloroprep. Sterile dressing applied. Patient tolerated procedure well. IV infusing at 100 cc/hr. SANTIAGO BRIONES
[2020-10-13] VITALS: BP 108/62
[2020-10-13 06:35] LABS: BASO % 0.1 % (0.0-1.0); EOS # 0.1 10*3/uL (0.0-0.4); EOS % 0.7 % (1.0-4.0); LYMPH # 3.4 10*3/uL (1.3-4.4); LYMPH % 21.8 % (27.0-41.0); MEAN CELL VOLUME 94.7 fl (80.0-94.0); MEAN CORPUSCULAR HGB 32.1 pg (27.0-31.0); MEAN CORPUSCULAR HGB CONC 33.9 g/dl (33.0-37.0); MONO % 6.5 % (3.0-9.0); NEUT # 10.9 10*3/uL (2.3-7.9); NEUT % 70.5 % (47.0-73.0); PLATELET COUNT AUTOMATED 265 10*3/uL (130-400); RED CELL DISTRI WIDTH 13.4 % (0-14.5); WHITE BLOOD COUNT 15.5 10*3/uL (4.8-10.8)
[2020-10-13 06:42] LABS: ALBUMIN 2.8 gm/dl (3.1-4.5); BUN 15 mg/dl (7-24); CHLORIDE 100 mmol/L (98-107); CREATININE 0.56 mg/dL (0.70-1.30); SGOT/AST 18 IU/L (3-35); SGPT/ALT 44 U/L (12-78); SODIUM 131 mmol/L (136-145)
[2020-10-13 06:43] LABS: ALKALINE PHOSPHATASE 119 U/L (45-117)
--- NOTE | 2020-10-13 07:58 | NUR ---
PT RESTING IN BED. NO DISTRESS NOTED. WILL MONITOR
[2020-10-13 08:00] VITALS: BP 128/76
[2020-10-13] MEDS ORDERED: DOXYCYCLINE100 M3 PO (09:51)
[2020-10-13 11:41] VITALS: BP 113/72
--- NOTE | 2020-10-13 14:24 | NUR ---
Discharge instructions reviewed with patient/family. Patient receptive and verbalizes understanding. Follow-up care arranged. Written instructions given to patient/family. JENNIFER OLIVAREZ
== END 2020-10-13 14:25 | disposition home or self-care (01) | DRG 720 ==
LOC: ED 13:39 → EDHOLD 18:10 → 4E 18:10 → 5E 18:10 → 4E 10-11 17:37 → 5E 10-12 10:40
PROVIDERS: Internal Medicine; Nurse Practitioner Adult Health; Physician Assistant; Student in an Organized Health Care Education/Training Program; ADMIT Internal Medicine; ATTEND Internal Medicine
DX: A41.9 Sepsis, unspecified organism (principal); R65.20 Severe sepsis without septic shock; F10.239 Alcohol dependence with withdrawal, unspecified; E87.1 Hypo-osmolality and hyponatremia; E83.41 Hypermagnesemia; F31.9 Bipolar disorder, unspecified; E11.65 Type 2 diabetes mellitus with hyperglycemia; R33.9 Retention of urine, unspecified; E03.9 Hypothyroidism, unspecified; E78.5 Hyperlipidemia, unspecified; K21.9 Gastro-esophageal reflux disease without esophagitis; J96.00 Acute respiratory failure, unspecified whether with hypoxia or hypercapnia; J44.0 Chronic obstructive pulmonary disease with (acute) lower respiratory infection; R31.9 Hematuria, unspecified; I10 Essential (primary) hypertension; F41.1 Generalized anxiety disorder; Z20.828 Contact with and (suspected) exposure to other viral communicable diseases; R74.01 Elevation of levels of liver transaminase levels; N40.1 Benign prostatic hyperplasia with lower urinary tract symptoms; Z91.041 Radiographic dye allergy status; Z81.1 Family history of alcohol abuse and dependence; Z86.73 Personal history of transient ischemic attack (TIA), and cerebral infarction without residual deficits; Z81.8 Family history of other mental and behavioral disorders; Z83.3 Family history of diabetes mellitus; Z71.6 Tobacco abuse counseling; J15.6 Pneumonia due to other Gram-negative bacteria

== ENCOUNTER 2020-10-19 00:52 | Emergency (ER) | payer OTHER ==
[~2020-10-19] VITALS: Ht 177.8 cm; Wt 90.7 kg
[~2020-10-19 00:52] MED LIST changes: +ALCOHOL SWAB1 EACH; +HYDROXYZINE PAM25 M1 PO; +LANCETS1 EAC4 MC; +PROVENTIL HFA6.7 GM INH; +TRUE METRIX GL1 EACH MC; +VITAMIN B COMP1 EAC1 PO
[2020-10-19 02:49] LABS: BILIRUBIN Negative (Negative); BLOOD Negative (Negative); CLARITY Clear (Clear); COLOR Yellow (Yellow); GLUCOSE Negative (Negative); KETONE Negative (Negative); LEUKO ESTERASE Negative (Negative); NITRITE Negative (Negative); PH 6.5 (4.5-8.0); SPECIFIC GRAVITY <= 1.005 (1.001-1.030); UROBILINOGEN 0.2 E.U./dl (0.0-1.0)
[2020-10-19 03:04] LABS: BACTERIA TRACE; RBC 0-2 rbc/hpf (0-2)
[2020-10-20] MEDS ORDERED: ZITHROMAX250 MG PO (15:04)
[2020-10-20] MEDS ORDERED: PREDNISONE50 MG PO (15:04)
== END 2020-10-19 04:28 | disposition home or self-care (01) ==
LOC: ED 00:52
PROVIDERS: Emergency Medicine
DX: R33.9 Retention of urine, unspecified (principal); J44.9 Chronic obstructive pulmonary disease, unspecified; I10 Essential (primary) hypertension; E11.9 Type 2 diabetes mellitus without complications; K21.9 Gastro-esophageal reflux disease without esophagitis; E03.9 Hypothyroidism, unspecified; E78.5 Hyperlipidemia, unspecified; F17.210 Nicotine dependence, cigarettes, uncomplicated; Z91.041 Radiographic dye allergy status; Z79.899 Other long term (current) drug therapy; Z79.82 Long term (current) use of aspirin; Z79.4 Long term (current) use of insulin; Z86.73 Personal history of transient ischemic attack (TIA), and cerebral infarction without residual deficits

== ENCOUNTER 2020-10-20 12:33 | Emergency (ER) | payer OTHER ==
[~2020-10-20] VITALS: Ht 170.1 cm; Wt 71.2 kg
[2020-10-20 12:50] LABS: BASO # 0.1 10*3/uL (0.0-0.1); BASO % 0.5 % (0.0-1.0); EOS # 0.4 10*3/uL (0.0-0.4); EOS % 3.4 % (1.0-4.0); HEMATOCRIT 38.6 % (42.0-52.0); LYMPH # 2.1 10*3/uL (1.3-4.4); LYMPH % 17.6 % (27.0-41.0); MEAN CELL VOLUME 94.6 fl (80.0-94.0); MEAN CORPUSCULAR HGB 32.4 pg (27.0-31.0); MEAN CORPUSCULAR HGB CONC 34.2 g/dl (33.0-37.0); MEAN PLATELET VOLUME 8.3 fl (9.6-12.3); MONO # 0.6 10*3/uL (0.1-1.0); MONO % 5.4 % (3.0-9.0); NEUT # 8.4 10*3/uL (2.3-7.9); NEUT % 72.4 % (47.0-73.0); PLATELET COUNT AUTOMATED 465 10*3/uL (130-400); RED BLOOD COUNT 4.08 10*6/uL (4.50-5.90); RED CELL DISTRI WIDTH 13.1 % (0-14.5); WHITE BLOOD COUNT 11.6 10*3/uL (4.8-10.8)
[2020-10-20 12:59] LABS: ACT PARTIAL THROMBO TIME 29.8 SECONDS (20.0-32.1)
[2020-10-20 13:11] LABS: ALBUMIN 3.3 gm/dl (3.1-4.5); ALKALINE PHOSPHATASE 158 U/L (45-117); BUN 11 mg/dl (7-24); CHLORIDE 98 mmol/L (98-107); POTASSIUM 3.9 mmol/L (3.5-5.1); SGOT/AST 22 IU/L (3-35); SGPT/ALT 50 U/L (12-78); SODIUM 129 mmol/L (136-145); TOTAL PROTEIN 7.5 gm/dL (6.4-8.2)
[2020-10-20 13:13] LABS: TROPONIN I < 0.015 ng/ml (<0.045)
[2020-10-20] MEDS ORDERED: ZITHROMAX250 MG PO (15:04)
[2020-10-20] MEDS ORDERED: PREDNISONE50 MG PO (15:04)
== END 2020-10-20 15:34 | disposition home or self-care (01) ==
LOC: ED 12:33
PROVIDERS: Emergency Medicine
DX: J45.909 Unspecified asthma, uncomplicated (principal); Z20.828 Contact with and (suspected) exposure to other viral communicable diseases; F17.200 Nicotine dependence, unspecified, uncomplicated; Z91.041 Radiographic dye allergy status; Z79.899 Other long term (current) drug therapy

== ENCOUNTER 2020-10-27 09:34 | Inpatient (IN) | payer OTHER ==
[~2020-10-27] VITALS: Ht 170.1 cm; Wt 76.2 kg
[~2020-10-27 09:34] MED LIST changes: +PREDNISONE50 MG PO
[2020-10-27 09:47] VITALS: BP 119/75
[2020-10-27 10:25] LABS: BASO % 0.2 % (0.0-1.0); EOS # 0.1 10*3/uL (0.0-0.4); EOS % 0.6 % (1.0-4.0); HEMATOCRIT 38.6 % (42.0-52.0); LYMPH # 1.7 10*3/uL (1.3-4.4); LYMPH % 13.8 % (27.0-41.0); MEAN CELL VOLUME 95.1 fl (80.0-94.0); MEAN CORPUSCULAR HGB 32.3 pg (27.0-31.0); MEAN CORPUSCULAR HGB CONC 33.9 g/dl (33.0-37.0); MEAN PLATELET VOLUME 8.3 fl (9.6-12.3); MONO # 0.3 10*3/uL (0.1-1.0); NEUT # 10.3 10*3/uL (2.3-7.9); NEUT % 82.8 % (47.0-73.0); PLATELET COUNT AUTOMATED 580 10*3/uL (130-400); RED BLOOD COUNT 4.06 10*6/uL (4.50-5.90); RED CELL DISTRI WIDTH 12.8 % (0-14.5); WHITE BLOOD COUNT 12.4 10*3/uL (4.8-10.8)
[2020-10-27 10:38] LABS: ALBUMIN 3.2 gm/dl (3.1-4.5); ALKALINE PHOSPHATASE 114 U/L (45-117); BUN 11 mg/dl (7-24); CHLORIDE 95 mmol/L (98-107); CREATININE 0.72 mg/dL (0.70-1.30); LIPASE 251 U/L (73-393); POTASSIUM 3.6 mmol/L (3.5-5.1); SGOT/AST 13 IU/L (3-35); SGPT/ALT 28 U/L (12-78); SODIUM 128 mmol/L (136-145); TOTAL PROTEIN 6.7 gm/dL (6.4-8.2)
--- NOTE | 2020-10-27 10:42 | NUR ---
PT STATED HE HAS MINMAL RELIEF WITH HIS PAIN.
[2020-10-27 11:26] LABS: BILIRUBIN Negative (Negative); BLOOD Negative (Negative); CLARITY Clear (Clear); COLOR Yellow (Yellow); GLUCOSE 3+ (Negative); KETONE Negative (Negative); LEUKO ESTERASE Negative (Negative); NITRITE Negative (Negative)
[2020-10-27 11:34] LABS: BACTERIA TRACE; EPITHELIAL CELLS 0-2; WBC 0-2 wbc/hpf (0-5)
[2020-10-27 11:35] LABS: MUCOUS TRACE
--- NOTE | 2020-10-27 13:05 | NUR ---
CHECKED ON PT, STATED HIS PAIN WAS BETTER. NO OTHER COMPLAINTS CURRENTLY.
[2020-10-27 14:20] VITALS: BP 100/51
--- NOTE | 2020-10-27 15:34 | NUR ---
MSDTime: 1410 A 55 year old admitted to 5E under services of DR. SERGIO AGUILAR,[place]. Pt. arrived via stretcher from ER. Chief complaint: HYPONATREMIA URINARY RETENTION. SHMUEL CONSTANTINO
[2020-10-27 16:00] VITALS: BP 110/60
[2020-10-27 20:35] VITALS: BP 110/62
--- NOTE | 2020-10-27 22:24 | NUR ---
PATIENT MEDICATED WITH ATIVAN FOR COMPLAINTS OF ANXIETY. IV OUT OF RIGHT AC. NEW 20G INSERTED INTO RIGHT WRIST BY JEB GREENBERG RN. WILL CONTINUE TO MONITOR.
[2020-10-28 00:31] VITALS: BP 90/52
--- NOTE | 2020-10-28 01:46 | NUR ---
ATIVAN EFFECTIVE. PATIENT IN BED SLEEPING. NO SIGNS OR SYMPTOMS OF DISTRESS NOTED.
[2020-10-28 05:00] LABS: BUN 15 mg/dl (7-24); CHLORIDE 101 mmol/L (98-107); CREATININE 0.77 mg/dL (0.70-1.30); SODIUM 135 mmol/L (136-145)
[2020-10-28 08:00] VITALS: BP 88/62
[2020-10-28 08:29] LABS: BILIRUBIN Negative (Negative); BLOOD Negative (Negative); CLARITY Clear (Clear); COLOR Yellow (Yellow); GLUCOSE Negative (Negative); KETONE Negative (Negative); SPECIFIC GRAVITY 1.015 (1.001-1.030)
[2020-10-28 08:30] LABS: BACTERIA TRACE; EPITHELIAL CELLS 0-2; LEUKO ESTERASE Negative (Negative); NITRITE Negative (Negative); RBC 0-2 rbc/hpf (0-2); UROBILINOGEN 0.2 E.U./dl (0.0-1.0)
--- NOTE | 2020-10-28 10:58 | NUR ---
DR. HILL NOTIFIED OF BLADDER SCAN, ABDOMINAL ULTRASOUND AND UA/LABS RESULTS. OBTAINED ORDER FOR IV ROCEPHIN 1 GM X 1 NOW.
--- NOTE | 2020-10-28 12:58 | NUR ---
Director Educational Radio in to talk to patient. Patient states lives at home with family. There are no steps in the home. Physician: dewey [facility] Home health services: none Patient's level of ADLs: INDEPENDENT Patient has working utilities: all working DME: none Follow-up physician's appointment after d/c: patient chooses to make own follow up appointment Does patient want to access PORTAL?: n Discharge plan discussed with patient, he lives at home with family, is independent in adls and ambulation, patient states he will return home when discharged and denies any home needs, case management will follow. ASHLEY GALO
[2020-10-28 16:01] VITALS: BP 96/56
--- NOTE | 2020-10-28 16:16 | NUR ---
MEDICATED WITH PRN PO ATIVAN FOR ANXIETY.
--- NOTE | 2020-10-28 17:00 | NUR ---
PRN PO ATIVAN EFFECTIVE, PER PATIENT.
[2020-10-28 20:02] VITALS: BP 98/59
--- NOTE | 2020-10-28 22:29 | NUR ---
PATIENT MEDICATED WITH ATIVAN FOR COMPLAINTS OF ANXIETY. WILL MONITOR FOR EFFECTIVENESS.
--- NOTE | 2020-10-29 00:31 | NUR ---
ATIVAN EFFECTIVE. PATIENT IN BED SNORING AT THIS TIME. WILL CONTINUE TO MONITOR.
[2020-10-29 06:53] LABS: BUN 11 mg/dl (7-24); CHLORIDE 99 mmol/L (98-107); CREATININE 0.72 mg/dL (0.70-1.30); POTASSIUM 4.9 mmol/L (3.5-5.1); SODIUM 134 mmol/L (136-145)
[2020-10-29 06:54] LABS: BASO # 0.1 10*3/uL (0.0-0.1); BASO % 0.8 % (0.0-1.0); EOS # 0.5 10*3/uL (0.0-0.4); EOS % 4.9 % (1.0-4.0); HEMATOCRIT 38.9 % (42.0-52.0); LYMPH # 3.6 10*3/uL (1.3-4.4); LYMPH % 37.1 % (27.0-41.0); MEAN CORPUSCULAR HGB 32.2 pg (27.0-31.0); MEAN CORPUSCULAR HGB CONC 32.4 g/dl (33.0-37.0); MEAN PLATELET VOLUME 8.6 fl (9.6-12.3); MONO # 0.7 10*3/uL (0.1-1.0); MONO % 7.3 % (3.0-9.0); NEUT # 4.8 10*3/uL (2.3-7.9); NEUT % 49.4 % (47.0-73.0); PLATELET COUNT AUTOMATED 548 10*3/uL (130-400); RED BLOOD COUNT 3.91 10*6/uL (4.50-5.90); RED CELL DISTRI WIDTH 13.4 % (0-14.5); WHITE BLOOD COUNT 9.8 10*3/uL (4.8-10.8)
[2020-10-29] MEDS ORDERED: INNOPRAN XL80 M2 PO (06:55)
[2020-10-29] MEDS ORDERED: ZESTRIL2.5 MG PO (06:55)
[2020-10-29 07:10] LABS: MEAN CELL VOLUME 99.5 fl (80.0-94.0)
[2020-10-29 08:00] VITALS: BP 96/50
--- NOTE | 2020-10-29 08:40 | NUR ---
Discharge instructions reviewed with patient/family. Patient receptive and verbalizes understanding. Follow-up care arranged. Written instructions given to patient/family. HEPLOCK REMOVED 2X2 APPLIED. PT AMBULATORY OFF THE FLOOR FOR DISCHARGE. SEGUNDO MADRIGAL
== END 2020-10-29 08:40 | disposition home or self-care (01) | DRG 501 ==
LOC: ED 09:34 → 5E 12:08 → EDHOLD 12:08 → 5E 13:57
PROVIDERS: Physician Assistant; ADMIT Internal Medicine; ATTEND Internal Medicine
DX: N40.1 Benign prostatic hyperplasia with lower urinary tract symptoms (principal); E87.1 Hypo-osmolality and hyponatremia; E87.8 Other disorders of electrolyte and fluid balance, not elsewhere classified; F10.20 Alcohol dependence, uncomplicated; Z91.19 Patient's noncompliance with other medical treatment and regimen; E11.9 Type 2 diabetes mellitus without complications; I10 Essential (primary) hypertension; J44.9 Chronic obstructive pulmonary disease, unspecified; K21.9 Gastro-esophageal reflux disease without esophagitis; F41.1 Generalized anxiety disorder; F31.9 Bipolar disorder, unspecified; I95.89 Other hypotension; F17.210 Nicotine dependence, cigarettes, uncomplicated; E78.2 Mixed hyperlipidemia; R33.8 Other retention of urine; T38.3X6A Underdosing of insulin and oral hypoglycemic [antidiabetic] drugs, initial encounter; Z91.041 Radiographic dye allergy status; Z81.1 Family history of alcohol abuse and dependence; Z83.3 Family history of diabetes mellitus; Z82.3 Family history of stroke; Z82.0 Family history of epilepsy and other diseases of the nervous system; Z79.4 Long term (current) use of insulin; Z91.11 Patient's noncompliance with dietary regimen; Y92.89 Other specified places as the place of occurrence of the external cause

== ENCOUNTER 2020-11-11 00:12 | Emergency (ER) | payer OTHER ==
[~2020-11-11] VITALS: Ht 175.2 cm; Wt 78.9 kg
[2020-11-11 00:45] LABS: BASO % 0.3 % (0.0-1.0); EOS # 0.5 10*3/uL (0.0-0.4); EOS % 5.2 % (1.0-4.0); HEMATOCRIT 38.5 % (42.0-52.0); LYMPH # 3.2 10*3/uL (1.3-4.4); LYMPH % 36.3 % (27.0-41.0); MEAN CORPUSCULAR HGB 32.6 pg (27.0-31.0); MEAN CORPUSCULAR HGB CONC 35.1 g/dl (33.0-37.0); MEAN PLATELET VOLUME 8.6 fl (9.6-12.3); MONO # 0.6 10*3/uL (0.1-1.0); MONO % 6.2 % (3.0-9.0); NEUT # 4.6 10*3/uL (2.3-7.9); NEUT % 51.2 % (47.0-73.0); PLATELET COUNT AUTOMATED 230 10*3/uL (130-400); RED BLOOD COUNT 4.14 10*6/uL (4.50-5.90); RED CELL DISTRI WIDTH 13.2 % (0-14.5); WHITE BLOOD COUNT 8.9 10*3/uL (4.8-10.8)
[2020-11-11 00:57] LABS: INTERNATIONAL NORM RATIO 0.9 (2.0-3.5)
[2020-11-11 01:04] LABS: ALBUMIN 3.2 gm/dl (3.1-4.5); ALKALINE PHOSPHATASE 172 U/L (45-117); BUN 7 mg/dl (7-24); CHLORIDE 88 mmol/L (98-107); CREATININE 0.85 mg/dL (0.70-1.30); POTASSIUM 4.2 mmol/L (3.5-5.1); SGOT/AST 13 IU/L (3-35); SGPT/ALT 32 U/L (12-78); SODIUM 121 mmol/L (136-145); TOTAL PROTEIN 6.8 gm/dL (6.4-8.2)
[2020-11-11 01:05] LABS: TROPONIN I < 0.015 ng/ml (<0.045)
[2020-11-11 05:51] LABS: BUN 6 mg/dl (7-24); CHLORIDE 98 mmol/L (98-107); CREATININE 0.56 mg/dL (0.70-1.30); POTASSIUM 4.4 mmol/L (3.5-5.1); SODIUM 131 mmol/L (136-145)
== END 2020-11-11 09:37 | disposition home or self-care (01) ==
LOC: ED 00:12
PROVIDERS: Internal Medicine; Student in an Organized Health Care Education/Training Program
DX: E87.1 Hypo-osmolality and hyponatremia (principal); K21.9 Gastro-esophageal reflux disease without esophagitis; I10 Essential (primary) hypertension; E11.65 Type 2 diabetes mellitus with hyperglycemia; J44.9 Chronic obstructive pulmonary disease, unspecified; I25.10 Atherosclerotic heart disease of native coronary artery without angina pectoris; F10.120 Alcohol abuse with intoxication, uncomplicated; Z91.041 Radiographic dye allergy status; Z79.899 Other long term (current) drug therapy; Z79.82 Long term (current) use of aspirin; Y90.9 Presence of alcohol in blood, level not specified

== ENCOUNTER 2020-12-10 06:25 | Inpatient (IN) | payer OTHER ==
[2020-12-10] VITALS (10 sets, daily range): BP systolic 94–150; BP diastolic 62–95
[~2020-12-10] VITALS: Ht 170.1 cm; Wt 74.8 kg
[2020-12-10 06:47] LABS: BILIRUBIN Negative (Negative); BLOOD Negative (Negative); CLARITY Clear (Clear); COLOR Yellow (Yellow); GLUCOSE 3+ (Negative); KETONE Negative (Negative); LEUKO ESTERASE Negative (Negative); NITRITE Negative (Negative); SPECIFIC GRAVITY <= 1.005 (1.001-1.030); UROBILINOGEN 0.2 E.U./dl (0.0-1.0)
[2020-12-10 06:57] LABS: BASO % 0.3 % (0.0-1.0); EOS # 0.6 10*3/uL (0.0-0.4); EOS % 6.2 % (1.0-4.0); LYMPH # 2.7 10*3/uL (1.3-4.4); LYMPH % 26.4 % (27.0-41.0); MEAN CELL VOLUME 91.3 fl (80.0-94.0); MEAN CORPUSCULAR HGB 31.5 pg (27.0-31.0); MEAN CORPUSCULAR HGB CONC 34.5 g/dl (33.0-37.0); MEAN PLATELET VOLUME 8.2 fl (9.6-12.3); MONO # 0.4 10*3/uL (0.1-1.0); MONO % 3.8 % (3.0-9.0); NEUT # 6.3 10*3/uL (2.3-7.9); PLATELET COUNT AUTOMATED 275 10*3/uL (130-400); RED CELL DISTRI WIDTH 12.8 % (0-14.5); WHITE BLOOD COUNT 10.1 10*3/uL (4.8-10.8)
[2020-12-10 07:01] LABS: RBC 0-2 rbc/hpf (0-2); WBC 0-2 wbc/hpf (0-5)
[2020-12-10 07:11] LABS: ALBUMIN 3.6 gm/dl (3.1-4.5); ALKALINE PHOSPHATASE 112 U/L (45-117); BUN 6 mg/dl (7-24); CHLORIDE 90 mmol/L (98-107); CREATININE 0.78 mg/dL (0.70-1.30); POTASSIUM 4.7 mmol/L (3.5-5.1); SGOT/AST 13 IU/L (3-35); SGPT/ALT 28 U/L (12-78); SODIUM 125 mmol/L (136-145); TOTAL PROTEIN 7.2 gm/dL (6.4-8.2)
[2020-12-10] MEDS ORDERED: SYNTHROID25 MCG PO (13:48)
[2020-12-10] MEDS ORDERED: PROPRANOLOL ER80 MG PO (13:52)
[2020-12-10] MEDS ORDERED: TRULICITY0.75 MG/0. SC (13:57)
[2020-12-10] MEDS ORDERED: VITAMIN D3125 MCG PO (14:13)
[2020-12-10] MEDS ORDERED: VITAMIN D3125 MC1 PO (14:14)
[2020-12-11 07:46] VITALS: BP 120/82
[2020-12-11 12:00] VITALS: BP 94/68
[2020-12-11 16:00] VITALS: BP 108/69
[2020-12-11 20:00] VITALS: BP 126/80
[2020-12-12] VITALS: BP 106/64
[2020-12-12 06:40] LABS: BASO % 0.2 % (0.0-1.0); EOS % 0.1 % (1.0-4.0); LYMPH # 1.4 10*3/uL (1.3-4.4); LYMPH % 10.6 % (27.0-41.0); MEAN CELL VOLUME 93.2 fl (80.0-94.0); MEAN CORPUSCULAR HGB 32.4 pg (27.0-31.0); MEAN CORPUSCULAR HGB CONC 34.8 g/dl (33.0-37.0); MEAN PLATELET VOLUME 8.5 fl (9.6-12.3); MONO # 0.2 10*3/uL (0.1-1.0); MONO % 1.7 % (3.0-9.0); NEUT # 11.1 10*3/uL (2.3-7.9); NEUT % 86.9 % (47.0-73.0); PLATELET COUNT AUTOMATED 274 10*3/uL (130-400); RED BLOOD COUNT 4.29 10*6/uL (4.50-5.90); RED CELL DISTRI WIDTH 12.8 % (0-14.5); WHITE BLOOD COUNT 12.7 10*3/uL (4.8-10.8)
[2020-12-12 07:28] LABS: ALBUMIN 3.5 gm/dl (3.1-4.5); ALKALINE PHOSPHATASE 105 U/L (45-117); BUN 12 mg/dl (7-24); CHLORIDE 97 mmol/L (98-107); CREATININE 0.64 mg/dL (0.70-1.30); POTASSIUM 4.7 mmol/L (3.5-5.1); SGOT/AST 7 IU/L (3-35); SGPT/ALT 24 U/L (12-78); SODIUM 128 mmol/L (136-145); TOTAL PROTEIN 7.1 gm/dL (6.4-8.2)
[2020-12-12 08:00] VITALS: BP 138/83
[2020-12-12 12:00] VITALS: BP 127/80
[2020-12-12 16:00] VITALS: BP 120/77
[2020-12-12 20:00] VITALS: BP 111/75
[2020-12-13] VITALS: BP 106/77
[2020-12-13 06:19] LABS: EOS % 0.1 % (1.0-4.0); LYMPH # 1.4 10*3/uL (1.3-4.4); LYMPH % 13.7 % (27.0-41.0); MEAN CELL VOLUME 95.1 fl (80.0-94.0); MEAN CORPUSCULAR HGB 31.7 pg (27.0-31.0); MEAN CORPUSCULAR HGB CONC 33.3 g/dl (33.0-37.0); MEAN PLATELET VOLUME 8.9 fl (9.6-12.3); MONO # 0.4 10*3/uL (0.1-1.0); MONO % 3.5 % (3.0-9.0); NEUT # 8.4 10*3/uL (2.3-7.9); PLATELET COUNT AUTOMATED 270 10*3/uL (130-400); WHITE BLOOD COUNT 10.3 10*3/uL (4.8-10.8)
[2020-12-13 06:49] LABS: ALBUMIN 3.4 gm/dl (3.1-4.5); ALKALINE PHOSPHATASE 95 U/L (45-117); BUN 16 mg/dl (7-24); CHLORIDE 97 mmol/L (98-107); POTASSIUM 4.7 mmol/L (3.5-5.1); SGOT/AST 8 IU/L (3-35); SGPT/ALT 23 U/L (12-78); SODIUM 130 mmol/L (136-145); TOTAL PROTEIN 6.7 gm/dL (6.4-8.2)
[2020-12-13 08:00] VITALS: BP 105/88
[2020-12-13 12:00] VITALS: BP 105/75
[2020-12-13] MEDS ORDERED: ZITHROMAX250 MG PO (13:58)
[2020-12-13] MEDS ORDERED: LORAZEPAM1 MG PO (14:01)
== END 2020-12-13 15:50 | disposition home health service (06) | DRG 720 ==
LOC: ED 06:25 → EDHOLD 10:15 → 5E 10:15
PROVIDERS: Internal Medicine; Internal Medicine Critical Care Medicine; ADMIT Internal Medicine; ATTEND Internal Medicine
DX: A41.9 Sepsis, unspecified organism (principal); J44.1 Chronic obstructive pulmonary disease with (acute) exacerbation; F10.231 Alcohol dependence with withdrawal delirium; E11.65 Type 2 diabetes mellitus with hyperglycemia; J44.0 Chronic obstructive pulmonary disease with (acute) lower respiratory infection; E87.1 Hypo-osmolality and hyponatremia; I10 Essential (primary) hypertension; R74.01 Elevation of levels of liver transaminase levels; F41.1 Generalized anxiety disorder; F31.9 Bipolar disorder, unspecified; J18.9 Pneumonia, unspecified organism; F10.221 Alcohol dependence with intoxication delirium; F17.210 Nicotine dependence, cigarettes, uncomplicated; E78.2 Mixed hyperlipidemia; N40.1 Benign prostatic hyperplasia with lower urinary tract symptoms; R33.8 Other retention of urine; I25.10 Atherosclerotic heart disease of native coronary artery without angina pectoris; E03.9 Hypothyroidism, unspecified; J82.83 Eosinophilic asthma; J96.01 Acute respiratory failure with hypoxia; J20.9 Acute bronchitis, unspecified; Z20.822 Contact with and (suspected) exposure to COVID-19; T38.0X5A Adverse effect of glucocorticoids and synthetic analogues, initial encounter; Y92.89 Other specified places as the place of occurrence of the external cause; Z91.041 Radiographic dye allergy status; Z79.899 Other long term (current) drug therapy; Z83.3 Family history of diabetes mellitus; Z81.1 Family history of alcohol abuse and dependence; Z82.3 Family history of stroke

== ENCOUNTER 2020-12-28 12:49 | Emergency (ER) | payer OTHER ==
[~2020-12-28] VITALS: Ht 170.1 cm; Wt 78.9 kg
[~2020-12-28 12:49] MED LIST changes: +TRULICITY0.75 MG/0. SC; +VITAMIN D3125 MC1 PO; +VITAMIN D3125 MCG PO
[2020-12-28 13:15] LABS: BASO # 0.1 10*3/uL (0.0-0.1); BASO % 0.7 % (0.0-1.0); EOS # 0.9 10*3/uL (0.0-0.4); EOS % 7.3 % (1.0-4.0); HEMATOCRIT 40.2 % (42.0-52.0); LYMPH # 2.8 10*3/uL (1.3-4.4); LYMPH % 23.4 % (27.0-41.0); MEAN CELL VOLUME 92.8 fl (80.0-94.0); MEAN CORPUSCULAR HGB 32.1 pg (27.0-31.0); MEAN CORPUSCULAR HGB CONC 34.6 g/dl (33.0-37.0); MEAN PLATELET VOLUME 8.4 fl (9.6-12.3); MONO # 0.8 10*3/uL (0.1-1.0); MONO % 6.4 % (3.0-9.0); NEUT # 7.3 10*3/uL (2.3-7.9); NEUT % 61.9 % (47.0-73.0); PLATELET COUNT AUTOMATED 403 10*3/uL (130-400); RED BLOOD COUNT 4.33 10*6/uL (4.50-5.90); WHITE BLOOD COUNT 11.8 10*3/uL (4.8-10.8)
[2020-12-28 13:27] LABS: ACT PARTIAL THROMBO TIME 27.9 SECONDS (20.0-32.1); INTERNATIONAL NORM RATIO 0.9 (2.0-3.5)
[2020-12-28 13:31] LABS: ALBUMIN 3.6 gm/dl (3.1-4.5); ALKALINE PHOSPHATASE 96 U/L (45-117); BUN 9 mg/dl (7-24); CHLORIDE 101 mmol/L (98-107); CREATININE 0.76 mg/dL (0.70-1.30); LIPASE 92 U/L (73-393); SGOT/AST 10 IU/L (3-35); SGPT/ALT 22 U/L (12-78); SODIUM 130 mmol/L (136-145)
[2020-12-28 13:34] LABS: TROPONIN I < 0.015 ng/ml (<0.045)
[2020-12-28 14:17] LABS: BILIRUBIN Negative (Negative); BLOOD Negative (Negative); CLARITY Clear (Clear); COLOR Yellow (Yellow); GLUCOSE Negative (Negative); KETONE Trace (Negative); LEUKO ESTERASE Negative (Negative); NITRITE Negative (Negative); SPECIFIC GRAVITY 1.015 (1.001-1.030); UROBILINOGEN 0.2 E.U./dl (0.0-1.0)
[2020-12-28 14:29] LABS: BACTERIA TRACE
== END 2020-12-28 19:01 | disposition home or self-care (01) ==
LOC: ED 12:49
PROVIDERS: Emergency Medicine
DX: G43.909 Migraine, unspecified, not intractable, without status migrainosus (principal); K21.9 Gastro-esophageal reflux disease without esophagitis; I10 Essential (primary) hypertension; E11.9 Type 2 diabetes mellitus without complications; F32.9 Major depressive disorder, single episode, unspecified; F41.9 Anxiety disorder, unspecified; J44.9 Chronic obstructive pulmonary disease, unspecified; I25.10 Atherosclerotic heart disease of native coronary artery without angina pectoris; F17.200 Nicotine dependence, unspecified, uncomplicated; Z86.73 Personal history of transient ischemic attack (TIA), and cerebral infarction without residual deficits; Z91.041 Radiographic dye allergy status; Z91.040 Latex allergy status; Z79.899 Other long term (current) drug therapy; Z79.4 Long term (current) use of insulin; Z79.2 Long term (current) use of antibiotics; Z98.890 Other specified postprocedural states

== ENCOUNTER 2021-01-03 10:39 | Inpatient (IN) | payer OTHER ==
[~2021-01-03] VITALS: Ht 170.2 cm; Wt 75.6 kg
[2021-01-03] VITALS (7 sets, daily range): BP systolic 103–141; BP diastolic 64–80
[2021-01-03 11:03] LABS: BASO # 0.1 10*3/uL (0.0-0.1); BASO % 1.5 % (0.0-1.0); EOS # 0.6 10*3/uL (0.0-0.4); EOS % 8.5 % (1.0-4.0); HEMATOCRIT 41.3 % (42.0-52.0); LYMPH # 1.6 10*3/uL (1.3-4.4); LYMPH % 23.2 % (27.0-41.0); MEAN CELL VOLUME 90.6 fl (80.0-94.0); MEAN CORPUSCULAR HGB 32.2 pg (27.0-31.0); MEAN CORPUSCULAR HGB CONC 35.6 g/dl (33.0-37.0); MEAN PLATELET VOLUME 8.6 fl (9.6-12.3); MONO # 0.6 10*3/uL (0.1-1.0); MONO % 9.1 % (3.0-9.0); NEUT # 3.9 10*3/uL (2.3-7.9); NEUT % 57.4 % (47.0-73.0); PLATELET COUNT AUTOMATED 365 10*3/uL (130-400); RED BLOOD COUNT 4.56 10*6/uL (4.50-5.90); RED CELL DISTRI WIDTH 13.4 % (0-14.5); WHITE BLOOD COUNT 6.7 10*3/uL (4.8-10.8)
[2021-01-03 11:26] LABS: BILIRUBIN Negative (Negative); BLOOD Trace-Lysed (Negative); CLARITY Clear (Clear); COLOR Yellow (Yellow); GLUCOSE Trace (Negative); KETONE Negative (Negative); LEUKO ESTERASE Negative (Negative); NITRITE Negative (Negative); PH 5.5 (4.5-8.0); SPECIFIC GRAVITY <= 1.005 (1.001-1.030); UROBILINOGEN 0.2 E.U./dl (0.0-1.0)
[2021-01-03 11:32] LABS: ACT PARTIAL THROMBO TIME 27.9 SECONDS (20.0-32.1); INTERNATIONAL NORM RATIO 0.9 (2.0-3.5)
[2021-01-03 11:34] LABS: EPITHELIAL CELLS 0-2; URINE AMPHETAMINES < 1000 (1000ng/ml); URINE BARBITURATES < 200 (200ng/ml); URINE BENZODIAZEPINES < 200 (200ng/ml); URINE CANNABINOIDS (THC) < 50 (50ng/ml); URINE COCAINE < 300 (300ng/ml); URINE METHADONE < 300 (300ng/ml); URINE OPIATES < 300 (300ng/ml); URINE PHENCYCLIDINE < 25 (25ng/ml); WBC 0-2 wbc/hpf (0-5)
[2021-01-03 11:38] LABS: ALBUMIN 3.8 gm/dl (3.1-4.5); ALKALINE PHOSPHATASE 131 U/L (45-117); BUN 4 mg/dl (7-24); CHLORIDE 92 mmol/L (98-107); CREATININE 0.61 mg/dL (0.70-1.30); POTASSIUM 4.5 mmol/L (3.5-5.1); SGOT/AST 16 IU/L (3-35); SGPT/ALT 24 U/L (12-78); SODIUM 129 mmol/L (136-145); TOTAL PROTEIN 7.2 gm/dL (6.4-8.2)
[2021-01-03 11:41] LABS: TROPONIN I < 0.015 ng/ml (<0.045)
[2021-01-04] VITALS: BP 124/74
[2021-01-04 06:21] LABS: BASO % 0.5 % (0.0-1.0); EOS % 0.3 % (1.0-4.0); LYMPH # 2.1 10*3/uL (1.3-4.4); LYMPH % 28.3 % (27.0-41.0); MEAN CELL VOLUME 91.1 fl (80.0-94.0); MEAN CORPUSCULAR HGB 31.3 pg (27.0-31.0); MEAN CORPUSCULAR HGB CONC 34.4 g/dl (33.0-37.0); MEAN PLATELET VOLUME 8.5 fl (9.6-12.3); MONO % 13.1 % (3.0-9.0); NEUT # 4.3 10*3/uL (2.3-7.9); NEUT % 57.5 % (47.0-73.0); PLATELET COUNT AUTOMATED 330 10*3/uL (130-400); RED BLOOD COUNT 4.28 10*6/uL (4.50-5.90); RED CELL DISTRI WIDTH 13.5 % (0-14.5); WHITE BLOOD COUNT 7.5 10*3/uL (4.8-10.8)
[2021-01-04 07:25] LABS: BUN 9 mg/dl (7-24); CHLORIDE 99 mmol/L (98-107); CREATININE 0.67 mg/dL (0.70-1.30); POTASSIUM 4.3 mmol/L (3.5-5.1); SODIUM 130 mmol/L (136-145)
[2021-01-04 08:00] VITALS: BP 125/65
[2021-01-04 12:00] VITALS: BP 123/70
[2021-01-04 16:00] VITALS: BP 125/62
[2021-01-04 20:00] VITALS: BP 117/77
[2021-01-05] VITALS: BP 105/65
[2021-01-05 08:00] VITALS: BP 144/84
[2021-01-05] MEDS ORDERED: PREDNISONE5 MG PO ×2 (08:36)
== END 2021-01-05 09:17 | disposition home or self-care (01) | DRG 140 ==
LOC: ED 10:39 → EDHOLD 12:22 → 5E 12:22
PROVIDERS: Emergency Medicine; Internal Medicine Nephrology; ADMIT Internal Medicine; ATTEND Internal Medicine
DX: J44.1 Chronic obstructive pulmonary disease with (acute) exacerbation (principal); I10 Essential (primary) hypertension; N40.0 Benign prostatic hyperplasia without lower urinary tract symptoms; E87.2 Acidosis; E87.1 Hypo-osmolality and hyponatremia; E11.9 Type 2 diabetes mellitus without complications; E78.2 Mixed hyperlipidemia; F17.210 Nicotine dependence, cigarettes, uncomplicated; E83.42 Hypomagnesemia; F41.1 Generalized anxiety disorder; F31.9 Bipolar disorder, unspecified; E03.9 Hypothyroidism, unspecified; G43.909 Migraine, unspecified, not intractable, without status migrainosus; E87.8 Other disorders of electrolyte and fluid balance, not elsewhere classified; F10.231 Alcohol dependence with withdrawal delirium; Z91.041 Radiographic dye allergy status; Z83.3 Family history of diabetes mellitus; Z91.040 Latex allergy status; Z81.1 Family history of alcohol abuse and dependence; Z82.0 Family history of epilepsy and other diseases of the nervous system; Z82.3 Family history of stroke; Z68.34 Body mass index [BMI] 34.0-34.9, adult

== ENCOUNTER 2021-01-07 11:56 | Inpatient (IN) | payer OTHER ==
[2021-01-07] VITALS (7 sets, daily range): BP systolic 98–130; BP diastolic 50–82
[~2021-01-07] VITALS: Ht 170.2 cm; Wt 74.6 kg
[2021-01-07 12:57] LABS: BASO # 0.1 10*3/uL (0.0-0.1); BASO % 0.6 % (0.0-1.0); EOS # 0.7 10*3/uL (0.0-0.4); EOS % 7.6 % (1.0-4.0); HEMATOCRIT 34.9 % (42.0-52.0); LYMPH # 2.6 10*3/uL (1.3-4.4); LYMPH % 27.1 % (27.0-41.0); MEAN CELL VOLUME 92.6 fl (80.0-94.0); MEAN CORPUSCULAR HGB 31.8 pg (27.0-31.0); MEAN CORPUSCULAR HGB CONC 34.4 g/dl (33.0-37.0); MEAN PLATELET VOLUME 8.4 fl (9.6-12.3); MONO # 0.4 10*3/uL (0.1-1.0); MONO % 4.3 % (3.0-9.0); NEUT # 5.8 10*3/uL (2.3-7.9); NEUT % 60.1 % (47.0-73.0); PLATELET COUNT AUTOMATED 254 10*3/uL (130-400); RED BLOOD COUNT 3.77 10*6/uL (4.50-5.90); RED CELL DISTRI WIDTH 13.9 % (0-14.5); WHITE BLOOD COUNT 9.7 10*3/uL (4.8-10.8)
[2021-01-07 13:04] LABS: BILIRUBIN Negative (Negative); BLOOD Negative (Negative); CLARITY Clear (Clear); COLOR Yellow (Yellow); GLUCOSE Negative (Negative); KETONE Negative (Negative); LEUKO ESTERASE Negative (Negative); NITRITE Negative (Negative); SPECIFIC GRAVITY <= 1.005 (1.001-1.030); UROBILINOGEN 0.2 E.U./dl (0.0-1.0)
[2021-01-07 13:06] LABS: INTERNATIONAL NORM RATIO 1.1 (2.0-3.5)
[2021-01-07 13:11] LABS: URINE AMPHETAMINES < 1000 (1000ng/ml); URINE BARBITURATES < 200 (200ng/ml); URINE BENZODIAZEPINES < 200 (200ng/ml); URINE CANNABINOIDS (THC) < 50 (50ng/ml); URINE COCAINE < 300 (300ng/ml); URINE METHADONE < 300 (300ng/ml); URINE OPIATES < 300 (300ng/ml)
[2021-01-07 13:14] LABS: ALBUMIN 2.5 gm/dl (3.1-4.5); ALKALINE PHOSPHATASE 76 U/L (45-117); BUN 4 mg/dl (7-24); CHLORIDE 115 mmol/L (98-107); CREATININE 0.38 mg/dL (0.70-1.30); POTASSIUM 2.9 mmol/L (3.5-5.1); SGOT/AST 9 IU/L (3-35); SGPT/ALT 16 U/L (12-78); SODIUM 142 mmol/L (136-145); TOTAL PROTEIN 4.9 gm/dL (6.4-8.2)
[2021-01-07 13:17] LABS: URINE PHENCYCLIDINE < 25 (25ng/ml)
[2021-01-07 13:18] LABS: ETHYL ALCOHOL < 3.0 mg/dl (<3); TROPONIN I < 0.015 ng/ml (<0.045)
[2021-01-07 13:25] LABS: RBC 0-2 rbc/hpf (0-2); WBC 0-2 wbc/hpf (0-5)
[2021-01-07] MEDS ORDERED: GLUCOPHAGE XR750 MG PO (21:58)
[2021-01-07] MEDS ORDERED: ZESTRIL2.5 MG PO (21:59)
[2021-01-07] MEDS ORDERED: VITAMIN D3125 MC1 PO (22:01)
[2021-01-07] MEDS ORDERED: TRAZODONE50 MG PO (22:03)
[2021-01-07] MEDS ORDERED: MYRBETRIQ25 M1 PO (22:04)
[2021-01-07] MEDS ORDERED: ATIVAN0.5 MG PO (22:04)
[2021-01-08] VITALS (7 sets, daily range): BP systolic 90–144; BP diastolic 56–84
[2021-01-08 07:18] LABS: BUN 8 mg/dl (7-24); CHLORIDE 105 mmol/L (98-107); CREATININE 0.78 mg/dL (0.70-1.30); SODIUM 136 mmol/L (136-145)
[2021-01-08 07:30] LABS: POTASSIUM 4.3 mmol/L (3.5-5.1)
[2021-01-09] VITALS: BP 94/60
[2021-01-09 07:05] LABS: BUN 9 mg/dl (7-24); CHLORIDE 99 mmol/L (98-107); CREATININE 0.75 mg/dL (0.70-1.30); POTASSIUM 4.9 mmol/L (3.5-5.1); SODIUM 132 mmol/L (136-145)
[2021-01-09 08:00] VITALS: BP 162/90
[2021-01-09 12:00] VITALS: BP 130/97
[2021-01-09 16:00] VITALS: BP 144/98
[2021-01-09 20:00] VITALS: BP 135/102
[2021-01-10] VITALS: BP 104/64
[2021-01-10 06:19] LABS: BUN 9 mg/dl (7-24); CHLORIDE 98 mmol/L (98-107); CREATININE 0.86 mg/dL (0.70-1.30); POTASSIUM 4.7 mmol/L (3.5-5.1); SODIUM 131 mmol/L (136-145)
[2021-01-10 08:00] VITALS: BP 166/97
[2021-01-10 12:00] VITALS: BP 141/83
[2021-01-10 16:00] VITALS: BP 148/98
== END 2021-01-10 17:06 | disposition home or self-care (01) | DRG 775 ==
LOC: ED 11:56 → 5E 15:39 → EDHOLD 15:39 → 5E 20:21
PROVIDERS: Physician Assistant; ADMIT Internal Medicine; ATTEND Internal Medicine
DX: F10.231 Alcohol dependence with withdrawal delirium (principal); J43.2 Centrilobular emphysema; E11.65 Type 2 diabetes mellitus with hyperglycemia; N40.1 Benign prostatic hyperplasia with lower urinary tract symptoms; F17.210 Nicotine dependence, cigarettes, uncomplicated; R33.8 Other retention of urine; F51.01 Primary insomnia; K59.09 Other constipation; Z91.041 Radiographic dye allergy status; Z91.040 Latex allergy status; Z88.8 Allergy status to other drugs, medicaments and biological substances; Z83.3 Family history of diabetes mellitus; Z82.3 Family history of stroke

== ENCOUNTER 2021-02-14 03:18 | Inpatient (IN) | payer OTHER ==
[~2021-02-14] VITALS: Ht 170.1 cm; Wt 68.0 kg
[2021-02-14] VITALS (9 sets, daily range): BP systolic 112–166; BP diastolic 66–99
[~2021-02-14 03:18] MED LIST changes: +ATIVAN0.5 MG PO; +GLUCOPHAGE XR750 MG PO; +MYRBETRIQ25 M1 PO
[2021-02-14 03:42] LABS: BASO # 0.1 10*3/uL (0.0-0.1); BASO % 0.7 % (0.0-1.0); EOS # 0.9 10*3/uL (0.0-0.4); EOS % 9.9 % (1.0-4.0); HEMATOCRIT 41.9 % (42.0-52.0); LYMPH # 2.8 10*3/uL (1.3-4.4); LYMPH % 31.7 % (27.0-41.0); MEAN CELL VOLUME 90.5 fl (80.0-94.0); MEAN CORPUSCULAR HGB 31.1 pg (27.0-31.0); MEAN CORPUSCULAR HGB CONC 34.4 g/dl (33.0-37.0); MEAN PLATELET VOLUME 8.1 fl (9.6-12.3); MONO # 0.7 10*3/uL (0.1-1.0); NEUT # 4.3 10*3/uL (2.3-7.9); NEUT % 49.1 % (47.0-73.0); PLATELET COUNT AUTOMATED 303 10*3/uL (130-400); RED BLOOD COUNT 4.63 10*6/uL (4.50-5.90); RED CELL DISTRI WIDTH 14.2 % (0-14.5); WHITE BLOOD COUNT 8.8 10*3/uL (4.8-10.8)
[2021-02-14 04:00] LABS: ALBUMIN 3.6 gm/dl (3.1-4.5); ALKALINE PHOSPHATASE 138 U/L (45-117); BUN 12 mg/dl (7-24); CHLORIDE 96 mmol/L (98-107); CREATININE 0.73 mg/dL (0.70-1.30); POTASSIUM 4.3 mmol/L (3.5-5.1); SGOT/AST 20 IU/L (3-35); SGPT/ALT 35 U/L (12-78); SODIUM 129 mmol/L (136-145); TOTAL PROTEIN 7.5 gm/dL (6.4-8.2)
[2021-02-14 04:02] LABS: TROPONIN I < 0.015 ng/ml (<0.045)
[2021-02-14] MEDS ORDERED: FLOMAX0.4 MG PO (09:53)
[2021-02-15 06:16] LABS: BASO % 0.5 % (0.0-1.0); EOS # 0.5 10*3/uL (0.0-0.4); EOS % 6.2 % (1.0-4.0); HEMATOCRIT 38.5 % (42.0-52.0); LYMPH # 2.6 10*3/uL (1.3-4.4); LYMPH % 31.6 % (27.0-41.0); MEAN CELL VOLUME 90.2 fl (80.0-94.0); MEAN CORPUSCULAR HGB 31.4 pg (27.0-31.0); MEAN CORPUSCULAR HGB CONC 34.8 g/dl (33.0-37.0); MEAN PLATELET VOLUME 8.3 fl (9.6-12.3); MONO % 12.7 % (3.0-9.0); NEUT % 48.8 % (47.0-73.0); PLATELET COUNT AUTOMATED 299 10*3/uL (130-400); RED BLOOD COUNT 4.27 10*6/uL (4.50-5.90); WHITE BLOOD COUNT 8.1 10*3/uL (4.8-10.8)
[2021-02-15 06:28] LABS: BUN 9 mg/dl (7-24); CHLORIDE 96 mmol/L (98-107); CREATININE 0.69 mg/dL (0.70-1.30); SODIUM 130 mmol/L (136-145)
[2021-02-15 08:00] VITALS: BP 118/62
[2021-02-15 12:00] VITALS: BP 118/72
[2021-02-15 16:07] VITALS: BP 103/67
[2021-02-15 20:09] VITALS: BP 109/79
[2021-02-15] MEDS ORDERED: PROAIR HFA8.5 GM INH (21:21)
[2021-02-16] VITALS: BP 112/77
[2021-02-16 08:00] VITALS: BP 103/69
[2021-02-16] MEDS ORDERED: CEFUROXIME AXE250 MG PO (08:19)
== END 2021-02-16 09:07 | disposition home or self-care (01) | DRG 133 ==
LOC: ED 03:18 → EDHOLD 04:42 → 4E 04:42
PROVIDERS: Internal Medicine; ADMIT Internal Medicine; ATTEND Internal Medicine
DX: J96.00 Acute respiratory failure, unspecified whether with hypoxia or hypercapnia (principal); J44.1 Chronic obstructive pulmonary disease with (acute) exacerbation; F10.10 Alcohol abuse, uncomplicated; E87.1 Hypo-osmolality and hyponatremia; F17.210 Nicotine dependence, cigarettes, uncomplicated; E87.8 Other disorders of electrolyte and fluid balance, not elsewhere classified; J98.11 Atelectasis; E11.65 Type 2 diabetes mellitus with hyperglycemia; R65.20 Severe sepsis without septic shock; E11.649 Type 2 diabetes mellitus with hypoglycemia without coma; F41.1 Generalized anxiety disorder; E03.9 Hypothyroidism, unspecified; Z91.041 Radiographic dye allergy status; Z91.040 Latex allergy status; Z88.8 Allergy status to other drugs, medicaments and biological substances; Z83.3 Family history of diabetes mellitus; Z82.0 Family history of epilepsy and other diseases of the nervous system

== ENCOUNTER 2021-02-28 19:46 | Emergency (ER) | payer OTHER ==
[~2021-02-28] VITALS: Ht 170.1 cm; Wt 79.4 kg
[~2021-02-28 19:46] MED LIST changes: +PROAIR HFA8.5 GM INH
[2021-02-28 20:49] LABS: BILIRUBIN Negative (Negative); BLOOD Trace-Lysed (Negative); CLARITY Clear (Clear); COLOR Yellow (Yellow); GLUCOSE Negative (Negative); KETONE Negative (Negative); LEUKO ESTERASE Trace (Negative); NITRITE Negative (Negative); SPECIFIC GRAVITY <= 1.005 (1.001-1.030); UROBILINOGEN 0.2 E.U./dl (0.0-1.0)
[2021-02-28 21:08] LABS: WBC 0-2 wbc/hpf (0-5)
== END 2021-03-01 02:09 | disposition home or self-care (01) ==
LOC: ED 19:46
PROVIDERS: Emergency Medicine
DX: R33.9 Retention of urine, unspecified (principal); J44.9 Chronic obstructive pulmonary disease, unspecified; F31.9 Bipolar disorder, unspecified; K21.9 Gastro-esophageal reflux disease without esophagitis; E78.5 Hyperlipidemia, unspecified; E11.9 Type 2 diabetes mellitus without complications; E03.9 Hypothyroidism, unspecified; G43.909 Migraine, unspecified, not intractable, without status migrainosus; F17.210 Nicotine dependence, cigarettes, uncomplicated; Z91.041 Radiographic dye allergy status; Z88.8 Allergy status to other drugs, medicaments and biological substances; Z91.040 Latex allergy status; Z79.2 Long term (current) use of antibiotics; Z79.899 Other long term (current) drug therapy; Z79.4 Long term (current) use of insulin; Z86.73 Personal history of transient ischemic attack (TIA), and cerebral infarction without residual deficits; Z98.890 Other specified postprocedural states

== ENCOUNTER 2021-03-01 10:32 | Emergency (ER) | payer OTHER ==
[~2021-03-01] VITALS: Wt 76.7 kg
== END 2021-03-01 12:17 | disposition home or self-care (01) ==
LOC: ED 10:32
DX: T83.098A Other mechanical complication of other urinary catheter, initial encounter (principal); F10.920 Alcohol use, unspecified with intoxication, uncomplicated; R06.02 Shortness of breath; F31.9 Bipolar disorder, unspecified; J44.9 Chronic obstructive pulmonary disease, unspecified; I10 Essential (primary) hypertension; K21.9 Gastro-esophageal reflux disease without esophagitis; E78.5 Hyperlipidemia, unspecified; E03.9 Hypothyroidism, unspecified; G43.909 Migraine, unspecified, not intractable, without status migrainosus; F17.210 Nicotine dependence, cigarettes, uncomplicated; Z91.041 Radiographic dye allergy status; Z88.8 Allergy status to other drugs, medicaments and biological substances; Z91.040 Latex allergy status; Z79.2 Long term (current) use of antibiotics; Z79.899 Other long term (current) drug therapy; Z79.4 Long term (current) use of insulin; Z86.73 Personal history of transient ischemic attack (TIA), and cerebral infarction without residual deficits; Z98.890 Other specified postprocedural states; Y84.8 Other medical procedures as the cause of abnormal reaction of the patient, or of later complication, without mention of misadventure at the time of the procedure; Y92.89 Other specified places as the place of occurrence of the external cause; Y90.2 Blood alcohol level of 40-59 mg/100 ml

== ENCOUNTER 2021-03-08 12:01 | Inpatient (IN) | payer OTHER ==
[~2021-03-08] VITALS: Ht 170.1 cm; Wt 72.0 kg
[2021-03-08 12:05] VITALS: BP 163/93
[2021-03-08 13:06] LABS: BASO # 0.1 10*3/uL (0.0-0.1); BASO % 0.7 % (0.0-1.0); EOS % 7.7 % (1.0-4.0); HEMATOCRIT 42.7 % (42.0-52.0); LYMPH # 2.7 10*3/uL (1.3-4.4); MEAN CELL VOLUME 88.8 fl (80.0-94.0); MEAN CORPUSCULAR HGB CONC 34.9 g/dl (33.0-37.0); MEAN PLATELET VOLUME 8.2 fl (9.6-12.3); MONO # 0.6 10*3/uL (0.1-1.0); MONO % 4.8 % (3.0-9.0); NEUT # 8.4 10*3/uL (2.3-7.9); NEUT % 65.3 % (47.0-73.0); PLATELET COUNT AUTOMATED 430 10*3/uL (130-400); RED BLOOD COUNT 4.81 10*6/uL (4.50-5.90); RED CELL DISTRI WIDTH 13.3 % (0-14.5); WHITE BLOOD COUNT 12.9 10*3/uL (4.8-10.8)
[2021-03-08 13:21] LABS: ALKALINE PHOSPHATASE 164 U/L (45-117); BUN 4 mg/dl (7-24); CHLORIDE 90 mmol/L (98-107); CREATININE 0.66 mg/dL (0.70-1.30); LIPASE 85 U/L (73-393); POTASSIUM 4.7 mmol/L (3.5-5.1); SGOT/AST 18 IU/L (3-35); SGPT/ALT 32 U/L (12-78); SODIUM 123 mmol/L (136-145)
[2021-03-08 13:41] LABS: BILIRUBIN Negative (Negative); BLOOD Trace-Intact (Negative); CLARITY Clear (Clear); COLOR Yellow (Yellow); GLUCOSE 2+ (Negative); KETONE Trace (Negative); LEUKO ESTERASE Trace (Negative); NITRITE Positive (Negative); PH 5.5 (4.5-8.0); UROBILINOGEN 0.2 E.U./dl (0.0-1.0)
[2021-03-08 13:49] LABS: BACTERIA 3+; EPITHELIAL CELLS 0-2
[2021-03-08 13:50] LABS: URINE AMPHETAMINES < 1000 (1000ng/ml); URINE BARBITURATES < 200 (200ng/ml); URINE BENZODIAZEPINES < 200 (200ng/ml); URINE CANNABINOIDS (THC) < 50 (50ng/ml); URINE COCAINE < 300 (300ng/ml); URINE METHADONE < 300 (300ng/ml); URINE OPIATES < 300 (300ng/ml); URINE PHENCYCLIDINE < 25 (25ng/ml)
[2021-03-08 16:09] VITALS: BP 122/78
[2021-03-08 17:30] VITALS: BP 139/74
[2021-03-08 20:00] VITALS: BP 108/62
[2021-03-09] VITALS: BP 93/58
[2021-03-09 04:00] VITALS: BP 96/55
[2021-03-09 06:15] LABS: BUN 10 mg/dl (7-24); CHLORIDE 91 mmol/L (98-107); POTASSIUM 4.6 mmol/L (3.5-5.1); SODIUM 126 mmol/L (136-145)
[2021-03-09 08:22] VITALS: BP 108/39
[2021-03-09 12:00] VITALS: BP 106/62
[2021-03-09 16:00] VITALS: BP 115/78
[2021-03-09 18:14] LABS: BILIRUBIN Negative (Negative); BLOOD 3+ (Negative); CLARITY Cloudy (Clear); COLOR Yellow (Yellow); GLUCOSE 3+ (Negative); KETONE Negative (Negative); LEUKO ESTERASE 2+ (Negative); NITRITE Negative (Negative); SPECIFIC GRAVITY 1.025 (1.001-1.030); UROBILINOGEN 0.2 E.U./dl (0.0-1.0)
[2021-03-09 18:48] LABS: BACTERIA TRACE; EPITHELIAL CELLS 0-2; RBC 51-100 rbc/hpf (0-2); WBC 51-100 wbc/hpf (0-5)
[2021-03-09 20:00] VITALS: BP 94/54
[2021-03-09 20:12] LABS: BUN 15 mg/dl (7-24); CHLORIDE 90 mmol/L (98-107); CREATININE 0.87 mg/dL (0.70-1.30); POTASSIUM 4.4 mmol/L (3.5-5.1); SODIUM 123 mmol/L (136-145)
[2021-03-10] VITALS: BP 116/50; BP 95/51
[2021-03-10 01:58] LABS: BUN 16 mg/dl (7-24); CHLORIDE 95 mmol/L (98-107); CREATININE 0.68 mg/dL (0.70-1.30); POTASSIUM 4.2 mmol/L (3.5-5.1); SODIUM 129 mmol/L (136-145)
[2021-03-10 07:43] LABS: BUN 13 mg/dl (7-24); CHLORIDE 98 mmol/L (98-107); CREATININE 0.62 mg/dL (0.70-1.30); POTASSIUM 4.1 mmol/L (3.5-5.1); SODIUM 129 mmol/L (136-145)
[2021-03-10 08:00] VITALS: BP 126/80
[2021-03-10] MEDS ORDERED: SEPTDS PO (10:11)
[2021-03-11] MEDS ORDERED: PRAVASTATIN SOD20 MG PO (20:53)
[2021-03-11] MEDS ORDERED: ACARBOSE25 MG PO (20:59)
== END 2021-03-10 12:15 | disposition home or self-care (01) | DRG 463 ==
LOC: ED 12:01 → EDHOLD 16:15 → ICCU 16:15 → 5E 16:15 → ICCU 16:56 → 5E 03-09 13:15
PROVIDERS: Internal Medicine Nephrology; Physician Assistant; ADMIT Internal Medicine; ATTEND Internal Medicine
DX: N39.0 Urinary tract infection, site not specified (principal); F10.221 Alcohol dependence with intoxication delirium; Y90.6 Blood alcohol level of 120-199 mg/100 ml; E87.1 Hypo-osmolality and hyponatremia; J43.2 Centrilobular emphysema; B95.2 Enterococcus as the cause of diseases classified elsewhere; F10.231 Alcohol dependence with withdrawal delirium; F51.01 Primary insomnia; R33.8 Other retention of urine; I10 Essential (primary) hypertension; K21.9 Gastro-esophageal reflux disease without esophagitis; E78.5 Hyperlipidemia, unspecified; G43.909 Migraine, unspecified, not intractable, without status migrainosus; F17.210 Nicotine dependence, cigarettes, uncomplicated; N40.1 Benign prostatic hyperplasia with lower urinary tract symptoms; F41.1 Generalized anxiety disorder; E03.9 Hypothyroidism, unspecified; F33.1 Major depressive disorder, recurrent, moderate; K59.09 Other constipation; E11.9 Type 2 diabetes mellitus without complications; Y84.8 Other medical procedures as the cause of abnormal reaction of the patient, or of later complication, without mention of misadventure at the time of the procedure; Z91.041 Radiographic dye allergy status; Z91.040 Latex allergy status; Z88.8 Allergy status to other drugs, medicaments and biological substances; Z81.1 Family history of alcohol abuse and dependence; Z83.3 Family history of diabetes mellitus; Z82.3 Family history of stroke; Z82.0 Family history of epilepsy and other diseases of the nervous system; Z86.73 Personal history of transient ischemic attack (TIA), and cerebral infarction without residual deficits; Z79.899 Other long term (current) drug therapy; Y92.89 Other specified places as the place of occurrence of the external cause

== ENCOUNTER 2021-03-11 04:40 | Emergency (ER) | payer OTHER ==
[~2021-03-11] VITALS: Ht 165.1 cm
[2021-03-11 05:06] LABS: BILIRUBIN Negative (Negative); BLOOD Negative (Negative); CLARITY Clear (Clear); COLOR Yellow (Yellow); GLUCOSE Negative (Negative); KETONE Negative (Negative); LEUKO ESTERASE Negative (Negative); NITRITE Negative (Negative); UROBILINOGEN 0.2 E.U./dl (0.0-1.0)
[2021-03-11 05:12] LABS: RBC 0-2 rbc/hpf (0-2); WBC 0-2 wbc/hpf (0-5)
[2021-03-11] MEDS ORDERED: PRAVASTATIN SOD20 MG PO (20:53)
[2021-03-11] MEDS ORDERED: ACARBOSE25 MG PO (20:59)
== END 2021-03-11 05:34 | disposition home or self-care (01) ==
LOC: ED 04:40
PROVIDERS: Internal Medicine
DX: R33.9 Retention of urine, unspecified (principal); Z91.041 Radiographic dye allergy status; Z91.040 Latex allergy status; Z79.899 Other long term (current) drug therapy; Z79.4 Long term (current) use of insulin; Z98.890 Other specified postprocedural states

== ENCOUNTER 2021-03-11 11:21 | Observation (INO) | payer OTHER ==
[~2021-03-11] VITALS: Ht 170.1 cm; Wt 73.1 kg
[2021-03-11 11:30] VITALS: BP 134/101
[2021-03-11 11:58] LABS: BASO # 0.1 10*3/uL (0.0-0.1); BASO % 0.6 % (0.0-1.0); EOS # 0.8 10*3/uL (0.0-0.4); EOS % 8.3 % (1.0-4.0); HEMATOCRIT 38.7 % (42.0-52.0); LYMPH # 2.2 10*3/uL (1.3-4.4); LYMPH % 22.1 % (27.0-41.0); MEAN CELL VOLUME 91.1 fl (80.0-94.0); MEAN CORPUSCULAR HGB 31.1 pg (27.0-31.0); MEAN CORPUSCULAR HGB CONC 34.1 g/dl (33.0-37.0); MEAN PLATELET VOLUME 8.3 fl (9.6-12.3); MONO # 0.7 10*3/uL (0.1-1.0); MONO % 6.9 % (3.0-9.0); NEUT # 6.1 10*3/uL (2.3-7.9); NEUT % 61.5 % (47.0-73.0); PLATELET COUNT AUTOMATED 344 10*3/uL (130-400); RED BLOOD COUNT 4.25 10*6/uL (4.50-5.90); RED CELL DISTRI WIDTH 13.4 % (0-14.5); WHITE BLOOD COUNT 9.9 10*3/uL (4.8-10.8)
[2021-03-11 12:10] LABS: ACT PARTIAL THROMBO TIME 25.8 SECONDS (20.0-32.1)
[2021-03-11 12:18] LABS: ALKALINE PHOSPHATASE 145 U/L (45-117); BUN 5 mg/dl (7-24); CHLORIDE 92 mmol/L (98-107); CREATININE 0.84 mg/dL (0.70-1.30); LIPASE 55 U/L (73-393); POTASSIUM 4.1 mmol/L (3.5-5.1); SGOT/AST 19 IU/L (3-35); SGPT/ALT 32 U/L (12-78); SODIUM 123 mmol/L (136-145); TOTAL PROTEIN 7.5 gm/dL (6.4-8.2)
[2021-03-11 12:26] LABS: ALBUMIN 3.7 gm/dl (3.1-4.5); ETHYL ALCOHOL < 3.0 mg/dl (<3); TROPONIN I < 0.015 ng/ml (<0.045)
[2021-03-11 12:54] VITALS: BP 138/96
[2021-03-11 12:58] LABS: BILIRUBIN Negative (Negative); BLOOD Negative (Negative); CLARITY Clear (Clear); COLOR Yellow (Yellow); GLUCOSE 1+ (Negative); KETONE Trace (Negative); LEUKO ESTERASE Negative (Negative); NITRITE Negative (Negative); UROBILINOGEN 0.2 E.U./dl (0.0-1.0)
[2021-03-11 13:22] LABS: EPITHELIAL CELLS 0-2
[2021-03-11] MEDS ORDERED: PRAVASTATIN SOD20 MG PO (20:53)
[2021-03-11] MEDS ORDERED: ACARBOSE25 MG PO (20:59)
[2021-03-11 21:03] VITALS: BP 108/69
[2021-03-11 21:20] VITALS: BP 106/75
[2021-03-12] VITALS: BP 107/58
[2021-03-12 06:28] LABS: BASO # 0.1 10*3/uL (0.0-0.1); BASO % 0.5 % (0.0-1.0); EOS # 0.6 10*3/uL (0.0-0.4); EOS % 5.7 % (1.0-4.0); HEMATOCRIT 38.7 % (42.0-52.0); LYMPH # 1.9 10*3/uL (1.3-4.4); LYMPH % 18.2 % (27.0-41.0); MEAN CELL VOLUME 91.7 fl (80.0-94.0); MEAN CORPUSCULAR HGB 31.3 pg (27.0-31.0); MEAN CORPUSCULAR HGB CONC 34.1 g/dl (33.0-37.0); MEAN PLATELET VOLUME 8.5 fl (9.6-12.3); MONO % 9.3 % (3.0-9.0); NEUT # 6.9 10*3/uL (2.3-7.9); NEUT % 65.9 % (47.0-73.0); PLATELET COUNT AUTOMATED 371 10*3/uL (130-400); RED BLOOD COUNT 4.22 10*6/uL (4.50-5.90); RED CELL DISTRI WIDTH 13.6 % (0-14.5); WHITE BLOOD COUNT 10.4 10*3/uL (4.8-10.8)
[2021-03-12 06:52] LABS: ALBUMIN 3.7 gm/dl (3.1-4.5); ALKALINE PHOSPHATASE 139 U/L (45-117); BUN 8 mg/dl (7-24); CHLORIDE 95 mmol/L (98-107); CREATININE 0.63 mg/dL (0.70-1.30); POTASSIUM 3.8 mmol/L (3.5-5.1); SGOT/AST 33 IU/L (3-35); SGPT/ALT 30 U/L (12-78); SODIUM 128 mmol/L (136-145); TOTAL PROTEIN 7.3 gm/dL (6.4-8.2)
[2021-03-12 08:00] VITALS: BP 122/66
== END 2021-03-12 10:38 | disposition home or self-care (01) ==
LOC: ED 11:21 → EDHOLD 15:14 → 4E 19:35
PROVIDERS: Emergency Medicine; ADMIT Internal Medicine; ATTEND Internal Medicine
DX: R55 Syncope and collapse (principal); E03.9 Hypothyroidism, unspecified; E11.9 Type 2 diabetes mellitus without complications; F32.9 Major depressive disorder, single episode, unspecified; J44.9 Chronic obstructive pulmonary disease, unspecified; E87.1 Hypo-osmolality and hyponatremia; N40.0 Benign prostatic hyperplasia without lower urinary tract symptoms; N39.0 Urinary tract infection, site not specified; F10.229 Alcohol dependence with intoxication, unspecified; F17.200 Nicotine dependence, unspecified, uncomplicated; Y90.9 Presence of alcohol in blood, level not specified

== ENCOUNTER 2021-03-13 10:34 | Emergency (ER) | payer OTHER ==
[2021-03-13 11:53] LABS: BASO # 0.1 10*3/uL (0.0-0.1); BASO % 0.4 % (0.0-1.0); EOS # 0.5 10*3/uL (0.0-0.4); EOS % 4.4 % (1.0-4.0); HEMATOCRIT 37.2 % (42.0-52.0); LYMPH % 16.9 % (27.0-41.0); MEAN CORPUSCULAR HGB 31.1 pg (27.0-31.0); MEAN CORPUSCULAR HGB CONC 35.2 g/dl (33.0-37.0); MEAN PLATELET VOLUME 8.1 fl (9.6-12.3); MONO # 1.1 10*3/uL (0.1-1.0); MONO % 9.1 % (3.0-9.0); NEUT # 8.2 10*3/uL (2.3-7.9); NEUT % 68.8 % (47.0-73.0); PLATELET COUNT AUTOMATED 343 10*3/uL (130-400); RED BLOOD COUNT 4.21 10*6/uL (4.50-5.90); RED CELL DISTRI WIDTH 12.9 % (0-14.5); WHITE BLOOD COUNT 11.9 10*3/uL (4.8-10.8)
[2021-03-13 11:55] LABS: MEAN CELL VOLUME 88.4 fl (80.0-94.0)
[2021-03-13 12:05] LABS: ACT PARTIAL THROMBO TIME 28.8 SECONDS (20.0-32.1); INTERNATIONAL NORM RATIO 0.9 (2.0-3.5)
[2021-03-13 12:08] LABS: ALBUMIN 3.3 gm/dl (3.1-4.5); ALKALINE PHOSPHATASE 139 U/L (45-117); BUN 7 mg/dl (7-24); CHLORIDE 94 mmol/L (98-107); CREATININE 0.61 mg/dL (0.70-1.30); LIPASE 75 U/L (73-393); SGOT/AST 37 IU/L (3-35); SGPT/ALT 32 U/L (12-78); SODIUM 124 mmol/L (136-145); TOTAL PROTEIN 7.6 gm/dL (6.4-8.2)
[2021-03-13 12:09] LABS: ETHYL ALCOHOL < 3.0 mg/dl (<3)
== END 2021-03-13 17:23 | disposition home or self-care (01) ==
LOC: ED 10:34
PROVIDERS: Emergency Medicine
DX: S49.91XA Unspecified injury of right shoulder and upper arm, initial encounter (principal); Z91.041 Radiographic dye allergy status; Z91.040 Latex allergy status; Z79.4 Long term (current) use of insulin; Z79.899 Other long term (current) drug therapy; Z98.890 Other specified postprocedural states; X58.XXXA Exposure to other specified factors, initial encounter; Y93.89 Activity, other specified; Y92.89 Other specified places as the place of occurrence of the external cause; Y99.8 Other external cause status

== ENCOUNTER 2021-04-09 17:46 | Emergency (ER) | payer OTHER ==
[~2021-04-09] VITALS: Ht 170.1 cm; Wt 76.3 kg
[2021-04-09 18:44] LABS: BASO # 0.1 10*3/uL (0.0-0.1); BASO % 0.7 % (0.0-1.0); EOS # 1.4 10*3/uL (0.0-0.4); EOS % 13.9 % (1.0-4.0); HEMATOCRIT 39.3 % (42.0-52.0); LYMPH # 3.5 10*3/uL (1.3-4.4); LYMPH % 35.4 % (27.0-41.0); MEAN CELL VOLUME 86.9 fl (80.0-94.0); MEAN CORPUSCULAR HGB 30.8 pg (27.0-31.0); MEAN CORPUSCULAR HGB CONC 35.4 g/dl (33.0-37.0); MEAN PLATELET VOLUME 8.2 fl (9.6-12.3); MONO # 1.1 10*3/uL (0.1-1.0); MONO % 10.9 % (3.0-9.0); NEUT # 3.8 10*3/uL (2.3-7.9); NEUT % 38.8 % (47.0-73.0); PLATELET COUNT AUTOMATED 332 10*3/uL (130-400); RED BLOOD COUNT 4.52 10*6/uL (4.50-5.90); RED CELL DISTRI WIDTH 13.6 % (0-14.5); WHITE BLOOD COUNT 9.9 10*3/uL (4.8-10.8)
[2021-04-09 18:59] LABS: ALBUMIN 3.2 gm/dl (3.1-4.5); ALKALINE PHOSPHATASE 159 U/L (45-117); BUN 5 mg/dl (7-24); CHLORIDE 93 mmol/L (98-107); CREATININE 0.61 mg/dL (0.70-1.30); POTASSIUM 3.6 mmol/L (3.5-5.1); SGOT/AST 13 IU/L (3-35); SGPT/ALT 19 U/L (12-78); SODIUM 125 mmol/L (136-145); TOTAL PROTEIN 7.4 gm/dL (6.4-8.2)
[2021-04-09 19:45] LABS: BILIRUBIN Negative (Negative); BLOOD Negative (Negative); CLARITY Cloudy (Clear); COLOR Yellow (Yellow); GLUCOSE Negative (Negative); KETONE Negative (Negative); LEUKO ESTERASE 3+ (Negative); NITRITE Positive (Negative); SPECIFIC GRAVITY <= 1.005 (1.001-1.030); UROBILINOGEN 0.2 E.U./dl (0.0-1.0)
[2021-04-09 20:00] LABS: BACTERIA 2+; WBC 21-30 wbc/hpf (0-5)
[2021-04-10 07:26] LABS: BUN 5 mg/dl (7-24); CHLORIDE 99 mmol/L (98-107); CREATININE 0.52 mg/dL (0.70-1.30); SODIUM 131 mmol/L (136-145)
== END 2021-04-10 08:29 | disposition home or self-care (01) ==
LOC: ED 17:46
PROVIDERS: Emergency Medicine
DX: E87.1 Hypo-osmolality and hyponatremia (principal); N39.0 Urinary tract infection, site not specified; F17.200 Nicotine dependence, unspecified, uncomplicated; Z91.041 Radiographic dye allergy status; Z91.040 Latex allergy status; Z88.8 Allergy status to other drugs, medicaments and biological substances; Z79.899 Other long term (current) drug therapy; Z79.4 Long term (current) use of insulin; Z98.890 Other specified postprocedural states

== ENCOUNTER 2021-05-31 16:48 | Inpatient (IN) | payer OTHER ==
[~2021-05-31] VITALS: Ht 170.2 cm; Wt 71.9 kg
[2021-05-31] VITALS (7 sets, daily range): BP systolic 117–160; BP diastolic 68–98
[2021-05-31 17:15] LABS: BILIRUBIN Negative (Negative); BLOOD Trace-Lysed (Negative); CLARITY Turbid (Clear); COLOR Yellow (Yellow); GLUCOSE Negative (Negative); KETONE Trace (Negative); LEUKO ESTERASE 2+ (Negative); NITRITE Positive (Negative); PH 7.5 (4.5-8.0)
[2021-05-31 17:18] LABS: BASO # 0.1 10*3/uL (0.0-0.1); BASO % 0.8 % (0.0-1.0); EOS # 1.5 10*3/uL (0.0-0.4); EOS % 9.5 % (1.0-4.0); HEMATOCRIT 44.7 % (42.0-52.0); LYMPH # 4.1 10*3/uL (1.3-4.4); LYMPH % 26.2 % (27.0-41.0); MEAN CORPUSCULAR HGB CONC 34.5 g/dl (33.0-37.0); MEAN PLATELET VOLUME 8.5 fl (9.6-12.3); MONO # 1.1 10*3/uL (0.1-1.0); MONO % 6.7 % (3.0-9.0); NEUT # 8.8 10*3/uL (2.3-7.9); NEUT % 56.3 % (47.0-73.0); PLATELET COUNT AUTOMATED 426 10*3/uL (130-400); RED BLOOD COUNT 5.14 10*6/uL (4.50-5.90); RED CELL DISTRI WIDTH 15.4 % (0-14.5); WHITE BLOOD COUNT 15.7 10*3/uL (4.8-10.8)
[2021-05-31 17:24] LABS: BACTERIA 4+; RBC 21-30 rbc/hpf (0-2); TRIP PHOS CRYSTALS 2+; WBC TNTC wbc/hpf (0-5)
[2021-05-31 17:34] LABS: ALBUMIN 3.8 gm/dl (3.1-4.5); ALKALINE PHOSPHATASE 139 U/L (45-117); BUN 10 mg/dl (7-24); CHLORIDE 102 mmol/L (98-107); CREATININE 0.63 mg/dL (0.70-1.30); POTASSIUM 3.7 mmol/L (3.5-5.1); SGOT/AST 20 IU/L (3-35); SGPT/ALT 25 U/L (12-78); SODIUM 135 mmol/L (136-145)
[2021-05-31 17:36] LABS: TROPONIN I < 0.015 ng/ml (<0.045)
[2021-06-01] VITALS (7 sets, daily range): BP systolic 80–144; BP diastolic 50–92
[2021-06-02] VITALS: BP 90/48
[2021-06-02 01:32] LABS: ABG BASE EXCESS -1.1 mmol/L (-2.0-2.0); ARTERIAL BLOOD GAS PH 7.407 (7.35-7.45); ARTERIAL BLOOD GAS PO2 76.7 (80-90)
[2021-06-02 08:00] VITALS: BP 115/75
[2021-06-02 12:00] VITALS: BP 106/60
[2021-06-02 16:00] VITALS: BP 104/61
[2021-06-02 20:00] VITALS: BP 87/50
[2021-06-03] VITALS: BP 102/53
[2021-06-03 08:17] VITALS: BP 112/66
== END 2021-06-03 10:30 | disposition home health service (06) | DRG 466 ==
LOC: ED 16:48 → EDHOLD 18:54 → 4E 18:54 → 5E 20:31 → 4E 20:48
PROVIDERS: Emergency Medicine; Internal Medicine; Physician Assistant; ADMIT Internal Medicine; ATTEND Internal Medicine
DX: T83.511A Infection and inflammatory reaction due to indwelling urethral catheter, initial encounter (principal); N39.0 Urinary tract infection, site not specified; J44.1 Chronic obstructive pulmonary disease with (acute) exacerbation; J96.20 Acute and chronic respiratory failure, unspecified whether with hypoxia or hypercapnia; B96.89 Other specified bacterial agents as the cause of diseases classified elsewhere; Z20.822 Contact with and (suspected) exposure to COVID-19; Y83.8 Other surgical procedures as the cause of abnormal reaction of the patient, or of later complication, without mention of misadventure at the time of the procedure; R33.8 Other retention of urine; N40.1 Benign prostatic hyperplasia with lower urinary tract symptoms; I10 Essential (primary) hypertension; F10.20 Alcohol dependence, uncomplicated; Y90.9 Presence of alcohol in blood, level not specified; E87.1 Hypo-osmolality and hyponatremia; E11.65 Type 2 diabetes mellitus with hyperglycemia; F17.210 Nicotine dependence, cigarettes, uncomplicated; F33.1 Major depressive disorder, recurrent, moderate; Y92.89 Other specified places as the place of occurrence of the external cause

== ENCOUNTER 2021-07-06 13:27 | Inpatient (IN) | payer OTHER ==
[~2021-07-06] VITALS: Ht 170.1 cm; Wt 73.5 kg
[2021-07-06 13:46] VITALS: BP 126/67
[2021-07-06 14:00] VITALS: BP 126/67
[2021-07-06 15:02] LABS: BASO # 0.1 10*3/uL (0.0-0.1); EOS # 0.9 10*3/uL (0.0-0.4); EOS % 6.7 % (1.0-4.0); HEMATOCRIT 41.2 % (42.0-52.0); LYMPH # 2.2 10*3/uL (1.3-4.4); LYMPH % 16.3 % (27.0-41.0); MEAN CELL VOLUME 86.6 fl (80.0-94.0); MEAN CORPUSCULAR HGB 30.7 pg (27.0-31.0); MEAN CORPUSCULAR HGB CONC 35.4 g/dl (33.0-37.0); MEAN PLATELET VOLUME 8.4 fl (9.6-12.3); MONO % 7.2 % (3.0-9.0); NEUT # 9.2 10*3/uL (2.3-7.9); NEUT % 68.2 % (47.0-73.0); PLATELET COUNT AUTOMATED 420 10*3/uL (130-400); RED BLOOD COUNT 4.76 10*6/uL (4.50-5.90); RED CELL DISTRI WIDTH 15.1 % (0-14.5); WHITE BLOOD COUNT 13.6 10*3/uL (4.8-10.8)
[2021-07-06 15:09] LABS: BILIRUBIN Negative (Negative); BLOOD Negative (Negative); CLARITY Clear (Clear); COLOR Yellow (Yellow); GLUCOSE 2+ (Negative); KETONE Trace (Negative); LEUKO ESTERASE Negative (Negative); NITRITE Negative (Negative)
[2021-07-06 15:25] LABS: ALBUMIN 3.6 gm/dl (3.1-4.5); ALKALINE PHOSPHATASE 122 U/L (45-117); BUN 5 mg/dl (7-24); CHLORIDE 94 mmol/L (98-107); CREATININE 0.55 mg/dL (0.70-1.30); LIPASE 73 U/L (73-393); POTASSIUM 4.8 mmol/L (3.5-5.1); SGOT/AST 16 IU/L (3-35); SGPT/ALT 25 U/L (12-78); SODIUM 128 mmol/L (136-145); TOTAL PROTEIN 7.5 gm/dL (6.4-8.2)
[2021-07-06 15:29] LABS: BACTERIA TRACE; EPITHELIAL CELLS 0-2; RBC 0-2 rbc/hpf (0-2)
[2021-07-06 15:30] LABS: ETHYL ALCOHOL < 3.0 mg/dl (<3); TROPONIN I < 0.015 ng/ml (<0.045)
[2021-07-06 16:00] VITALS: BP 125/80
[2021-07-06 21:07] VITALS: BP 108/53
[2021-07-06 22:55] VITALS: BP 104/54
[2021-07-07] VITALS (9 sets, daily range): BP systolic 87–135; BP diastolic 46–83
[2021-07-08] VITALS: BP 99/66
[2021-07-08 07:00] LABS: BASO # 0.1 10*3/uL (0.0-0.1); BASO % 0.5 % (0.0-1.0); EOS # 0.3 10*3/uL (0.0-0.4); EOS % 2.4 % (1.0-4.0); HEMATOCRIT 39.4 % (42.0-52.0); LYMPH # 3.7 10*3/uL (1.3-4.4); LYMPH % 30.5 % (27.0-41.0); MEAN CELL VOLUME 88.9 fl (80.0-94.0); MEAN CORPUSCULAR HGB 30.7 pg (27.0-31.0); MEAN CORPUSCULAR HGB CONC 34.5 g/dl (33.0-37.0); MEAN PLATELET VOLUME 8.7 fl (9.6-12.3); MONO # 1.1 10*3/uL (0.1-1.0); MONO % 8.7 % (3.0-9.0); NEUT % 57.6 % (47.0-73.0); PLATELET COUNT AUTOMATED 388 10*3/uL (130-400); RED BLOOD COUNT 4.43 10*6/uL (4.50-5.90); RED CELL DISTRI WIDTH 15.3 % (0-14.5); WHITE BLOOD COUNT 12.1 10*3/uL (4.8-10.8)
[2021-07-08 07:04] LABS: BUN 19 mg/dl (7-24); CHLORIDE 92 mmol/L (98-107); CREATININE 0.82 mg/dL (0.70-1.30); POTASSIUM 4.3 mmol/L (3.5-5.1); SODIUM 128 mmol/L (136-145)
[2021-07-08 08:00] VITALS: BP 102/70
[2021-07-08] MEDS ORDERED: Ipratropium Brom3 ML NEB (08:32)
[2021-07-08] MEDS ORDERED: ATIVAN0.5 MG PO (08:32)
[2021-07-08] MEDS ORDERED: PREDNISONE5 MG PO (08:32)
[2021-07-08] MEDS ORDERED: CEFUROXIME AXE250 MG PO (08:32)
[2021-07-08] MEDS ORDERED: TRAZODONE50 MG PO (08:34)
== END 2021-07-08 11:18 | disposition home or self-care (01) | DRG 140 ==
LOC: ED 13:27 → EDHOLD 17:21 → 4E 07-07 18:30
PROVIDERS: Emergency Medicine; ADMIT Internal Medicine; ATTEND Internal Medicine
DX: J44.1 Chronic obstructive pulmonary disease with (acute) exacerbation (principal); E87.1 Hypo-osmolality and hyponatremia; E87.2 Acidosis; F17.210 Nicotine dependence, cigarettes, uncomplicated; F10.20 Alcohol dependence, uncomplicated; F51.01 Primary insomnia; E11.9 Type 2 diabetes mellitus without complications; N40.0 Benign prostatic hyperplasia without lower urinary tract symptoms; F41.1 Generalized anxiety disorder; J96.01 Acute respiratory failure with hypoxia; Z91.041 Radiographic dye allergy status; Z91.040 Latex allergy status; Z88.8 Allergy status to other drugs, medicaments and biological substances; Z91.19 Patient's noncompliance with other medical treatment and regimen; Z83.3 Family history of diabetes mellitus; Z82.0 Family history of epilepsy and other diseases of the nervous system; E44.1 Mild protein-calorie malnutrition

== ENCOUNTER 2021-09-13 10:05 | Inpatient (IN) | payer OTHER ==
[~2021-09-13] VITALS: Ht 170.1 cm; Wt 75.9 kg
[2021-09-13 10:11] VITALS: BP 133/96
[2021-09-13 10:30] VITALS: BP 133/96
[2021-09-13 10:48] LABS: BASO % 0.4 % (0.0-1.0); EOS # 0.6 10*3/uL (0.0-0.4); EOS % 6.7 % (1.0-4.0); HEMATOCRIT 39.2 % (42.0-52.0); LYMPH # 2.4 10*3/uL (1.3-4.4); LYMPH % 25.1 % (27.0-41.0); MEAN CELL VOLUME 86.2 fl (80.0-94.0); MEAN PLATELET VOLUME 8.2 fl (9.6-12.3); MONO # 0.8 10*3/uL (0.1-1.0); NEUT # 5.7 10*3/uL (2.3-7.9); NEUT % 59.4 % (47.0-73.0); PLATELET COUNT AUTOMATED 251 10*3/uL (130-400); RED BLOOD COUNT 4.55 10*6/uL (4.50-5.90); RED CELL DISTRI WIDTH 12.6 % (0-14.5); WHITE BLOOD COUNT 9.6 10*3/uL (4.8-10.8)
[2021-09-13 11:08] LABS: ALBUMIN 3.8 gm/dl (3.1-4.5); ALKALINE PHOSPHATASE 114 U/L (45-117); BUN 6 mg/dl (7-24); CHLORIDE 86 mmol/L (98-107); CPK 116 U/L (39-308); CREATININE 0.66 mg/dL (0.70-1.30); LIPASE 40 U/L (73-393); POTASSIUM 3.8 mmol/L (3.5-5.1); SGOT/AST 16 IU/L (3-35); SGPT/ALT 28 U/L (12-78); TOTAL PROTEIN 7.3 gm/dL (6.4-8.2)
[2021-09-13 11:14] LABS: ETHYL ALCOHOL < 3.0 mg/dl (<3); TROPONIN I < 0.015 ng/ml (<0.045)
[2021-09-13 11:15] LABS: SODIUM 119 mmol/L (136-145)
[2021-09-13 11:30] VITALS: BP 110/39
[2021-09-13 15:30] VITALS: BP 141/83
[2021-09-13 16:10] VITALS: BP 127/82
[2021-09-13] MEDS ORDERED: RISPERDAL1 M1 PO (17:20)
[2021-09-13] MEDS ORDERED: LEVOTHYROXINE25 MCG PO (17:23)
[2021-09-13] MEDS ORDERED: PRAVASTATIN SOD20 MG PO (17:28)
[2021-09-13 20:00] VITALS: BP 100/60
[2021-09-13 21:44] LABS: BILIRUBIN Negative (Negative); BLOOD Negative (Negative); CLARITY Clear (Clear); COLOR Yellow (Yellow); GLUCOSE Negative (Negative); KETONE Negative (Negative); LEUKO ESTERASE Trace (Negative); NITRITE Negative (Negative); UROBILINOGEN 0.2 E.U./dl (0.0-1.0)
[2021-09-13 21:48] LABS: RBC 0-2 rbc/hpf (0-2)
[2021-09-13 21:53] LABS: URINE AMPHETAMINES < 1000 (1000ng/ml); URINE BARBITURATES < 200 (200ng/ml); URINE BENZODIAZEPINES < 200 (200ng/ml); URINE CANNABINOIDS (THC) < 50 (50ng/ml); URINE COCAINE < 300 (300ng/ml); URINE METHADONE < 300 (300ng/ml); URINE OPIATES < 300 (300ng/ml)
[2021-09-13 22:00] LABS: URINE PHENCYCLIDINE < 25 (25ng/ml)
[2021-09-14] VITALS: BP 110/70
[2021-09-14 06:46] LABS: BASO % 0.5 % (0.0-1.0); EOS # 0.7 10*3/uL (0.0-0.4); EOS % 8.7 % (1.0-4.0); HEMATOCRIT 40.8 % (42.0-52.0); LYMPH # 3.2 10*3/uL (1.3-4.4); LYMPH % 40.8 % (27.0-41.0); MEAN CELL VOLUME 87.9 fl (80.0-94.0); MEAN CORPUSCULAR HGB 30.8 pg (27.0-31.0); MEAN PLATELET VOLUME 8.4 fl (9.6-12.3); MONO # 0.8 10*3/uL (0.1-1.0); MONO % 9.9 % (3.0-9.0); NEUT # 3.1 10*3/uL (2.3-7.9); NEUT % 39.8 % (47.0-73.0); PLATELET COUNT AUTOMATED 272 10*3/uL (130-400); RED BLOOD COUNT 4.64 10*6/uL (4.50-5.90); WHITE BLOOD COUNT 7.8 10*3/uL (4.8-10.8)
[2021-09-14 06:52] LABS: BUN 6 mg/dl (7-24); CHLORIDE 96 mmol/L (98-107); CREATININE 0.68 mg/dL (0.70-1.30); POTASSIUM 3.9 mmol/L (3.5-5.1); SODIUM 130 mmol/L (136-145)
[2021-09-14 08:00] VITALS: BP 122/58
[2021-09-14 11:51] VITALS: BP 113/73
[2021-09-14 16:00] VITALS: BP 105/75
[2021-09-14 20:00] VITALS: BP 100/52
[2021-09-15] VITALS: BP 87/47; BP 98/50
[2021-09-15 07:10] LABS: BASO # 0.1 10*3/uL (0.0-0.1); BASO % 0.9 % (0.0-1.0); EOS # 0.9 10*3/uL (0.0-0.4); EOS % 11.4 % (1.0-4.0); HEMATOCRIT 37.1 % (42.0-52.0); LYMPH % 39.3 % (27.0-41.0); MEAN CORPUSCULAR HGB 31.4 pg (27.0-31.0); MEAN CORPUSCULAR HGB CONC 34.5 g/dl (33.0-37.0); MEAN PLATELET VOLUME 8.6 fl (9.6-12.3); MONO % 12.7 % (3.0-9.0); NEUT # 2.8 10*3/uL (2.3-7.9); NEUT % 35.6 % (47.0-73.0); PLATELET COUNT AUTOMATED 252 10*3/uL (130-400); RED BLOOD COUNT 4.07 10*6/uL (4.50-5.90); RED CELL DISTRI WIDTH 13.5 % (0-14.5); WHITE BLOOD COUNT 7.7 10*3/uL (4.8-10.8)
[2021-09-15 07:18] LABS: MEAN CELL VOLUME 91.2 fl (80.0-94.0)
[2021-09-15 07:29] LABS: BUN 9 mg/dl (7-24); CHLORIDE 102 mmol/L (98-107); CREATININE 0.66 mg/dL (0.70-1.30)
[2021-09-15 07:35] LABS: SODIUM 132 mmol/L (136-145)
[2021-09-15 07:37] LABS: POTASSIUM 4.9 mmol/L (3.5-5.1)
[2021-09-15 08:00] VITALS: BP 110/52
[2021-09-15] MEDS ORDERED: TRAZODONE50 MG PO (08:28)
[2021-09-15] MEDS ORDERED: MAGNESIUM OXID400 MG PO (08:28)
[2021-09-15] MEDS ORDERED: ATIVAN0.5 MG PO (08:30)
== END 2021-09-15 10:46 | disposition home or self-care (01) | DRG 426 ==
LOC: ED 10:05 → EDHOLD 11:20 → 4E 11:20
PROVIDERS: Emergency Medicine; ADMIT Internal Medicine; ATTEND Internal Medicine
DX: E87.1 Hypo-osmolality and hyponatremia (principal); F10.239 Alcohol dependence with withdrawal, unspecified; Y90.9 Presence of alcohol in blood, level not specified; F41.1 Generalized anxiety disorder; E11.9 Type 2 diabetes mellitus without complications; I10 Essential (primary) hypertension; F17.210 Nicotine dependence, cigarettes, uncomplicated; E83.42 Hypomagnesemia; F51.01 Primary insomnia; J44.9 Chronic obstructive pulmonary disease, unspecified; N40.0 Benign prostatic hyperplasia without lower urinary tract symptoms; R41.0 Disorientation, unspecified; Z91.041 Radiographic dye allergy status; Z91.040 Latex allergy status; Z79.51 Long term (current) use of inhaled steroids; Z88.8 Allergy status to other drugs, medicaments and biological substances; Z79.899 Other long term (current) drug therapy; Z82.0 Family history of epilepsy and other diseases of the nervous system; Z83.3 Family history of diabetes mellitus

== ENCOUNTER 2021-10-11 09:24 | Inpatient (IN) | payer OTHER ==
[~2021-10-11] VITALS: Ht 170.1 cm; Wt 77.1 kg
[~2021-10-11 09:24] MED LIST changes: +LEVOTHYROXINE25 MCG PO; +MAGNESIUM OXID400 MG PO; +RISPERDAL1 M1 PO
[2021-10-11 09:32] VITALS: BP 142/83
[2021-10-11 09:51] LABS: BASO % 0.2 % (0.0-1.0); EOS # 0.8 10*3/uL (0.0-0.4); EOS % 8.1 % (1.0-4.0); HEMATOCRIT 36.5 % (42.0-52.0); LYMPH # 2.7 10*3/uL (1.3-4.4); MEAN CELL VOLUME 89.7 fl (80.0-94.0); MEAN CORPUSCULAR HGB 31.2 pg (27.0-31.0); MEAN CORPUSCULAR HGB CONC 34.8 g/dl (33.0-37.0); MEAN PLATELET VOLUME 8.1 fl (9.6-12.3); MONO # 0.6 10*3/uL (0.1-1.0); MONO % 6.1 % (3.0-9.0); NEUT # 5.4 10*3/uL (2.3-7.9); NEUT % 57.3 % (47.0-73.0); PLATELET COUNT AUTOMATED 257 10*3/uL (130-400); RED BLOOD COUNT 4.07 10*6/uL (4.50-5.90); WHITE BLOOD COUNT 9.5 10*3/uL (4.8-10.8)
[2021-10-11 10:02] LABS: ACT PARTIAL THROMBO TIME 29.6 SECONDS (20.0-32.1)
[2021-10-11 10:32] LABS: ALBUMIN 3.7 gm/dl (3.1-4.5); ALKALINE PHOSPHATASE 81 U/L (45-117); BUN 5 mg/dl (7-24); CHLORIDE 88 mmol/L (98-107); CPK 86 U/L (39-308); CREATININE 0.63 mg/dL (0.70-1.30); POTASSIUM 4.3 mmol/L (3.5-5.1); SGOT/AST 15 IU/L (3-35); SGPT/ALT 35 U/L (12-78); SODIUM 121 mmol/L (136-145)
[2021-10-11 10:39] LABS: ACETAMINOPHEN (TYLENOL) < 5.0 ug/ml (10-30); ETHYL ALCOHOL < 3.0 mg/dl (<3)
[2021-10-11 11:25] LABS: BILIRUBIN Negative (Negative); BLOOD Negative (Negative); CLARITY Clear (Clear); COLOR Dark Yellow (Yellow); GLUCOSE 3+ (Negative); KETONE Trace (Negative); LEUKO ESTERASE Negative (Negative); NITRITE Negative (Negative); SPECIFIC GRAVITY 1.025 (1.001-1.030); UROBILINOGEN 0.2 E.U./dl (0.0-1.0)
[2021-10-11 11:35] LABS: RBC 0-2 rbc/hpf (0-2); WBC 0-2 wbc/hpf (0-5)
[2021-10-11 11:36] LABS: BACTERIA 1+; EPITHELIAL CELLS 0-2
[2021-10-11 11:45] VITALS: BP 123/68
[2021-10-11 11:45] LABS: URINE AMPHETAMINES < 1000 (1000ng/ml); URINE BARBITURATES < 200 (200ng/ml); URINE BENZODIAZEPINES < 200 (200ng/ml); URINE CANNABINOIDS (THC) < 50 (50ng/ml); URINE COCAINE < 300 (300ng/ml); URINE METHADONE < 300 (300ng/ml); URINE OPIATES < 300 (300ng/ml)
[2021-10-11 11:48] LABS: URINE PHENCYCLIDINE < 25 (25ng/ml)
[2021-10-11 11:52] VITALS: BP 123/68
[2021-10-11 12:00] VITALS: BP 123/68
[2021-10-11 16:00] VITALS: BP 116/71
[2021-10-11 20:00] VITALS: BP 125/73
[2021-10-12] VITALS: BP 116/71
[2021-10-12 06:13] LABS: BUN 5 mg/dl (7-24); CHLORIDE 96 mmol/L (98-107); CREATININE 0.58 mg/dL (0.70-1.30); POTASSIUM 4.4 mmol/L (3.5-5.1); SODIUM 128 mmol/L (136-145)
[2021-10-12 12:00] VITALS: BP 101/67
[2021-10-12 16:00] VITALS: BP 124/68
[2021-10-12 20:00] VITALS: BP 94/65
[2021-10-13] VITALS: BP 134/73
[2021-10-13 06:47] LABS: BASO % 0.3 % (0.0-1.0); EOS # 0.1 10*3/uL (0.0-0.4); EOS % 0.7 % (1.0-4.0); HEMATOCRIT 37.4 % (42.0-52.0); LYMPH # 2.2 10*3/uL (1.3-4.4); LYMPH % 22.8 % (27.0-41.0); MEAN CORPUSCULAR HGB 32.1 pg (27.0-31.0); MEAN CORPUSCULAR HGB CONC 34.5 g/dl (33.0-37.0); MEAN PLATELET VOLUME 8.4 fl (9.6-12.3); MONO # 0.7 10*3/uL (0.1-1.0); MONO % 7.5 % (3.0-9.0); NEUT # 6.6 10*3/uL (2.3-7.9); NEUT % 67.9 % (47.0-73.0); PLATELET COUNT AUTOMATED 356 10*3/uL (130-400); RED BLOOD COUNT 4.02 10*6/uL (4.50-5.90); RED CELL DISTRI WIDTH 13.8 % (0-14.5); WHITE BLOOD COUNT 9.7 10*3/uL (4.8-10.8)
[2021-10-13 06:49] LABS: BUN 9 mg/dl (7-24); CHLORIDE 95 mmol/L (98-107); POTASSIUM 4.2 mmol/L (3.5-5.1); SODIUM 128 mmol/L (136-145)
[2021-10-13 06:50] LABS: CREATININE 0.56 mg/dL (0.70-1.30)
[2021-10-13 08:00] VITALS: BP 125/68
[2021-10-13 12:00] VITALS: BP 126/80
[2021-10-13 16:00] VITALS: BP 123/76
[2021-10-13 20:00] VITALS: BP 133/77
[2021-10-14] VITALS: BP 107/69
[2021-10-14 08:00] VITALS: BP 133/97
[2021-10-14] MEDS ORDERED: PREDNISONE5 MG PO (08:50)
[2021-10-14] MEDS ORDERED: CEFUROXIME AXE250 MG PO (08:50)
[2021-10-14 09:37] LABS: BUN 9 mg/dl (7-24); CHLORIDE 94 mmol/L (98-107); CREATININE 0.62 mg/dL (0.70-1.30); POTASSIUM 4.8 mmol/L (3.5-5.1); SODIUM 126 mmol/L (136-145)
== END 2021-10-14 10:58 | disposition home or self-care (01) | DRG 140 ==
LOC: ED 09:24 → 4E 10:59 → EDHOLD 10:59 → 4E 11:13
PROVIDERS: Emergency Medicine; ADMIT Internal Medicine; ATTEND Internal Medicine
DX: J44.1 Chronic obstructive pulmonary disease with (acute) exacerbation (principal); E87.1 Hypo-osmolality and hyponatremia; F10.239 Alcohol dependence with withdrawal, unspecified; F17.210 Nicotine dependence, cigarettes, uncomplicated; J98.11 Atelectasis; E03.9 Hypothyroidism, unspecified; I10 Essential (primary) hypertension; F41.9 Anxiety disorder, unspecified; E11.65 Type 2 diabetes mellitus with hyperglycemia; F32.A Depression, unspecified; K21.9 Gastro-esophageal reflux disease without esophagitis; E78.5 Hyperlipidemia, unspecified; E83.41 Hypermagnesemia; E87.8 Other disorders of electrolyte and fluid balance, not elsewhere classified; E87.6 Hypokalemia; T38.0X5A Adverse effect of glucocorticoids and synthetic analogues, initial encounter; D72.829 Elevated white blood cell count, unspecified; G43.909 Migraine, unspecified, not intractable, without status migrainosus; F41.1 Generalized anxiety disorder; Z79.899 Other long term (current) drug therapy; Z86.73 Personal history of transient ischemic attack (TIA), and cerebral infarction without residual deficits; Z83.3 Family history of diabetes mellitus; Z82.3 Family history of stroke; Y92.89 Other specified places as the place of occurrence of the external cause

== ENCOUNTER 2022-03-15 11:42 | Inpatient (IN) | payer OTHER ==
[~2022-03-15] VITALS: Ht 170.2 cm; Wt 71.7 kg
[2022-03-15 11:54] VITALS: BP 140/94
[2022-03-15 12:07] LABS: BASO # 0.1 10*3/uL (0.0-0.1); BASO % 0.6 % (0.0-1.0); EOS # 0.2 10*3/uL (0.0-0.4); EOS % 1.9 % (1.0-4.0); HEMATOCRIT 39.3 % (42.0-52.0); LYMPH # 2.7 10*3/uL (1.3-4.4); LYMPH % 28.6 % (27.0-41.0); MEAN CELL VOLUME 86.8 fl (80.0-94.0); MEAN CORPUSCULAR HGB 30.5 pg (27.0-31.0); MEAN CORPUSCULAR HGB CONC 35.1 g/dl (33.0-37.0); MEAN PLATELET VOLUME 8.1 fl (9.6-12.3); MONO # 0.8 10*3/uL (0.1-1.0); MONO % 8.1 % (3.0-9.0); NEUT # 5.6 10*3/uL (2.3-7.9); NEUT % 60.2 % (47.0-73.0); PLATELET COUNT AUTOMATED 429 10*3/uL (130-400); RED BLOOD COUNT 4.53 10*6/uL (4.50-5.90); RED CELL DISTRI WIDTH 14.3 % (0-14.5); WHITE BLOOD COUNT 9.4 10*3/uL (4.8-10.8)
[2022-03-15 12:21] LABS: ALKALINE PHOSPHATASE 116 U/L (45-117); BUN 9 mg/dl (7-24); CHLORIDE 98 mmol/L (98-107); CREATININE 0.58 mg/dL (0.70-1.30); LIPASE 54 U/L (73-393); POTASSIUM 5.1 mmol/L (3.5-5.1); SGOT/AST 18 IU/L (3-35); SGPT/ALT 41 U/L (12-78); SODIUM 130 mmol/L (136-145); TOTAL PROTEIN 7.4 gm/dL (6.4-8.2)
[2022-03-15 16:55] VITALS: BP 144/91
[2022-03-15 20:00] VITALS: BP 113/75
[2022-03-16] VITALS: BP 140/83
[2022-03-16 08:00] VITALS: BP 106/70
[2022-03-16 12:00] VITALS: BP 107/73; BP 95/46
[2022-03-16 15:59] VITALS: BP 103/77
[2022-03-16 20:00] VITALS: BP 110/68
[2022-03-17] VITALS: BP 97/61
[2022-03-17 06:24] LABS: CHLORIDE 98 mmol/L (98-107); POTASSIUM 4.3 mmol/L (3.5-5.1); SODIUM 129 mmol/L (136-145)
[2022-03-17 06:33] LABS: BUN 14 mg/dl (7-24); CREATININE 0.63 mg/dL (0.70-1.30)
[2022-03-17 06:50] LABS: BASO % 0.2 % (0.0-1.0); EOS % 0.2 % (1.0-4.0); HEMATOCRIT 33.9 % (42.0-52.0); LYMPH # 1.9 10*3/uL (1.3-4.4); LYMPH % 15.3 % (27.0-41.0); MEAN CELL VOLUME 89.7 fl (80.0-94.0); MEAN CORPUSCULAR HGB 30.2 pg (27.0-31.0); MEAN CORPUSCULAR HGB CONC 33.6 g/dl (33.0-37.0); MEAN PLATELET VOLUME 8.7 fl (9.6-12.3); MONO # 1.3 10*3/uL (0.1-1.0); MONO % 10.3 % (3.0-9.0); NEUT # 9.1 10*3/uL (2.3-7.9); NEUT % 73.4 % (47.0-73.0); PLATELET COUNT AUTOMATED 451 10*3/uL (130-400); RED BLOOD COUNT 3.78 10*6/uL (4.50-5.90); RED CELL DISTRI WIDTH 14.8 % (0-14.5); WHITE BLOOD COUNT 12.4 10*3/uL (4.8-10.8)
[2022-03-17 08:00] VITALS: BP 105/80
[2022-03-17 12:00] VITALS: BP 100/67
[2022-03-17] MEDS ORDERED: DOXYCYCLINE MO100 MG PO (15:30)
[2022-03-17] MEDS ORDERED: ONDANSETRON HYDR4 M1 PO (15:30)
[2022-03-17] MEDS ORDERED: IBUPROFEN600 MG PO (15:30)
[2022-03-17] MEDS ORDERED: DICYCLOMINE HYD20 MG PO (15:30)
[2022-03-17 16:00] VITALS: BP 96/58
[2022-03-17 20:00] VITALS: BP 92/58
[2022-03-18] VITALS: BP 95/60
[2022-03-18 06:00] LABS: BUN 20 mg/dl (7-24); CHLORIDE 99 mmol/L (98-107); POTASSIUM 4.4 mmol/L (3.5-5.1); SODIUM 132 mmol/L (136-145)
[2022-03-18 06:21] LABS: BASO % 0.2 % (0.0-1.0); EOS # 0.1 10*3/uL (0.0-0.4); EOS % 1.2 % (1.0-4.0); HEMATOCRIT 34.9 % (42.0-52.0); LYMPH # 3.2 10*3/uL (1.3-4.4); LYMPH % 32.9 % (27.0-41.0); MEAN CELL VOLUME 92.3 fl (80.0-94.0); MEAN CORPUSCULAR HGB 31.2 pg (27.0-31.0); MEAN CORPUSCULAR HGB CONC 33.8 g/dl (33.0-37.0); MEAN PLATELET VOLUME 8.8 fl (9.6-12.3); MONO # 0.9 10*3/uL (0.1-1.0); MONO % 9.7 % (3.0-9.0); NEUT # 5.4 10*3/uL (2.3-7.9); NEUT % 55.5 % (47.0-73.0); PLATELET COUNT AUTOMATED 447 10*3/uL (130-400); RED BLOOD COUNT 3.78 10*6/uL (4.50-5.90); RED CELL DISTRI WIDTH 15.2 % (0-14.5); WHITE BLOOD COUNT 9.7 10*3/uL (4.8-10.8)
[2022-03-18 08:00] VITALS: BP 96/58
== END 2022-03-18 11:50 | disposition home or self-care (01) | DRG 775 ==
LOC: ED 11:42 → 4E 13:38 → EDHOLD 13:38 → 4E 15:14
PROVIDERS: Nurse Practitioner Family; Registered Nurse; ADMIT Student in an Organized Health Care Education/Training Program; ATTEND Student in an Organized Health Care Education/Training Program
DX: F10.230 Alcohol dependence with withdrawal, uncomplicated (principal); J44.1 Chronic obstructive pulmonary disease with (acute) exacerbation; E44.0 Moderate protein-calorie malnutrition; E87.1 Hypo-osmolality and hyponatremia; I10 Essential (primary) hypertension; F41.1 Generalized anxiety disorder; N40.0 Benign prostatic hyperplasia without lower urinary tract symptoms; F31.9 Bipolar disorder, unspecified; K21.9 Gastro-esophageal reflux disease without esophagitis; E78.5 Hyperlipidemia, unspecified; E03.9 Hypothyroidism, unspecified; E11.9 Type 2 diabetes mellitus without complications; F12.10 Cannabis abuse, uncomplicated; F17.210 Nicotine dependence, cigarettes, uncomplicated; Z91.041 Radiographic dye allergy status; Z91.040 Latex allergy status; Z88.8 Allergy status to other drugs, medicaments and biological substances; Z79.899 Other long term (current) drug therapy; Z79.4 Long term (current) use of insulin

== ENCOUNTER → 2022-07-21 | Outpatient (CLI) | payer OTHER ==
[~2022-07-21] MED LIST changes: +DICYCLOMINE HYD20 MG PO; +DOXYCYCLINE MO100 MG PO; +IBUPROFEN600 MG PO; +ONDANSETRON HYDR4 M1 PO
[2022-07-21 12:42] LABS: ALKALINE PHOSPHATASE 113 U/L (45-117); BUN 5 mg/dl (7-24); CHLORIDE 99 mmol/L (98-107); CREATININE 0.76 mg/dL (0.70-1.30); POTASSIUM 5.4 mmol/L (3.5-5.1); SGOT/AST 14 IU/L (3-35); SGPT/ALT 36 U/L (12-78); SODIUM 130 mmol/L (136-145); TOTAL PROTEIN 7.1 gm/dL (6.4-8.2)
[2022-07-21 12:55] LABS: BASO # 0.1 10*3/uL (0.0-0.1); EOS # 0.9 10*3/uL (0.0-0.4); EOS % 7.9 % (1.0-4.0); HEMATOCRIT 42.1 % (42.0-52.0); LYMPH # 2.6 10*3/uL (1.3-4.4); LYMPH % 22.5 % (27.0-41.0); MEAN CELL VOLUME 91.3 fl (80.0-94.0); MEAN PLATELET VOLUME 8.7 fl (9.6-12.3); MONO # 0.8 10*3/uL (0.1-1.0); MONO % 6.7 % (3.0-9.0); NEUT % 61.5 % (47.0-73.0); PLATELET COUNT AUTOMATED 414 10*3/uL (130-400); RED BLOOD COUNT 4.61 10*6/uL (4.50-5.90); RED CELL DISTRI WIDTH 13.5 % (0-14.5); WHITE BLOOD COUNT 11.5 10*3/uL (4.8-10.8)
== END | disposition home or self-care (01) ==
LOC: LAB 11:51
PROVIDERS: ATTEND Urology
DX: D40.0 Neoplasm of uncertain behavior of prostate (principal); R53.83 Other fatigue

== ENCOUNTER → 2023-10-17 | Outpatient (CLI) | payer MEDICAID ==
[~2023-10-17] MED LIST changes: +ADV 500/50 INH; +AZITHROMYCIN500 M2 PO; +GLIPIZIDE10 M2 PO; +LORAZEPAM0.5 M1 PO; +MEDROL DOSEPAK4 MG PO; +METFORMIN XR500 MG PO; +Magnesium Oxid400 MG PO; +NATURE'S BLEND100 M2 PO; +PRISTIQ100 MG PO; +SEMGLEE (Y100 UNIT/2 SQ; +SODIUM CHLORI1000 M5 PO
== END | disposition home or self-care (01) ==
LOC: RAD 13:12
PROVIDERS: ATTEND Orthopaedic Surgery
DX: S42.222D 2-part displaced fracture of surgical neck of left humerus, subsequent encounter for fracture with routine healing (principal); M19.012 Primary osteoarthritis, left shoulder; X58.XXXD Exposure to other specified factors, subsequent encounter

== ENCOUNTER → 2023-11-16 | Outpatient (CLI) | payer MEDICAID | END | disposition home or self-care (01) | LOC: ORTHO 02:29 | PROVIDERS: ATTEND Orthopaedic Surgery | DX: S42.222D 2-part displaced fracture of surgical neck of left humerus, subsequent encounter for fracture with routine healing (principal); M19.012 Primary osteoarthritis, left shoulder; X58.XXXD Exposure to other specified factors, subsequent encounter ==

== ENCOUNTER 2024-01-03 19:16 | Inpatient (IN) | payer MEDICAID ==
[~2024-01-03] VITALS: Ht 170.1 cm; Wt 65.5 kg
[2024-01-03 19:19] VITALS: BP 150/91
[2024-01-03 19:42] LABS: BASO # 0.1 10*3/uL (0.0-0.1); BASO % 1.1 % (0.0-1.0); EOS # 0.4 10*3/uL (0.0-0.4); EOS % 5.3 % (1.0-4.0); HEMATOCRIT 34.8 % (42.0-52.0); LYMPH # 2.2 10*3/uL (1.3-4.4); LYMPH % 27.3 % (27.0-41.0); MEAN CELL VOLUME 88.3 fl (80.0-94.0); MEAN CORPUSCULAR HGB 30.7 pg (27.0-31.0); MEAN CORPUSCULAR HGB CONC 34.8 g/dl (33.0-37.0); MEAN PLATELET VOLUME 7.7 fl (9.6-12.3); MONO # 0.9 10*3/uL (0.1-1.0); MONO % 10.6 % (3.0-9.0); NEUT # 4.5 10*3/uL (2.3-7.9); NEUT % 55.3 % (47.0-73.0); PLATELET COUNT AUTOMATED 456 10*3/uL (130-400); RED BLOOD COUNT 3.94 10*6/uL (4.50-5.90); RED CELL DISTRI WIDTH 13.3 % (0-14.5); WHITE BLOOD COUNT 8.1 10*3/uL (4.8-10.8)
[2024-01-03 20:01] LABS: CHLORIDE 89 mmol/L (98-107); LIPASE 113 U/L (12-53); POTASSIUM 4.9 mmol/L (3.4-5.1)
[2024-01-03 20:03] LABS: BUN < 5 mg/dl (9-23)
[2024-01-03 20:11] LABS: BILIRUBIN Negative (Negative); BLOOD Negative (Negative); CLARITY Clear (Clear); COLOR Yellow (Yellow); GLUCOSE 3+ (Negative); KETONE Negative (Negative); LEUKO ESTERASE Negative (Negative); NITRITE Negative (Negative); SPECIFIC GRAVITY 1.015 (1.001-1.030); UROBILINOGEN 0.2 E.U./dl (0.0-1.0)
[2024-01-03 20:33] LABS: RBC 0-2 rbc/hpf (0-2)
[2024-01-03] MEDS ORDERED: AZITHROMYCIN 250 ML IV ONE (22:20)
[2024-01-03] MEDS ORDERED: methylPREDNISolone sod succ 125 MG VIAL IV ONE (22:20)
[2024-01-03] MEDS ORDERED: Ceftriaxone Sodium 1 GM/10 ML SYR IV ONE (22:20)
[2024-01-03] MEDS ORDERED: IPRATROPIUM BROMIDE 0.5 MG/2.5 ML AMP NEB SCH (23:15)
[2024-01-03] MEDS ORDERED: SODIUM CHLORIDE IV ONE (23:15)
[2024-01-03 23:16] VITALS: BP 134/86
[2024-01-03] MEDS ORDERED: hydrOXYzine 50 MG CAP PO PRN (23:20)
[2024-01-04] VITALS (7 sets, daily range): BP systolic 108–137; BP diastolic 69–81
[2024-01-04] MEDS ORDERED: LORazepam 1 MG TAB PO PRN (02:30)
[2024-01-04 02:58] LABS: BUN 5 mg/dl (9-23); CHLORIDE 92 mmol/L (98-107); POTASSIUM 4.4 mmol/L (3.4-5.1)
[2024-01-04 04:59] LABS: BUN 6 mg/dl (9-23); CHLORIDE 92 mmol/L (98-107); POTASSIUM 4.8 mmol/L (3.4-5.1)
[2024-01-04] MEDS ORDERED: BUDESONIDE 0.5 MG AMP NEB SCH (06:55)
[2024-01-04] MEDS ORDERED: Levothyroxine Sodium 25 MCG TAB PO SCH (07:00)
[2024-01-04] MEDS ORDERED: OMEPRAZOLE 20 MG CAP PO SCH (07:00)
[2024-01-04] MEDS ORDERED: methylPREDNISolone sod succ 40 MG VIAL IV SCH (08:00)
[2024-01-04] MEDS ORDERED: DEXTROSE 10 % IN WATER 250 ML IV PRN (08:05)
[2024-01-04] MEDS ORDERED: Duloxetine Hydrochloride 60 MG CAP PO SCH (10:00)
[2024-01-04] MEDS ORDERED: Albuterol Sulfate 2.5 MG/3 ML VIAL NEB SCH (10:00)
[2024-01-04] MEDS ORDERED: Chlordiazepoxide Hydrochlori 25 MG CAP PO SCH (10:00)
[2024-01-04] MEDS ORDERED: Thiamine 200 MG/2 ML VIAL IM SCH (10:00)
[2024-01-04] MEDS ORDERED: FINASTERIDE 5 MG TAB PO SCH (10:00)
[2024-01-04] MEDS ORDERED: LORazepam 0.5 MG TAB PO SCH (10:00)
[2024-01-04] MEDS ORDERED: Desvenlafaxine Succinate 50 MG TER PO SCH (10:00)
[2024-01-04] MEDS ORDERED: Propranolol Hydrochloride 80 MG CAP (LA) PO SCH (10:00)
[2024-01-04] MEDS ORDERED: Tamsulosin Hydrochloride 0.4 MG CAP PO SCH (10:00)
[2024-01-04] MEDS ORDERED: MAGNESIUM OXIDE 400 MG TAB PO SCH (10:00)
[2024-01-04] MEDS ORDERED: Metformin 500 MG EXTENDED-RELEASE TABLET PO SCH (10:00)
[2024-01-04] MEDS ORDERED: SODIUM CHLORIDE 1 GM TAB PO SCH (10:00)
[2024-01-04] MEDS ORDERED: Thiamine 100 MG TAB PO SCH (10:00)
[2024-01-04] MEDS ORDERED: INSULIN REGULAR, HUMAN 1 UNIT/0.01 ML SC SCH (11:30)
[2024-01-04 12:28] LABS: BUN 9 mg/dl (9-23); CHLORIDE 91 mmol/L (98-107); POTASSIUM 5.2 mmol/L (3.4-5.1)
[2024-01-04] MEDS ORDERED: SODIUM CHLORIDE 0.9% 1,000 ML IV SCH (12:45)
[2024-01-04] MEDS ORDERED: SODIUM CHLORIDE IV ONE (12:53)
[2024-01-04] MEDS ORDERED: SIMVASTATIN 20 MG TAB PO SCH (18:00)
[2024-01-04] MEDS ORDERED: Ceftriaxone Sodium 1 GM in SYRINGE INFUSION 10 ML IV SCH (22:00)
[2024-01-04] MEDS ORDERED: RISPERIDONE 1 MG TAB PO SCH (22:00)
[2024-01-04] MEDS ORDERED: Insulin Glargine, Recombinan 1 UNIT/0.01 ML SC SCH (22:00)
[2024-01-05] VITALS: BP 104/63
[2024-01-05 05:39] LABS: BUN 11 mg/dl (9-23); CHLORIDE 95 mmol/L (98-107); POTASSIUM 4.9 mmol/L (3.4-5.1)
[2024-01-05 08:00] VITALS: BP 95/65
[2024-01-05] MEDS ORDERED: SODIUM CHLORI1000 M5 MC (08:30)
[2024-01-05] MEDS ORDERED: methylPREDNISolone sod succ 40 MG VIAL IV SCH (10:00)
== END 2024-01-05 09:35 | disposition home or self-care (01) | DRG 140 ==
LOC: ED 19:16 → 5E 22:24 → EDHOLD 22:24 → 5E 01-04 10:47
PROVIDERS: Internal Medicine; ADMIT Internal Medicine; ATTEND Internal Medicine
DX: J44.1 Chronic obstructive pulmonary disease with (acute) exacerbation (principal); F10.231 Alcohol dependence with withdrawal delirium; E87.1 Hypo-osmolality and hyponatremia; F33.9 Major depressive disorder, recurrent, unspecified; I25.10 Atherosclerotic heart disease of native coronary artery without angina pectoris; E11.65 Type 2 diabetes mellitus with hyperglycemia; T38.0X5A Adverse effect of glucocorticoids and synthetic analogues, initial encounter; Y92.89 Other specified places as the place of occurrence of the external cause; Z88.8 Allergy status to other drugs, medicaments and biological substances; Z91.041 Radiographic dye allergy status; Z91.040 Latex allergy status; Z83.3 Family history of diabetes mellitus; Z81.8 Family history of other mental and behavioral disorders; Z81.1 Family history of alcohol abuse and dependence

== ENCOUNTER → 2024-01-09 | Outpatient (CLI) | payer MEDICAID ==
[~2024-01-09] MED LIST changes: +SODIUM CHLORI1000 M5 MC
== END | disposition home or self-care (01) ==
LOC: ORTHO 01:31
PROVIDERS: ATTEND Orthopaedic Surgery
DX: S42.222D 2-part displaced fracture of surgical neck of left humerus, subsequent encounter for fracture with routine healing (principal); M19.012 Primary osteoarthritis, left shoulder; X58.XXXD Exposure to other specified factors, subsequent encounter

== ENCOUNTER → 2024-01-24 | Outpatient (CLI) | payer MEDICAID | END | disposition home or self-care (01) | LOC: MRI 01:01 | PROVIDERS: ATTEND Orthopaedic Surgery | DX: S42.222D 2-part displaced fracture of surgical neck of left humerus, subsequent encounter for fracture with routine healing (principal); M25.812 Other specified joint disorders, left shoulder; S46.902A Unspecified injury of unspecified muscle, fascia and tendon at shoulder and upper arm level, left arm, initial encounter; M19.012 Primary osteoarthritis, left shoulder; M75.52 Bursitis of left shoulder; S46.912A Strain of unspecified muscle, fascia and tendon at shoulder and upper arm level, left arm, initial encounter; X58.XXXA Exposure to other specified factors, initial encounter; Y93.89 Activity, other specified; Y92.89 Other specified places as the place of occurrence of the external cause; Y99.8 Other external cause status; X58.XXXD Exposure to other specified factors, subsequent encounter ==

== ENCOUNTER → 2024-02-16 | Outpatient (CLI) | payer MEDICAID | END | disposition home or self-care (01) | LOC: CT 01:12 | PROVIDERS: ATTEND Internal Medicine Critical Care Medicine | DX: J43.9 Emphysema, unspecified (principal); I25.10 Atherosclerotic heart disease of native coronary artery without angina pectoris; J98.11 Atelectasis; M43.8X4 Other specified deforming dorsopathies, thoracic region; R91.1 Solitary pulmonary nodule; Z87.891 Personal history of nicotine dependence ==

== ENCOUNTER → 2024-07-05 | Outpatient (CLI) | payer MEDICAID | END | disposition home or self-care (01) | LOC: CT 06-08 10:00 | PROVIDERS: ATTEND Internal Medicine Critical Care Medicine | DX: R91.8 Other nonspecific abnormal finding of lung field (principal); J98.11 Atelectasis; J44.9 Chronic obstructive pulmonary disease, unspecified; Z87.891 Personal history of nicotine dependence ==

== ENCOUNTER → 2025-04-01 | Outpatient (CLI) | payer MEDICAID | END | disposition home or self-care (01) | LOC: US 12-11 10:30 | PROVIDERS: ATTEND Urology | DX: N28.1 Cyst of kidney, acquired (principal); N28.89 Other specified disorders of kidney and ureter ==

== ENCOUNTER → 2025-04-11 | Outpatient (CLI) | payer MEDICAID | END | disposition home or self-care (01) | LOC: CT 03-07 13:00 | PROVIDERS: ATTEND Internal Medicine Critical Care Medicine | DX: S22.32XA Fracture of one rib, left side, initial encounter for closed fracture (principal); R91.1 Solitary pulmonary nodule; J44.9 Chronic obstructive pulmonary disease, unspecified; R06.83 Snoring; J98.11 Atelectasis; I25.10 Atherosclerotic heart disease of native coronary artery without angina pectoris; N28.1 Cyst of kidney, acquired; Z87.891 Personal history of nicotine dependence; X58.XXXA Exposure to other specified factors, initial encounter; Y93.89 Activity, other specified; Y92.89 Other specified places as the place of occurrence of the external cause; Y99.8 Other external cause status ==